=== PATIENT | female | born 1990 | race Caucasian/White ===

== ENCOUNTER 2020-10-21 19:20 | Emergency (ER) | payer OTHER, SELFPAY ==
[2020-10-21 19:28] VITALS: BP 109/61; PULSE 83; RESP 18; TEMP 37.3; O2SAT 100
--- NOTE | 2020-10-21 19:46 | ED.SKABFB ---
HPI - Skin/Abscess/Foreign Bdy General Chief complaint: Skin/Abscess/Foreign Body Stated complaint: swollen lt nipple Time Seen by Provider: 10/21/20 19:35 Source: patient, RN notes reviewed and old records reviewed Mode of arrival: ambulatory Limitations: no limitations History of Present Illness HPI narrative: 30 year old female who [facility] with 3 days of pain, swelling, and redness of left nipple. 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 Patient reports that she did have a piercing in her nipple but she removed it when she started getting the pain and swelling of her left nipple. Patient states that she has applied Epsom salt soaks to her left nipple but it has continued to be red and tender. Patient denies any known fevers,chills, or sweats or any other ill symptoms. MD complaint: other (swollen left nipple and tenderness) Onset (ago): day(s) (3) Severity: moderate Severity scale (1-10): 6 Quality: aching Pain Consistency: constant Exacerbating factors: palpation Associated symptoms: denies other symptoms Treatments prior to arrival: other (epsom salt soaks) Related Data Home Medications Medication Instructions Recorded Confirmed bupropion HCl 150 mg PO DAILY 10/21/20 10/21/20 norgestimate-ethinyl estradiol 1 tablet PO DAILY 10/21/20 10/21/20 [Estarylla] Allergies Allergy/AdvReac Type Severity Reaction Status Date / Time No Known Allergies Allergy Unverified 10/21/20 19:50 Review of Systems Review of Systems: Narrative: CONSTITUTIONAL: Denies fever, chills, or sweats. EYES: Denies visual changes, redness, or discharge. ENT: Denies rhinorrhea, congestion, sore throat, or otalgia. CARDIOVASCULAR: Denies chest pain, palpitations, or edema. RESPIRATORY: Denies cough or dyspnea. GASTROINTESTINAL: Denies abdominal pain, nausea, vomiting, or diarrhea. GENITOURINARY: Denies dysuria or hematuria. SKIN: Denies rash or itching.redness with swelling and tenderness to eft nipple MUSCULOSKELETAL: Denies back pain, joint pain, or myalgia. NEUROLOGIC: Denies headache, numbness, or weakness. PSYCHIATRIC: Denies anxiety or depression. All systems reviewed & are unremarkable except as noted in HPI and below PMFSH Past Medical History Medical History (Updated 10/22/20 @ 00:00 by Leesa Jesus) Anxiety Kidney infection pyelonephritis Surgical History Surgical History (Updated 10/21/20 @ 20:15 by Ruchi Suarez NP) No pertinent past surgical history Family History Family History (Updated 10/21/20 @ 20:07 by Ruchi Suarez NP) Father Diabetes mellitus Grandparent Cancer Social History Social History (Updated 10/21/20 @ 20:08 by Ruchi Suarez NP) Smoking status: Former smoker Additional smoking assessment comments: quit 2 months ago Alcohol intake: current Substance use: never Living arrangements: with family Gender identity (if verbalized by the patient): Female Comments At time of signature, agree with nursing past medical, surgical, social and family history. There is no relevant family history pertinent to the presenting complaint Exam Narrative: Exam Narrative: GENERAL: Well-appearing, well-nourished, and in no acute distress. HEAD: Normocephalic, atraumatic. EYES: PERRLA and EOMI. ENT: Nares clear, no rhinorrhea or epistaxis. Mucous membranes moist. NECK: Supple.no lymphadenopathy CHEST: Clear to auscultation. No respiratory distress HEART: Regular rate and rhythm. No murmur heard. Normal peripheral pulses. ABDOMEN: Soft, nontender, nondistended, normal active bowel sounds. EXTREMITIES: Normal range of motion. No edema. SKIN: Warm, dry, redness with pain and swelling of left nipple for the past 3 days, No drainage from nipple or any surrounding induration, reports constant achy
== END 2020-10-21 20:00 | disposition home or self-care (01) ==
PROVIDERS: Emergency Provider Registered Nurse
DX: N64.89 Other specified disorders of breast (principal); L30.9 Dermatitis, unspecified; Z87.891 Personal history of nicotine dependence
CPT/HCPCS: 99213; G0463

== ENCOUNTER 2020-12-01 13:48 | Emergency (ER) | payer OTHER, SELFPAY ==
[2020-12-01 13:55] VITALS: BP 116/92; PULSE 105; RESP 16; TEMP 37.2; O2SAT 100
--- NOTE | 2020-12-01 14:26 | ED.URI ---
HPI - URI/Sore Throat General Chief Complaint: Upper Respiratory Infection Stated Complaint: Coughing, Sore Throat, Ear pain, Fatigue Time Seen by Provider: 12/01/20 14:27 Source: patient Mode of arrival: ambulatory Limitations: no limitations History of Present Illness HPI Narrative: Alee Keyes is a 30 yo female with no PMH, P 1 G 0 A 0 , who comes to [facility] with complaints of congestion and cough. She states that she is 2 months . She states that the congestion and coughing is made her ribs sore and she is got pain along her esophagus. When asked if she is having morning sickness or any kind of gastric reflux she stated that she did not really know what that was. She has not been vomiting Related Data Allergies Allergy/AdvReac Type Severity Reaction Status Date / Time No Known Allergies Allergy Unverified 10/21/20 19:50 Review of Systems Review of Systems: Narrative: CONSTITUTIONAL: Denies fever, chills, sweats. EYES: Denies visual changes, redness, discharge. ENT: Has rhinorrhea, has congestion, mild sore throat, left otalgia. CARDIOVASCULAR: Denies chest pain, palpitations, edema. RESPIRATORY: Denies dyspnea, wheezing, has dry cough GASTROINTESTINAL: Denies abdominal pain, nausea, vomiting, diarrhea. GENITOURINARY: Denies dysuria, hematuria, abnormal discharge SKIN: Denies rash or itching. NEUROLOGIC: Denies numbness, or focal weakness. PSYCHIATRIC: Denies anxiety or depression. [facility] Past Medical History Medical History Anxiety Kidney infection pyelonephritis Surgical History Surgical History No pertinent past surgical history Family History Family History Father Diabetes mellitus Grandparent Cancer Social History Social History (Updated 12/01/20 @ 14:37 by Alexa Caro CNP) Smoking status: Former smoker Additional smoking assessment comments: quit 2 months ago Alcohol intake: current Alcohol use details: Stopped alcohol use with Substance use: never Gender identity (if verbalized by the patient): Female Comments At time of signature, I agree with nursing past medical, surgical, social and family history. There is no relevant family history pertinent to the presenting complaint. Blood pressure elevated today; follow-up with primary care physician this week Exam Narrative: Exam Narrative: GENERAL: This is a well-nourished, well-developed patient, in mild distress. HEAD: normocephalic, atraumatic. EYES: Sclera clear/white. Vision is grossly intact. EARS: External ears normal, auditory canals clear and without drainage, TMs -fluid behind left TM. Hearing grossly intact. NOSE: External nose normal without nasal discharge, nares with redness, has rhinorrhea. THROAT: Mucous membranes moist, posterior pharynx erythema NECK: Neck supple, non-tender CARDIOVASCULAR: Tachycardic rate and rhythm without murmurs, gallops, or rubs. RESPIRATORY: Clear to auscultation. Breath sounds equal bilaterally. No wheezes, rales, or rhonchi. GASTROINTESTINAL: Abdomen soft, non-tender, SKIN: warm, intact with no suspicious lesions or rash, good texture and turgor. NEURO: awake, alert, and oriented to person, place and time. There were no obvious focal neurologic abnormalities. Steady gait EXTREMITIES: Normal range of motion. BACK: Nontender without deformity Course Course Emergency Course: Patient comes with cold symptoms and dry cough that she said started on Thursday. States that she coughs more at night and that her ribs are hurting and that she has mid-chest pain from coughing Rapid Covid- negative Started on Benadryl, Delsym, Zyrtec, and Pepcid she is to follow-up with her OB and primary care physician Vital Signs Vital signs: Vital Signs Temperature 99 F 12/01/20 13:55 Pulse Rate 105 H 12/01/20 13
== END 2020-12-01 15:11 | disposition home or self-care (01) ==
PROVIDERS: Emergency Provider Nurse Practitioner
DX: J06.9 Acute upper respiratory infection, unspecified (principal); Z20.822 Contact with and (suspected) exposure to COVID-19
CPT/HCPCS: 87426; 99213; C9803; G0463

== ENCOUNTER 2021-03-12 15:42 | Emergency (ER) | payer OTHER, SELFPAY ==
[2021-03-12 15:56] VITALS: BP 123/57; PULSE 94; RESP 16; TEMP 37.2; O2SAT 100
--- NOTE | 2021-03-12 16:07 | ED.FEMALEGU ---
HPI - Female Genitourinary General Chief complaint: Urogenital-Female Stated complaint: Chills/ Body Ache/Urinary Problem Time Seen by Provider: 03/12/21 16:04 Source: patient and RN notes reviewed Mode of arrival: ambulatory Limitations: no limitations History of Present Illness HPI Narrative: 30-year-old female 22 weeks presents concern for pyelonephritis urinary tract infection. Reports bilateral low back discomfort, frequency, dysuria. She reports nausea, chills, body aches. Denies vomiting or abdominal pain. Reports she was treated for urinary tract infection successfully 1 month ago MD elicited complaint: UTI Related Data Allergies Allergy/AdvReac Type Severity Reaction Status Date / Time Sulfa (Sulfonamide Allergy Nausea and Verified 03/12/21 16:05 Antibiotics) Vomiting Review of Systems Review of Systems: CONSTITUTIONAL: Denies malaise, chills, sweats, or fever. CARDIOVASCULAR: Denies chest pain, palpitations, or edema. RESPIRATORY: Denies cough or dyspnea. GASTROINTESTINAL: Denies abdominal pain, vomiting, diarrhea. Reports nausea GENITOURINARY: Reports dysuria, frequency. Denies hematuria. SKIN: Denies rash or itching. MUSCULOSKELETAL: Reports low back pain and myalgia. All systems reviewed & are unremarkable except as noted in HPI and below PMFSH Comments At time of signature, agree with nursing past medical, surgical, social and family history. There is no relevant family history pertinent to the presenting complaint Exam Narrative: GENERAL: Well-appearing, well-nourished, and in no acute distress. HEAD: Normocephalic. EYES: PERRLA, conjunctivae clear. NECK: Supple. No lymphadenopathy CHEST: Clear to auscultation. No respiratory distress. HEART: Regular rate and rhythm. ABDOMEN: No CVA tenderness SKIN: Warm, dry, no rash. NEURO: Alert and oriented x3. PSYCH: Normal mood and affect Course Course Emergency Course: Patient is aware of diagnosis, understands and agrees to treatment plan. Anticipatory guidance given. Patient agrees to follow-up as directed and is aware of reasons to seek care at the emergency department. Portions of this record may have been created with voice recognition software Vital Signs Vital signs: Vital Signs Temperature 99.0 F 03/12/21 15:56 Pulse Rate 94 03/12/21 15:56 Respiratory Rate 16 03/12/21 15:56 Blood Pressure 123/57 L 03/12/21 15:56 Pulse Oximetry 100 03/12/21 15:56 Temperature 99.0 F 03/12/21 15:56 Pulse Rate 94 03/12/21 15:56 Respiratory Rate 16 03/12/21 15:56 Blood Pressure 123/57 L 03/12/21 15:56 Pulse Oximetry 100 03/12/21 15:56 Reviewed. MDM - Female Genitourinary MDM Narrative Medical decision making narrative: Exam findings and UA show no acute concerns or changes; patient is non-toxic appearing and is in no distress. Patient is appropriate for outpatient treatment and follow-up. Critical Care Time Critical Care Time Critical Care Time: No Discharge Plan Discharge Clinical Impression: Urinary tract infection Qualifiers: Urinary tract infection type: site unspecified Hematuria presence: without hematuria Qualified Code(s): N39.0 - Urinary tract infection, site not specified Patient Disposition: Home, Self-Care Condition: Stable Instructions: Antibiotic Form, Urinary Tract Infection in (ED) Additional Instructions: We will send a urine culture to the lab; if the culture identifies an organism that the prescribed antibiotic will not treat, you will receive a phone call from an urgent care staff member and an appropriate antibiotic will be prescribed. -Your symptoms should begin to improve within a day of starting antibiotics. But you should finish all the antibiotic pills you get. Otherwise your infection might come back. -Also recommend: increase water intake. Tylenol/ibuprofen as needed for pain or fever -Follow-up with your primary care provider for urine recheck or seek ER visit
== END 2021-03-12 16:18 | disposition home or self-care (01) ==
PROVIDERS: Emergency Provider Nurse Practitioner
DX: N39.0 Urinary tract infection, site not specified (principal); F32.9 Major depressive disorder, single episode, unspecified
CPT/HCPCS: 81003; 87077; 87086; 87088; 87186; 99213; G0463

== ENCOUNTER 2021-03-16 14:04 | Emergency (ER) | payer OTHER, SELFPAY ==
[2021-03-16 14:16] VITALS: BP 85/51; PULSE 75; RESP 16; TEMP 36.6; O2SAT 100
[2021-03-16] MEDS: cefTRIAXone 500 MG VIAL IM (14:54)
--- NOTE | 2021-03-16 15:02 | ED.RECABL ---
HPI - Recheck/Abnormal Lab/Rx General Chief Complaint: Recheck/Abnormal Lab/Rx Stated Complaint: Urinary Problem Time Seen by Provider: 03/16/21 15:10 Source: patient Mode of arrival: ambulatory Limitations: no limitations History of Present Illness HPI narrative: Alee is a 31-year-old female patient who is 20 weeks who ambulated into the [facility]. Patient was seen here on 1019 for urinary complaints; was put on Keflex during that visit. Patient Urine was sent for culture; culture he returned showing a resistance to Keflex. Patient is allergic to sulfa. Dr. Cruz was notified of result verified Rocephin 500 mg IM was the treatment of choice. Related Data Home Medications Medication Instructions Recorded Confirmed buspirone 5 mg PO BID 03/12/21 03/16/21 metoclopramide HCl 10 mg PO QID 03/12/21 03/16/21 Allergies Allergy/AdvReac Type Severity Reaction Status Date / Time Sulfa (Sulfonamide Allergy Nausea and Verified 03/16/21 14:40 Antibiotics) Vomiting Review of Systems Review of Systems: CONSTITUTIONAL: Denies body aches, fever, chills, or sweats. EYES: Denies visual changes, redness, or discharge. ENT: Denies rhinorrhea, congestion, sore throat, or otalgia. CARDIOVASCULAR: Denies chest pain, palpitations, or edema. RESPIRATORY: Denies cough or dyspnea. GASTROINTESTINAL: Denies abdominal pain, nausea, vomiting, or diarrhea. GENITOURINARY: + dysuria denies hematuria. SKIN: Denies rash, itching, or wounds. MUSCULOSKELETAL: Denies back pain, joint pain, or myalgia. NEUROLOGIC: Denies headache, numbness, tingling, or weakness. PSYCH: Denies depression or anxiety. All systems reviewed & are unremarkable except as noted in HPI and below PMFSH Comments At time of signature, I have reviewed and agree with nursing past medical, surgical, social and family history unless otherwise noted. Please see nursing chart for further information. There is no relevant family history pertinent to the presenting complaint Exam Narrative: GENERAL: Well-appearing, well-nourished, and in no acute distress. HEAD: Normocephalic, atraumatic. EYES: EOMI. No redness or drainage. Conjunctivae normal. ENT: Mucous membranes pink and moist. Nares clear. No rhinorrhea. TMs normal bilaterally. Throat normal. Uvula midline. NECK: Normal AROM. Supple. No lymphadenopathy. CHEST: No respiratory distress. Clear to auscultation. HEART: Regular rate and rhythm. No murmur appreciated. Normal peripheral pulses. ABDOMEN: Soft, nontender, nondistended, normal active bowel sounds. MUSCULOSKELETAL: No bony tenderness; negative CVA tenderness bilaterally EXTREMITIES: Normal range of motion. No edema. SKIN: Warm, dry, no rash. Capillary refill normal. Normal skin turgor. NEURO: No focal deficits. Alert and oriented x3. Gait steady. PSYCH: Normal affect. No signs of depression or anxiety. Course Vital Signs Vital signs: Vital Signs Temperature 36.6 C 03/16/21 14:16 Pulse Rate 75 03/16/21 14:16 Respiratory Rate 16 03/16/21 14:16 Blood Pressure 85/51 L 03/16/21 14:16 Pulse Oximetry 100 03/16/21 14:16 Temperature 36.6 C 03/16/21 14:16 Pulse Rate 75 03/16/21 14:16 Respiratory Rate 16 03/16/21 14:16 Blood Pressure 85/51 L 03/16/21 14:16 Pulse Oximetry 100 03/16/21 14:16 Reviewed MDM - Recheck/Abnormal Lab/Rx MDM Narrative Medical decision making narrative: Patient was sent here for evaluation of urinary tract infection her culture from 1018 showed resistance to Keflex. Spoke with Dr. Ibarra and she stated to order Rocephin [address] Cruz sent the patient back to [facility] with a Rocephin IM as Anthony's office is closed until Thursday. Patient requesting Diflucan 1 tablet. Differential Diagnosis Differential diagnosis: Likely other (medication for UTI) Medical Records Attestation: I reviewed the patient's medical records. Critical Care Time Critical Care Time Critical Care
== END 2021-03-16 15:22 | disposition home or self-care (01) ==
PROVIDERS: Emergency Provider Nurse Practitioner Family
DX: O23.42 Unspecified infection of urinary tract in pregnancy, second trimester (principal); N39.0 Urinary tract infection, site not specified; Z3A.20 20 weeks gestation of pregnancy; O99.342 Other mental disorders complicating pregnancy, second trimester; F32.A Depression, unspecified
CPT/HCPCS: 96372; 99213; G0463; J0696

== ENCOUNTER 2021-07-24 16:15 | Inpatient (IN) | payer OTHER, SELFPAY ==
[2021-07-24] VITALS (9 sets, daily range): BP systolic 105–117; BP diastolic 64–90; PULSE 79–96; RESP 16; TEMP 36.8–37.3; BMI 28.6
--- NOTE | 2021-07-24 16:46 | LDADM ---
This patient, Alee Choi, was admitted to Labor/Delivery/Recovery 108 on 07/24/21 at 16:15. Plans for labor, pain management and were discussed with patient. Patient/family oriented to hospital policies and general routines including ID bracelet, bed and alarms, visiting hours, pain management, procedures, bathroom and other care routines, personal items, smoking policy, room service/diet and guest tray routines, security routines, and visiting hours. Patient/Family are encouraged to report perceived risks to care and to ask questions if they do not understand what they are told or what they should do. See OBIX for further documentation.
[2021-07-24 17:06] LABS: Basophils Percent Auto 0.2 % (0.2-1.2); Eosinophils Percent Auto 0.2 % (0-4.4); Hematocrit 36.1 % (37.0-47.0); Hemoglobin 12.3 g/dL (12.0-15.0); Immature Granulocyte Absolute 0.06 K/mm3 (0.00-0.031); Immature Granulocyte Percent A 0.5 % (0-0.5); Lymphocytes Absolute Auto 1.74 K/mm3 (0.9-3.2); Lymphocytes Percent Auto 13.3 % (18.3-44.2); Mean Corpuscular HGB Conc 34.1 g/dl (32-36); Mean Corpuscular Hemoglobin 30.2 pg (26-34); Mean Corpuscular Volume 88.7 fl (80-100); Mean Platelet Volume 12.4 fl (7.4-10.4); Monocytes Absolute Auto 1.4 K/mm3 (0.1-0.6); Monocytes Percent Auto 10.7 % (2.6-8.5); Neutrophils Absolute Auto 9.8 K/mm3 (1.3-6.7); Neutrophils Percent Auto 75.1 % (45.5-73.1); Platelet Count Result 162 k/mm3 (150-375); Red Blood Count 4.07 M/mm3 (4.2-5.4); Red Cell Distribution Width 15.9 % (11.5-14.5); White Blood Count 13.1 K/mm3 (4.5-10.0)
--- NOTE | 2021-07-24 17:10 | P.PNAN_ITS ---
Anes - Eval Pre Procedure Procedure: labor epidural Date/Time: 07/24/21 17:10 Surgeon: paige Pre Op Diagnosis: IOL Patient Data Age: 31 Gender: F Height: 1.57 m Weight: 71 kg Last Vital Signs Pulse 96 07/24/21 17:01 BP 114/76 07/24/21 17:01 Allergies Allergy/AdvReac Type Severity Reaction Status Date / Time Sulfa (Sulfonamide AdvReac Nausea and Verified 07/02/21 12:46 Antibiotics) Vomiting Home Medications Medication Instructions Recorded Confirmed Type buspirone 5 mg PO BID 07/02/21 07/24/21 History cholecalciferol (vitamin D3) 25 mcg PO DAILY 07/02/21 07/24/21 History [Vitamin D3] prenat.vits,evelin,dqq-tole-xwojv 1 tablet PO DAILY 07/02/21 07/24/21 History [ #2] valacyclovir [Valtrex] 500 mg PO Q12H 07/02/21 07/24/21 History Patient hx anesthesia problems: none Family hx anesthesia problems: none Results Review: All pre-operative results and documents have been reviewed as part of the pre-operative evaluation. [facility] Family History Family History (Updated 07/02/21 @ 12:50 by Frank Moreland RN) Father Diabetes mellitus Chronic obstructive pulmonary disease Mother Chronic obstructive pulmonary disease Social History Social History Smoking status: Never smoker Substance use: never Spiritual care concerns: No Exam Day of Procedure 07/24/21 17:10
[2021-07-24] MEDS: DINOPROSTONE 10 MG VAG INSERT VAGINAL (17:16)
[2021-07-24] MEDS: valACYclovir HCL 500 MG TABLET PO (23:27)
[2021-07-24] MEDS: busPIRone HCL 5 MG TABLET PO (23:27)
[2021-07-25] VITALS (223 sets, daily range): BP systolic 34–123; BP diastolic 19–93; PULSE 67–165; RESP 16; TEMP 36.3–38.2; O2SAT 79–100
[2021-07-25] MEDS: OXYTOCIN 30 UNITS/NS 500 ML 30 UNITS/500 ML BAG 6 UNITS IV CONT (06:53)
[2021-07-25] MEDS: LACTATED RINGERS 1,000 ML 125 ML IV CONT ×3 (06:54→23:47)
--- NOTE | 2021-07-25 07:58 | WPDOBADMIT ---
Obstetrics - Admit Note Admission Note: record reviewed. No pertinent additions to the history and/or any subsequent changes in the physical findings that are not consistent with the expected course of the were found. Additions to the history and/or subsequent changes in the physical findings follow. None.Here for MIL at 39 wks. Cervadil last pm. Now 1-/-2 AROM with clear fluid. FHTs reactive
[2021-07-25] MEDS: valACYclovir HCL 500 MG TABLET PO (10:54)
[2021-07-25] MEDS: busPIRone HCL 5 MG TABLET PO (10:55)
[2021-07-25] MEDS: fentaNYL CITRATE INJ (*CRX) 100 MCG/2 ML VIAL 50 MCG IV PUSH (11:29)
[2021-07-25 11:39] LABS: Rapid Plasma Reagin Non-Reactive (NonReactive)
[2021-07-25] MEDS: ONDANSETRON INJ 4 MG/2 ML VIAL IV PUSH (23:24)
[2021-07-26] VITALS (144 sets, daily range): BP systolic 74–111; BP diastolic 39–73; PULSE 26–134; RESP 14–20; TEMP 35.9–38.2; O2SAT 67–100
[2021-07-26] MEDS: ACETAMINOPHEN 500 MG TABLET 1000 MG PO (00:23)
[2021-07-26] MEDS: AMPICILLIN 1 GM/NS 50 ML 1 GM/50 ML BAG IVPB ×2 (00:23→04:42)
[2021-07-26] MEDS: valACYclovir HCL 500 MG TABLET PO (00:24)
[2021-07-26] MEDS: busPIRone HCL 5 MG TABLET PO ×3 (00:24→20:06)
[2021-07-26] MEDS: LACTATED RINGERS 1,000 ML 125 ML IV CONT (01:40)
--- NOTE | 2021-07-26 05:26 | WPDANESEFPP ---
Anes - Eval Final PreProcedure Day of Procedure 07/26/21 05:26 Patient weight: overweight Heart: regular rate and rhythm Lungs: clear to auscultation Airway: Mallampati scale class II Neurological: alert and oriented Last oral intake: 2 hours (clears) ASA classification: II Emergent: no Anesthetic plan: proceed Anesthesia type and monitoring: regional (existing epidural for C/S) epidural and standard monitoring Results Review: All pre-operative results and documents have been reviewed as part of the pre-operative evaluation. Informed Consent: The patient's anesthetic plan of using existing labor epidural for C/S with Dr. Cruz for failure to progress and its attendant risks and benefits were discussed with the patient/family/POA. Questions were solicited and answers provided to the satisfaction of the patient/family/POA.
[2021-07-26] MEDS: ceFAZolin 2 GM/D5W 50 ML 2 GM/50 ML BAG IVPB (05:52)
--- NOTE | 2021-07-26 06:35 | P.OP_ITS ---
Procedure Note - Detailed Date of Procedure 07/26/21 Pre-op Diagnosis 39 weeks with failure to progress in labor and intolerance of labor Post-op Diagnosis Same Procedure Performed primary low transverse section Surgeon Mariaa Cruz MD Anesthesia Epidural Indications the patient had slow progress of labor to 5cm and has stalled. Changes position and variations in Pitocin have not resulted in further change. Patient has now developed random late decelerations with increasing Pitocin. Patient developed a fever and initially had tachycardia. tachycardia did resolve with Tylenol and antibiotics. It was recommended to proceed with primary due to intolerance of labor and failure to progress. Findings Male infant left occiput posterior position. Apgars of 8 [id number] weighing 7lb 2oz. Normal appearing tubes, ovaries, and uterus. Description of Procedure the patient is taken to the operating room and placed under anesthesia in the dorsal supine position with a leftward tilt. Once anesthesia was deemed adequate, a Pfannenstiel skin incision was made with a scalpel. The fascia is nicked in the midline with the scalpel. The fascial incision is extended laterally using Grande scissors. Ochsner was used to tent the fascia which was then dissected off using sharp and blunt dissection. The rectus muscles are in the midline and the peritoneum tented and entered with Metzenbaum. The bladder blade is placed in the vesicouterine peritoneum tented and entered with Metzenbaum scissors. A bladder flap was created digitally and the bladder blade replaced. The lower uterine segment was incised in a transverse fashion with the scalpel and extended laterally using blunt traction. The 's head was brought up into the incision and delivered while the certified physician's assistant applied fundal pressure. The remainder of the is delivered. The cord was clamped and cut and the handed to the waiting nursery nurse. The cord was noted to be short. Cord gases and cord blood were taken. The patient was uncomfortable with peritoneal manipulation to the uterus was left inside tube. The distal edge was grasped with ring forceps. The uterine incision was closed using 0 Monocryl in a running locked fashion with the same suture used to imbricate. One additional [id number] suture was required in the right ang le. Good hemostasis was then obtained. The gutters are irrigated. The incision is again inspected and noted to be hemostatic. The fascia was closed using 0 Vicryl in a running fashion. Subcutaneous tissues are irrigated and made hemostatic using Bovie cautery. Skin incision was closed using 4-0 Vicryl in a subcuticular fashion. Dermaflex was placed over the incision. Sponge, needle, and instrument counts are correct per the OR staff. Patient was given Ancef prior to skin incision and she had previously been given ampicillin and gentamicin. Patient was taken to the recovery in stable condition. Estimated Blood Loss 930 Urine Output 900 Drains Yes ( Nguyen catheter) Packing No Pathology Yes ( placenta) Complications No immediate complications Condition Stable Disposition Floor
--- NOTE | 2021-07-26 06:41 | PM.OBDSVD ---
DS: Admitting Diagnosis Discharge Date 07/28/21 Admitting Diagnosis intrauterine at 39 weeks for medical induction of labor DS: Discharge Diagnosis Discharge Diagnosis (1) delivery delivered: Code(s): O82 - Encounter for delivery without indication Status: Acute (2) Failure to progress in labor, delivered, current hospitalization: Code(s): O62.2 - Other uterine inertia Status: Acute (3) intolerance to labor, delivered, current hospitalization: Code(s): O77.9 - Labor and delivery complicated by stress, unspecified Status: Acute OB - DS: Summary OB Procedures : Ultrasound OB Procedures Intrapartum: low cervical, transverse and Other ( chorioamnionitis treated with ampicillin and gentamicin) OB Procedures: : None Peripartum Data Infant Delivery Method: Section complications: none Status at Discharge Functional status at discharge: independent ambulation Overall status at discharge: patient is progressing back to baseline Time Spent with Patient Time attestation: Total time spent providing and/or coordinating discharge services: DS: Data Data Completed and Pending Pending studies at discharge: Pending at discharge 07/26/21 06:10 Surgical [PTH] Routine Labs on day of discharge: Labs from last 24 hours 07/24/21 16:42 RPR Non-reactive Discharge Plan Discharge Attending physician on discharge: Mariaa Cruz Discharging Clinician: Marquez Orlando Anticipated Discharge Date/Time: 07/28/21 11:00 Patient Disposition: Home, Self-Care Activity: may shower, may drive after 2 weeks and pelvic rest Diet: regular Wound Care Instructions: incision open to air Discharge Instructions: Education: Mom and Baby Guide Given to: Mother Follow-Up: Call your delivering provider's office for an appointment to be seen in: 1 Week Mom and baby should come to the [facility] for the follow-up appointment. Appointment Date/Time: July 30, 2021 at 10:00 am What to expect at your follow-up visit: Physical Assessment Call [phone] if you are unable to keep your appointment time. BREAST CARE: * Wear a snug supportive bra. * For engorgement discomfort: Breast Feeding: * Apply warm moist washcloths * Express milk as needed to relieve engorgement * Wear loose clothing * For sore nipples: * Identify correct latch-on * Apply warm moist washcloths before and after nursing * Air dry nipples after nursing * May apply Lansinoh cream to nipples ABDOMINAL INCISION: (if applicable) * Allow incision to air dry * Do NOT use lotions for powders on your incision * When showering, allow soap and water to run over the incision, but do not wash incision EPISIOTOMY/PERINEAL CARE: * Until bleeding stops, use your brad bottle after urinating * Change your pad frequently throughout the day * No tub baths until seen by your physician - You may shower ACTIVITY: * Rest as much as possible. * Do not exercise or lift anything heavier than your baby (such as laundry or other children.) * Avoid stairs or driving as much as possible. * Do not put anything into the vagina. No douching, tampons, or sexual activity until seen by physician. NOTIFY PHYSICIAN IF YOU HAVE ANY QUESTIONS OR IF ANY OF THE FOLLOWING SYMPTOMS OCCUR: * If your incision becomes red, swollen, or more painful than what you have experienced in the hospital. * If your vaginal bleeding becomes foul smelling. * If your vaginal bleeding becomes more heavy than a period or if your bleeding changes from pink to bright red. However, you may pass an occasional walnut-sized clot once or twice for the first week . * If you experience a sharp, shooting pain in you calves. * If you discover a hard, reddened area on
[2021-07-26] MEDS: fentaNYL CITRATE INJ (*CRX) 100 MCG/2 ML VIAL 25 MCG IV PUSH ×9 (07:19→08:36)
[2021-07-26] MEDS: OXYTOCIN 30 UNITS/NS 500 ML 30 UNITS/500 ML BAG 125 UNITS IV CONT (07:49)
[2021-07-26] MEDS: KETOROLAC 30 MG/ML VIAL (*BKC) IV PUSH ×2 (09:00→15:52)
--- NOTE | 2021-07-26 09:15 | PC.NURSE ---
Patient transferred to post room #288 via stretcher. Support person present. Oriented to unit, room, information board, rooming in, admission packet and security measures. Patient verbalizes understanding.
[2021-07-26] MEDS: DEXTROSE 5%/0.45% SOD CHL 1,000 ML 125 ML IV CONT (11:45)
--- NOTE | 2021-07-26 13:16 | PC.NURSE ---
1100 - 1200 Introduction were made and patient consulted to assess needs related to . Mother led conversation with her experience with feeding baby so far and her new desire to breastfeed her . Mother works well with her infant. Reviewed good handwashing when working with , breast, nipples and how to protect the nipples with a deep latch. (Assisted with washing hands) Encouraged understanding the benefits of skin to skin, responding to feeding cues, frequencies of feeding 8-12 times in 24 hours (approximately 2-3 hours), duration of feedings, milk production, intake/output feeding sheet and signs of adequate intake. Discussed stimulating with skin to skin, hand expressing colostrum, touch and talking to to encourage eating at the breast. Reviewed positioning and alignment, supporting breast, off-centered (asymmetrical latch) and leading with the chin with big open wide gape. attempted to self attach to the breast but no sucking observed. Mother demonstrated education received on hand expression and finger feeds colostrum to infant. Baby show intermittent feeding cues and attempts to breastfeed but no latch. Nipple care importance to have clean hands when touching the nipple/breast. Resources used to facilitate learning were used from the visual handouts/ tool/mom and baby guide. 1202 - Blood sugar checked and results were 47.Parents voiced understanding responding to feeding cues, may need to stimulating infant approximately 2-3 hours from the start of the last feeding, calling for assistance if the infant does not latch or there discomfort . Reported to primary RN.
[2021-07-26] MEDS: SIMETHICONE 80 MG TAB.CHEW PO ×3 (13:17→23:55)
[2021-07-26] MEDS: HYDROcodone/acetaminophen (*CRX) 5-325 MG TABLET 1 TAB PO ×3 (13:18→21:15)
--- NOTE | 2021-07-26 15:15 | PC.NURSE ---
1400 - 1500 Consulted with patient to assess needs related to . Mother led conversation with her experience with feeding baby so far. Mother works well with her and father of the baby is a great support. Reviewed good handwashing when working with infant, breast, nipples and how to protect the nipples with a deep latch. Encouraged understanding the benefits of skin to skin, responding to feeding cues, frequencies of feeding 8-12 times in 24 hours (approximately 2-3 hours), duration of feedings, milk production, intake/output feeding sheet and signs of adequate intake. Discussed stimulating infant with skin to skin, hand expressing colostrum, touch and talking to to encourage eating at the breast. Reviewed positioning and alignment, supporting breast, off-centered (asymmetrical latch) and leading with the chin with big open wide gape. Many attempts were made to achieve an optimal latch to both breast in football and cross cradle. Nipple care reviewed. Resources used to facilitate learning were used from the visual handouts/ tool. rarely demonstrated a big open wide gape for latching. Infant is sleepy and reluctant. Mother hand expressed colostrum into a spoon and RN syringe fed infant 1.4 mls of colostrum. had a large void, was content so mother is going to rest for a while. Great efforts from the parents. Mother voiced understanding responding to feeding cues, may need to stimulating approximately 2-3 hours from the start of the last feeding, calling for assistance if the does not latch or there discomfort . Reported to primary RN.
--- NOTE | 2021-07-26 15:56 | PC.NURSE ---
1530 - Reviewed resources with mom and baby guide and answered questions. Primary RN is present.
[2021-07-26] MEDS: IBUPROFEN 600 MG TABLET PO (23:55)
[2021-07-26] MEDS: HYDROcodone/acetaminophen (*CRX) 10-325 MG TABLET 1 TAB PO (23:55)
[2021-07-27 04:25] VITALS: BP 105/65; PULSE 90; RESP 16; TEMP 36
[2021-07-27] MEDS: HYDROcodone/acetaminophen (*CRX) 10-325 MG TABLET 1 TAB PO ×4 (04:42→17:05)
[2021-07-27] MEDS: SIMETHICONE 80 MG TAB.CHEW PO ×4 (04:42→23:08)
[2021-07-27 05:29] LABS: Basophils Absolute Auto 0.1 K/mm3 (0.0-0.1); Basophils Percent Auto 0.3 % (0.2-1.2); Eosinophils Absolute Auto 0.1 K/mm3 (0-0.3); Eosinophils Percent Auto 0.4 % (0-4.4); Hematocrit 29.8 % (37.0-47.0); Hemoglobin 9.7 g/dL (12.0-15.0); Lymphocytes Absolute Auto 1.82 K/mm3 (0.9-3.2); Lymphocytes Percent Auto 8.8 % (18.3-44.2); Mean Corpuscular HGB Conc 32.6 g/dl (32-36); Mean Corpuscular Hemoglobin 30.9 pg (26-34); Mean Corpuscular Volume 94.9 fl (80-100); Mean Platelet Volume 12.2 fl (7.4-10.4); Monocytes Absolute Auto 2.1 K/mm3 (0.1-0.6); Neutrophils Absolute Auto 16.5 K/mm3 (1.3-6.7); Neutrophils Percent Auto 79.5 % (45.5-73.1); Platelet Count Result 138 k/mm3 (150-375); Red Blood Count 3.14 M/mm3 (4.2-5.4); White Blood Count 20.8 K/mm3 (4.5-10.0)
[2021-07-27 08:00] VITALS: BP 101/54; PULSE 68; RESP 16; TEMP 36; O2SAT 100
[2021-07-27] MEDS: POLYSACCHARIDE IRON COMPLEX 150 MG CAPSULE PO ×2 (08:06→17:05)
[2021-07-27] MEDS: DOCUSATE SODIUM 100 MG CAPSULE PO ×2 (08:06→17:04)
[2021-07-27] MEDS: MULTIVIT/MIN/PREN/FOL AC/IRON TABLET 1 TAB PO (08:06)
[2021-07-27] MEDS: IBUPROFEN 600 MG TABLET PO ×3 (08:07→23:08)
--- NOTE | 2021-07-27 08:20 | WPDANLDPN2 ---
Anes-Prog Note L&D Date/Time: 07/27/21 08:20 Comfortable throughout: section Neuraxial method: spinal Epidural/Spinal procedure site: clean & non-tender Neuro status: Neuro function grossly intact. Cardiovascular status: normal Respiratory status: normal Airway patency: baseline Mental status: baseline Post-Op hydration status: normal Vital Signs: Last Vital Signs Temp 96.8 F L 07/27/21 04:25 Pulse 90 07/27/21 04:25 Resp 16 07/27/21 04:25 BP 105/65 07/27/21 04:25 Pulse Ox 97 07/26/21 15:50 Pain score (VAS): 4 I/O: Intake & Output 07/26/21 07/27/21 07/27/21 23:59 07:59 15:59 Intake Total 800 Output Total 800 800 Balance 0 -800 Post-procedural complaints: none Patient feedback: Patient satisfied with anesthetic care.
--- NOTE | 2021-07-27 08:21 | WPDANLDNPN2 ---
Anes-Prog Note L&D-Neuraxial Date/Time: 07/27/21 08:21 Neuraxial medications: intrathecal PF morphine Opiod-related complaints: none Patient feedback: Patient satisfied with post-operative pain management.
--- NOTE | 2021-07-27 09:08 | PM.OBPNVD ---
OB - PN: Subj Subjective Date/time seen: 07/27/21 09:08 Narrative: POD#1 Alee reports doing well today. Her bleeding is light. Her pain is controlled when taking the medications. She is tolerating regular diet, voiding, and ambulating without issues. She has not passed gas yet; no BM in 5-6 days. She denies any issues with her incision. She is breast feeding + supplementing. She would like her son circumcised. OB - PN: Obj Data Labs CBC & Chem 7: 07/27/21 04:33 Labs: Laboratory Results - last 24 hr 07/27/21 04:33 WBC 20.8 H RBC 3.14 L Hgb 9.7 L Hct 29.8 L MCV 94.9 D MCH 30.9 MCHC 32.6 RDW 17.0 H Plt Count 138 L MPV 12.2 H Immature Gran % (Auto) 1.0 H Neut % (Auto) 79.5 H Lymph % (Auto) 8.8 L [place] % (Auto) 10.0 H Eos % (Auto) 0.4 Baso % (Auto) 0.3 Lymph # (Auto) 1.82 [place] # (Auto) 2.1 H Eos # (Auto) 0.1 Baso # (Auto) 0.1 Abs Immat Gran (auto) 0.20 H Absolute Neuts (auto) 16.5 H Absolute Nucleated RBC 0.0 Nucleated RBC % 0.0 OB - PN A/P Assessment and Plan (1) Failure to progress in labor, delivered, current hospitalization: Code(s): O62.2 - Other uterine inertia Status: Acute (2) delivery delivered: Code(s): O82 - Encounter for delivery without indication Status: Acute (3) intolerance to labor, delivered, current hospitalization: Code(s): O77.9 - Labor and delivery complicated by stress, unspecified Status: Acute Plan day: 1 Plan: routine care Comments: - encouraged to pump - will add miralax with the colace; can do suppository also as she has normal bowel sounds; ambulation encouraged - continue pain meds q3h - regular diet; water encouraged Time Spent With Patient Time: Total time spent is greater than 50% in coordination of care (as documented) at patient's floor/unit and/or counseling patient: Review of Systems Constitutional: Constitutional: Denies chills, Denies fever(s) and Denies headache(s) Eyes: Eyes: Denies change in vision ENT: Denies dizziness and Denies headache(s) Cardiovascular: Cardiovascular: Denies chest pain, Denies palpitations and Denies dyspnea Respiratory: Respiratory: Denies cough and Denies dyspnea Gastrointestinal: Gastrointestinal: Reports constipation, Denies nausea and Denies vomiting Genitourinary: Comments: normal bleeding Neurologic: Denies dizziness and Denies headache(s) Endocrine: Endocrine: Denies palpitations Exam Const: General: cooperative, comfortable and no acute distress Orientation/consciousness: patient oriented x3 Resp: Effort & Inspection: normal respiratory effort Auscultation: clear to auscultation bilaterally Cardio: Rate: regular rate GI: Inspection: distended and incision (c/d/i w/o signs of infection) GI Palp: Yes abdominal tenderness (appropriate) and Yes Soft to palpation Auscultation: normal bowel sounds : Other: fundus firm Skin: General skin exam: normal color Neuro: General: patient oriented x3 Extrem: General: normal to inspection Psych: Appearance: grossly normal Affect: normal affect Attitude: cooperative
[2021-07-27] MEDS: busPIRone HCL 5 MG TABLET PO ×2 (09:22→21:05)
[2021-07-27] MEDS: polyethylene glycoL 3350 17 GM POWD.PACK PO (11:58)
--- NOTE | 2021-07-27 16:37 | PC.NURSE ---
Patient viewed the discharge video Mother & Baby Care, The First Two Weeks . Patient was given the opportunity and encouraged to ask questions. Patient verbalized understanding of information shared and has been given the mother/baby guide for home reference.
[2021-07-27 19:30] VITALS: BP 107/66; PULSE 109; RESP 16; TEMP 37; O2SAT 100
[2021-07-27] MEDS: HYDROcodone/acetaminophen (*CRX) 5-325 MG TABLET 1 TAB PO (23:09)
[2021-07-28] MEDS: HYDROcodone/acetaminophen (*CRX) 5-325 MG TABLET 1 TAB PO (05:26)
[2021-07-28] MEDS: SIMETHICONE 80 MG TAB.CHEW PO ×2 (05:26→08:05)
[2021-07-28] MEDS: IBUPROFEN 600 MG TABLET PO (05:26)
[2021-07-28 08:00] VITALS: BP 104/63; PULSE 89; RESP 16; TEMP 37; O2SAT 100
[2021-07-28] MEDS: POLYSACCHARIDE IRON COMPLEX 150 MG CAPSULE PO (08:05)
[2021-07-28] MEDS: DOCUSATE SODIUM 100 MG CAPSULE PO (08:05)
[2021-07-28] MEDS: MULTIVIT/MIN/PREN/FOL AC/IRON TABLET 1 TAB PO (08:05)
[2021-07-28] MEDS: HYDROcodone/acetaminophen (*CRX) 10-325 MG TABLET 1 TAB PO (08:06)
[2021-07-28] MEDS: busPIRone HCL 5 MG TABLET PO (08:06)
[2021-07-28] MEDS: BISACODYL 10 MG SUPPOSITORY RECTAL (08:09)
[2021-07-28] MEDS: polyethylene glycoL 3350 17 GM POWD.PACK PO (11:00)
--- NOTE | 2021-07-28 11:10 | PM.OBDSVD ---
DS: Admitting Diagnosis Discharge Date 07/28/21 Admitting Diagnosis Induction of labor DS: Discharge Diagnosis Discharge Diagnosis (1) delivery delivered: Code(s): O82 - Encounter for delivery without indication Status: Acute (2) Failure to progress in labor, delivered, current hospitalization: Code(s): O62.2 - Other uterine inertia Status: Acute (3) intolerance to labor, delivered, current hospitalization: Code(s): O77.9 - Labor and delivery complicated by stress, unspecified Status: Acute OB - DS: Summary OB Procedures : Ultrasound OB Procedures Intrapartum: low cervical, transverse OB Procedures: : None Peripartum Data Delivery Method: Section Procedures: Procedures Operation Date: 07/26/21 06:00 Actual Procedure Side Surgeon p Section Mariaa Cruz MD complications: none 1: Gender: Male Disposition of : home Status at Discharge Functional status at discharge: independent ambulation Overall status at discharge: patient is back to baseline Time Spent with Patient Time attestation: Total time spent providing and/or coordinating discharge services: Time spent: Less than 30 minutes Exam Const: General: cooperative, healthy appearing, comfortable and no acute distress Orientation/consciousness: patient oriented x3 Resp: Effort & Inspection: normal respiratory effort Auscultation: clear to auscultation bilaterally Cardio: Rate: regular rate GI: Inspection: non-distended GI Palp: No abdominal tenderness and Yes Soft to palpation Auscultation: normal bowel sounds : Other: fundus firm Skin: General skin exam: normal color Neuro: General: patient oriented x3 Extrem: General: normal to inspection Psych: Appearance: grossly normal Affect: normal affect Attitude: cooperative DS: Data Data Completed and Pending Pending studies at discharge: Pending at discharge 07/26/21 06:10 Surgical [PTH] Routine Discharge Plan Discharge Attending physician on discharge: Mariaa Cruz Discharging Clinician: Marquez Orlando Anticipated Discharge Date/Time: 07/28/21 11:00 Patient Disposition: Home, Self-Care Activity: may shower, may drive after 2 weeks and pelvic rest Diet: regular Wound Care Instructions: incision open to air Discharge Instructions: Education: Mom and Baby Guide Given to: Mother Follow-Up: Call your delivering provider's office for an appointment to be seen in: 1 Week Mom and baby should come to the [facility] for the follow-up appointment. Appointment Date/Time: July 30, 2021 at 10:00 am What to expect at your follow-up visit: Physical Assessment Call [phone] if you are unable to keep your appointment time. BREAST CARE: * Wear a snug supportive bra. * For engorgement discomfort: Breast Feeding: * Apply warm moist washcloths * Express milk as needed to relieve engorgement * Wear loose clothing * For sore nipples: * Identify correct latch-on * Apply warm moist washcloths before and after nursing * Air dry nipples after nursing * May apply Lansinoh cream to nipples ABDOMINAL INCISION: (if applicable) * Allow incision to air dry * Do NOT use lotions for powders on your incision * When showering, allow soap and water to run over the incision, but do not wash incision EPISIOTOMY/PERINEAL CARE: * Until bleeding stops, use your brad bottle after urinating * Change your pad frequently throughout the day * No tub baths until seen by your physician - You may shower ACTIVITY: * Rest as much as possible. * Do not exercise or lift anything heavier than your baby (such as laundry or other children.) * Avoid stairs or driving as much as possible. * Do not put anything in
[2021-07-30 09:39] VITALS: BP 109/63; PULSE 80; RESP 16; TEMP 36.6; O2SAT 100
--- NOTE | 2021-08-05 10:40 | P.HP_ITS ---
H&P: HPI History of Present Illness Date/Time: 07/26/21 date of 08/05/21 the of history and physical dictated Chief Complaint: intolerance of labor Narrative: The patient is a A1 who was admitted for induction of labor. She had slow progress of labor to 5cm and has stalled. Changes position and variations in Pitocin have not resulted in further change. Patient has now developed random late decelerations with increasing Pitocin. Patient developed a fever and initially had tachycardia. tachycardia did resolve with Tylenol and antibiotics. It was recommended to proceed with primary due to intolerance of labor and failure to progress. Patient voiced understanding and agrees to proceed. Patient to this point has been uncomplicated [facility] Past Medical History Medical History (Updated 08/05/21 @ 10:44 by Mariaa Cruz MD) Anxiety Depression Surgical History Surgical History (Updated 08/05/21 @ 10:43 by Mariaa Cruz MD) History of elective Surgical 2018 Family History Family History (Updated 07/02/21 @ 12:50 by Frank Moerland RN) Father Diabetes mellitus Chronic obstructive pulmonary disease Mother Chronic obstructive pulmonary disease Social History Social History Smoking status: Never smoker Substance use: never Spiritual care concerns: No Meds Home Medications and Allergies Home Medications Medication Instructions Recorded Confirmed Type acetaminophen [Mapap 650 mg PO Q6H PRN 10 Days #60 07/28/21 Rx (acetaminophen)] tablet buspirone 5 mg PO BID 90 Days #180 tablet 07/28/21 07/24/21 Rx cholecalciferol (vitamin D3) 25 mcg PO DAILY 90 Days #90 cap 07/28/21 07/24/21 Rx [Vitamin D3] docusate sodium 100 mg PO BID 30 Days #60 cap 07/28/21 Rx hydrocodone-acetaminophen 1 tablet PO Q3H PRN 10 Days #24 07/28/21 Rx tablet ibuprofen 600 mg PO Q6H PRN 10 Days #40 07/28/21 Rx tablet prenat.vits,evelin,nqo-gnsd-dtinl 1 tablet PO DAILY 90 Days #90 07/28/21 07/24/21 Rx tablet Allergies Allergy/AdvReac Type Severity Reaction Status Date / Time Sulfa (Sulfonamide AdvReac Nausea and Verified 07/02/21 12:46 Antibiotics) Vomiting Exam Const: General: no acute distress GI: GI Palp: Yes Other GI palpation findings present (Fundal height 38 cm) : Manual OB Exam: dilated 5 cm Assessment and Plan Assessment and plan (1) 39 weeks gestation of : Code(s): Z3A.39 - 39 weeks gestation of Status: Acute (2) intolerance to labor, delivered, current hospitalization: Code(s): O77.9 - Labor and delivery complicated by stress, unspecified Status: Acute Assessment and Plan: Plan was to proceed with a primary (3) Failure to progress in labor, delivered, current hospitalization: Code(s): O62.2 - Other uterine inertia Status: Acute
== END 2021-07-28 11:55 | disposition home or self-care (01) | DRG 786 ==
LOC: ANHLDR 07-26 06:44 → ANHOB2 07-28 11:10 → ANHLDR 07-31 07:23 → ANHOB2 07-31 07:23
PROVIDERS: Admitting Provider Obstetrics & Gynecology Gynecology; Visit Provider Obstetrics & Gynecology
PROC: 10D00Z1 Extraction of Products of Conception, Low, Open Approach (ICD-10-PCS; CPT 59514; principal; 2021-07-26 06:00)
DX: O42.013 Preterm premature rupture of membranes, onset of labor within 24 hours of rupture, third trimester (principal); O41.1230 Chorioamnionitis, third trimester, not applicable or unspecified; Z37.0 Single live birth; Z3A.39 39 weeks gestation of pregnancy; O36.8330 Maternal care for abnormalities of the fetal heart rate or rhythm, third trimester, not applicable or unspecified; O62.2 Other uterine inertia; O77.9 Labor and delivery complicated by fetal stress, unspecified
CPT/HCPCS: 36415; 85025; 86592; 86850; 86900; 86901; 88307; A9270; J0131; J0290; J0690; J1580; J1885; J2274; J2370; J2405; J2590; J2704; J2795; J3010; J7120

== ENCOUNTER 2021-10-04 11:28 | Outpatient (CLI) | payer OTHER, SELFPAY ==
--- NOTE | ~2021-10-04 | US_ITS ---
US breast RT limited 10/04/2021 13:46 Indication: Palpable right breast lump per patient breast feeding. Procedure: High-resolution Limited ultrasound of the right breast Comparison: No prior studies for comparison. Findings: At 5:00, 6 cm from the nipple in the area of palpable concern there is an oval hypoechoic m ass with parallel orientation, no significant posterior features or internal vascularity. Margins are somewhat indistinct with the mass measuring 11 x 10 x 6 mm, likely benign. No other masses are seen. Impression: 1: Likely benign right breast mass at 5:00, 6 cm from the nipple. BI-RADS CATEGORY 3-PROBABLY BENIGN FINDING RECOMMENDATION: 6 month follow up recommended. Reviewed, dictated and finalized at location A. Impression: 1: Likely benign right breast mass at 5:00, 6 cm from the nipple. BI-RADS CATEGORY 3-PROBABLY BENIGN FINDING RECOMMENDATION: 6 month follow up recommended.
== END 2021-10-04 11:29 | disposition home or self-care (01) ==
PROVIDERS: Visit Provider Obstetrics & Gynecology Gynecology
DX: O92.79 Other disorders of lactation (principal)
CPT/HCPCS: 76642

== ENCOUNTER 2023-06-02 15:34 | Outpatient (CLI) | payer OTHER, SELFPAY ==
--- NOTE | ~2023-06-02 | US_ITS ---
Pelvic ultrasound. Clinical History: Pelvic pain Technique: Realtime transabdominal scanning of the pelvis was performed. Color flow Doppler and Doppl er spectral analysis were performed. Findings: The uterus is anteverted. The endometrial stripe has a thickness of 7 mm. No focal mass is identified. The right ovary measures 2.4 x 1.5 x 1.6 cm. No significant right ovarian or adnexal mass is seen. The left ovary measures 2.6 x 1.6 x 2.4 cm. No significant left ovarian or adnexal mass is seen. Facet flow present in both ovaries on Doppler spectral analysis. There is no evidence of free fluid in the cul de sac. Impression: Unremarkable pelvic ultrasound. Reviewed, dictated and finalized at location M. [employer] Impression: Unremarkable pelvic ultrasound.
== END 2023-06-02 15:35 ==
PROVIDERS: PCP Nurse Practitioner; Visit Provider Nurse Practitioner
DX: R10.2 Pelvic and perineal pain (principal)
CPT/HCPCS: 76856

== ENCOUNTER 2024-02-24 09:44 | Emergency (ER) | payer OTHER, SELFPAY ==
[2024-02-24 09:50] VITALS: BP 95/64; PULSE 88; RESP 16; TEMP 37.1; O2SAT 100
[2024-02-24 09:56] VITALS: BP 95/64; PULSE 88; RESP 16; TEMP 37.1; O2SAT 100
--- NOTE | 2024-02-24 10:32 | ED.URI ---
HPI - URI/Sore Throat General Chief Complaint: Upper Respiratory Infection Stated Complaint: headaches/achey/congestion Time Seen by Provider: 02/24/24 10:33 Source: patient Mode of arrival: ambulatory Limitations: no limitations History of Present Illness HPI Narrative: 33-year-old female presents with complaint of nasal congestion, cough, sore throat, fatigue, body aches, intermittent headaches for 1 week. Intermittent hot and cold chills. Has not checked for fever. Taking Tylenol to treat pain. Not taking any other rhwi-dht-tpnwzjt medications to treat symptoms due to and also 7 weeks . No chest pain or shortness breath. All systems reviewed and negative except as noted above. Related Data Allergies Allergy/AdvReac Type Severity Reaction Status Date / Time Sulfa (Sulfonamide AdvReac Nausea and Verified 02/24/24 09:55 Antibiotics) Vomiting Review of Systems Review of Systems: CONSTITUTIONAL: Reports fever, chills, or sweats. EYES: Denies visual changes, redness, or discharge. ENT: reports rhinorrhea, congestion, sore throat. Denies otalgia. CARDIOVASCULAR: Denies chest pain, palpitations, or edema. RESPIRATORY: reports cough. Denies dyspnea. GASTROINTESTINAL: Denies abdominal pain, nausea, vomiting, or diarrhea. GENITOURINARY: Denies dysuria or hematuria. SKIN: Denies rash or itching. MUSCULOSKELETAL: Denies back pain, joint pain, or myalgia. NEUROLOGIC: Denies headache, numbness, or weakness. PSYCHIATRIC: Denies anxiety or depression. All other systems reviewed are negative, except as documented in HPI. [facility] Past Medical History Medical History (Updated 02/24/24 @ 11:03 by Brenna Benitez NP) Anxiety Anxiety Depression Kidney infection pyelonephritis Surgical History Surgical History (Updated 03/10/22 @ 07:55 by Angel Mathews) History of elective Surgical 2018 No pertinent past surgical history Family History Family History (System 03/10/22 @ 07:55 by Angel Mathews) Father Diabetes mellitus Chronic obstructive pulmonary disease Mother Chronic obstructive pulmonary disease Father Diabetes mellitus Grandparent Cancer Social History Social History (System 03/10/22 @ 07:55 by Angel Mathews) Smoking status: Former smoker Additional smoking assessment comments: quit 2 months ago Alcohol intake: current Alcohol use details: Stopped alcohol use with Substance use: never Living arrangements: with family Gender identity (if verbalized by the patient): Female Spiritual care concerns: No Comments At time of signature, agree with nursing past medical, surgical, social and family history. There is no relevant family history pertinent to the presenting complaint. Exam Narrative: GENERAL: This is a well-nourished, well-developed patient, Ill-appearing but no acute distress. HEAD: normocephalic, atraumatic. EYES: PERRL. Sclera clear/white. Vision is grossly intact. EARS: External ears normal, auditory canals clear and without drainage, TMs normal without perforation. Hearing grossly intact. NOSE: External nose normal with congestion, purulent nasal drainage, erythema swelling to bilateral nares THROAT: Mucous membranes moist, erythema, postnasal drainage NECK: Neck supple, non-tender without lymphadenopathy, masses or thyromegaly. CARDIOVASCULAR: Regular rate and rhythm without murmurs, gallops, or rubs. RESPIRATORY: mildly decreased to lower lung jon otherwise clear. Breath sounds equal bilaterally. No wheezes, rales, or rhonchi. SKIN: warm, Dry, intact with no suspicious lesions or rash, good texture and turgor. NEURO: awake, alert, and oriented to person, place and time. There were no obvious focal neurologic abnormalities. EXTREMITIES: No joint tenderness, effusion, or edema noted. Course Course Level of Care: Express Care Visit Vital Signs Vital signs: Vital Signs Temperature 37.1 C 10/
[2024-02-24 10:55] LABS: EDINFLUASCREEN Negative (Negative); EDINFLUBSCREEN Negative (Negative)
== END 2024-02-24 11:04 | disposition home or self-care (01) ==
PROVIDERS: Emergency Provider Nurse Practitioner Family; PCP Family Medicine
DX: O99.511 Diseases of the respiratory system complicating pregnancy, first trimester (principal); Z3A.01 Less than 8 weeks gestation of pregnancy; J06.9 Acute upper respiratory infection, unspecified; O99.891 Other specified diseases and conditions complicating pregnancy; R05.9 Cough, unspecified; Z87.891 Personal history of nicotine dependence
CPT/HCPCS: 87804; 99213; G0463

== ENCOUNTER 2024-03-28 10:19 | Outpatient (CLI) | payer OTHER, SELFPAY ==
--- NOTE | ~2024-03-28 | US_ITS ---
Pelvic ultrasound. Clinical History: First trimester , establish dates and viability Technique: Realtime transabdominal and transvaginal scanning of the pelvis was performed. Color flow Doppler and Doppler spectral analysis were performed. Findings: The uterus is anteverted, and contains an intrauterine gestational sac. [place]-rump length o f 4.4 cm corresponds to an estimated gestational age of 11 weeks 1 day. heart rate is 167 bpm. The right ovary measures 1.7 x 1.6 x 2.6 cm. No significant right ovarian or adnexal mass is seen. The left ovary measures 2.4 x 2.5 x 1.4 cm. No significant left ovarian or adnexal mass is seen. There is no evidence of free fluid in the cul de sac. Impression: Live intrauterine gestation, with estimated gestational age of 11 weeks 1 day. heart rate is 16 7 bpm. Sonographic ELVA is 10/16/2024. Reviewed, dictated and finalized at [facility]. SETTER Impression: Live intrauterine gestation, with estimated gestational age of 11 weeks 1 day. heart rate is 167 bpm. Sonographic ELVA is 10/16/2024.
== END 2024-03-28 10:20 | disposition home or self-care (01) ==
LOC: MICIMG 10:21
PROVIDERS: PCP Nurse Practitioner; Visit Provider Nurse Practitioner
DX: Z36.87 Encounter for antenatal screening for uncertain dates (principal)
CPT/HCPCS: 76801

== ENCOUNTER 2024-05-09 09:17 | Emergency (ER) | payer OTHER, SELFPAY ==
[2024-05-09 09:30] VITALS: BP 92/53; PULSE 69; RESP 16; TEMP 36.6; O2SAT 100
--- NOTE | 2024-05-09 09:54 | ED.URI ---
HPI - URI/Sore Throat General Chief Complaint: Upper Respiratory Infection Stated Complaint: Chest Congestion/Sore Throat/Cough Time Seen by Provider: 05/09/24 09:55 Source: patient Mode of arrival: ambulatory Limitations: no limitations History of Present Illness HPI Narrative: 34 y/o female presented for c/o cough x2 weeks. Cough is worse at night and in the morning. Endorses sinus pressure behind eyebrows. Denies sob, wheezing, n/v/d/f/c. Taking Tylenol for symptoms. 17 weeks gestation Related Data Home Medications ?Medication ?Instructions ?Recorded ?Confirmed ?Last Taken ?Type PNV cmb#95-ferrous fumarate-FA PO 05/09/24 Unknown History Allergies Allergy/AdvReac Type Severity Reaction Status Date / Time Sulfa (Sulfonamide AdvReac Nausea and Verified 02/24/24 09:55 Antibiotics) Vomiting Review of Systems Review of Systems: CONSTITUTIONAL: Denies body aches, fever, chills, or sweats. EYES: Denies visual changes, redness, or discharge. ENT: Denies rhinorrhea, congestion, sore throat, or otalgia. CARDIOVASCULAR: Denies chest pain, palpitations, or edema. RESPIRATORY: Reports cough, denies sob, wheezing. GASTROINTESTINAL: Denies abdominal pain, nausea, vomiting, or diarrhea. SKIN: Denies rash MUSCULOSKELETAL: Denies back pain, joint pain, or myalgia. NEUROLOGIC: Denies headache, numbness, tingling, or weakness. All systems reviewed & are unremarkable except as noted in HPI and below PMFSH Past Medical History Medical History Kidney infection pyelonephritis Anxiety Depression Anxiety Surgical History Surgical History No pertinent past surgical history History of elective Surgical 2018 Family History Family History Father Diabetes mellitus Chronic obstructive pulmonary disease Mother Chronic obstructive pulmonary disease Father Diabetes mellitus Grandparent Cancer Social History Social History Smoking status: Former smoker Additional smoking assessment comments: quit 2 months ago Alcohol intake: current Alcohol use details: Stopped alcohol use with Substance use: never Living arrangements: with family Gender identity (if verbalized by the patient): Female Spiritual care concerns: No Comments At time of signature, I have reviewed and agree with nursing past medical, surgical, social and family history unless otherwise noted. Please see nursing chart for further information. There is no relevant family history pertinent to the presenting complaint Exam Narrative: GENERAL: Well-appearing, in no acute distress. EYES: EOMI. No redness or drainage. Conjunctivae normal. ENT: Mucous membranes pink and moist. Nasal congestion. TMs normal bilaterally. Throat normal. Uvula midline. NECK: Normal AROM. Supple. CHEST: No respiratory distress. Lungs clear to all jon. Frequent cough. HEART: Regular rate and rhythm. No murmur appreciated. ABDOMEN: Soft, nontender, nondistended, normal active bowel sounds. SKIN: Warm, dry, no rash. Capillary refill normal. Normal skin turgor. NEURO: Alert and oriented x3. Gait steady. PSYCH: Normal affect. Course Course Emergency Course: Patient is aware of diagnosis, understands and agrees to treatment plan. Anticipatory guidance given. Patient agrees to follow-up as directed and is aware of reasons to seek care at the emergency department. Portions of this record may have been created with voice recognition software Level of Care: Express Care Visit Vital Signs Vital signs: Vital Signs Temperature 97.9 F 05/09/24 09:30 Pulse Rate 69 05/09/24 09:30 Respiratory Rate 16 05/09/24 09:30 Blood Pressure 92/53 L 05/09/24 09:30 Pulse Oximetry 100 05/09/24 09:30 Oxygen Delivery Room Air 05/09/24 09:30 Temperature 97.9 F 05/09/24 09:30 Pulse Rate 69 05/09/24 09:30 Respiratory Rate 16 05/09/24 09:30 Blood Pressure 92/53 L 05/09/24 09:30 Pulse Oximetry 100 05/09/24 09:30 Oxygen Delivery Room Air 05/09/24 09:30 MDM - URI/Sore Throat MDM Narrative Medical decision making narrative: Discussed physical exam findings. Advised supportive measures and signs/symptoms to go to the ER. Pt is appropriate for outpt treatment and f/u. Differential Diagnosis Differential diagnosis: Likely upper respiratory infection, otitis media, sinusitis, viral infection, bronchitis and other Discharge Plan Discharge Clinical Impression: Upper respiratory infection Patient Disposition: Home, Self-Care Condition: Stable Instructions: Antibiotic Form, Sinusitis (ED) Additional Instructions: Recommendations: Zyrtec and Flonase for nasal congestion Tylenol 1000mg every 8 hours as needed for pain Symptomatic treatment includes: rest, fluids, and increase humidity of the air at home. Discuss any additional medications with your Obgyn prior to starting them Follow up with your primary care provider in 1 week. Go to the ER for worsening symptoms or concerns. Patient Language: Spanish Prescriptions: New amoxicillin-pot clavulanate 875-125 mg tablet 1 tablet PO Q12H 7 Days Qty: 14 0RF No Action PNV cmb#95-ferrous fumarate-FA [ Multivitamins] PO Follow-up/Referrals: Kyler,Shruthi Saucedo DO [Primary Care Provider] - Time of Disposition: 10:02
[2024-05-09 10:08] VITALS: BP 85/50
--- OUTSIDE RECORDS SUMMARY | 2024-05-16 03:44 | XMS_ITS | Referral Summary ---
Author Organization [email or web address] Address [address] [place] [address] Care Team Providers Care Senior Graduate Advisor Name Role Phone Unavailable Primary Care Provider Unavailabl e Source Comments [email or web address],non-owned Affiliates and Associated Physician Practices is amultiple site organization consisting of ambulatory clinics and hospital sitesin [place], [place], [place] and [place]. This disclosure is being madepursuant to the Care Everywhere program and may not contain all information available regarding this patient. Last updated 18.[email or web address] Allergies No known active allergies Medications * Be aware that medications may not be up to date on this document. Alwaysverify current medications with the patient. Medication Sig Dispensed Refills Start Date End Date Status Norethindrone-Eth Estradiol (NECON 0.5/35, 28, PO) Active Social History Tobacco Use Types Packs/Day Years Used Date Smoking Tobacco: Every Day Cigarettes Smokeless Tobacco: Never Tobacco Cessation:Ready to Q uit: No; Counseling Given: Yes Sex and Gender Information Value Date Recorded Sex Assigned at Not on file Gender Identity Not on file Sexual Orientation Not on file Last Filed Vital Signs Vital Sign Reading Time Taken Comments Blood Pressure 122/66 08/25/2018 12:17 PM CDT Pulse 83 08/25/2018 12:17 PM CDT Temperature 36.5 ??C (97.7 ??F) 08/25/2018 12:17 PM C DT Respiratory Rate 20 08/25/2018 12:17 PM CDT Oxygen Saturation 100% 08/25/2018 12:17 PM CDT Inhaled Oxygen Concentration - - Weight 52.2 kg (115 lb) 08/25/2018 12:17 PM CDT Height 160 cm (5' 3 ) 08/25/2018 12:17 PM CDT Body Mass Index 20.37 08/25/2018 12:17 PM CDT Plan of Treatment Not on file
--- OUTSIDE RECORDS SUMMARY | 2024-05-16 03:44 | XMS_ITS | Encounter Summary ---
Author Organization [facility] Address [address] [place] [address] Care Team Providers Care Water Team Leader Name Role Phone Unavailable Primary Care Provider Unavailabl e Encounter Details Date Type Department Care Team (Latest Contact Info) Description 08/02/2019 Travel Social History Tobacco Use Types Packs/Day Years Used Date Smoking Tobacco: Every Day Cigarettes Smokeless Tobacco: Never Sex and Gender Information Value Date Recorded Sex Assigned at Not on file Gender Identity Not on file Sexual Orientation Not on file documented as of this encounter Plan of Treatment Not on file documented as of this encounter Visit Diagnoses Not on filedocumented in this encounter
--- OUTSIDE RECORDS SUMMARY | 2024-05-16 03:44 | XMS_ITS | Encounter Summary ---
Author Organization [facility] Address [address] [place] [address] Care Team Providers Care Delivery Rn Name Role Phone Unavailable Primary Care Provider Unavailabl e Reason for Visit * Reason Comments Ear Pain 1 week Congestion Encounter Details Date Type Department Care Team (Late st Contact Info) Description 08/25/2018 12:20 PM CDT Office Visit [facility] AT [address] [id number] [facility]itis, recurrence not specified (Primary Dx) Social History Tobacco Use Types Packs/Day Years Used Date Smoking Tobacco: Every Day Cigarettes Smokeless Tobacco: Never Tobacco Cessation:Ready to Q uit: No; Counseling Given: Yes Sex and Gender Information Value Date Recorded Sex Assigned at Not on file Gender Identity Not on file Sexual Orientation Not on file documented as of this encounter Last Filed Vital Signs Vital Sign Reading [...] Mass Index 20.37 08/25/2018 12:17 PM CDT documented in this encounter Patient Instructions * Patient Instructions* Kateryna Tubbs, ALTHEA-YUE - 08/25/2018 12:33 PM CDT Images from the original note were not included. Drink plenty of fluids to help thin secretions. May take Tylenol for fever or pain as directed per package instructions May take OTC antihistamines such as Zyrtec, Wendy, or Claritin as directed per package instructions, for runny nose or allergy symptoms Follow up with Primary care provider, clinic, or Urgent care/ER if symptoms worsen or do not completely resolve. GO TO EMERGENCY ROOM OR CALL 911 WITH ANY OF THE FOLLOWING SYMPTOMS: HIGH, PERSISTENT FEVER >102; SWELLING OF THE FACE, SWELLING, INFLAMMATION, OR REDNESS AROUND EYES, ABNORMAL EYE MOVEMENTS, VISION CHANGES (DOUBLE VISION OR IMPAIRED VISION); SEVERE HEADACHE; ALTERED MENTAL STATUS. THESE ARE SIGNS OF A RARE, BUT SERIOUS COMPLICATION AND REQUIRES IMMEDIATE EMERGENCY ATTENTION. Sinusitis BLOCK TRIMMER: Sinusitis is inflammation or infection of your sinuses. It is most often caused by a virus. Acute sinusitis may last up to 12 weeks. Chronic sinusitis lasts longer than 12 weeks. Recurrent sinusitis means you have 4 or more times in 1 year. Common symptoms include the following: ?? Fever ?? Pain, pressure, redness, or swelling around the forehead, cheeks, or eyes ?? Thick yellow or green discharge from your nose ?? Tenderness when you touch your face over your sinuses ?? Dry cough that happens mostly at night or when you lie down ?? Headache and face pain that is worse when you lean forward ?? Tooth pain, or pain when you chew Seek care immediately if: ?? Your eye and eyelid are red, swollen, and painful. ?? You cannot open your eye. ?? You have vision changes, such as double vision. ?? Your eyeball bulges out or you cannot move your eye. ?? You are more sleepy than normal, or you notice changes in your ability to think, move, or talk. ?? You have a stiff neck, a fever, or a bad headache. ?? You have swelling of your forehead or scalp. Contact your healthcare provider if: ?? Your symptoms do not improve after 3 days. ?? Your symptoms do not go away after 10 days. ?? You have nausea and are vomiting. ?? Your nose is bleeding. ?? You have questions or concerns about your condition or care. Treatment for sinusitis: Your symptoms may go away on their own. Your healthcare provider may recommend watchful waiting for up to 10 days before starting antibiotics. You may need any of the following: ?? Acetaminophen decreases pain and fever. It is available without a doctor's order. Ask how much to take and how often to take it. Follow directions. Read the labels of all other medicines you are using to see if they also contain acetaminophen, or ask your doctor or pharmacist. Acetaminophen can cause liver damage if not taken correctly. Do not use more than 4 grams (4,000 milligrams) total of acetaminophen in one day. ?? NSAIDs , such as ibuprofen, help decrease swelling, pain, and fever. This medicine is available with or without a doctor's order. NSAIDs can cause stomach bleeding or kidney problems in certain people. If you take blood thinner medicine, always ask your healthcare provider if NSAIDs are safe foryou. Always read the medicine label and follow directions. ?? Nasal steroid sprays may help decrease inflammation in your nose and sinuses. ?? Decongestants help reduce swelling and drain mucus in the nose and sinuses. They may help you breathe easier. ?? Antihistamines help dry mucus in the nose and relieve sneezing. ?? Antibiotics help treat or prevent a bacterial infection. ?? Take your medicine as directed. Contact your healthcare provider if you think your medicine is not helping or if you have side effects. Tell him or her if you are allergic to any medicine. Keep a list of the medicines, vitamins, and herbs you take. Include the amounts, and when and why you take them. Bring the list or the pill bottles to follow-up visits. Carry your medicine list with you in case of an emergency. Self-care: ?? Rinse your sinuses. Use a sinus rinse device to rinse your nasal passages with a saline (salt water) solution or distilled water. Do not use tap water. This will help thin the mucus in your nose and rinse away pollen and dirt. It will also help reduce swelling so you can breathe normally. Ask your healthcare provider how often to do this. ?? Breathe in steam. Heat a bowl of water until you see steam. Lean over the bowl and make a tent over your head with a large towel. Breathe deeply for about 20 minutes. Be careful not to get too close to the steam or burn yourself. Do this 3 times a day. You can also breathe deeply when you take ahot shower. ?? Sleep with your head elevated. Place an extra pillow under your head before you go to sleep to help your sinuses drain. ?? Drink liquids as directed. Ask your healthcare provider how much liquid to drink each day and which liquids are best for you. Liquids will thin the mucus in your nose and help it drain. Avoid drinks that contain alcohol or caffeine. ?? Do not smoke, and avoid secondhand smoke. Nicotine and other chemicals in cigarettes and cigars can make your symptoms worse. Ask your healthcare provider for information if you currently smoke and need help to quit. E-cigarettes or smokeless tobacco still contain nicotine. Talk to your healthcare provider before you use these products. Prevent the spread of germs that cause sinusitis: Wash your hands often with soap and water. Wash your hands after you use the bathroom, change a child's diaper, or sneeze. Wash your hands before youprepare or eat food. Follow up with your healthcare provider as directed: You may be referred to an ear, nose, and throat specialist. Write down your questions so you remember to ask them during your visits. ?? Copyright [employer] 2019 Information is for End User's use only and may not be sold, redistributed or otherwise used for commercial purposes. All illustrations and images included in CareNotes?? are the copyrighted property of [employer], [employer] or [employer] The above information is an hospital aides and assistants teacher only. It is not intended as medical advice for individual conditions or treatments. Talk to your doctor, nurse or pharmacist before following any medical regimen to see if it is safe and effective for you. documented in this encounter Progress Notes * Kateryna Tubbs APRN-CNP - 08/25/2018 12:16 PM CDT History Alee Keyes is a 28 year old female who presents to the clinic with Chief Complaint Patient presents with ??? Ear Pain 1 week ??? Congestion She reports the following symptoms: sinus and nasal congestion and right ear pain, throat pain, sinus pain Onset was 1 week ago. The Clinical course has been unchanged. Patient is drinking moderate amounts of fluids. The throat pain is described as sharp, and is 8/10 in intensity. OTC- dayquil and ibuprofen. Sick Contacts: none known. Past Medical History: Diagnosis Date ??? Patient denies medical problems No family history on file. Current Outpatient Prescriptions Medication Sig Dispense Refill ??? amoxicillin-clavulanate (AUGMENTIN) 875-125 MG tablet Take 1 tablet by mouth 2 times daily withmorning and evening meal for 7 days 14 tablet 0 ??? Norethindrone-Eth Estradiol (NECON 0.5/35, 28, PO) No current facility-administered medications for this visit. No Known Allergies Social History Social History ??? Marital status: Single Spouse name: N/A ??? Number of children: N/A ??? Years of education: N/A Occupational History ??? Not on file. Social History Main Topics ??? Smoking status: Current Every Day Smoker Types: Cigarettes ??? Smokeless tobacco: Never Used ??? Alcohol use Not on file ??? Drug use: Not on file ??? Sexual activity: Not on file Other Topics Concern ??? Not on file Social History Narrative Review of Systems Pertinent items are noted in HPI Constitutional: Negative for fevers, chills. Eyes: Negative Ears, nose, mouth, and throat: Positive for sinus trouble, persistent sore throat, congestion, ear pain right. Respiratory: Negative Cardiovascular: Negative Gastrointestinal: Negative Hematologic/lymphatic: Negative Neurological: Positive for headaches Objective: BP 122/66 (BP SITE: LEFT ARM, BP POSITION: SITTING) Pulse 83 Temp 97.7 ??F (36.5 ??C) (Oral) Resp 20 Ht 1.6 m (5' 3 ) Wt 52.2 kg (115 lb) SpO2 100% BMI 20.37 kg/m2 General appearance: alert, cooperative, no distress, oriented to person, place, and time Head: normocephalic, without trauma Eyes: sclera and conjunctiva clear Ears: canals clear, tympanic membranes cloudy bilaterally, no bulging or erythema, hearing intact to voice Nose: mucosa erythematous and swollen, purulent rhinorrhea, maxillary tenderness bilaterally Throat: mild oropharyngeal erythema, tonsillar hypertrophy 1+, uvula midline, no exudates Neck: supple Nodes: cervical adenopathy bilaterally Lungs: breath sounds normal and symmetric; no rales or wheezes Heart: regular rhythm, normal S1 and S2, without murmurs, gallops or rubs Neurologic: mental status normal Assessment: Encounter Diagnosis Name Primary? Acute maxillary sinusitis, recurrence not specified Yes Plan: Drink plenty of fluids to help thin secretions. May take Tylenol for fever or pain as directed per package instructions May take OTC antihistamines such as Zyrtec, Wendy, or Claritin as directed per package instructions, for runny nose or allergy symptoms Follow up with Primary care provider, clinic, or Urgent care/ER if symptoms worsen or do not completely resolve. If on oral contraceptive ( control) pills- Use alternate method of control while on antibiotics and one week after finishing last dose GO TO EMERGENCY ROOM OR CALL 911 WITH ANY OF THE FOLLOWING SYMPTOMS: HIGH, PERSISTENT FEVER >102; SWELLING OF THE FACE, SWELLING, INFLAMMATION, OR REDNESS AROUND EYES, ABNORMAL EYE MOVEMENTS, VISION CHANGES (DOUBLE VISION OR IMPAIRED VISION); SEVERE HEADACHE; ALTERED MENTAL STATUS. THESE ARE SIGNS OF A RARE, BUT SERIOUS COMPLICATION AND REQUIRES IMMEDIATE EMERGENCY ATTENTION. Orders Placed This Encounter ??? STREP A SCREEN ??? amoxicillin-clavulanate (AUGMENTIN) 875-125 MG tablet Sig: Take 1 tablet by mouth 2 times daily with morning and evening meal for 7 days Dispense: 14 tablet Refill: 0 Recent Results (from the past 24 hour(s)) STREP A SCREEN Collection Time: 08/25/18 12:00 AM Result Value Ref Range Strep A Rapid POCT Negative Negative Strep A Internal Control Present Lot # [id number] Expiration Date 02/25/2020 LUZ MARIA Gamboa 08/25/2018 12:38 PM documented in this encounter Plan of Treatment Not on file documented as of this encounter Procedures Procedure Name Priority Date/Time Associated Diagnosis Comments STREP A SCREEN - POINT OF CARE (AMB) STL Routine 08/25/2018 Acute maxillary sinusitis, recurrence not specified documented in this encounter Results * STREP A SCREEN (08/25/2018) Strep A Rapid POCT Negative Negative Strep A Internal Control Present Lot # [id number] Expiration Date 02/25/2020 Throat ENTIRE THROAT (SURFACE REGION OF NECK) / Unknown 08/25/2018 Kateryna Tubbs APRN-DR[facility] - POINT OF CARE ORDERABLES documented in this encounter Visit Diagnoses Diagnosis Acute maxillary sinusitis, recurrence not specified- Primary documented in this encounter
--- OUTSIDE RECORDS SUMMARY | 2024-05-16 03:44 | XMS_ITS | Encounter Summary ---
Author Organization [facility] Healthcare Address [address] [place] [id number] Care Team Providers Care Administrative Professional Name Role Phone Shruthi Chávezsaul MCCORMICK Primary Care Provider [phone] Mariaa Cruz MD Unavailable [phone] Encounter Details Date Type Department Care Team (Late st Contact Info) Description 07/22/2022 11:10 AM OFFICE MACHINES SALES REPRESENTATIVE [address] [address] Annual physical exam; Encounter for screening examination for impaired glucose regulation and diabetes mellitus; Encounter for hepatitis C screening test for low risk patient; Encounter for lipid screening for cardiovascular disease; Screening for thyroid disorder; Screening for blood or protein in urine Social History Tobacco Use Types Packs/Day Years Used Date Smoking Tobacco: Former Cigarettes 0.5 10 0 05/26/2011 - 05/25/2019 Smokeless Tobacco: Never Comments:vape Alcohol Use Standard Drinks/Week Comments Not Currently 0 (1 standard drink = 0.6 oz pur e alcohol) AUDIT-C Answer Date Recorded Q1: How often do you have a drink containing alc ohol? Monthly or less 07/15/2022 Q2: How many drinks containi ng alcohol do you have on a typical day when you are drinking? 1 or 2 07/15/2022 Q3: How often do you have si x or more drinks on one occasion? Monthly 07/15/2022 PHQ-2 Answer Date Recorded PHQ-2 Total Score (If total score is 3 or more points, staff should administer the PHQ-9) 0 07/15/2022 Comments Unknown Sex and Gender Information Value Date Recorded Sex Assigned at Not on file Legal Sex Female 3:59 AM OFFICE MACHINES SALES REPRESENTATIVE Gender Identity Not on file Sexual Orientation Not on file documented as of this encounter Plan of Treatment Not on file documented as of this encounter Procedures Procedure Name Priority Date/Time Associated Diagnosis Comments THYROID FUNCTION CASCADE Routine 07/22/2022 11:15 AM OFFICE MACHINES SALES REPRESENTATIVE Annual physical exam Screening for thyroid disorder URINALYSIS AND REFLEX TO MICROSCOPIC AND CULTURE Routine 07/22/2022 11:15 AM OFFICE MACHINES SALES REPRESENTATIVE Annual physical exam Screening for blood or protein in urine HEPATITIS C ANTIBODY Routine 07/22/2022 11:15 AM OFFICE MACHINES SALES REPRESENTATIVE Annual physical exam Encounter for hepatitis C screening test for low risk patient HEMOGLOBIN A1C Routine 07/22/2022 11:15 AM OFFICE MACHINES SALES REPRESENTATIVE Annual physical exam Encounter for screening examination for impaired glucose regulation and diabetes mellitus LIPID PANEL Routine 07/22/2022 11:15 AM OFFICE MACHINES SALES REPRESENTATIVE Annual physical exam Encounter for lipid screening for cardiovascular disease documented in this encounter Results * Urinalysis reflex to microscopic and culture Urine, clean voided (07/22/2022 11:15 AM OFFICE MACHINES SALES REPRESENTATIVE) Color, ur Yellow Yellow [facility] ([place]) Clarity, ur Clear Clear [facility] ([place]) Specific gravity, ur 1.013 1.003 - 1.030 [facility] ([place]) pH, urine 6.5 [facility] ([place]) Protein, ur ql Negative Negative [facility] ([place]) Glucose, ur ql Negative Negative [facility] ([place]) Ketones, ur Negative Negative [facility] ([place]) Bilirubin, ur Negative Negative [facility] ([place]) Blood, ur Negative Negative [facility] ([place]) Urobilinogen, ur <2.0 <2.0 mg/dL [facility] ([place]) Nitrite, ur Negative Negative [facility] ([place]) Leukocyte esterase, ur Negative Negative [facility] ([place]) UA reflex comment Reflex conditions for microscopic UA and culture not met. [facility] ([place]) Urine, clean voided 07/22/2022 11:15 AM OFFICE MACHINES SALES REPRESENTATIVE 07/22/2022 12:03 PM OFFICE MACHINES SALES REPRESENTATIVE Narrative [facility] ([place]) - 07/22/2022 12:08 PM OFFICE MACHINES SALES REPRESENTATIVE ?? Urine pH is affected by diet, medications, systemic acid-base disturbances, and renal tubular function. ??pH may affect urinary stone formation. ??For example, urine pH below 6.0 may help reduce the tendency for calcium phosphate stones and pH greater than 6.0 may reduce the tendency for uric acid stone formation. Source: [facility] [employer]. Last revised 06-04-2017 us Shruthi Chávez DO LAB MICROBIOLOGY - GENERAL ORDERABLES Final Result Performing Organization Address [facility] Co de Phone Number TRACIE SANABRIA ([place]) 1 [facility] [place] [address] * TSH reflex to free T4 (07/22/2022 11:15 AM OFFICE MACHINES SALES REPRESENTATIVE) TSH 1.41 0.30 - 4.20 mcIUnit/mL ALFREDFABI SANA[facility]RIA ([place]) Blood 07/22/2022 11:1 5 AM OFFICE MACHINES SALES REPRESENTATIVE 07/22/2022 12:15 PM OFFICE MACHINES SALES REPRESENTATIVE us Shruthi Chávez DO LAB BLOOD ORDERABLES Final Result Performing Organization Address [facility] de Phone Number TRACIE SANABRIA ([place]) [address] [facility] [place] [address] * (ABNORMAL) Lipid panel (07/22/2022 11:15 AM OFFICE MACHINES SALES REPRESENTATIVE) Cholesterol 221(H) 30 - 199 mg/dL TRACIE SANABRIA ([place]) Comment: Interpretive Data Ages < or = 19 years ??Acceptable: ? <170 mg/dL ??Borderline high: ??170-199 mg/dL ??High: ? >or= 200 mg/dL Ages > or = 20 years ??Desirable: ?<200 mg/dL ??Borderline high: ??200-239 mg/dL ??High: ? >or= 240 mg/dL Literature References: 1. Expert Panel on Integrated Guidelines for Cardiovascular Health and Risk Reduction in Children and Adolescents. Pediatrics 2011;128:S213 2. NCEP Expert Panel. Circulation 2004;110:227 Current Interpretive Data was last revised on 2018. Triglycerides 41 <=149 mg/dL TRACIE SANABRIA ([place]) Comment: Interpretive Data Ages < or = 9 years ??Acceptable: ? <75 mg/dL ??Borderline high: ??75-99 mg/dL ??High: ? >or= 100 mg/dL Ages 10 to 20 years ??Acceptable: ? <90 mg/dL ??Borderline high: ??90-129 mg/dL ??High: ? >or= 130 mg/dL Ages > or = 20 years ??Desirable: ?<150 mg/dL ??Borderline high: ??150-199 mg/dL ??High: ? 200-499 mg/dL ?Very high: ?? >or= 499 mg/dL Literature References: 1. Expert Panel on Integrated Guidelines for Cardiovascular Health and Risk Reduction in Children and Adolescents. Pediatrics 2011;128:S213 2. NCEP Expert Panel. Circulation 2004;110:227 Current Interpretive Data was last revised on 2018. HDL 136 >=40 mg/dL TRACIE SANABRIA ([place]) Comment: Interpretive Data Ages < or = 19 years ??Acceptable: ? >45 mg/dL ??Borderline low: ?? 40-45 mg/dL ??Low: ? <40 mg/dL Ages > or = 20 years ??Desirable: ?>or= 60 mg/dL ??Low: ? <40 mg/dL Literature References: 1. Expert Panel on Integrated Guidelines for Cardiovascular Health and Risk Reduction in Children and Adolescents. Pediatrics 2011;128:S213 2. NCEP Expert Panel. Circulation 2004;110:227 Current Interpretive Data was last revised on 2018. LDL, calculated 77 <=129 mg/dL TRACIE SANABRIA ([place]) Comment: Interpretive Data Ages < or = 19 years ??Acceptable: ? <110 mg/dL ??Borderline high: ??110-129 mg/dL ??High: ?>or= 130 mg/dL Ages > or = 20 years ??Optimal: ? <100 mg/dL ??Near optimal: ?100-129 mg/dL ??Borderline high: ?? 130-159 mg/dL ??High: ?>160 mg/dL Literature References: 1. Expert Panel on Integrated Guidelines for Cardiovascular Health and Risk Reduction in Children and Adolescents. Pediatrics 2011;128:S213 2. NCEP Expert Panel. Circulation 2004;110:227 Current Interpretive Data was last revised on 2018. Non-HDL Cholesterol 85 mg/dL TRACIE SANABRIA ([place]) Comment: Interpretive Data Ages < or = 19 years ??Acceptable: ?<120 mg/dL ??Borderline high: ??120-144 mg/dL ??High: ?>145 mg/dL Ages > or = 20 years ??When triglycerides are >200 mg/dL, Non-HDL cholesterol is a secondary target of ? therapy with treatment goals that are 30 mg/dL greater than the LDL cholesterol target. ? Literature References: 1. Expert Panel on Integrated Guidelines for Cardiovascular Health and Risk Reduction in Children and Adolescents. Pediatrics 2011;128:S213 2. NCEP Expert Panel. Circulation 2004;110:227 Current Interpretive Data was last revised on 2018. Chol/HDL ratio 2 [facility] ([place]) Blood 07/22/2022 11:1 5 AM OFFICE MACHINES SALES REPRESENTATIVE 07/22/2022 12:15 PM OFFICE MACHINES SALES REPRESENTATIVE us Shruthi Chávez DO LAB BLOOD ORDERABLES Final Result TRACIE SANABRIA ([place]) 1 [facility] Department [place] [address] * Hepatitis C antibody (07/22/2022 11:15 AM OFFICE MACHINES SALES REPRESENTATIVE) Hep C Ab Nonreactive Nonreactive TRACIE SANABRIA ([place]) Comment: Interpretive Data Nonreactive: Antibodies to HCV not detected. Does NOT exclude the possibility of recent exposure to HCV. Equivocal: Equivocal for HCV antibodies. Supplemental molecular testing will be automatically performed to determine infection status in accordance with current CDC screening recommendations. ?? Reactive: Positive for HCV antibodies. ??This may represent current or past HCV infection. Supplemental molecular testing will be automatically performed to determine ??current infection status in accordance with current CDC screening recommendations. Interpretive data was last revised on 2019. Testing performed by: [facility], [address] [place] [address]., [id number] Blood 07/22/2022 11:1 5 AM OFFICE MACHINES SALES REPRESENTATIVE 07/22/2022 1:51 PM OFFICE MACHINES SALES REPRESENTATIVE Shruthi Chávez DO LAB MICROBIOLOGY - GENERAL ORDERABLES Edited Result - Final Performing Organization Address City/[facility]/ZIP Co de Phone Number ALFREDFABI SANABRIA ([place]) 1 [facility] [place] [address] * Hemoglobin A1c (07/22/2022 11:15 AM OFFICE MACHINES SALES REPRESENTATIVE) Pathologist [facility] Hgb A1C 5.3 4.0 - 5.6 % TRACIE SANABRIA ([place]) Estimated Average Glucose 105 mg/dL TRACIE SANABRIA ([place]) Comment: The ADA recommends reporting an estimated Average Glucose (eAG) with all Hemoglobin A1c results using the equation derived from a study of 507 normal and diabetic adults. ??Minority populations were underrepresented and children were not included. ?? (Diabetes Care 31:3396-3460, 2008). ??The eAG is not equivalent to a fasting glucose. Blood 07/22/2022 11:1 5 AM OFFICE MACHINES SALES REPRESENTATIVE 07/22/2022 12:14 PM OFFICE MACHINES SALES REPRESENTATIVE Shruthi Chávez DO LAB BLOOD ORDERABLES Final Result TRACIE SANABRIA ([place]) 1 [facility] [place] [address] documented in this encounter Visit Diagnoses Diagnosis Annual physical exam Routine general medical examination at a health care facility Encounter for screening examination for impaired glucose regulation and diabetes mellitus Encounter for hepatitis C screening test for low risk patient Encounter for lipid screening for cardiovascular disease Screening for thyroid disorder Screening for blood or protein in urine Screening for unspecified condition documented in this encounter Care Teams Administrative Professional Relationship Specialty Start Date End Date Shruthi Chávez DO [address] [place] [address] PCP - General Family Medicine 07/15/22 03/03/24 Mariaa Cruz MD [address] [place] [address] Referring Physician Gynecology 07/15/22 documented as of this encounter
--- OUTSIDE RECORDS SUMMARY | 2024-05-16 03:44 | XMS_ITS | Encounter Summary ---
Author Organization [facility] Healthcare Address [address] [place] [address] Care Team Providers Care Pacs Specialist Name Role Phone Shruthi Chávez Primary Care Provider [phone] Mariaa Cruz MD Unavailable [phone] Reason for Visit * Reason Comments Abdominal Pain Encounter Details Date Type Department Care Team (Late st Contact Info) Description 09/26/2023 4:52 PM CDT - 09/26/2023 10:27 PM CDT Emergency [facility] Emergency Department [address] [place] [address] Josefina Snider MD [address] [place] [address] Abdominal pain (Primary Dx); Early stage of ; Vomiting and diarrhea Discharge Disposition: Discharge to home or self care Social History Tobacco Use Types Packs/Day Years [...] points, staff should administer the PHQ-9) 0 07/20/2023 Personal Safety Answer Date Recorded Have you ever been in or are you currently in a harmful physical or emotional relationship or is someone making you feel afraid or unsafe? 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 Gender Identity Not on file Sexual Orientation Not on file documented as of this encounter Last Filed Vital Signs Vital Sign Reading Time Taken Comments Blood Pressure 98/71 09/26/2023 6:30 PM CDT Pulse 82 09/26/2023 6:30 PM CDT Temperature 37 ??C (98.6 ??F) 09/26/2023 4:03 PM CDT Respiratory Rate 15 09/26/2023 4:04 PM CDT Oxygen Saturation 100% 09/26/2023 6:30 PM CDT Inhaled Oxygen Concentration - - Weight 54 kg (119 lb) 09/26/2023 4:04 PM CDT Height 157.5 cm (5' 2 ) 09/26/2023 4:04 PM CDT Body Mass Index 21.77 09/26/2023 4:04 PM CDT documented in this encounter Discharge Instructions * Discharge Instructions* Josefina Snider MD - 09/26/2023 10:14 PM CDT Zofran as directed if needed for nausea. Drink plenty of clear liquids. Tylenol 650 mg every 4 hours as needed for pain. Return to the emergency department should severe pain, fever or vomiting that is persistent occur * Attachments The following attachments cannot be sent through Care Everywhere. * Vomiting or Diarrhea (Adult), Diet for (Brazilian) documented in this encounter Medications at Time of Discharge busPIRone (BUSPAR) 5 mg tablet Take 1 tablet (5 mg total) by mouth 2 (two) times a day 09/11/2023 ondansetron ODT (ZOFRAN-ODT) 4 mg disintegrating tablet Dissolve 1 tablet for mild to moderate nausea or vomiting or 2 tablets for severe nausea or vomiting oral twice a day as needed. 12 tablet 09/26/2023 valACYclovir (VALTREX) 500 mg tablet Take 1 tablet (500 mg total) by mouth daily 07/04/2022 documented as of this encounter Ordered Prescriptions Prescription Sig Dispense Quantity Refills Last Filled Start Date End Date ondansetron ODT (ZOFRAN-ODT) 4 mg disintegrating tablet Dissolve 1 tablet for mild to moderate nausea or vomiting or 2 tablets for severe nausea or vomiting oral twice a day as needed. 12 tablet 09/26/2023 documented in this encounter Discharge Disposition Disposition Code Departure Means Destination Comment s Discharge to home or self care documented in this encounter ED Notes * Josefina Snider MD - 09/26/2023 8:14 PM CDT Patient is female who presents with 2 day history of worsening lower abdominal pain. Patient was seen at an urgent care and was noted to have a negative test, however patient states that she has had 2 positive urine tests at home. Patient states that her lower abdomen feels distended and uncomfortable. There was more discomfort on the right. Patient has had nausea and fatigue. Surgical history includes a . Patient states that her last menstrual cycle was withinthe past 2 weeks and was normal. HPI Chief Complaint Patient presents with Abdominal Pain HPI Patient History: Patient Active Problem List Diagnosis Date Noted BMI 23.0-23.9, adult 07/20/2023 Influenza vaccine refused 07/20/2023 Recurrent genital herpes simplex type 1 infection 07/20/2023 Recurrent genital herpes simplex type 2 infection 07/20/2023 Constipation 11/07/2022 History of attempted suicide 07/15/2022 Vitamin D deficiency 07/15/2022 Hernia of anterior abdominal wall 07/15/2022 Bulimia nervosa 01/31/2010 Past Medical History: Diagnosis Date Anxiety Depression Past Surgical History: Procedure Laterality Date SECTION 07/26/2021 Family History Problem Relation Age of Onset Diabetes Father Social History Tobacco Use Smoking status: Former Current packs/day: 0.00 Average packs/day: 0.5 packs/day for 10.0 years (5.0 ttl pk-yrs) Types: Cigarettes Start date: 05/26/2011 Quit date: 05/25/2019 Years since quittin.3 Smokeless tobacco: Never Tobacco comments: vape Vaping Use Vaping status: Every Day Substances: Nicotine Devices: Disposable Substance and Sexual Activity Alcohol use: Not Currently Drug use: Yes Types: Alcohol Comment: social Sexual activity: Defer Partners: Male control/protection: OCP Social History Social History Narrative Not on file Review of Systems Review of Systems Constitutional: Positive for fatigue. Genitourinary: Positive for pelvic pain. Negative for difficulty urinating and vaginal bleeding. All other systems reviewed and are negative. Physical Exam ED Triage Vitals Temp Pulse Resp BP SpO2 09/26/23 1603 09/26/23 1604 09/26/23 1604 09/26/23 1604 09/26/23 1604 37 ??C (98.6 ??F) 89 15 104/73 100 % Temp src Heart Rate Source Patient Position BP Location FiO2 (%) 09/26/23 1603 -- -- -- -- Temporal Height Height Method Weight Weight Method 09/26/23 1604 -- 09/26/23 1604 -- 1.575 m (5' 2 ) 54 kg (119 lb) Physical Exam Vitals and nursing note reviewed. Constitutional: Appearance: She is well-developed. HENT: Head: Normocephalic. Nose: Nose normal. Eyes: Conjunctiva/sclera: Conjunctivae normal. Pupils: Pupils are equal, round, and reactive to light. Cardiovascular: Rate and Rhythm: Normal rate and regular rhythm. Heart sounds: Normal heart sounds. Pulmonary: Effort: Pulmonary effort is normal. Breath sounds: Normal breath sounds. Abdominal: General: Bowel sounds are normal. Palpations: Abdomen is soft. Tenderness: There is abdominal tenderness in the right lower quadrant, suprapubic area and left lower quadrant. There is no guarding or rebound. Musculoskeletal: General: Normal range of motion. Cervical back: Normal range of motion and neck supple. Skin: General: Skin is warm and dry. Neurological: Mental Status: She is alert and oriented to person, place, and time. Psychiatric: Mood and Affect: Mood normal. MDM Patient with lower abdominal pain and positive hCG. Although patient has no vaginal bleeding, because of worsening complaints of abdominal discomfort, I feel that evaluation for possible ectopic is indicated. Ultrasound has been ordered. Patient is serum hCG is positive, but level is verylow. Medical Decision Making Amount and/or Complexity of Data Reviewed Radiology: ordered. Risk Prescription drug management. Final diagnoses: Abdominal pain Early stage of Vomiting and diarrhea Josefina Snider MD 09/26/23 0905 * Brea Valle RN - 09/26/2023 4:03 PM CDT Pt has lower abdominal pain. Pt states it feels gassy. Pt states that she has pelvic pain. Pt had multiple positive and negative tests recently. documented in this encounter Miscellaneous Notes * ED Re-evaluation Note - Josefina Snider MD - 09/26/2023 10:02 PM CDT Patient currently with no pain; states that she had two diarrhea stools in ED. Patient states that her child currently has a viral illness with ear infection.Patient with no evidence of ectopic or adnexal mass. There is possible early gestational sac in uterus. I discussed lab values and US findings with patient. She is feeling better, and is agreeable to be discharged and follow up with primary physician. I informed patient that she could have a very early intrauterine , or could be having a miscarriage. At this point she will need to follow up with her academic interventionist patient was instructed to return to the emergency department if she develops worsening abdominal pain, fever, or uncontrolled vomiting. Patient was agreeable to be discharged and to follow up as an outpatient. Josefina Snider MD 09/26/23 9215 documented in this encounter Plan of Treatment Not on file documented as of this encounter Procedures Procedure Name Priority Date/Time Associated Diagnosis Comments US OB UNDER 14 WEEKS W ENDOVAGINAL ED 09/26/2023 9:00 PM CDT URINALYSIS AND REFLEX TO MICROSCOPIC AND CULTURE STAT 09/26/2023 5:07 PM CDT EGFR STAT 09/26/2023 4:11 PM CDT DIFFERENTIAL AUTO STAT 09/26/2023 4:1 1 PM CDT CBC WITH AUTO DIFFERENTIAL STAT 09/26/2023 4:11 PM CDT HCG, BLOOD, QUANTITATIVE STAT 09/26/2023 4:11 PM CDT COMPREHENSIVE METABOLIC PANEL STAT 09/26/2023 4:11 PM CDT documented in this encounter Results * US Ob Under 14 Weeks W Endovaginal (09/26/2023 9:00 PM CDT) Anatomical Region Laterality Modality Abdomen N/A Ultrasound 09/26/2023 9:03 PM CDT Narrative 09/26/2023 9:11 PM CDT EXAM DESCRIPTION: ?? US OB UNDER 14 WEEKS W ENDOVAGINAL REASON FOR STUDY: ?? positive test, abdominal pain and tenderness RLQ; concern for ectopic ?? Beta-hCG: ?6 TECHNIQUE: ?? Transabdominal and transvaginal ??images acquired of the pelvis. COMPARISON: ?? None FINDINGS: The uterus measures 8.3 cm craniocaudal by 3.7 cm AP by 4.7 cm transverse. ?? The endometrial stripe measures 1.2 cm. ??There is a small fluid collection along the posterior aspect of the endometrial canal within the uterine body measuring 5 mm x 5 mm x 6 mm. ??No pole or yolk sac is seen, and this could represent an early gestational sac versus pseudo gestational sac. ??No adnexal mass is seen. ??Ectopic is not excluded on the basis of this examination. ??Recommend correlation with serial beta HCG levels and or follow-up pelvic ultrasound. ??The right ovary measures 3 cm x 1.9 cm x 1.4 cm, while the left ovary measures 2.7 cm x 1.4 cm x 2.5 cm. ??Color flow Doppler images show normal blood flow to both ovaries. ??1.3 cm x 1.7 cm x 1.2 cm anechoic lesion on the left ovary may represent a corpus luteum. ??There is trace free fluid within the cul-de-sac. IMPRESSION: 6 mm fluid collection adjacent to the endometrial stripe which could represent an early gestational sac or pseudo gestational sac. ??No pole or yolk sac was seen and there is no ultrasound evidence of an adnexal mass. ??Ectopic is not excluded on the basis of this examination. ??Recommend correlation with serial beta HCG levels and or follow-up pelvic ultrasound. THIS IS AN ELECTRONICALLY VERIFIED FINAL REPORT 09/26/2023 9:11 PM - Electronically signed by ??Bill Lowe M.D. KT: BLAS D: ??09/26/2023 9:11 PM T: ??09/26/2023 9:11 PM Report ID: [id number] Reading Location: ??[id number] Procedure Note Bill Lowe MD - 09/26/2023 EXAM DESCRIPTION: US OB UNDER 14 WEEKS W ENDOVAGINAL REASON FOR STUDY: positive test, abdominal pain and tenderness RLQ; concern for ectopic Beta-hC TECHNIQUE: Transabdominal and transvaginal images acquired of thepelvis. COMPARISON: None FINDINGS: The uterus measures 8.3 cm craniocaudal by 3.7 cm AP by 4.7 cm transverse. The endometrial stripe measures 1.2 cm. There is a small fluid collection along the posterior aspect of the endometrial canal within the uterinebody measuring 5 mm x 5 mm x 6 mm. No pole or yolk sac is seen, and this could represent an early gestational sac versus pseudo gestational sac.No adnexal mass is seen. Ectopic is not excluded on the basis ofthis examination. Recommend correlation with serial beta HCG levels and or follow-up pelvic ultrasound. The right ovary measures 3 cm x 1.9 cm x 1.4cm, while the left ovary measures 2.7 cm x 1.4 cm x 2.5 cm. Color flowDoppler images show normal blood flow to both ovaries. 1.3 cm x 1.7 cm x 1.2 cm anechoic lesion on the left ovary may represent a corpus luteum. There is trace free fluid within the cul-de-sac. IMPRESSION: 6 mm fluid collection adjacent to the endometrial stripe which couldrepresent an early gestational sac or pseudo gestational sac. No pole or yolksac was seen and there is no ultrasound evidence of an adnexal mass. Ectopic is not excluded on the basis of this examination. Recommend correlation with serial beta HCG levels and or follow-up pelvicultrasound. THIS IS AN ELECTRONICALLY VERIFIED FINAL REPORT 09/26/2023 9:11 PM - Electronically signed by Bill Lowe M.D. KT: BLAS Report ID: [id number] Reading Location: [place] [address] [place] Josefina Snider MD IMG OB US PROCEDURES Final Result * Urinalysis reflex to microscopic and culture Urine, clean voided (09/26/2023 5:07 PM CDT) Color, ur Straw Yellow Clarity, ur Clear Clear [facility] ([place]) Specific gravity, ur 1.005 1.003 - 1.030 [facility] ([place]) pH, urine 5.5 [facility] ([place]) Comment: Interpretive Data ? Urine pH is affected by diet, medications, systemic acid-base disturbances, and renal tubular function. ??pH may affect urinary stone formation. ??For example, urine pH below 6.0 may help reduce the tendency for calcium phosphate stones and pH greater than 6.0 may reduce the tendency for uric acid stone formation. Source: [employer] Current Interpretive Data was last revised on 2017 Protein, ur ql Negative Negative [facility] ([place]) Glucose, ur ql Negative Negative [facility] ([place]) Ketones, ur Negative Negative [facility] [...] met. [facility] ([place]) Urine, clean voided 09/26/2023 5:07 PM CDT 09/26/2023 5:12 PM CDT Jonatan Santa MD LAB MICROBIOLOGY - GENERAL O RDERABLES Final Result [facility] ([place]) [address] [facility] Department [place] [address] * eGFR (09/26/2023 4:11 PM CDT) eGFR >90 >=60 mL/min/1. 73 m2 Comment: Interpretive Data Reference Interval Normal ?>/= 90 mL/min/1.73m2 Mildly decreased* ? 60 - 89 mL/min/1.73m2 Mildly to moderately decreased ?45 - 59 mL/min/1.73m2 Moderately to severely decreased ??30 - 44 mL/min/1.73m2 Severely decreased ?15 - 29 mL/min/1.73m2 Kidney Failure ?< 15 ??mL/min/1.73m2 *Relative to young adult level Estimated glomerular filtration rate is determined by the 2020 CKD-EPI equation recommended by the National Kidney Foundation (A Unifying Approach to GFR Estimation: Recommendations of the NKF-ASK Task Force on Reassessing the Inclusion of Race in Diagnosing Kidney Disease, JASN 2020). The CKD-EPI equation should not be used for patients with unstable renal function and has not been validated in children and those over 70. Current interpretive data was last reviewed 2021. Blood 09/26/2023 4:11 PM CDT 09/26/2023 4:14 PM CDT Jonatan Santa MD LAB BLOOD ORDERABLES Final R esult [facility] ([place]) [address] [facility] Department [place] [address] * Differential, auto (09/26/2023 4:11 PM CDT) Neutrophil abs 3.8 1.5 - 6.5 K/cumm Imm gran abs 0.0 0.0 - 0.1 K/cumm [facility] ([place]) Lymphocyte abs 0.9 0.8 - 3.3 K/cumm [facility] ([place]) Monocyte abs 0.8 0.2 - 0.8 K/cumm [facility] ([place]) Eosinophil abs 0.0 0.0 - 0.5 K/cumm [facility] ([place]) Basophil abs 0.0 0.0 - 0.1 K/cumm [facility] ([place]) Neutrophil pct 68.9 % [facility] ([place]) Comment: Interpretive Data Percent cell count reference ranges are not reported, since discordance with absolute values may lead to misinterpretation of CBC data. Current Interpretive Data was last revised on 2017. Imm gran pct 0.2 % [facility] ([place]) Comment: Interpretive Data Percent cell count reference ranges are not reported, since discordance with absolute values may lead to misinterpretation of CBC data. Current Interpretive Data was last revised on 2017. Lymphocyte pct 16.4 % [facility] ([place]) Comment: Interpretive Data Percent cell count reference ranges are not reported, since discordance with absolute values may lead to misinterpretation of CBC data. Current Interpretive Data was last revised on 2017. Monocyte pct 14.1 % [facility] ([place]) Comment: Interpretive Data Percent cell count reference ranges are not reported, since discordance with absolute values may lead to misinterpretation of CBC data. Current Interpretive Data was last revised on 2017. Eosinophil pct 0.2 % [facility] ([place]) Comment: Interpretive Data Percent cell count reference ranges are not reported, since discordance with absolute values may lead to misinterpretation of CBC data. Current Interpretive Data was last revised on 2017. Basophil pct 0.2 % [facility] ([place]) Comment: Interpretive Data Percent cell count reference ranges are not reported, since discordance with absolute values may lead to misinterpretation of CBC data. Current Interpretive Data was last revised on 2017. Blood 09/26/2023 4:11 PM CDT 09/26/2023 4:14 PM CDT Jonatan Santa MD LAB BLOOD ORDERABLES Final R esult Performing Organization Address [facility] de Phone Number [facility] ([place]) [address] [place] [address] * (ABNORMAL) hCG, blood, quantitative (09/26/2023 4:11 PM CDT) [facility] hCG, quant 6.0(H) 0.0 - 5.0 IUnits/L Comment: Interpretive Data Male: < 5 IU/L Non- premenopausal Female: <5 IU/L The [employer] hCG Beta Quant assay procedure was used. Results from different manufacturers or methods may not be comparable. ??Serial testing should be performed using the same method. Interpretive Data was last revised on 2023 Blood 09/26/2023 4:11 PM CDT 09/26/2023 4:14 PM CDT Jonatan Santa MD LAB BLOOD ORDERABLES Final R esult Performing Organization Address [facility] de Phone Number [facility] ([place]) [address] [place] [address] * (ABNORMAL) Comprehensive metabolic panel (09/26/2023 4:11 PM CDT) Pathologist [facility] [place] Sodium 137 135 - 145 mmol/L Potassium, pl 3.7 3.3 - 4.9 mmol/L [facility] ([place]) Chloride 102 97 - 110 mmol/L [facility] ([place]) CO2 24 22 - 32 mmol/L [facility] ([place]) Anion gap 12 2 - 15 mmol/L [facility] ([place]) BUN 17 6 - 25 mg/dL [facility] ([place]) Creatinine 0.77 0.60 - 1.10 mg/dL [facility] ([place]) Glucose 109 70 - 199 mg/dL [facility] ([place]) Comment: Interpretive Data Fasting glucose >/= 126 mg/dl is diagnostic for diabetes. ?? Fasting is defined as no caloric intake for at least 8 hours. Fasting glucose between 100 mg/dl to 125 mg/dl is diagnostic of prediabetes. In a patient with classic symptoms of hyperglycemia or hyperglycemic crisis, a random glucose >/= 200 mg/dl is diagnostic for diabetes. In the absence of unequivocal hyperglycemia, results should be confirmed by repeat testing. The classification and Diagnosis of Diabetes Diabetes Care 2021; 46: S19-S40. Current interpretive data was last revised 2022. Calcium 9.0 8.5 - 10.3 mg/dL [facility] ([place]) Bilirubin, total 0.4 0.1 - 1.2 mg/dL [facility] ([place]) Protein, pl 6.4(L) 6.5 - 8.5 g/dL [facility] ([place]) Albumin 4.1 3.5 - 5.0 g/dL [facility] ([place]) Alk phos 91 40 - 130 Units/L [facility] ([place]) ALT 18 7 - 45 Units/L [facility] ([place]) AST 20 10 - 45 Units/L [facility] ([place]) Blood 09/26/2023 4:11 PM CDT 09/26/2023 4:14 PM CDT Jonatan Santa MD LAB BLOOD ORDERABLES Final R esult [facility] ([place] [address] [facility] Department of Laboratories [place], [place] [id number] * (ABNORMAL) CBC with auto differential (09/26/2023 4:11 PM CDT) WBC 5.6 3.8 - 9.9 K/cumm Hgb 15.6(H) 11.9 - 15.5 g/dL [facility] ([place]) Hct 45.5 35.6 - 45.5 % [facility] ([place]) Plt 193 150 - 400 K/cumm [facility] ([place]) MPV 10.7 9.1 - 12.3 fL [facility] ([place]) RBC 5.05 3.90 - 5.20 M/cumm [facility] ([place]) MCV 90.1 81.3 - 96.4 fL [facility] ([place]) MCH 30.9 27.1 - 33.3 pg [facility] ([place]) MCHC 34.3 32.3 - 35.7 g/dL [facility] ([place]) RDW CV 11.5 11.1 - 14.9 % [facility] ([place]) RDW SD 37.7 35.7 - 48.1 fL [facility] ([place]) NRBC abs 0.00 0.00 - 0.01 K/cumm [facility] ([place]) Blood 09/26/2023 4:11 PM CDT 09/26/2023 4:14 PM CDT Jonatan Santa MD LAB BLOOD ORDERABLES Final R esult [facility] ([place]) [address] [facility] Department [place] [address] documented in this encounter Visit Diagnoses Diagnosis Abdominal pain- Primary Abdominal pain, unspecified site Early stage of state, incidental Vomiting and diarrhea documented in this encounter Administered Medications Inactive Administered Medications - up to 3 most recent administrations Medication Order MAR Action Action Date Dose Rate Site ondansetron (ZOFRAN) injection 4 mg 4 mg, intravenous, Administer over 2 Minutes, Once, On 09/26/23 at 1713, For 1 dose Given 09/26/2023 5:15 PM CDT 4 mg sodium chloride 0.9% bolus 1,000 mL 1,000 mL, intravenous, at 1,000 mL/hr, Administer over 1 Hours, Once, On 09/26/23 at 1714, For 1 dose New Bag 09/26/2023 5:15 PM CDT 1,000 mL 1000 mL/hr documented in this encounter Active and Recently Administered Medications Times are shown in CDT. Scheduled Medication Order 09/24/2023 09/25/202309/26/2023 ondansetron (ZOFRAN) injection 4 mg (COMPLETED) 4 mg, intravenous, Administer over 2 Minutes, Once, On 09/26/23 at 1713, For 1 dose 1715 (Given - Provid er: Nora Kolb, RN) sodium chloride 0.9% bolus 1,000 mL (COMPLETED) 1,000 mL, intravenous, at 1,000 mL/hr, Administer over 1 Hours, Once, On 09/26/23 at 1714, For 1 dose 1715 (New Bag - Prov ider: Nora Kolb, EDWIN)1950 (Stopped - Provider: Dev Jean-Baptiste RN) documented in this encounter Care Teams Pacs Specialist Relationship Specialty Start Date End Date Shruthi Chávez DO [address] [place] [address] PCP - General Family Medicine 07/15/22 03/03/24 Mariaa Cruz MD [address] [place] [address] Referring Physician Gynecology 07/15/22 documented as of this encounter
--- OUTSIDE RECORDS SUMMARY | 2024-05-16 03:44 | XMS_ITS | Encounter Summary ---
Author Organization [facility] Healthcare Address [address] [place] [address] Care Team Providers Care Wall Taper Name Role Phone Shruthi Chávez Primary Care Provider [phone] Mariaa Cruz MD Unavailable [phone] Reason for Visit * Reason Comments Abdominal Pain 2 weeks of abdominal pain. Inconclusive home test .Nausea cramps that are moving higher towards her rib cage. 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 Gender Identity Not on file Sexual Orientation Not on file documented as of this encounter Last Filed Vital Signs Vital Sign Reading Time Taken Comments Blood Pressure 98/58 09/26/2023 3:12 PM CDT Pulse 100 09/26/2023 3:12 PM CDT Temperature 37.1 ??C (98.7 ??F) 09/26/2023 3:12 PM CD T Respiratory Rate 18 09/26/2023 3:12 PM CDT Oxygen Saturation 99% 09/26/2023 3:12 PM CDT Inhaled Oxygen Concentration - - Weight 54 kg (119 lb) 09/26/2023 3:12 PM CDT Height 157.5 cm (5' 2 ) 09/26/2023 3:12 PM CDT Body Mass Index 21.77 09/26/2023 3:12 PM CDT documented in this encounter Patient Instructions * Patient Instructions* Celi Maradiaga NP - 09/26/2023 3:15 PM CDT HCG POC neg. UA +ketones, culture pending. COVID/FLU NEGATIVE. Discussed concerns for acute process and recommend evaluation at ER. Patient verbalized understanding and will report to [facility] ER now via private vehicle. Declined EMS services. documented in this encounter Progress Notes * Celi Maradiaga NP - 09/26/2023 3:15 PM CDT Images from the original note were not included. Subjective/Objective Patient ID: Alee WhittenKai is a 33 y.o. female. Chief Complaint Abdominal Pain (2 weeks of abdominal pain. Inconclusive home test ./Nausea cramps that are moving higher towards her rib cage.) Patient presents to clinic today for abdominal pain, nausea, abdominal cramping x2 weeks. Reports inconclusive home test. Reports still child. Reports normal urinary output.Reports intermittent constipation. Decreased appetite, drinking fluids well. Denies chest pain, shor tness of breath. Denies vomiting. Review of Systems Constitutional: Positive for fatigue. HENT: Negative. Eyes: Negative. Respiratory: Negative. Gastrointestinal: Positive for abdominal pain, constipation and nausea. Negative for vomiting. Genitourinary: Negative. Musculoskeletal: Negative. Skin: Negative. Physical Exam Vitals and nursing note reviewed. Constitutional: General: She is not in acute distress. Appearance: She is ill-appearing. She is not toxic-appearing or diaphoretic. HENT: Head: Normocephalic and atraumatic. Mouth/Throat: Mouth: Mucous membranes are moist. Pharynx: Oropharynx is clear. Eyes: Extraocular Movements: Extraocular movements intact. Pupils: Pupils are equal, round, and reactive to light. Cardiovascular: Rate and Rhythm: Normal rate and regular rhythm. Pulmonary: Effort: Pulmonary effort is normal. Breath sounds: Normal breath sounds. Abdominal: General: Abdomen is flat. Palpations: Abdomen is soft. Tenderness: There is abdominal tenderness in the right upper quadrant and epigastric area. There isguarding. There is no right CVA tenderness, left CVA tenderness or rebound. Skin: General: Skin is warm and dry. Capillary Refill: Capillary refill takes less than 2 seconds. Coloration: Skin is pale. Findings: No rash. Neurological: General: No focal deficit present. Mental Status: She is alert and oriented to person, place, and time. Psychiatric: Mood and Affect: Mood normal. Behavior: Behavior normal. Vitals: 09/26/23 1512 BP: 98/58 Pulse: 100 Resp: 18 Temp: 37.1 ??C (98.7 ??F) TempSrc: Temporal SpO2: 99% Weight: 54 kg (119 lb) Height: 157.5 cm (5' 2 ) Assessment/Plan Diagnoses and all orders for this visit: Abdominal pain (Primary) - POC Influenza A/B, COVID-19 antigen - POCT hCG, urine - POCT urinalysis dipstick - Urine culture Urine, clean voided; Future Recent Results (from the past 4 hour(s)) POC Influenza A/B, COVID-19 antigen Collection Time: 09/26/23 3:31 PM Result Value Ref Range Influenza A Ag, POC Negative Negative Influenza B Ag, POC Negative Negative COVID-19 Ag POC Presumptive Negative Presumptive Negative, Invalid POCT urinalysis dipstick Collection Time: 09/26/23 3:31 PM Result Value Ref Range Color, Urine, POC Yellow Clarity, ur, POC Clear Clear Glucose, ur, POC Negative Negative MG/DL Bilirubin, ur, POC Negative Negative, Small, Moderate, Large Ketones, ur, POC 15. (A) Negative Specific Sawyer, POC 1.030 1.003 - 1.030 Blood, ur, POC Negative Negative pH, ur, POC 5.5 5.0 - 8.0 Protein, ur, POC Negative Negative Urobilinogen, urine, POC 0.2 0.2 - 1.0 mg/dL Nitrite, ur, POC Negative Negative Leukocytes, ur, POC Negative Negative Lot Number [id number] POCT hCG, urine Collection Time: 09/26/23 3:32 PM Result Value Ref Range HCG, ur, POC Negative Negative Lot Number [id number] QC Backgroud Clear Acceptable QC Control Line Acceptable HCG POC neg. UA +ketones, culture pending. COVID/FLU NEGATIVE. Discussed concerns for acute process and recommend evaluation at ER. Patient verbalized understanding and will report to [facility] ER now via private vehicle. Declined EMS services. Disposition Treatment plan including expectations, follow up, and return precautions discussed with patient/parent, verbalizes understanding. Medication dosage, use, and potential adverse reactions discussed with patient/parent. Advised to follow up with PCP if symptoms do not resolve as expected or sooner if condition worsens. Signs/symptoms warranting ER evaluation reviewed. Patient and/or guardian was given an opportunity to ask questions, questions answered. Celi Maradiaga NP documented in this encounter Plan of Treatment Not on file documented as of this encounter Procedures Procedure Name Priority Date/Time Associated Diagnosis Comments POCT HCG, URINE Routine 09/26/2023 3:32 PM CDT Abdominal pain POC INFLUENZA A/B, COVID-19 ANTIGEN Routine 09/26/2023 3:31 PM CDT Abdominal pain POCT URINALYSIS DIPSTICK Routine 09/26/2023 3:31 PM CDT Abdominal pain documented in this encounter Results * Urine culture Urine, clean voided (09/26/2023 3:33 PM CDT) Report Final Report: Less than 100,000 colonies/mL (clinically insignificant growth based on current clinical standards) Comment:Testing performed by : [facility], [address] [place]., [address] Organism (CLINICALLY INSIGNIFICANT GROWTH [facility] Urine, clean voided 09/26/2023 3:33 PM CDT 09/27/2023 12:20 AM CDT Narrative TR[facility] - 09/28/2023 11:15 AM CDT Testing performed by [facility] Microbiology Laboratory ([phone]) Celi Maradiaga NP LAB MICROBIOLOGY - GENERA L ORDERABLES Final Result [facility] [address] Department [place] [address] * POCT hCG, urine (09/26/2023 3:32 PM CDT) Pathologist [facility] HCG, ur, POC Negative Negative Lot Number [id number] QC Backgroud Clear Acceptable QC Control Line Acceptable Urine 09/26/2023 3:32 PM CDT us Celi Maradiaga NP POINT OF CARE TEST ORDERA BLES Final Result * (ABNORMAL) POCT urinalysis dipstick (09/26/2023 3:31 PM CDT) Color, Urine, POC Yellow Clarity, ur, POC Clear Clear Glucose, ur, POC Negative Negative MG/DL Bilirubin, ur, POC Negative Negative, Small, Moderate, Large Ketones, ur, POC 15.(A) Negative Specific Sawyer, POC 1.030 1.003 - 1.030 Blood, ur, POC Negative Negative pH, ur, POC 5.5 5.0 - 8.0 Protein, ur, POC Negative Negative Urobilinogen, urine, POC 0.2 0.2 - 1.0 mg/dL Nitrite, ur, POC Negative Negative Leukocytes, ur, POC Negative Negative Lot Number [id number] Urine 09/26/2023 3:31 PM CDT Celi Maradiaga POINT OF CARE TEST ORDERA BLES Final Result * POC Influenza A/B, COVID-19 antigen (09/26/2023 3:31 PM CDT) Pathologist [facility] Influenza A Ag, POC Negative Negative [facility] Influenza B Ag, POC Negative Negative [facility] COVID-19 Ag POC Presumptive Negative Presumptive Negative, Invalid [facility] Nasal 09/26/2023 3:31 PM CDT Celi Maradiaga POINT OF CARE TEST ORDERA BLES Final Result [facility] [address] [place] [address], [facility] documented in this encounter Visit Diagnoses Diagnosis Abdominal pain- Primary Abdominal pain, unspecified site Abdominal pain Abdominal pain, unspecified site documented in this encounter Additional Health Concerns Infection Onset Date Last Indicated Resolved Time COVID: Suspected 09/26/2023 09/26/2023 09/26/2023 3:32 PM CDT documented as of this encounter Care Teams Wall Taper Relationship Specialty Start Date End Date Shruthi Chávez DO [address] [place] [address] PCP - General Family Medicine 07/15/22 03/03/24 Mariaa Cruz MD [address] [place] [address] Referring Physician Gynecology 07/15/22 documented as of this encounter
--- OUTSIDE RECORDS SUMMARY | 2024-05-16 03:44 | XMS_ITS | Encounter Summary ---
Author Organization [facility] Healthcare Address [address] [place] [address] Care Team Providers Care Mangle Press Catcher Name Role Phone Shruthi Chávez Primary Care Provider [phone] Mariaa Cruz MD Unavailable Reason for Visit * Reason Onset Date Comments Rectal Bleeding 10/05/2023 Encounter Details Date Type Department Care Team (Late st Contact Info) Description 10/05/2023 Nurse Triage [facility] Medical Group Primary Care at [address] [place] [address] Yolanda Mazariegos RN Social History Tobacco Use Types Packs/Day Years Used Date Smoking Tobacco: Former Cigarettes 0.5 10 0 05/26/2011 - 05/25/2019 Smokeless Tobacco: Never Comments:vape Alcohol Use Standard Drinks/Week Comments Not Currently 0 (1 standard drink = 0.6 oz pur e alcohol) AUDIT-C Answer Date Recorded Q1: How often do you have a drink containing alc ohol? Monthly or less 10/06/2023 Q2: How many drinks containi ng alcohol do you have on a typical day when you are drinking? 1 or 2 10/06/2023 Q3: How often do you have si x or more drinks on one occasion? Never 10/06/2023 PHQ-2 Answer Date Recorded PHQ-2 Total Score (If total score is 3 or more points, staff should administer the PHQ-9) 0 10/06/2023 Personal Safety Answer Date Recorded Have you ever been in or are you currently in a harmful physical or emotional relationship or is someone making you feel afraid or unsafe? 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 Onset 1 week. No fever. No weakness. No SOB or dizziness. No severe rectal pain. Former pt of -same day need. Appt scheduled Matthew REGULATOR MECHANIC 10/06/23 2:30 pm-location given. Epsom salt bath-2 cups per hot bath 20 minutes. Can use OTC Hemorrhoid cream, per box. Reason for Disposition ??? MILD rectal bleeding (more than just a few drops or streaks) Protocols used: Rectal Rhgylonf-[id number]-BP * Telephone Encounter - Latosha Cesar RN - 10/05/2023 10:42 AM CDT Regarding: blood in stool ----- Message from Grisel Hannon sent at 10/05/2023 10:35 AM CDT ----- Symptom Based Call Chief Complaint(s): blood in stool Duration: 1 week What type of symptom(s) is the patient experiencing? Red Flag. Is the patient concerned they are experiencing a medical emergency requiring an ambulance? No Additional Comments: Patient had a hemorrhoid and is not sure if it ruptured Does message need to be routed? Yes-Action Needed documented in this encounter Plan of Treatment Not on file documented as of this encounter Visit Diagnoses Not on filedocumented in this encounter Care Teams Mangle Press Catcher Relationship Specialty Start Date End Date Shruthi Chávez DO [address] [place] [address] PCP - General Family Medicine 07/15/22 03/03/24 Mariaa Cruz MD [address] [address] Referring Physician Gynecology 07/15/22 documented as of this encounter
--- OUTSIDE RECORDS SUMMARY | 2024-05-16 03:44 | XMS_ITS | Encounter Summary ---
Author Organization [facility] Health Address [address] [place] [address] Care Team Providers Care Oil Change Technician Name Role Phone Unavailable Primary Care Provider Unavailabl e Encounter Details Date Type Department Care Team (Late st Contact Info) Description 10/01/2023 Lab Requisition [facility] - DermPath Lab [address] [facility], [place] [id number] Ady Dickens MD [facility] DERMATOLOGY [address] [place] [phone] Neoplasm of uncertain behavior of skin; Other disturbances of skin sensation; Hemorrhage, not elsewhere classified Social History Tobacco Use Types Packs/Day Years [...] Procedure Name Priority Date/Time Associated Diagnosis Comments DERMATOPATHOLOGY Routine 10/01/2023 3:33 AM CDT Neoplasm of uncertain behavior of skin Other disturbances of skin sensation Hemorrhage, not elsewhere classified documented in this encounter Results * DERMATOPATHOLOGY (10/01/2023 3:33 AM CDT) Case Report Dermatopathology Report ? Case: [id number] ? Authorizing Provider: ??Ady Dickens MD ? Collected: ? 10/01/2023 03:33 AM ? Ordering Location: ? [facility] - ??Received: ?10/05/2023 07:18 AM ? DermPath Lab ? Pathologist: ? Terrance Velazco MD ? Specimen: ?Skin, left posterior neck ? 4 1:24 PM CDT DERMATOPATHOLOGY LABORATORY Final Diagnosis Specimen A. SKIN, left posterior neck: INTRADERMAL MELANOCYTIC NEVUS (D22.4) 4 1:24 PM CDT DERMATOPATHOLOGY LABORATORY Clinical History Irritated Nevus 4 1:24 PM CDT DERMATOPATHOLOGY LABORATORY Gross Description Specimen A: Received is one formalin filled container labeled with the patients name and designated left posterior neck. The specimen consists of a shave removal measuring 4x2x4 mm. Jar 0. 4 1:24 PM CDT DERMATOPATHOLOGY LABORATORY Microscopic Description Specimen A. SKIN, left posterior neck: There are nests of cytologically bland melanocytes within the dermis that mature with depth. 4 1:24 PM CDT DERMATOPATHOLOGY LABORATORY Disclaimer An external and internal positive and negative controls are appropriate for the histochemical, immunohistochemical and immunofluorescence stain(s) in this case (if any), except where stated explicitly. The performance characteristics of the stain(s) cited in this report were developed and its performance characteristic determined by the Dermatopathology Laboratory at [facility], directed by Dr. Lewis Velazco. These tests need not be, and therefore are not, approved by the [place] Food and Drug Administration. The tests are used for clinical purposes. Billing Codes Specimen Charges Stain Charges 37466 1 4 1:24 PM CDT DERMATOPATHOLOGY LABORATORY Embedded Images 4 1:24 PM CDT DERMATOPATHOLOGY LABORATORY Pathology/Cytolo gy TISSUE SPECIMEN FROM SKIN / Unknown 10/01/2023 3:33 AM CDT 10/05/2023 7:18 AM CDT Ady Dickens MD LAB - PATHOLOGY/CYTO LOGY ORDERABLES DERMATOPATHOLOGY LABORATORY [facility] - Department of Dermatology [address], [address] [phone] documented in this encounter Visit Diagnoses Diagnosis Neoplasm of uncertain behavior of skin Other disturbances of skin sensation Hemorrhage, not elsewhere classified documented in this encounter
--- OUTSIDE RECORDS SUMMARY | 2024-05-16 03:44 | XMS_ITS | Clinical Summary ---
Author Organization [email or web address] Address [address] [place] [address] Care Team Providers Care Simulation Technician Name Role Phone Unavailable Primary Care Provider Unavailabl e Source Comments [email or web address],non-owned Affiliates and Associated Physician Practices is amultiple site organization consisting of ambulatory clinics and hospital sitesin [place], [place], [place] and [place]. This disclosure is being madepursuant to the Care Everywhere program and may not contain all information available regarding this patient. Last updated 18.[email or web address] Allergies No known active allergies Medications * [...] 08/25/2018 12:17 PM CDT Plan of Treatment Health Maintenance Due Date Last Done Comments PAP SMEAR 1991 PNEUMOCOCCAL VACCINE (1 of 2 - PCV) 1997 HIV SCREENING 2006 HEPATITIS C SCREENING 03/10/2009 DTAP/TDAP/TD VACCINES (1 - Tdap) 2010 HEPATITIS B VACCINE (1 of 3 - 19+ 3-dose series) 2010 DEPRESSION SCREENING 05/25/2023 COVID-19 VACCINE (1 - 2023-2 5 season) 2024 INFLUENZA VACCINE (#1) 2024 ZOSTER VACCINE (1 of 2) 2041 HIB VACCINE Aged Out No longer eligi ble based on patient's age to complete this topic HPV VACCINE Aged Out No longer eligi ble based on patient's age to complete this topic MENINGOCOCCAL VACCINE Aged Out No pema mack eligible based on patient's age to complete this topic
--- OUTSIDE RECORDS SUMMARY | 2024-05-16 03:44 | XMS_ITS | Encounter Summary ---
Author Organization [facility] Healthcare Address [address] [place] [address] Care Team Providers Care Senior Quality Assurance Engineer Name Role Phone Shruthi Chávez DO Primary Care Provider [phone]- [phone] Mariaa Cruz MD Unavailable Reason for Visit * Reason Onset Date Comments Medical Question/Miscellaneous 08/26/2023 Encounter Details Date Type Department Care Team (Late st Contact Info) Description 08/26/2023 Telephone [facility] Primary Care at [address] [place] [address] Shruthi Chávez DO [address] [facility] [address] [address] Medical Question/Miscellaneous Social History Tobacco Use Types Packs/Day Years [...] 0 07/20/2023 Personal Safety Answer Date Recorded Getting School Help Needed Not on file 06/21 Comments No Sex and Gender Information Value Date Recorded Sex Assigned at Not on file 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 * Telephone Encounter - Vidhya Hsu - 08/26/2023 12:50 PM CDT Medical Question/Miscellaneous Caller???s Concern: patient would like her labs from 07.20.23 refaxed to [facility] at #[phone] as they are saying they dont have the order. Does message need to be routed? Yes-Action Needed documented in this encounter Plan of Treatment Not on file documented as of this encounter Visit Diagnoses Not on filedocumented in this encounter Care Teams Senior Quality Assurance Engineer Relationship Specialty Start Date End Date Shruthi Chávez DO [address] [place] [address] PCP - General Family Medicine 07/15/22 03/03/24 Mariaa Cruz MD [address] [place] [address] Referring Physician Gynecology 07/15/22 documented as of this encounter
--- OUTSIDE RECORDS SUMMARY | 2024-05-16 03:44 | XMS_ITS | Encounter Summary ---
Author Organization [facility] Healthcare Address [address] [place] [id number] Care Team Providers Care Cutting Machine Tender Decorative Name Role Phone Shruthi Chávez DO Primary Care Provider [phone] Mariaa Cruz MD Unavailable [phone] Reason for Visit * Reason Comments Annual Exam Encounter Details Date Type Department Care Team (Late st Contact Info) Description 07/20/2023 2:30 PM LANDSCAPE ENGINEER Office Visit [facility] Primary Care at [address] [place] [address] Shruthi Chávez DO [address] [facility] [address] [address] Annual physical exam (Primary Dx); Vitamin D deficiency; Screening for deficiency anemia; Encounter for screening for other digestive system disorders; Encounter for screening examination for impaired glucose regulation and diabetes mellitus; Encounter for lipid screening for cardiovascular disease; Screening for thyroid disorder; Screening for blood or protein in urine; Influenza vaccine refused Social History Tobacco Use Types Packs/Day Years Used Date Smoking Tobacco: Former Cigarettes 0.5 10 0 05/26/2011 - 05/25/2019 Smokeless Tobacco: Never Tobacco Cessation:Counseling Given: Not Answered Comments:vape Alcohol Use Standard Drinks/Week Comments Not [...] on file Legal Sex Female 3:59 AM LANDSCAPE ENGINEER Gender Identity Not on file Sexual Orientation Not on file documented as of this encounter Last Filed Vital Signs Vital Sign Reading Time Taken Comments Blood Pressure 100/60 07/20/2023 2:38 PM LANDSCAPE ENGINEER Pulse 56 07/20/2023 2:38 PM LANDSCAPE ENGINEER Temperature 36.7 ??C (98 ??F) 07/20/2023 2:38 PM LANDSCAPE ENGINEER Respiratory Rate 14 07/20/2023 2:38 PM LANDSCAPE ENGINEER Oxygen Saturation 100% 07/20/2023 2:38 PM LANDSCAPE ENGINEER Inhaled Oxygen Concentration - - Weight 57.9 kg (127 lb 11.2 oz) 07/20/2023 2:38 PM LANDSCAPE ENGINEER Height 157.5 cm (5' 2 ) 07/20/2023 2:38 PM LANDSCAPE ENGINEER Body Mass Index 23.36 07/20/2023 2:38 PM LANDSCAPE ENGINEER documented in this encounter Patient Instructions * Patient Instructions* Shruthi Chávez, DO - 07/20/2023 2:30 PM LANDSCAPE ENGINEER Images from the original note were not included. Patient Education Wellness Visit for Adults TERRITORY ACCOUNT REPRESENTATIVE: A wellness visit is when you see your healthcare provider to get screened for health problems. Yourhealthcare provider will also give you advice on how to stay healthy. Write down your questions so you remember to ask them. Ask your healthcare provider how often you should have a wellness visit. What happens at a wellness visit: Your healthcare provider will ask about your health, and your family history of health problems. This includes high blood pressure, heart disease, and cancer. He or she will ask if you have symptoms that concern you, if you smoke, and about your mood. You may also be asked about your intake of medicines, supplements, food, and alcohol. Any of the following may bedone: Your weight will be checked. Your height may also be checked so your body mass index (BMI) can be calculated. Your BMI shows if you are at a healthy weight. Your blood pressure and heart rate will be checked. Your temperature may also be checked. Blood and urine tests may be done. Blood tests may be done to check your cholesterol levels. Abnormal cholesterol levels increase your risk for heart disease and stroke. You may also need a blood or urine test to check for diabetes if you are at increased risk. Urine tests may be done to look for signs of an infection or kidney disease. A physical exam includes checking your heartbeat and lungs with a stethoscope. Your healthcare provider may also check your skin to look for sun damage. Screening tests may be recommended. A screening test is done to check for diseases that may not cause symptoms. The screening tests you may need depend on your age, gender, family history, and lifestyle habits. For example, colorectal screening may be recommended if you are 50 years old or older. Screening tests you need if you are a woman: A Pap smear is used to screen for cervical cancer. Pap smears are usually done every 3 to 5 years depending on your age. You may need them more often if you have had abnormal Pap smear test results in the past. Ask your healthcare provider how often you should have a Pap smear. A mammogram is an x-ray of your breasts to screen for breast cancer. Experts recommend mammograms every 2 years starting at age 50 years. You may need a mammogram at age 49 years or younger if you have an increased risk for breast cancer. Talk to your healthcare provider about when you should starthaving mammograms and how often you need them. Vaccines you may need: Get an influenza vaccine every year. The influenza vaccine protects you from the flu. Several typesof viruses cause the flu. The viruses address change clerk time, so new vaccines are made each year. Get a tetanus-diphtheria (Td) booster vaccine every 10 years. This vaccine protects you against tetanus and diphtheria. Tetanus is a severe infection that may cause painful muscle spasms and lockjaw.Diphtheria is a severe bacterial infection that causes a thick covering in the back of your mouth and throat. Get a human papillomavirus (HPV) vaccine if you are female and aged 19 to 26 or male 19 to 21 and never received it. This vaccine protects you from HPV infection. HPV is the most common infection spread by sexual contact. HPV may also cause vaginal, penile, and anal cancers. Get a pneumococcal vaccine if you are aged 65 years or older. The pneumococcal vaccine is an injection given to protect you from pneumococcal disease. Pneumococcal disease is an infection caused by pneumococcal bacteria. The infection may cause pneumonia, meningitis, or an ear infection. Get a shingles vaccine if you are 60 or older, even if you have had shingles before. The shingles vaccine is an injection to protect you from the varicella- zoster virus. This is the same virus that causes chickenpox. Shingles is a painful rash that develops in people who had chickenpox or have beenexposed to the virus. How to eat healthy: My Plate is a model for planning healthy meals. It shows the types and amounts of foods that should go on your plate. Fruits and vegetables make up about half of your plate, and grains and protein make up the other half. A serving of dairy is included on the side of your plate. The amount of calories and serving sizes you need depends on your age, gender, weight, and height. Ex amples of healthy foods are listed below: Eat a variety of vegetables such as dark green, red, and orange vegetables. You can also include canned vegetables low in sodium (salt) and frozen vegetables without added butter or sauces. Eat a variety of fresh fruits , canned fruit in 100% juice, frozen fruit, and dried fruit. Include whole grains. At least half of the grains you eat should be whole grains. Examples include whole-wheat bread, wheat pasta, brown rice, and whole- grain cereals such as oatmeal. Eat a variety of protein foods such as seafood (fish and shellfish), lean meat, and poultry withoutskin (turkey and chicken). Examples of lean meats include pork leg, shoulder, or tenderloin, and beef round, sirloin, tenderloin, and extra lean ground beef. Other protein foods include eggs and egg substitutes, beans, peas, soy products, nuts, and seeds. Choose low-fat dairy products such as skim or 1% milk or low-fat yogurt, cheese, and cottage cheese. Limit unhealthy fats such as butter, hard margarine, and shortening. Exercise: Exercise at least 30 minutes per day on most days of the week. Some examples of exercise include walking, biking, dancing, and swimming. You can also fit in more physical activity by takingthe stairs instead of the elevator or parking farther away from stores. Include muscle strengthening activities 2 days each week. Regular exercise provides many health benefits. It helps you manage your weight, and decreases your risk for type 2 diabetes, heart disease, stroke, and high blood pressure. Exercise can also help improve your mood. Ask your healthcare provider about the best exercise plan for you. General health and safety guidelines: Do not smoke. Nicotine and other chemicals in cigarettes and cigars can cause lung damage. Ask yourhealthcare provider for information if you currently smoke and need help to quit. E-cigarettes or smokeless tobacco still contain nicotine. Talk to your healthcare provider before you use these products. Limit alcohol. A drink of alcohol is 12 ounces of beer, 5 ounces of wine, or 1?? ounces of liquor. Lose weight, if needed. Being overweight increases your risk of certain health conditions. These include heart disease, high blood pressure, type 2 diabetes, and certain types of cancer. Protect your skin. Do not sunbathe or use tanning beds. Use sunscreen with a SPF 15 or higher. Apply sunscreen at least 15 minutes before you go outside. Reapply sunscreen every 2 hours. Wear protective clothing, hats, and sunglasses when you are outside. Drive safely. Always wear your seatbelt. Make sure everyone in your car wears a seatbelt. A seatbelt can save your life if you are in an accident. Do not use your cell phone when you are driving. This could distract you and cause an accident. planting material remover if you need to make a call or send a text message. Practice safe sex. Use latex condoms if are sexually active and have more than one partner. Your healthcare provider may recommend screening tests for sexually transmitted infections (STIs). Wear helmets, lifejackets, and protective gear. Always wear a helmet when you ride a bike or motorcycle, go skiing, or play sports that could cause a head injury. Wear protective equipment when you play sports. Wear a lifejacket when you are on a boat or doing water sports. ?? Copyright [employer] 2021 Information is for End User's use only and may not be sold, redistributed or otherwise used for commercial purposes. All illustrations and images included in CareNotes?? are the copyrighted property of [employer] or [employer] The above information is an dietary aid only. It is not intended as medical advice for individual conditions or treatments. Talk to your doctor, nurse or pharmacist before following any medical regimen to see if it is safe and effective for you. Patient Education Breast Self Exam for Women TERRITORY ACCOUNT REPRESENTATIVE: A breast self-exam (BSE) is a way to check your breasts for lumps and other changes. Regular BSEs can help you know how your breasts normally look and feel. Most breast lumps or changes are not cancer, but you should always have them checked by a healthcare provider. Why you should do a BSE: Breast cancer is the most common type of cancer in women. Even if you havemammograms, you may still want to do a BSE regularly. If you know how your breasts normally feel and look, it may help you know when to contact your healthcare provider. Mammograms can miss some cancers. You may find a lump during a BSE that did not show up on a mammogram. When you should do a BSE: If you have periods, you may want to do your BSE 1 week after your periodends. This is the time when your breasts may be the least swollen, lumpy, or tender. You can do regular BSEs even if you are or have breast implants. Call your doctor if: You find any lumps or changes in your breasts. You have breast pain or fluid coming from your nipples. You have questions or concerns about your condition or care. How to do a BSE: Look at your breasts in a mirror. Look at the size and shape of each breast and nipple. Check for swelling, lumps, dimpling, scaly skin, or other skin changes. Look for nipple changes, such as a nipple that is painful or beginning to pull inward. Gently squeeze both nipples and check to see if fluid (that is not breast milk) comes out of them. If you find any of these or other breast changes, contact your healthcare provider. Check your breasts while you sit or buildings and grounds director the following 3 positions: Hang your arms down at your sides. Raise your hands and join them behind your head. Put firm pressure with your hands on your hips. Bend slightly forward while you look at your breasts in the mirror. Lie down and feel your breasts. When you lie down, your breast tissue spreads out evenly over your chest. This makes it easier for you to feel for lumps and anything that may not be normal for your breasts. Do a BSE on one breast at a time. Place a small pillow or towel under your left shoulder. Put your left arm behind your head. Use the 3 middle fingers of your right hand. Use your fingertip pads, on the top of your fingers. Your fingertip pad is the most sensitive part of your finger. Use small circles to feel your breast tissue. Use your fingertip pads to make dime-sized, overlapping circles on your breast and armpits. Use light, medium, and firm pressure. First, press lightly. Second, press with medium pressure to feel a little deeper into the breast. Last, use firm pressure to feel deep within your breast. Examine your entire breast area. Examine the breast area from above the breast to below the breast where you feel only ribs. Make small circles with your fingertips, starting in the middle of your armpit. Make circles going up and down the breast area. Continue toward your breast and all the way across it. Examine the area from your armpit all the way over to the middle of your chest (breastbone). Stop at the middle of your chest. Move the pillow or towel to your right shoulder, and put your right arm behind your head. Use the 3fingertip pads of your left hand, and repeat the above steps to do a BSE on your right breast. What else you can do to check for breast problems or cancer: Talk to your healthcare provider aboutmammograms. A mammogram is an x-ray of your breasts to screen for breast cancer or other problems. Your provider can tell you the benefits and risks of mammograms. The first mammogram is usually at age 45 or 50. Your provider may recommend you start at 40 or younger if your risk for breast cancer is high. Mammograms usually continue every 1 to 2 years until age 74. Follow up with your doctor as directed: Write down your questions so you remember to ask them during your visits. ?? Copyright [employer] 2021 Information is for End User's use only and may not be sold, redistributed or otherwise used for commercial purposes. All illustrations and images included in CareNotes?? are the copyrighted property of [employer] or [employer] The above information is an dietary aid only. It is not intended as medical advice for individual conditions or treatments. Talk to your doctor, nurse or pharmacist before following any medical regimen to see if it is safe and effective for you. Health Maintenance Topics with due status: Overdue Topic Date Due Cervical Cancer Screening Never done DTaP/Tdap/Td Vaccine Never done Health Maintenance Topics with due status: Due On Topic Date Due Regular Well Visit/Exam 18-64 07/15/2023 Thanks for coming in today! My medical transcription and I are thankful you have trusted us with your care, and hope that you received EXCELLENT care today! Although some conditions may not allow immediate improvement, I aim to always make you feel a little better leaving, than when you came in. [place] not hesitate to call, if you have any questions or concerns, at [phone]. You may receive a phone call, text, MYCHART message, or e-mail asking you to take a survey about your care today. We would love to hear your feedback on how EXCELLENT your care was today! Wishing you better health, always! Dr. Shruthi Chávez SCAPE ENGINEER documented in this encounter Progress Notes * Shruthi Chávez DO - 07/20/2023 2:30 PM CST Images from the original note were not included. Subjective/Objective Patient ID: Alee Cano is a 33 y.o. female. Chief Complaint Chief Complaint Patient presents with Annual Exam HPI Patient RTC today for an annual physical. Review of Systems Constitutional: Negative for fever. HENT: Negative for congestion and sore throat. Eyes: Negative for visual disturbance. Respiratory: Negative for cough and shortness of breath. Cardiovascular: Negative for chest pain, palpitations and leg swelling. Gastrointestinal: Negative for abdominal pain. Genitourinary: Negative for hematuria. Musculoskeletal: Negative for arthralgias and myalgias. Skin: Negative for rash. Neurological: Negative for dizziness, numbness and headaches. Hematological: Negative for adenopathy. All other systems reviewed and are negative. Vitals: 07/20/23 1438 BP: 100/60 BP Location: Right arm Patient Position: Sitting Pulse: 56 Resp: 14 Temp: 36.7 ??C (98 ??F) SpO2: 100% Weight: 57.9 kg (127 lb 11.2 oz) Height: 157.5 cm (5' 2 ) Body mass index is 23.36 kg/m??. Physical Exam Vitals and nursing note reviewed. Constitutional: Appearance: Normal appearance. She is well-developed. HENT: Head: Normocephalic and atraumatic. Right Ear: Hearing, tympanic membrane, ear canal and external ear normal. There is no impacted cerumen. Left Ear: Hearing, tympanic membrane, ear canal and external ear normal. There is no impacted cerumen. Mouth/Throat: Mouth: Mucous membranes are moist. Pharynx: Oropharynx is clear. No posterior oropharyngeal erythema. Eyes: General: Lids are normal. No scleral icterus. Extraocular Movements: Extraocular movements intact. Conjunctiva/sclera: Conjunctivae normal. Neck: Thyroid: No thyromegaly. Cardiovascular: Rate and Rhythm: Normal rate and regular rhythm. Heart sounds: Normal heart sounds. No murmur heard. Pulmonary: Effort: Pulmonary effort is normal. Breath sounds: Normal breath sounds. No wheezing. Abdominal: General: Bowel sounds are normal. Palpations: Abdomen is soft. There is no mass. Tenderness: There is no abdominal tenderness. Musculoskeletal: General: Normal range of motion. Cervical back: Full passive range of motion without pain, normal range of motion and neck supple. Right lower leg: No edema. Left lower leg: No edema. Skin: General: Skin is warm and dry. Findings: No erythema or rash. Neurological: General: No focal deficit present. Mental Status: She is alert and oriented to person, place, and time. Psychiatric: Mood and Affect: Mood normal. Behavior: Behavior normal. Thought Content: Thought content normal. Lab Results Component Value Date CHOL 221 (H) 07/22/2022 Lab Results Component Value Date HDL 136 07/22/2022 Lab Results Component Value Date LDLCALC 77 07/22/2022 Lab Results Component Value Date TRIG 41 07/22/2022 Chemistry Lab Results Component Value Date SODIUM 141 06/13/2022 POTASSIUM 3.9 06/13/2022 CHLORIDE 103 06/13/2022 CO2 25 06/13/2022 ANIONGAP 12 06/13/2022 BUNSER 28 (H) 06/13/2022 CREATININE 0.80 06/13/2022 GLUCOSE 97 06/13/2022 CALCIUM 10.3 06/13/2022 BILITOT 0.2 06/13/2022 PROTEIN 6.0 07/04/2015 ALBUMIN 5.2 (H) 06/13/2022 GFRNAA 101 06/13/2022 ALKPHOS 98 06/13/2022 AST 19 06/13/2022 ALT 20 06/13/2022 MAGNESIUM 2.1 07/03/2015 Lab Results Component Value Date WBC 6.2 06/13/2022 HGB 14.8 06/13/2022 HCT 41.9 06/13/2022 MCV 93.3 06/13/2022 LABPLAT 250 06/13/2022 Lab Results Component Value Date TSH 1.41 07/22/2022 Lab Results Component Value Date HGBA1C 5.3 07/22/2022 Diagnoses and all orders for this visit: Annual physical exam (Primary) Comments: Well exam, health maintenance updated. Orders: - CBC with auto differential; Future - Comprehensive metabolic panel; Future - Hemoglobin A1c; Future - Lipid panel; Future - Thyroid Function [place]; Future - Urinalysis reflex to microscopic and culture Urine, clean voided; Future Vitamin D deficiency Assessment & Plan: Asymptomatic, labs ordered. Orders: - Vitamin D 25 hydroxy; Future Screening for deficiency anemia - CBC with auto differential; Future Encounter for screening for other digestive system disorders - Comprehensive metabolic panel; Future Encounter for screening examination for impaired glucose regulation and diabetes mellitus - Hemoglobin A1c; Future Encounter for lipid screening for cardiovascular disease - Lipid panel; Future Screening for thyroid disorder - Thyroid Function [place]; Future Screening for blood or protein in urine - Urinalysis reflex to microscopic and culture Urine, clean voided; Future Influenza vaccine refused Shruthi Chávez DO This note is dictated and transcribed by [employer]. Learning And Development Director variances may occur. Despite proofreading, typographical errors may occur. documented in this encounter Miscellaneous Notes * Assessment & Plan Note - Shruthi Chávez DO - 08/12/2023 9:11 AM CDT Associated Problem(s): Vitamin D deficiency Asymptomatic, labs ordered. documented in this encounter Plan of Treatment Not on file documented as of this encounter Procedures Procedure Name Priority Date/Time Associated Diagnosis Comments REFLEXIVE URINE CULTURE Routine 09/25/2023 1:37 PM CDT THYROID FUNCTION CASCADE Routine 09/25/2023 1:37 PM CDT Annual physical exam Screening for thyroid disorder URINALYSIS AND REFLEX TO MICROSCOPIC AND CULTURE Routine 09/25/2023 1:37 PM CDT Annual physical exam Screening for blood or protein in urine CBC WITH AUTO DIFFERENTIAL Routine 09/25/2023 1:37 PM CDT Annual physical exam Screening for deficiency anemia VITAMIN D 25 HYDROXY Routine 09/25/2023 1:37 PM CDT Vitamin D deficiency HEMOGLOBIN A1C Routine 09/25/2023 1:37 PM CDT Annual physical exam Encounter for screening examination for impaired glucose regulation and diabetes mellitus LIPID PANEL Routine 09/25/2023 1:37 PM CDT Annual physical exam Encounter for lipid screening for cardiovascular disease COMPREHENSIVE METABOLIC PANEL Routine 09/25/2023 1:37 PM CDT Annual physical exam Encounter for screening for other digestive system disorders documented in this encounter Results * REFLEXIVE URINE CULTURE (09/25/2023 1:37 PM CDT) [facility] Comment:NO CULTURE INDICATED 09/25/2023 1:37 PM CDT 09/25/2023 1:37 PM CDT us Shruthi Chávez DO LAB MICROBIOLOGY - GENERAL ORDERABLES Final Result [facility] [address] [place] [address] * Vitamin D 25 hydroxy (09/25/2023 1:37 PM CDT) Vitamin D 25-OH 40 30 - 100 ng/mL [employer] [facility] Comment: Vitamin D Status ? 25-OH Vitamin D: Deficiency: ?<20 ng/mL Insufficiency: ? 20 - 29 ng/mL Optimal: ? > or = 30 ng/mL For 25-OH Vitamin D testing on patients on D2-supplementation and patients for whom quantitation of D2 and D3 fractions is required, the [facility](TM) 25-OH VIT D, (D2,D3), LC/MS/MS is recommended: order code 98446 (patients >2yrs). See Note 1 Note 1 For additional information, please refer to http://education.ARtunes Radio/faq/BUK508 (This link is being provided for informational/ educational purposes only.) Blood 09/25/2023 1:37 PM CDT 09/25/2023 1:37 PM CDT us Shruthi Chávez DO LAB BLOOD ORDERABLES Final Result Performing Organization Address City/State/[facility] Co [facility] Phone Number [facility] [address] [place] [address] * Urinalysis reflex to microscopic and culture Urine, clean voided (09/25/2023 1:37 PM CDT) Color, ur YELLOW YELLOW [facility] Appearance, ur CLEAR CLEAR [facility] Specific gravity 1.009 1.001 - 1.035 [facility] pH, ur 6.5 5.0 - 8.0 [facility] Glucose, ur NEGATIVE NEGATIVE [facility] Bilirubin, ur NEGATIVE NEGATIVE [facility] Ketones, ur NEGATIVE NEGATIVE [facility] Blood, ur NEGATIVE NEGATIVE [facility] Protein, ur, quant NEGATIVE NEGATIVE [facility] Nitrites, ur NEGATIVE NEGATIVE [facility] Leukocyte esterase, ur NEGATIVE NEGATIVE [facility] WBC, ur NONE SEEN < OR = 5 /HPF [facility] RBC, ur NONE SEEN < OR = 2 /HPF Prasanth Britton Epithelial cells, squamous, ur NONE SEEN < OR = 5 /HPF [facility] Bacteria, ur, quant NONE SEEN NONE SEEN /HPF [facility] Hyaline cast NONE SEEN NONE SEEN /LPF [facility] Note [facility] Comment: This urine was analyzed for the presence of WBC, RBC, bacteria, casts, and other formed elements. Only those elements seen were reported. Urine, clean voided 09/25/2023 1:37 PM CDT 09/25/2023 1:37 PM CDT Shruthi Chávez DO LAB MICROBIOLOGY - GENERAL ORDERABLES Final Result Performing Organization Address [facility] de Phone Number PRASANTH WarrantlyTanishaMaddie [address] [place] [address] * Thyroid Function [place] (09/25/2023 1:37 PM CDT) TSH 0.75 mIU/L WarrantlyAmarui welch Garret Comment: ?Reference Range ?> or = 20 Years ??0.40-4.50 ? Ranges ?First trimester ?0.26-2.66 ?Second trimester ?? 0.55-2.73 ?Third trimester ?0.43-2.91 Blood 09/25/2023 1:37 PM CDT 09/25/2023 1:37 PM CDT Shruthi Chávez DO LAB BLOOD ORDERABLES Final Result [facility] [address] [place] [address] * Lipid panel (09/25/2023 1:37 PM CDT) Cholesterol 130 <200 mg/dL [facility] HDL 73 > OR = 50 mg/dL [facility] Triglycerides 60 <150 mg/dL [facility] LDL 43 mg/dL (calc) [facility] Comment: Reference range: <100 Desirable range <100 mg/dL for primary prevention; ?? <70 mg/dL for patients with CHD or diabetic patients with > or = 2 CHD risk factors. LDL-C is now calculated using the Ruma calculation, which is a validated novel method providing better accuracy than the Friedewald equation in the estimation of LDL-C. Sumanth ROSE et al. TIFFANY. 2013;310(19): 9688-0088 (http://education.ARtunes Radio/faq/CFD586) Chol/HDL ratio 1.8 <5.0 (calc) [facility] Non-HDL, (LDL+VLDL) 57 <130 mg/dL (calc) [facility] Comment: For patients with diabetes plus 1 major ASCVD risk factor, treating to a non-HDL-C goal of <100 mg/dL (LDL-C of <70 mg/dL) is considered a therapeutic option. Blood 09/25/2023 1:37 PM CDT 09/25/2023 1:37 PM CDT us Shruthi Chávez DO LAB BLOOD ORDERABLES Final Result [facility] [address] [facility] [place] [address] * (ABNORMAL) Hemoglobin A1c (09/25/2023 1:37 PM CDT) Hgb A1C 5.9(H) <5.7 % of total Hgb [facility] Comment: For someone without known diabetes, a hemoglobin A1c value between 5.7% and 6.4% is consistent with prediabetes and should be confirmed with a follow-up test. For someone with known diabetes, a value <7% indicates that their diabetes is well controlled. A1c targets should be individualized based on duration of diabetes, age, comorbid conditions, and other considerations. This assay result is consistent with an increased risk of diabetes. Currently, no consensus exists regarding use of hemoglobin A1c for diagnosis of diabetes for children. ? This test was performed on the Jeff bishnu c503 platform. Effective 08/10/23, a change in test platforms from the Liu Bellows Tester to the Jeff bishnu c503 may have shifted HbA1c results compared to historical results. Based on laboratory validation testing conducted at [employer] the Jeff platform relative to the Liu platform had an average increase in HbA1c value of < or = 0.3%. This difference is within accepted variability established by the National Glycohemoglobin Standardization Program. Note that not all individuals will have had a shift in their results and direct comparisons between historical and current results for testing conducted on different platforms is not recommended. Blood 09/25/2023 1:37 PM CDT 09/25/2023 1:37 PM CDT us Shruthi Chávez DO LAB BLOOD ORDERABLES Final Result [facility] [address] [place] [address] * (ABNORMAL) Comprehensive metabolic panel (09/25/2023 1:37 PM CDT) [facility] Glucose 102(H) 65 - 99 mg/dL [facility] Comment: ? Fasting reference interval For someone without known diabetes, a glucose value between 100 and 125 mg/dL is consistent with prediabetes and should be confirmed with a follow-up test. BUN 19 7 - 25 mg/dL [facility] Creatinine 1.01(H) 0.50 - 0.97 mg/dL [facility] eGFR 76 > OR = 60 mL/min/1.7 3m2 [facility] BUN/creat ratio 19 6 - 22 (calc) [facility] Sodium 136 135 - 146 mmol/L [facility] Potassium, pl 3.9 3.5 - 5.3 mmol/L [facility] Chloride 105 98 - 110 mmol/L [facility] CO2 21 20 - 32 mmol/L [facility] Calcium 9.1 8.6 - 10.2 mg/dL [facility] Protein, sr 6.0(L) 6.1 - 8.1 g/dL [facility] Albumin 4.3 3.6 - 5.1 g/dL [facility] GLOBULIN 1.7(L) 1.9 - 3.7 g/dL (calc) [facility] Alb/glob ratio 2.5 1.0 - 2.5 (calc) [facility] Bilirubin, total 0.4 0.2 - 1.2 mg/dL [facility] Alk phos 74 31 - 125 U/L [facility] AST 16 10 - 30 U/L [facility] ALT (SGPT) 14 6 - 29 U/L [facility] Blood 09/25/2023 1:37 PM CDT 09/25/2023 1:37 PM CDT us Shruthi Chávez DO LAB BLOOD ORDERABLES Final Result [facility] [address] [place] [address] * (ABNORMAL) CBC with auto differential (09/25/2023 1:37 PM CDT) WBC 5.9 3.8 - 10.8 Thousand/u L [facility] RBC, POC 4.76 3.80 - 5.10 Million/uL [facility] Hgb 14.6 11.7 - 15.5 g/dL [facility] Hct 44.0 35.0 - 45.0 % [facility] MCV 92.4 80.0 - 100.0 fL [facility] MCH 30.7 27.0 - 33.0 pg [facility] MCHC 33.2 32.0 - 36.0 g/dL [facility] Rdw 11.7 11.0 - 15.0 % [facility] Platelets 195 140 - 400 Thousand/u L [facility] MPV 11.7 7.5 - 12.5 fL [facility] Neutrophils, abs 4,455 1,500 - 7,800 cells/uL [facility] Lymphocytes, abs 785(L) 850 - 3,900 cells/uL [facility] Monocyte abs 637 200 - 950 cells/uL [facility] Eosinophils, abs 12(L) 15 - 500 cells/uL [facility] Basophils, abs 12 0 - 200 cells/uL [facility] Neutrophils 75.5 % [facility] Lymphocyte pct 13.3 % [facility] Monocytes 10.8 % [facility] Eosinophils 0.2 % [facility] Basophils 0.2 % [facility] Blood 09/25/2023 1:37 PM CDT 09/25/2023 1:37 PM CDT us Shruthi Chávez DO LAB BLOOD ORDERABLES Final Result [facility] [address] [place] [address] documented in this encounter Visit Diagnoses Diagnosis Annual physical exam- Primary Routine general medical examination at a health care facility Vitamin D deficiency Screening for deficiency anemia Screening for other and unspecified deficiency anemia Encounter for screening for other digestive system disorders Encounter for screening examination for impaired glucose regulation and diabetes mellitus Encounter for lipid screening for cardiovascular disease Screening for thyroid disorder Screening for blood or protein in urine Screening for unspecified condition Influenza vaccine refused documented in this encounter Discontinued Medications Medication Sig Discontinue Reason Start Date End Da te buPROPion XL (WELLBUTRIN XL) 150 mg 24 hr tablet Therapy completed 03/06/20202023 busPIRone (BUSPAR) 5 mg tablet Therapy completed 07/06/2022 08/12/2023 ergocalciferol (VITAMIN D) 50,000 unit capsule Take 1 capsule (50,000 Units total) by mouth once a week Therapy completed 08/12/2023 Incassia 0.35 mg tablet Take 1 tablet (0.35 mg total) by mouth daily Therapy completed 05/01/2022 08/12/2023 vit 99-qccx-ecscu-dha 27mg iron- 800 mcg-250 mg capsule Take by mouth Therapy completed 08/12/2023 documented as of this encounter Care Teams Cutting Machine Tender Decorative Relationship Specialty Start Date End Date Shruthi Chávez DO [address] [facility] [address] [place] [address] PCP - General Family Medicine 07/15/22 03/03/24 Mariaa Cruz MD [address] [place] [address] Referring Physician Gynecology 07/15/22 documented as of this encounter
--- OUTSIDE RECORDS SUMMARY | 2024-05-16 03:44 | XMS_ITS | Encounter Summary ---
Author Organization [facility] Address [address] [place] [address] Care Team Providers Care Hospital Cook Name Role Phone Unavailable Primary Care Provider Unavailabl e Reason for Visit * Reason Comments Vomiting N/V for 3 days, now loose stools. Fatigue Fever Chills Cough Ear Pain Encounter Details Date Type Department Care Team (Late st Contact Info) Description 08/18/2016 5:40 PM CDT Office Visit [facility] [address] [address] Provider, [facility] Gastroenteritis (Primary Dx) Social History Tobacco Use Types Packs/Day Years Used Date Smoking Tobacco: Every Day Sex and Gender Information Value Date Recorded Sex Assigned at Not on file Gender Identity Not on file Sexual Orientation Not on file documented as of this encounter Last Filed Vital Signs Vital Sign Reading Time Taken Comments Blood Pressure 104/60 08/18/2016 5:53 PM CDT Pulse 79 08/18/2016 5:53 PM CDT Temperature 37.7 ??C (99.8 ??F) 08/18/2016 5:53 PM CD T Respiratory Rate - - Oxygen Saturation - - Inhaled Oxygen Concentration - - Weight 54.4 kg (120 lb) 08/18/2016 5:53 PM CDT Height 160 cm (5' 3 ) 08/18/2016 5:53 PM CDT Body Mass Index 21.26 08/18/2016 5:53 PM CDT documented in this encounter Patient Instructions * Patient Instructions* Yulisa Mendez APRN-CNP - 08/18/2016 6:04 PM CDT Acute Nausea and Vomiting CERTIFIED COURT/MEDICAL INTERPRETER: Acute nausea and vomiting starts suddenly, gets worse quickly, and lasts a short time. Nausea and vomiting may be caused by , alcohol, infection, or medicines. Common related symptoms include the following: ?? Fever ?? Abdominal swelling ?? Pain, tenderness, or a lump in your abdomen ?? Splashing sounds heard in your stomach when you move Seek care immediately if: ?? You see blood in your vomit or your bowel movements. ?? You have sudden, severe pain in your chest and upper abdomen after hard vomiting or retching. ?? You have swelling in your neck and chest. ?? You are dizzy, cold, and thirsty and your eyes and mouth are dry. ?? You are urinating very little or not at all. ?? You have muscle weakness, leg cramps, and trouble breathing. ?? Your heart is beating much faster than normal. ?? You feel pain at the back of your neck, find it hard to think or speak clearly, or have facial twitching. ?? You continue to vomit for over 48 hours. Contact your healthcare provider if: ?? You have frequent dry heaves (vomiting but nothing comes out). ?? Your nausea and vomiting does not get better or go away after you use medicine. ?? You have questions or concerns about your condition or treatment. Treatment for acute nausea and vomiting may include medicines to calm your stomach and stop the vomiting. You may need IV fluids if you are dehydrated. Manage your nausea and vomiting: ?? Drink liquids as directed to prevent dehydration. Ask how much liquid to drink each day and which liquids are best for you. You may need to drink an oral rehydration solution (ORS). ORS contains water, salts, and sugar that are needed to replace the lost body fluids. Ask what kind of ORS to use,how much to drink, and where to get it. ?? Eat smaller meals, more often. Eat small amounts of food every 2 to 3 hours, even if you are nothungry. Food in your stomach may help decrease your nausea. ?? Manage stress. Find ways to relax and manage your stress. Headaches due to stress may cause nausea and vomiting. Get more rest and sleep. Follow up with your healthcare provider as directed: Write down your questions so you remember to ask them during your visits. ?? 2016 [employer]. Information is for End User's use only and may not be sold, redistributed or otherwise used for commercial purposes. All illustrations and images included in CareNotes?? are the copyrighted property of [employer]. or [employer]. The above information is an nurse aide only. It is not intended as medical advice for individual conditions or treatments. Talk to your doctor, nurse or pharmacist before following any medical regimen to see if it is safe and effective for you. documented in this encounter Progress Notes * Yulisa Mendez APRN-CNP - 08/18/2016 5:59 PM CDT [facility] Chief Complaint Patient presents with ??? Vomiting N/V for 3 days, now loose stools. ??? Fatigue ??? Fever ??? Chills ??? Cough ??? Ear Pain SUBJECTIVE: HPI No past medical history on file. No current outpatient prescriptions on file prior to visit. No current facility-administered medications on file prior to visit. Past Surgical History Procedure Laterality Date ??? Negative surgical history History Social History ??? Marital status: Single Spouse name: N/A ??? Number of children: N/A ??? Years of education: N/A Occupational History ??? Not on file. Social History Main Topics ??? Smoking status: Current Every Day Smoker ??? Smokeless tobacco: Not on file ??? Alcohol use: Not on file ??? Drug use: Not on file ??? Sexual activity: Not on file Comment: denies chance of Other Topics Concern ??? Not on file Social History Narrative ??? No narrative on file No family history on file. Current Outpatient Prescriptions Medication Sig Dispense Refill ??? Norethindrone-Eth Estradiol (NECON 0.5/35, 28, PO) No current facility-administered medications for this visit. No Known Allergies REVIEW OF SYSTEMS: Review of Systems Constitutional: Negative. HENT: Negative. Respiratory: Negative. Cardiovascular: Negative. Gastrointestinal: Positive for diarrhea, nausea and vomiting. OBJECTIVE: General appearance: alert, well appearing, and in no distress. BP 104/60 (BP SITE: LEFT ARM, BP POSITION: SITTING, BP CUFF SIZE: Adult) Pulse 79 Temp 99.8 ??F (Oral) Ht 1.6 m (5' 3 ) Wt 54.4 kg (120 lb) BMI 21.26 kg/m2 Physical Exam Constitutional: She is oriented to person, place, and time and well-developed, well-nourished, and in no distress. HENT: Right Ear: External ear normal. Nose: Nose normal. Mouth/Throat: Oropharynx is clear and moist. Neck: Normal range of motion. Neck supple. Abdominal: Soft. She exhibits no distension. There is no tenderness. There is no rebound. Hyper bowel sounds. Neurological: She is alert and oriented to person, place, and time. Skin: Skin is warm and dry. ASSESSMENT: No results found for this visit on 08/18/16. Encounter Diagnosis Name Primary? Gastroenteritis Yes PLAN: No orders of the defined types were placed in this encounter. Acute Nausea and Vomiting CERTIFIED COURT/MEDICAL INTERPRETER: Acute nausea and vomiting starts suddenly, gets worse quickly, and lasts a short time. Nausea and vomiting may be caused by , alcohol, infection, or medicines. Common related symptoms include the following: ?? Fever ?? Abdominal swelling ?? Pain, tenderness, or a lump in your abdomen ?? Splashing sounds heard in your stomach when you move Seek care immediately if: ?? You see blood in your vomit or your bowel movements. ?? You have sudden, severe pain in your chest and upper abdomen after hard vomiting or retching. ?? You have swelling in your neck and chest. ?? You are dizzy, cold, and thirsty and your eyes and mouth are dry. ?? You are urinating very little or not at all. ?? You have muscle weakness, leg cramps, and trouble breathing. ?? Your heart is beating much faster than normal. ?? You feel pain at the back of your neck, find it hard to think or speak clearly, or have facial twitching. ?? You continue to vomit for over 48 hours. Contact your healthcare provider if: ?? You have frequent dry heaves (vomiting but nothing comes out). ?? Your nausea and vomiting does not get better or go away after you use medicine. ?? You have questions or concerns about your condition or treatment. Treatment for acute nausea and vomiting may include medicines to calm your stomach and stop the vomiting. You may need IV fluids if you are dehydrated. Manage your nausea and vomiting: ?? Drink liquids as directed to prevent dehydration. Ask how much liquid to drink each day and which liquids are best for you. You may need to drink an oral rehydration solution (ORS). ORS contains water, salts, and sugar that are needed to replace the lost body fluids. Ask what kind of ORS to use,how much to drink, and where to get it. ?? Eat smaller meals, more often. Eat small amounts of food every 2 to 3 hours, even if you are nothungry. Food in your stomach may help decrease your nausea. ?? Manage stress. Find ways to relax and manage your stress. Headaches due to stress may cause nausea and vomiting. Get more rest and sleep. Follow up with your healthcare provider as directed: Write down your questions so you remember to ask them during your visits. ?? 2016 [employer]. Information is for End User's use only and may not be sold, redistributed or otherwise used for commercial purposes. All illustrations and images included in CareNotes?? are the copyrighted property of [employer]. or [employer]. The above information is an nurse aide only. It is not intended as medical advice for individual conditions or treatments. Talk to your doctor, nurse or pharmacist before following any medical regimen to see if it is safe and effective for you. documented in this encounter Plan of Treatment Not on file documented as of this encounter Visit Diagnoses Diagnosis Gastroenteritis- Primary Other and unspecified noninfectious gastroenteritis and colitis documented in this encounter
--- OUTSIDE RECORDS SUMMARY | 2024-05-16 03:44 | XMS_ITS | Encounter Summary ---
Author Organization [facility] Healthcare Address [address] [place] [address] Care Team Providers Care Director International Name Role Phone Shruthi Chávez Primary Care Provider [phone] Mariaa Cruz MD Unavailable [phone] Reason for Visit * Reason Comments Rectal Bleeding Hemorrhoids Onset 1 week. Pt sta emmanuelle it is painful to wipe. Pt states she has had bright red blood. There is some stringy tissue present at times Encounter Details Date Type Department Care Team (Late st Contact Info) Description 10/06/2023 3:00 PM CDT Office Visit [facility] Primary Care at [address] [place] [id number] Ne Castro, KRYSTAL 2 [facility] [address] [place] [address] Bleeding hemorrhoid (Primary Dx); Body mass index (BMI) of 21.0 to 21.9 in adult Social History Tobacco Use Types Packs/Day Years [...] feel afraid or unsafe? 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 Gender Identity Not on file Sexual Orientation Not on file documented as of this encounter Last Filed Vital Signs Vital Sign Reading Time Taken Comments Blood Pressure 102/60 10/06/2023 3:13 PM CDT Pulse 75 10/06/2023 3:13 PM CDT Temperature - - Respiratory Rate 16 10/06/2023 3:13 PM CDT Oxygen Saturation 99% 10/06/2023 3:13 PM CDT Inhaled Oxygen Concentration - - Weight 53.4 kg (117 lb 11.2 oz) 10/06/2023 3:13 PM CDT Height 157.5 cm (5' 2.01 ) 10/06/2023 3:13 PM CD T Body Mass Index 21.52 10/06/2023 3:13 PM CDT documented in this encounter Patient Instructions * Patient Instructions* Ne Castro NP - 10/06/2023 3:00 PM CDT Thank you for time and patience! We hope you have had an excellent care experience in our office today. If you have any questions or concerns, please do not hesitate to reach out through [facility] or call our office at [phone]. - LEA Portillo documented in this encounter Ordered Prescriptions Prescription Sig Dispense Quantity Refills Last Filled Start Date End Date NIFEdipine (PROCARDIA) ointment 0.2 %Indications:Anal Fissure Apply 1 application (deactivated) topically 4 (four) times a day as needed (anal fissure, rectal pain) for up to 7 days After cleansing, apply around fissure(s) 2 to 4 times daily 60 g 10/06/2023 4 documented in this encounter Progress Notes * Ne Castro NP - 10/06/2023 3:00 PM CDT Images from the original note were not included. Subjective/Objective Patient ID: Alee Cano is a 33 y.o. female. Chief Complaint Rectal Bleeding and Hemorrhoids (Onset 1 week. Pt states it is painful to wipe. Pt states she has had bright red blood. There is some stringy tissue present at times) Care Team Providers: Patient Care Team: Shruthi Chávez DO as PCP - General (Family Medicine) Mariaa Cruz MD as Referring Physician (Gynecology) HPI Patient presents today with acute complaints of rectal bleeding and worsening hemorrhoids. Patient reports prior history of hemorrhoids during . Patient reports she 1st noticed rectal bleeding and rectal pain 1 week ago. She states she is used Epsom salts bath which has helped. Patient reports she only notices the bleeding when she has a bowel movement. Review of Systems Constitutional: Negative for activity change, appetite change, fatigue and unexpected weight change. Respiratory: Negative for cough, chest tightness and shortness of breath. Cardiovascular: Negative for chest pain, palpitations and leg swelling. Gastrointestinal: Positive for anal bleeding and rectal pain. Negative for abdominal pain, constipation, diarrhea, nausea and vomiting. Genitourinary: Negative for difficulty urinating, dysuria and flank pain. Musculoskeletal: Negative for arthralgias and myalgias. Neurological: Negative for dizziness, light-headedness and headaches. Physical Exam Constitutional: Appearance: Normal appearance. HENT: Head: Normocephalic. Right Ear: External ear normal. Left Ear: External ear normal. Nose: Nose normal. Eyes: Extraocular Movements: Extraocular movements intact. Cardiovascular: Rate and Rhythm: Normal rate and regular rhythm. Pulmonary: Effort: Pulmonary effort is normal. Breath sounds: Normal breath sounds. Genitourinary: Comments: Patient declined examination Musculoskeletal: General: Normal range of motion. Cervical back: Normal range of motion. Skin: General: Skin is warm and dry. Neurological: General: No focal deficit present. Mental Status: She is alert and oriented to person, place, and time. Mental status is at baseline. Psychiatric: Mood and Affect: Mood normal. Behavior: Behavior normal. Vitals: 10/06/23 1513 BP: 102/60 BP Location: Right arm Patient Position: Sitting Pulse: 75 Resp: 16 SpO2: 99% Weight: 53.4 kg (117 lb 11.2 oz) Height: 157.5 cm (5' 2.01 ) Assessment/Plan Diagnoses and all orders for this visit: Bleeding hemorrhoid (Primary) Assessment & Plan: - Recurrent, acute complaint - patient reports onset of symptoms including rectal bleeding, rectal pain that started 1 week ago - patient reports a history of hemorrhoids previously with - patient denies using any pmeo-dck-wzcfyhi medication at this but has used epsom salts bath which has provided some relief - patient reports the bleeding only occurs when she has bowel movements - patient states she believes the hemorrhoid is inside her rectum - nifedipine ointment prescribed - encourage patient if symptoms do not improve follow up back in office Orders: - NIFEdipine (PROCARDIA) ointment 0.2 %; Apply 1 application (deactivated) topically 4 (four) timesa day as needed (anal fissure, rectal pain) for up to 7 days After cleansing, apply around fissure(s) 2 to 4 times daily Body mass index (BMI) of 21.0 to 21.9 in adult Assessment & Plan: Wt Readings from Last 3 Encounters: 10/06/23 53.4 kg (117 lb 11.2 oz) 09/26/23 54 kg (119 lb) 09/26/23 54 kg (119 lb) Body mass index is 21.52 kg/m??. -Stable, at goal of <30 bmi -Discussed recommendations for exercise at least 30 minutes moderate to vigorous exercise as tolerated most days of the week. (minimum 150 minutes weekly) -Discussed importance of well-balanced diet. Disposition- Discussed medications dosages, usage & potential side effects. Risks and interactions reviewed with patient. Indications for testing reviewed. Patient has been instructed to follow up w PCP or go to ER for any signs or symptoms that are of concern or worsening. Patient verbalizes understanding. The patient was given the opportunity to ask all questions and to have all questions answered. Patient is in agreement with the plan of care Follow up as needed or at next regularly scheduled visit with PCP Ne Castro NP There may be grammatical errors in this note due to use of voice recognition software. documented in this encounter Miscellaneous Notes * Assessment & Plan Note - Ne Castro NP - 10/07/2023 2:00 PM CDT Associated Problem(s): Bleeding hemorrhoid - Recurrent, acute complaint - patient reports onset of symptoms including rectal bleeding, rectal pain that started 1 week ago - patient reports a history of hemorrhoids previously with - patient denies using any qxbr-kbr-raluzqx medication at this but has used epsom salts bath which has provided some relief - patient reports the bleeding only occurs when she has bowel movements - patient states she believes the hemorrhoid is inside her rectum - nifedipine ointment prescribed - encourage patient if symptoms do not improve follow up back in office * Assessment & Plan Note - Ne Castro NP - 10/07/2023 1:33 PM CDT Associated Problem(s): Body mass index (BMI) of 21.0 to 21.9 in adult Wt Readings from Last 3 Encounters: 10/06/23 53.4 kg (117 lb 11.2 oz) 09/26/23 54 kg (119 lb) 09/26/23 54 kg (119 lb) Body mass index is 21.52 kg/m??. -Stable, at goal of <30 bmi -Discussed recommendations for exercise at least 30 minutes moderate to vigorous exercise as tolerated most days of the week. (minimum 150 minutes weekly) -Discussed importance of well-balanced diet. documented in this encounter Plan of Treatment Not on file documented as of this encounter Visit Diagnoses Diagnosis Bleeding hemorrhoid- Primary Unspecified hemorrhoids with other complication Body mass index (BMI) of 21.0 to 21.9 in adult documented in this encounter Historical Medications * This list may reflect changes made after this encounter. busPIRone (BUSPAR) 5 mg tablet Take 1 tablet (5 mg total) by mouth 2 (two) times a day 09/11/2023 added in this encounter Care Teams Director International Relationship Specialty Start Date End Date Shruthi Chávez DO [address] [facility] [address] [place] [address] PCP - General Family Medicine 07/15/22 03/03/24 Mariaa Cruz MD [address] [place] [address] Referring Physician Gynecology 07/15/22 documented as of this encounter
--- OUTSIDE RECORDS SUMMARY | 2024-05-16 03:44 | XMS_ITS | Encounter Summary ---
Author Organization [facility] Healthcare Address [address] [place] [address] Care Team Providers Care Administrative Project Coordinator Name Role Phone Shruthi Chávez Primary Care Provider [phone] Mariaa Cruz MD Unavailable [phone] Encounter Details Date Type Department Care Team (Late st Contact Info) Description 10/08/2023 Orders Only [facility] Primary Care at [address] [place] [address] Ne Castro, BLUE LINE OPERATOR 2 [facility] [address] [place] [address] Bleeding hemorrhoid (Primary Dx) Social History Tobacco Use Types [...] on file 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 Gender Identity Not on file Sexual Orientation Not on file documented as of this encounter Ordered Prescriptions Prescription Sig Dispense Quantity Refills Last Filled Start Date End Date hydrocortisone (ANUSOL-HC) 2.5 % rectal creamIndications:Bl eeding hemorrhoid Insert into the rectum 2 (two) times a day 30 g 1 10/08/2023 documented in this encounter Plan of Treatment Not on file documented as of this encounter Visit Diagnoses Diagnosis Bleeding hemorrhoid- Primary Unspecified hemorrhoids with other complication documented in this encounter Discontinued Medications Medication Sig Discontinue Reason Start Date End Da te NIFEdipine (PROCARDIA) ointment 0.2 %Indications:Anal Fissure Apply 1 application (deactivated) topically 4 (four) times a day as needed (anal fissure, rectal pain) for up to 7 days After cleansing, apply around fissure(s) 2 to 4 times daily 10/06/2023 10/08/2023 documented as of this encounter Care Teams Administrative Project Coordinator Relationship Specialty Start Date End Date Shruthi Chávez DO [address] [facility] [address] [place] [address] PCP - General Family Medicine 07/15/22 03/03/24 Mariaa Cruz MD [address] [place] [address] Referring Physician Gynecology 07/15/22 documented as of this encounter
--- OUTSIDE RECORDS SUMMARY | 2024-05-16 03:44 | XMS_ITS | Encounter Summary ---
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 Gender Identity Not on file Sexual Orientation Not on file documented as of this encounter Medications at Time of Discharge [...] daily 07/04/2022 documented as of this encounter Discharge Disposition Disposition Code Departure Means Destination Discharge to home or self care documented in this encounter Plan of Treatment Not on file documented as of this encounter Procedures Procedure Name Priority Date/Time Associated Diagnosis Comments URINE CULTURE Routine 09/26/2023 3:33 PM CDT Abdominal pain documented in this encounter Results * Urine culture Urine, clean voided (09/26/2023 3:33 PM CDT) Report Final Report: Less than 100,000 colonies/mL (clinically insignificant growth based on current clinical standards) Comment:Testing performed by : [facility], [address] [place]., [address] Organism (CLINICALLY INSIGNIFICANT GROWTH TRACIE CANNON Urine, clean voided 09/26/2023 3:33 PM CDT 09/27/2023 12:20 AM CDT Narrative TRACIE CANNON - 09/28/2023 11:15 AM CDT Testing performed by [facility] Microbiology Laboratory ([phone]) us Celi Maradiaga NP LAB MICROBIOLOGY - GENERA L ORDERABLES Final Result TRACIE CANNON [id number] [place] [address] documented in this encounter Visit Diagnoses Diagnosis Abdominal pain Abdominal pain, unspecified site documented in this encounter Care Teams Visual Designer Relationship Specialty Start Date End Date Shruthi Chávez DO [address] [facility] [address] [place] [address] PCP - General Family Medicine 07/15/22 03/03/24 Mariaa Cruz MD [address] [place] [address] Referring Physician Gynecology 07/15/22 documented as of this encounter
--- OUTSIDE RECORDS SUMMARY | 2024-05-16 03:44 | XMS_ITS | Encounter Summary ---
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 Gender Identity Not on file Sexual Orientation Not on file documented as of this encounter Miscellaneous Notes * Telephone Encounter - Keena Chiu MA - 10/05/2023 10:18 AM CDT Error documented in this encounter Plan of Treatment Not on file documented as of this encounter Visit Diagnoses Not on filedocumented in this encounter Care Teams Medication Reconciliation Technician Relationship Specialty Start Date End Date Shruthi Chávez DO [address] [facility] [address] [place] [address] PCP - General Family Medicine 07/15/22 03/03/24 Mariaa Cruz MD [address] [place] [address] Referring Physician Gynecology 07/15/22 documented as of this encounter
--- OUTSIDE RECORDS SUMMARY | 2024-05-16 03:44 | XMS_ITS | Encounter Summary ---
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 Pt aware ----- Message from Ne Castro NP sent at 10/12/2023 9:59 AM CDT ----- Please call the patient regarding her recent lab work; blood counts, electrolytes, liver, cholesterol, thyroid, urinalysis, vitamin-D were all within normal limits. Patient's kidney values was just atiny bit elevated, I would recommend patient increase water intake. Patient's hemoglobin A1c was also elevated at 5.9, I would recommend improving diet and increasing exercise to improve this value before starting medication documented in this encounter Plan of Treatment Not on file documented as of this encounter Visit Diagnoses Not on filedocumented in this encounter Care Teams Drawing Instructor Relationship Specialty Start Date End Date Shruthi Chávez DO [address] [facility] [address] [place] [address] PCP - General Family Medicine 07/15/22 03/03/24 Mariaa Cruz MD [address] [place] [address] Referring Physician Gynecology 07/15/22 documented as of this encounter
--- OUTSIDE RECORDS SUMMARY | 2024-05-16 03:44 | XMS_ITS | Encounter Summary ---
Author Organization [facility] Healthcare Address [address] [place] [address] Care Team Providers Care Radiation Therapy Technician Name Role Phone Shruthi Chávez Primary Care Provider [phone] Mariaa Cruz MD Unavailable [phone] Encounter Details Date Type Department Care Team (Latest Contact Info) Description 11/07/2022 2:56 PM CDT - 11/07/2022 11:59 PM CDT Hospital Encounter [facility] [address] [place] [address] Bilateral lower abdominal pain Discharge Disposition: Discharge to home or [...] points, staff should administer the PHQ-9) 0 11/07/2022 Comments Unknown Sex and Gender Information Value Date Recorded Sex Assigned at Not on file 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 Gender Identity Not on file Sexual Orientation Not on file documented as of this encounter Medications at Time of Discharge valACYclovir (VALTREX) 500 mg tablet Take 1 tablet (500 mg total) by mouth daily 07/04/2022 buPROPion XL (WELLBUTRIN XL) 150 mg 24 hr tablet 03/06/2020 08/12/2023 busPIRone (BUSPAR) 5 mg tablet 07/06/2022 08/12/2023 ergocalciferol (VITAMIN D) 50,000 unit capsule Take 1 capsule (50,000 Units total) by mouth once a week 08/12/2023 Incassia 0.35 mg tablet Take 1 tablet (0.35 mg total) by mouth daily 05/01/2022 08/12/2023 vit 20-ilpp-sxecx-dha 27mg iron- 800 mcg-250 mg capsule Take by mouth 08/12/2023 documented as of this encounter Discharge Disposition Disposition Code Departure Means Destination Discharge to home or self care documented in this encounter Plan of Treatment Not on file documented as of this encounter Procedures Procedure Name Priority Date/Time Associated Diagnosis Comments N. GONORRHOEAE/C. TRACHOMATIS AMPLIFICATION Routine 11/07/2022 2:56 PM CDT Bilateral lower abdominal pain documented in this encounter Results * N. gonorrhoeae/C. trachomatis Amplification Urine (11/07/2022 2:56 PM CDT) C. trachomatis Not detected Not detected TRACIE CANNON N. gonorrhoeae Not detected Not detected TRACIE CANNON Comment: Testing performed by the [facility]. This assay detects Chlamydia trachomatis and Neisseria gonorrhoeae by nucleic acid amplification testing (NAAT). This test is approved by the [place] Food and Drug Administration and the performance characteristics have been verified by the laboratory. The performance characteristics of this test have not been evaluated in women or individuals less than 16 years of age. Urine (None) 11/07/2022 2:56 PM CDT 11/07/2022 7:32 PM CDT Chen Morris NP LAB MICROBIOLOGY - GENERAL O RDERABLES Final Result TRACIE CANNON [address] Department [place] [address] documented in this encounter Visit Diagnoses Diagnosis Bilateral lower abdominal pain documented in this encounter Care Teams Radiation Therapy Technician Relationship Specialty Start Date End Date Shruthi Chávez DO [address] [facility] [address] [place] [address] PCP - General Family Medicine 07/15/22 03/03/24 Mariaa Cruz MD [address] [place] [address] Referring Physician Gynecology 07/15/22 documented as of this encounter
--- OUTSIDE RECORDS SUMMARY | 2024-05-16 03:44 | XMS_ITS | Encounter Summary ---
Author Organization [facility] Address [address] [place] [address] Care Team Providers Care Automatic Door Mechanic Name Role Phone Unavailable Primary Care Provider Unavailabl e Reason for Visit * Reason Onset Date Comments Follow-up 08/20/2016 Encounter Details Date Type Department Care Team (Late st Contact Info) Description 08/20/2016 Telephone [facility] [employer] [facility] AT [address] [address] Yulisa Mendez APRN-[facility] [address] [place] [address] Follow-up Social History Tobacco Use Types Packs/Day Years [...]
--- OUTSIDE RECORDS SUMMARY | 2024-05-16 03:44 | XMS_ITS | Patient Health Summary ---
Author Organization [facility] Address [address] [place] [address] Care Team Providers Care Safekeeping Clerk Name Role Phone Unavailable Primary Care Provider Unavailabl e Note from [facility],non-owned Affiliates and Associated Physician Practices is amultiple site organization consisting of ambulatory clinics and hospital sitesin [place], [place], [place] and [place]. This disclosure is being madepursuant to the Care Everywhere program and may not contain all information available regarding this patient. Last updated 18.[facility] Allergies No known active allergies Medications * Be aware that medications may not be up to date on this document. Alwaysverify current medications with the patient. * Norethindrone-Eth Estradiol (NECON 0.5/35, 28, PO) Social History Tobacco Use Types Packs/Day Years [...] Mass Index 20.37 08/25/2018 12:17 PM CDT Procedures * DERMATOPATHOLOGY(Performed 10/01/2023) Performed for Neoplasm of uncertain behavior of skin, Other disturbances of skin sensation, Hemorrhage, not elsewhere classified * STREP A SCREEN - POINT OF CARE (AMB) STL(Performed 08/25/2018) Performed for Acute maxillary sinusitis, recurrence not specified Results * DERMATOPATHOLOGY (10/01/2023 3:33 AM CDT) Case Report Dermatopathology Report ? Case: [id number] ? Authorizing Provider: ??Ady Dickens MD ? [...] within the dermis that mature with depth. 1:24 PM CDT DERMATOPATHOLOGY LABORATORY Disclaimer An external and internal positive and negative controls are appropriate for the histochemical, immunohistochemical and immunofluorescence stain(s) in this case (if any), except where stated explicitly. The performance characteristics of the stain(s) cited in this report were developed and its performance characteristic determined by the Dermatopathology Laboratory at [facility], directed by Dr. Lewis Velazco. These tests need not be, and therefore are not, approved by the [place] Food and Drug Administration. The tests are used for clinical purposes. Billing Codes Specimen Charges Stain Charges 96337 1 4 1:24 PM CDT DERMATOPATHOLOGY LABORATORY Embedded Images 1:24 PM CDT DERMATOPATHOLOGY LABORATORY Pathology/Cytolo gy TISSUE SPECIMEN FROM SKIN / Unknown 10/01/2023 3:33 AM CDT 10/05/2023 7:18 AM CDT Ady Dickens MD LAB - PATHOLOGY/CYTO LOGY ORDERABLES DERMATOPATHOLOGY LABORATORY [facility] - Department of Dermatology [address], [address] [phone] * STREP A SCREEN (08/25/2018) Strep A Rapid POCT Negative Negative Strep A Internal Control Present Lot # [id number] Expiration Date 02/25/2020 Throat ENTIRE THROAT (SURFACE REGION OF NECK) / Unknown 08/25/2018 Kateryna Tubbs SUPERINTENDENT POLICE-WEIGHER OPERATOR LAB - POINT OF CARE ORDERABLES
--- OUTSIDE RECORDS SUMMARY | 2024-05-16 03:44 | XMS_ITS | Referral Summary ---
Author Organization [address] Address [address] [place] [id number] Care Team Providers Care Front End Software Developer Name Role Phone Mariaa Cruz MD Unavailable [phone] Allergies Active Allergy Reactions Criticality Noted Date Comments Sulfa (Sulfonamide Antibiotics) Nausea only Low Medications valACYclovir (VALTREX) 500 mg tablet Take 1 tablet (500 mg total) by mouth daily 07/04/19 23 Active ondansetron ODT (ZOFRAN-ODT) 4 mg disintegrating tablet Dissolve 1 tablet for mild to moderate nausea or vomiting or 2 tablets for severe nausea or vomiting oral twice a day as needed. 12 tablet 09/26/19 24 Active Additional Information Patient not taking.Reported on 10/06/2023 busPIRone (BUSPAR) 5 mg tablet Take 1 tablet (5 mg total) by mouth 2 (two) times a day 09/11/19 24 Active hydrocortisone (ANUSOL-HC) 2.5 % rectal creamIndications:B leeding hemorrhoid Insert into the rectum 2 (two) times a day 30 g 1 10/08/19 24 Active Active Problems Problem Noted Date Diagnosed Date Bleeding hemorrhoid 10/07/2023 Assessment & Plan (10/07/2023 2:00 PM CDT): - Recurrent, acute complaint - patient reports onset of symptoms including rectal bleeding, rectal pain that started 1 week ago - patient reports a history of hemorrhoids previously with - patient denies using any peoy-sxq-ilffsaf medication at this but has used epsom salts bath which has provided some relief - patient reports the bleeding only occurs when she has bowel movements - patient states she believes the hemorrhoid is inside her rectum - nifedipine ointment prescribed - encourage patient if symptoms do not improve follow up back in office Body mass index (BMI) of 21.0 to 21.9 in adult 0 07/20/2023 Assessment & Plan (10/07/2023 1:33 PM CDT): Wt Readings from Last 3 Encounters: 10/06/23 53.4 kg (117 lb 11.2 oz) 09/26/23 54 kg (119 lb) 09/26/23 54 kg (119 lb) Body mass index is 21.52 kg/m??. -Stable, at goal of <30 bmi -Discussed recommendations for exercise at least 30 minutes moderate to vigorous exercise as tolerated most days of the week. (minimum 150 minutes weekly) -Discussed importance of well-balanced diet. 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 Hernia of anterior abdominal wall 07/15/2022 Assessment & Plan (07/22/2022 11:12 AM TRADE MARK ATTORNEY): I favor that this was more a musculoskeletal strain given the resolution of her symptoms and no further swelling. She is going to slowly start resuming her normal workout routine. If symptoms would return I have discussed ordering an MRI to fully evaluate the muscles to ensure there is no strain or tear. She will call us back if anything changes. She is in understanding of the plan. Bulimia nervosa 01/31/2010 Resolved Problems Problem Noted Date Diagnosed Date Resolved Date Bilateral lower abdominal pain 11/07/2022 07/20/2023 Assessment & Plan (11/07/2022 3:04 PM CDT): -UA in office normal and test negative. -urine sent to test for chlamydia and gonorrhea -patient declines testing for HIV, syphilis, and Trichomonas. Patient declines pelvic exam in today. -pain possibly due to constipation. -advised patient if this pain does not improve, we can order an abdominal/pelvic ultrasound. -advised patient to go to ED if pain becomes severe Immunizations Name Administration Dates Next Due Hep A, Adult 06/20/2016,08/06/2012 Influenza, Unspecified 03/13/2023(Deferr ed: Patient Refused),07/15/2022(Deferred: Patient Refused) Social History Tobacco Use Types Packs/Day Years [...] on file Legal Sex Female 3:59 AM TRADE MARK ATTORNEY Gender Identity Not on file Sexual Orientation Not on file Last Filed Vital Signs Vital Sign Reading Time Taken Comments Blood Pressure 102/60 10/06/2023 3:13 PM CDT Pulse 75 10/06/2023 3:13 PM CDT Temperature 37 ??C (98.6 ??F) 09/26/2023 4:03 PM CDT Respiratory Rate 16 10/06/2023 3:13 PM CDT Oxygen Saturation 99% 10/06/2023 3:13 PM CDT Inhaled Oxygen Concentration - - Weight 53.4 kg (117 lb 11.2 oz) 10/06/2023 3:13 PM CDT Height 157.5 cm (5' 2.01 ) 10/06/2023 3:13 PM CD T Body Mass Index 21.52 10/06/2023 3:13 PM CDT Plan of Treatment Not on file Procedures Procedure Name Priority Date/Time Associated Diagnosis Comments HEPATITIS C ANTIBODY Routine 07/22/2022 11:15 AM TRADE MARK ATTORNEY Annual physical exam Encounter for hepatitis C screening test for low risk patient from Last 3 Months or Most Recently Relevant to Health Maintenance Results * Hepatitis C antibody (07/22/2022 11:15 AM TRADE MARK ATTORNEY) Hep C Ab Nonreactive Nonreactive TRACIE SANABRIA ([place]) Comment: Interpretive Data Nonreactive: Antibodies to HCV [...] last revised on 2019. Testing performed by: [facility], [address] [place] [address], [place]., [address] Blood 07/22/2022 11:1 5 AM TRADE MARK ATTORNEY 07/22/2022 1:51 PM TRADE MARK ATTORNEY us Shruthi Chávez DO LAB MICROBIOLOGY - GENERAL ORDERABLES Edited Result - Final TRACIE SANABRIA ([place]) [address] [facility] Department [place] [address] from Last 3 Months or Most Recently Relevant to Health Maintenance Insurance [facility] AETNA SIG [id number] [facility] AETNA SIG [id number] Care Teams Front End Software Developer Relationship Specialty Start Date End Date Mariaa Cruz MD [address] [address] Referring Physician Gynecology 07/15/22
--- OUTSIDE RECORDS SUMMARY | 2024-05-16 03:44 | XMS_ITS | Encounter Summary ---
Author Organization [facility] Healthcare Address [address] [place] [address] Care Team Providers Care Refrigeration Engineering Teacher Name Role Phone Shruthi Chávez Primary Care Provider [phone] Mariaa Cruz MD Unavailable [phone] Encounter Details Date Type Department Care Team (Late st Contact Info) Description 09/15/[address] [facility] Medical Group Primary Care at [address] [place] [id number] Esperanza Whiteside MD [address] [place] [address] [address] [place] [address] Social History Tobacco Use Types Packs/Day Years [...] on file Legal Sex Female 3:59 AM CONFIGURATION MANAGEMENT MANAGER Gender Identity Not on file Sexual Orientation Not on file documented as of this encounter Miscellaneous Notes * Telephone Encounter - Ariana Arevalo - 09/15/2023 12:17 PM CDT 09/15/23 PSR LVM for pt that her upcoming appt with Dr Murillo will need to r/s. Pt was given the sched phone number to r/s. PSR will f/u with pt to r/s. It needs to be a NEW PATIENT VISIT. CY documented in this encounter Plan of Treatment Not on file documented as of this encounter Visit Diagnoses Not on filedocumented in this encounter Care Teams Refrigeration Engineering Teacher Relationship Specialty Start Date End Date Shruthi Chávez DO [address] [place] [address] PCP - General Family Medicine 07/15/22 03/03/24 Mariaa Cruz MD [address] [place] [address] Referring Physician Gynecology 07/15/22 documented as of this encounter
--- OUTSIDE RECORDS SUMMARY | 2024-05-16 03:44 | XMS_ITS | Encounter Summary ---
Author Organization [facility] Medical Group Address [address] [place] [address] Care Team Providers Care Negative Turner Apprentice Name Role Phone Shruthi Chávez Primary Care Provider [phone] Ihsan Cruz MD Unavailable [phone] Reason for Visit * Reason Comments Abdominal Pain Pt states she has be en having stomach pains as well as pelvic pain. 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 Gender Identity Not on file Sexual Orientation Not on file documented as of this encounter Last Filed Vital Signs Vital Sign Reading Time Taken Comments Blood Pressure 99/66 11/07/2022 2:32 PM CDT Pulse 69 11/07/2022 2:32 PM CDT Temperature 36.6 ??C (97.8 ??F) 11/07/2022 2:32 PM CD T Respiratory Rate 16 11/07/2022 2:32 PM CDT Oxygen Saturation 100% 11/07/2022 2:32 PM CDT Inhaled Oxygen Concentration - - Weight 54.9 kg (121 lb) 11/07/2022 2:32 PM CDT Height 157.5 cm (5' 2 ) 11/07/2022 2:32 PM CDT Body Mass Index 22.13 11/07/2022 2:32 PM CDT documented in this encounter Patient Instructions * Patient Instructions* Chen Morris NP - 11/07/2022 2:30 PM CDT Please start taking probiotic 20-50 billion CFU daily jail. This will help maintain the good bacteria that is in your gut. May try benefiber over the counter. documented in this encounter Progress Notes * Chen Morris NP - 11/07/2022 2:30 PM CDT Images from the original note were not included. Assessment/Plan Diagnoses and all orders for this visit: Bilateral lower abdominal pain (Primary) Assessment & Plan: -UA in office normal and test negative. -urine sent to test for chlamydia and gonorrhea -patient declines testing for HIV, syphilis, and Trichomonas. Patient declines pelvic exam in today. -pain possibly due to constipation. -advised patient if this pain does not improve, we can order an abdominal/pelvic ultrasound. -advised patient to go to ED if pain becomes severe Orders: - N. gonorrhoeae/C. trachomatis Amplification Urine; Future - POCT urinalysis dipstick - POCT hCG, urine Constipation, unspecified constipation type Assessment & Plan: -recommend OTC Colace daily as needed, OTC Benefiber 1-3 times daily, and daily probiotic -advised patient to drink at least 64 oz of water daily and increase fiber intake -follow up if not improving Return if symptoms worsen or fail to improve. Subjective/Objective Chief Complaint Patient presents with Abdominal Pain Pt states she has been having stomach pains as well as pelvic pain. Onset Thursday HPI Alee Cano is a 32 y.o. female who is here for abdomnial pain for 5 days. Reports the pain is in her bilateral lower abdomen. States 5 days ago, she ate a lot of food including a shrimp sandwich and then the pain began that night. States she had chills with no fever and didn't want to move due to the pain. Reports some nausea and decreased appetite, which have both improved. Reports the pain is much improved since then. States she had some slight pain in her bilateral lower backas well. Patient reports concern for possible STD exposure. Denies vaginal discharge or dysuria. Patient also reports she feels very bloated. States her last bowel movement was today but it was very small and dry. States she occasionally has difficulty with constipation. States she took a dose of Colace today. Please see the assessment and plan section for relevant conditions discussed, status of conditions,current and future management recommendations. Patient Care Team: Shruthi Chávez DO as PCP - General (Family Medicine) Ihsan Cruz MD as Referring Physician (Gynecology) Labs: Lab Results Component Value Date CHOL 221 (H) 07/22/2022 TRIG 41 07/22/2022 HDL 136 07/22/2022 Lab Results Component Value Date LDLCALC 77 07/22/2022 Lab Results Component Value Date TSH 1.41 07/22/2022 Lab Results Component Value Date HGBA1C 5.3 07/22/2022 Review of Systems Constitutional: Negative for fatigue and fever. Respiratory: Negative for cough, shortness of breath and wheezing. Cardiovascular: Negative for chest pain and leg swelling. Gastrointestinal: Positive for abdominal pain and constipation. Negative for blood in stool, diarrhea, nausea and vomiting. Genitourinary: Negative for difficulty urinating, dysuria, frequency, hematuria and urgency. Neurological: Positive for light-headedness. Negative for dizziness. Psychiatric/Behavioral: Negative for suicidal ideas. Vitals: 11/07/22 1432 BP: 99/66 BP Location: Left arm Patient Position: Sitting Pulse: 69 Resp: 16 Temp: 36.6 ??C (97.8 ??F) SpO2: 100% Weight: 54.9 kg (121 lb) Height: 157.5 cm (5' 2 ) Wt Readings from Last 3 Encounters: 11/07/22 54.9 kg (121 lb) 07/22/22 54.6 kg (120 lb 4.8 oz) 07/15/22 56.1 kg (123 lb 11.2 oz) Body mass index is 22.13 kg/m??. Physical Exam Constitutional: Appearance: Normal appearance. HENT: Head: Normocephalic. Cardiovascular: Rate and Rhythm: Normal rate and regular rhythm. Pulses: Normal pulses. Heart sounds: Normal heart sounds. No murmur heard. Pulmonary: Effort: Pulmonary effort is normal. Breath sounds: Normal breath sounds. Abdominal: General: Bowel sounds are normal. Palpations: Abdomen is soft. Tenderness: There is no abdominal tenderness. There is no right CVA tenderness, left CVA tenderness, guarding or rebound. Negative signs include Goddard's sign, Rovsing's sign and McBurney's sign. Musculoskeletal: General: Normal range of motion. Skin: General: Skin is warm and dry. Neurological: General: No focal deficit present. Mental Status: She is alert and oriented to person, place, and time. Chen Morris NP November 07, 2022 3:06 PM Please note: Voice recognition software [place] Direct was used dictate and transcribe this document. Radiology Tech variances may occur. Despite proofreading, typographical errors may occur. j documented in this encounter Miscellaneous Notes * Assessment & Plan Note - Chen Morris NP - 11/07/2022 3:04 PM CDT Associated Problem(s): Constipation -recommend OTC Colace daily as needed, OTC Benefiber 1-3 times daily, and daily probiotic -advised patient to drink at least 64 oz of water daily and increase fiber intake -follow up if not improving * Assessment & Plan Note - Chen Morris NP - 11/07/2022 3:03 PM CDT Associated Problem(s): Bilateral lower abdominal pain (Resolved 07/20/2023) -UA in office normal and test negative. -urine sent to test for chlamydia and gonorrhea -patient declines testing for HIV, syphilis, and Trichomonas. Patient declines pelvic exam in today. -pain possibly due to constipation. -advised patient if this pain does not improve, we can order an abdominal/pelvic ultrasound. -advised patient to go to ED if pain becomes severe * Addendum Note - Ihsan Perez - 11/07/2022 2:30 PM CDTAddended by: IHSAN BRADLEY on: 11/07/2022 06:18 PM Modules accepted: Orders documented in this encounter Plan of Treatment Not on file documented as of this encounter Procedures Procedure Name Priority Date/Time Associated Diagnosis Comments POCT URINALYSIS DIPSTICK Routine 11/07/2022 2:49 PM CDT Bilateral lower abdominal pain POCT HCG, URINE Routine 11/07/2022 2:48 PM CDT Bilateral lower abdominal pain documented in this encounter Results * N. gonorrhoeae/C. trachomatis Amplification Urine (11/07/2022 2:56 PM CDT) C. trachomatis Not detected Not detected TRACIE CANNON N. gonorrhoeae Not detected Not detected TRACIE CANNON Comment: Testing performed by the [facility]. This assay detects Chlamydia trachomatis and [...] GENERAL O RDERABLES Final Result TRACIE CANNON [address] Department [place] [address] * POCT urinalysis dipstick (11/07/2022 2:49 PM CDT) Color, Urine, POC Light Yellow Clarity, ur, POC Clear Clear Glucose, ur, POC Negative Negative MG/DL Bilirubin, ur, POC Negative Negative, Small, Moderate, Large Ketones, ur, POC Negative Negative Specific [place], POC 1.015 1.003 - 1.030 Blood, ur, POC Negative Negative pH, ur, POC 6.0 5.0 - 8.0 Protein, ur, POC Negative Negative Urobilinogen, urine, POC 0.2 0.2 - 1.0 mg/dL Nitrite, ur, POC Negative Negative Leukocytes, ur, POC Negative Negative Lot Number [id number] Urine 11/07/2022 2:49 PM CDT Chen Morris NP POINT OF CARE TEST ORDERABLE S Final Result * POCT hCG, urine (11/07/2022 2:48 PM CDT) HCG, ur, POC Negative Lot Number [id number] QC Backgroud Clear Acceptable QC Control Line Acceptable Urine 11/07/2022 2:48 PM CDT Chen Morris NP POINT OF CARE TEST ORDERABLE S Final Result documented in this encounter Visit Diagnoses Diagnosis Bilateral lower abdominal pain- Primary Constipation, unspecified constipation type documented in this encounter Care Teams Negative Turner Apprentice Relationship Specialty Start Date End Date Shruthi Chávez DO [address] [place] [address] PCP - General Family Medicine 07/15/22 03/03/24 Ihsan Cruz MD [address] [place] [address] Referring Physician Gynecology 07/15/22 documented as of this encounter
--- OUTSIDE RECORDS SUMMARY | 2024-05-16 03:44 | XMS_ITS | Clinical Summary ---
Author Organization [address] Address [address] [place] [address] Care Team Providers Care Fuller Brush Man Name Role Phone Mariaa Cruz MD Unavailable [phone] Allergies Active Allergy Reactions Criticality Noted Date [...] previously with - patient denies using any ytmt-yqv-gpexwls medication at this but has used epsom [...] 07/15/2022 Assessment & Plan (07/22/2022 11:12 AM CURRENCY EXAMINER): I favor that this was more a [...] Unspecified 03/13/2023(Deferr ed: Patient Refused),07/15/2022(Deferred: Patient Refused) Surgical History Surgery Date Site/Laterality Comments SECTION 07/26/2021 Medical History Medical History Date Comments Depression Anxiety Family History Medical History Relation Name Comments Diabetes Father Relation Name Status Comments Father Alive Mother Alive Social History Tobacco Use Types Packs/Day Years [...] on file Legal Sex Female 3:59 AM CURRENCY EXAMINER Gender Identity Not on file Sexual Orientation Not on file Obstetrics History Para Term AB IAB SAB Ectopic Multiple Livin g Live Births 1 Date Outcome GA Total Labor Labor/2nd/3rd Weight Sex Type Anes PTL Dalia A1 A5 Name Clin Last Filed Vital Signs Vital Sign Reading [...] 10/06/2023 3:13 PM CDT Plan of Treatment Health Maintenance Due Date Last Done Comments Cervical Cancer Screening 1991 DTaP/Tdap/Td Vaccine (1 - Tdap) 2002 Hepatitis B Screening 2009 Influenza Vaccine (#1) 2024 Regular Well Visit/Exam 18-64 07/20/2024 07/20/2023, 07/15/2022 Depression Screening 10/05/2024 10/06/2023, 07/20/2023, 11/07/2022, Additional history exists Hepatitis C Screening Completed 07/22/2022 HPV Vaccines Aged Out No longer eligi ble based on patient's age to complete this topic Pneumococcal vaccine <65 Aged Out No longer eligible based on patient's age to complete this topic Varicella Vaccines Discontinued Procedures Procedure Name Priority Date/Time Associated Diagnosis Comments HEPATITIS C ANTIBODY Routine 07/22/2022 11:15 AM CURRENCY EXAMINER Annual physical exam Encounter for hepatitis C screening test for low risk patient from Last 3 Months or Most Recently Relevant to Health Maintenance Results * Hepatitis C antibody (07/22/2022 11:15 AM CURRENCY EXAMINER) Hep C Ab Nonreactive Nonreactive TRACIE SANABRIA ([employer]) Comment: Interpretive Data Nonreactive: Antibodies to HCV [...] last revised on 2019. Testing performed by: [facility], [address] [place] [address]., [id number] Blood 07/22/2022 11:1 5 AM CURRENCY EXAMINER 07/22/2022 1:51 PM CURRENCY EXAMINER us Shruthi Chávez DO LAB MICROBIOLOGY - GENERAL ORDERABLES Edited Result - Final TRACIE SANABRIA ([employer]) [address] [facility] Department [place] [address] from Last 3 Months or Most Recently Relevant to Health Maintenance Insurance [facility] AETNA SIG [id number] [facility] T SIG [id number] Care Teams Fuller Brush Man Relationship Specialty Start Date End Date Mariaa Cruz MD [address] [address] Referring Physician Gynecology 07/15/22
--- OUTSIDE RECORDS SUMMARY | 2024-05-16 03:44 | XMS_ITS | Encounter Summary ---
Author Organization [facility] Healthcare Address [address] [place] [address] Care Team Providers Care Poultice Machine Operator Name Role Phone Shruthi Chávez DO Primary Care Provider [phone] Mariaa Cruz MD Unavailable [phone] Reason for Visit * Reason Onset Date Comments Back Pain 03/17/2023 Encounter Details Date Type Department Care Team (Late st Contact Info) Description 03/17/2023 Nurse Triage [facility] Medical Group Primary Care at [address] [place] [address] Shruthi Chávez DO [address] [address] Social History Tobacco Use Types [...] on file Legal Sex Female 3:59 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 She went to chiropractor yesterday andwas told her rib was out of place. They adjusted her and now she has increased pain when taking a deep breath in or moves around. The pain is in her back under left shoulder blade in her ribs. She isnursing so she has only taken ibuprofen a few times. She denies chest pain, dyspnea, numbness, weakness, radiation of pain. Disposition per guideline: Home care/education/call back instruction given: No appts available in office today. Pt will do a walk in at [facility]. * Telephone Encounter - Tara Martinez RN - 03/17/2023 9:20 AM CDT Regarding: severe pain in back under left shoulder blade, hurts to breathe ----- Message from Pollo Mead sent at 03/17/2023 9:14 AM CDT ----- Symptom Based Call Caller's Callback #: [phone] Chief Complaint(s): severe pain in back under left shoulder blade, hurts to breathe Duration: couple days What type of symptom(s) is the patient experiencing? Red Flag. Is the patient concerned they are experiencing a medical emergency requiring an ambulance? No Additional Comments: patient went to chiropractor yesterday to get adjusted, they told her she had a popped out rib, they adjusted her and told her it moved well and that she should feel better but this morning it hurts her to breathe and takes her breath away when she moves (had mild pain couple weeks ago) Does message need to be routed? Yes-Action Needed documented in this encounter Plan of Treatment Not on file documented as of this encounter Visit Diagnoses Not on filedocumented in this encounter Care Teams Poultice Machine Operator Relationship Specialty Start Date End Date Shruthi Chávez DO [address] [place] [address] PCP - General Family Medicine 07/15/22 03/03/24 Mariaa Cruz MD [address] [place] [address] Referring Physician Gynecology 07/15/22 documented as of this encounter
--- OUTSIDE RECORDS SUMMARY | 2024-05-16 03:44 | XMS_ITS | Encounter Summary ---
Author Organization [facility] Address [address] [place] [address] Care Team Providers Care Pattern Wheel Maker Name Role Phone Unavailable Primary Care Provider Unavailabl e Reason for Visit * Reason Onset Date Comments Follow-up 08/27/2018 Encounter Details Date Type Department Care Team (Late st Contact Info) Description 08/27/2018 Telephone [facility] [address] [id number] Leatha Bowser APRN-CNP Injury Specialist [id number] [place] [address]., [address] [place] [address] Follow-up Social History Tobacco Use Types Packs/Day Years Used Date Smoking Tobacco: Every Day Cigarettes Smokeless Tobacco: Never Sex and Gender Information Value Date Recorded Sex Assigned at Not on file Gender Identity Not on file Sexual Orientation Not on file documented as of this encounter Miscellaneous Notes * Telephone Encounter - Leatha Bowser APRN-CNP - 08/27/2018 11:33 AM CDT Left message on patient's voicemail stating this is a follow-up call from the [facility] and to call the clinic back at if she has any questions or concerns regarding her recent appointment. documented in this encounter Plan of Treatment Not on file documented as of this encounter Visit Diagnoses Not on filedocumented in this encounter
--- OUTSIDE RECORDS SUMMARY | 2024-05-16 03:45 | XMS_ITS | Encounter Summary ---
Author Organization [facility] Address [address] [place] [id number] Care Team Providers Care Chemistry Faculty Member Name Role Phone Bettie Pires NP Primary Care Provider [phone] Reason for Visit * Reason Comments COVID-19 EVALUATION Pt c/o sinus sx, POLANCO, ear pain, sore throat, dry cough, diarrhea, vomiting, BA, and fatigue,. x3days Encounter Details Date Type Department Care Team (Late st Contact Info) Description 04/16/2020 10:00 AM ENTERPRISE RESOURCE ANALYST Office Visit [facility] [address] [place] [address] [place] [address] Sparkle Gutierrez, KRYSTAL [address] [place] [address] Cough (Primary Dx); Sore throat Social History Tobacco Use Types Packs/Day Years Used Date Smoking Tobacco: Never Assessed Comments Unknown Sex and Gender Information Value Date Recorded Sex Assigned at Not on file Legal Sex Female 3:59 AM ENTERPRISE RESOURCE ANALYST Gender Identity Not on file Sexual Orientation Not on file documented as of this encounter Last Filed Vital Signs Vital Sign Reading Time Taken Comments Blood Pressure 110/64 04/16/2020 9:45 AM ENTERPRISE RESOURCE ANALYST Pulse 82 04/16/2020 9:46 AM ENTERPRISE RESOURCE ANALYST L zurita d Temperature 36.9 ??C (98.4 ??F) 04/16/2020 9:45 AM CS T Respiratory Rate 14 04/16/2020 9:45 AM ENTERPRISE RESOURCE ANALYST Oxygen Saturation 93% 04/16/2020 9:46 AM ENTERPRISE RESOURCE ANALYST L hand Inhaled Oxygen Concentration - - Weight 54.4 kg (120 lb) 04/16/2020 9:45 AM ENTERPRISE RESOURCE ANALYST Height 157.5 cm (5' 2 ) 04/16/2020 9:45 AM ENTERPRISE RESOURCE ANALYST Body Mass Index 21.95 04/16/2020 9:45 AM ENTERPRISE RESOURCE ANALYST documented in this encounter Patient Instructions * Patient Instructions* Sparkle Gutierrez [employer] - 04/16/2020 10:00 AM ENTERPRISE RESOURCE ANALYST Swabbed for COVID-19 today in clinic. Patient aware they will be called with the results in 1-3 days. Patient instructed to self isolate until called with results and they will be notified at that timeif they need to continue self isolation and for how long. Discussed home self care, follow up needs and signs and symptoms that warrant immediate medical attention. You may gargle with warm salt water, suck on throat lozenges, or throat sprays Use a decongestant for your congestion. You can dry up your runny nose with an antihistamine Elevate your pillow at night when you are sleeping to reduce the drainage down your throat. Please follow up with your PCP if you are not getting any better Increase fluids and use OTC anti-diarrheal if necessary. BRAT diet explained. Although you have not been diagnosed with COVID-19, your presenting symptoms could be indicative ofCOVID infection and it is recommended that you stay home for recovery at this time. When will my results be available? - There is not a rapid test available at this time. It typically takes 1-3 days to get the results of this test. If you have MyChart, the results will be available to you at the same time as we receive them. Regardless, we will call every patient with positive or negative results. The [facility] will be reaching out to all patients who have a positive test for further discussion and monitoring. If your test results are negative continue to self isolate until at least 10 days have passed since symptom onset, your symptoms have improved, and you have been fever free without the useof fever reducing medications for at least 24 hours. You may use acetaminophen and/or ibuprofen to control pain and fever. If you have chronic liver disease, have ever had a stomach ulcer or gastrointestinal bleeding talk with your healthcare provider before using these medicines. Aspirin should never be given to anyone under 18 years of age who is ill with a viral infection or fever. It may cause severe liver or brain damage. Your appetite may be poor, so a light diet is ok. Stay well hydrated by drinking 6 to 8 glasses of fluids per day (water, soft drinks, juices, tea, or soup). Extra fluids will help loosen secretions in the nose and lungs. Wtxy-tko-mwneudi cold medicines will not shorten the length of time you???re sick, but they may be helpful for relieving the following symptoms: headache, cough, sore throat, and nasal and sinus congestion. If you take prescription medicines, ask your healthcare provider or pharmacist which wggu-jjy-qmllwov medicines are safe to use. (Note: DO NOT use decongestants if you have high blood pressure.) Steps to help prevent the spread of COVID-19 if you are sick If you are sick with COVID-19 or think you might have COVID-19, follow the steps below to care for yourself and to help protect other people in your home and community. Stay home except to get medical care ??? Most people with COVID-19 have mild illness and are able to recover at home without medical care. Do not leave your home, except to get medical care. Do not visit public areas. ??? Take care of yourself. Get rest and stay hydrated. Take dylr-dng-vwdoill medicines to help you feel better. ??? Stay in touch with your doctor. Call before you get medical care. Be sure to get care if you have trouble breathing, or have any other emergency warning signs, or if you think it is an emergency. ??? Avoid using public transportation, ride-sharing, or taxis. Monitor your symptoms ??? Symptoms of COVID-19 include fever, cough, shortness of breath or difficulty breathing, fatigue, muscle or body aches, headache, new loss of taste or smell, sore throat, congestion, runny nose, nausea, vomiting, or diarrhea. When to Seek Medical Attention If you develop emergency warning signs for COVID-19 get medical attention immediately. Emergency warning signs include*: ??? Trouble breathing ??? Persistent pain or pressure in the chest ??? New confusion or inability to arouse ??? Bluish lips or face *This list is not all inclusive. Please consult your medical provider for any other symptoms that are severe or concerning. Call 911 if you have a medical emergency: If you have a medical emergency and need to call 911, notify the acetaldehyde converter operator that you have or think you might have, COVID-19. If possible, put on a facemask before medical help arrives. Separate yourself from other people in your home, this is known as home isolation ??? As much as possible, you should stay away from other people and pets in your home. You should stay in a specific ???sick room?? if possible. Use a separate bathroom, if available. If you need edenilson around other people or animals in or outside of the home, wear a mask For more information on sharing close living quarters with someone who is sick visit https://www.cdc .gov/coronavirus/2019-ncov/ovhdb-zppg-eomufx/jupdvh-qu-jkgjj-quarters.html For more information on COVID-19 and pets visit https://www.cdc.gov/coronavirus/2019-ncov/faq.html Call ahead before visiting your doctor ??? Many medical visits for routine care are being postponed or done by phone or telemedicine. ??? If you have a medical appointment that cannot be postponed, call your doctor???s office, and tell them you have or may have COVID-19. This will help the office protect themselves and other patients. If you are sick wear a face mask over your nose and mouth in the following situations ??? You should wear a face mask over your nose and mouth if you must be around other people or animals, including pets (even at home). ??? You don't need to wear the face mask if you are alone. If you can't put on a face mask (becauseof trouble breathing, for example), cover your coughs and sneezes in some other way (tissue or inner elbow). Try to stay at least 6 feet away from other people. This will help protect the people around you. ??? Face masks should not be placed on children under 2 years old, anyone who has trouble breathing, or anyone who is not able to remove the covering without help. Note: During the COVID-19 pandemic, medical grade facemasks are reserved for healthcare workers andsome first responders. You may need to use a cloth face covering. Cover your coughs and sneezes ??? Cover your mouth and nose with a tissue or the inside of your elbow when you cough or sneeze. ??? Throw used tissues in a lined trash can. ??? Immediately wash your hands with soap and water for at least 20 seconds. If soap and water are not available, clean your hands with an alcohol-based hand change attendant that contains at least 60% alcohol. Clean your hands often ??? Wash your hands often with soap and water for at least 20 seconds. This is especially importantafter blowing your nose, coughing, or sneezing; going to the bathroom; and before eating or preparing food. ??? Use hand change attendant if soap and water are not available. Use an alcohol-based hand change attendant with at least 60% alcohol, covering all surfaces of your hands and rubbing them together until they feel dry. ??? Soap and water are the best option, especially if hands are visibly dirty. ??? Avoid touching your eyes, nose, and mouth especially with unwashed hands. Avoid sharing personal household items ??? Do not share dishes, drinking glasses, cups, eating utensils, towels, or bedding with other people in your home. ??? After using these items, wash them thoroughly with soap and water or put them in the slice plug cutter operator. Clean all ???high-touch?? surfaces everyday. High-touch surfaces include phones, remote controls, counters, tabletops, doorknobs, bathroom fixtures, toilets, keyboards, tablets, and bedside tables. ??? Clean and disinfect high-touch surfaces in your ???sick room?? and bathroom everyday while wearing disposable gloves. Let someone else clean and disinfect surfaces in common areas, but not your bedroom and bathroom. ??? If a caregiver or other person needs to clean and disinfect a sick person???s bedroom or bathroom, they should do so on an as-needed basis. The caregiver/other person should wear a mask and disposable gloves prior to cleaning.They should wait as long as possible after the sick person has used the bathroom before coming in to clean and use the bathroom. ??? Clean and disinfect areas that may have blood, stool, or body fluids on them. ??? Clean the area or item with soap and water or another detergent if it is dirty. Then, use a household disinfectant. o Be sure to follow the instructions on the label to ensure safe and effective use of the product. Many products recommend keeping the surface wet for several minutes to ensure germs are killed. Manyalso recommend precautions such as wearing gloves and making sure you have good ventilation during use of the product. o Most EPA-registered household disinfectants should be effective. When you can be around others (end home isolation) depends on different factors for different situations. If you think or know you have COVID-19, and you had symptoms you can be with others after ??? 24 hours with no fever (without the use of fever reducing medications) AND ??? Respiratory symptoms have improved (cough, shortness of breath) AND ??? 10 days since symptoms first appeared. ??? Loss of taste and smell may persist for weeks or months after recovery and need not delay the end of isolation If you tested positive for COVID-19 but had no symptoms you can be with others after ??? 10 days have passed since the test. ??? If you develop symptoms after testing positive, follow the guidance above for I think or I know I had COVID, and I had symptoms . If you have a weakened immune system due to a health condition or medication you can be around others ??? People with conditions that weaken their immune system might need to stay home longer than 10 days. Talk to your healthcare provider for more information. If you have been around a person with COVID-19 ??? You should stay home for 14 days after exposure based on the time it takes to develop illness/symptoms. ??? If you live with someone positive for COVID-19, and you are unable to avoid close contact, you should quarantine for 14 days AFTER the person who has COVID- 19 meets the criteria to end home isolation. However, anyone who has had close contact with someone with COVID-19 and who: ??? developed COVID-19 illness within the previous 3 months AND ??? has recovered AND ??? remains without COVID-19 symptoms (for example, cough, shortness of breath) does not need to stay home. In all cases, follow the guidance of your healthcare provider and local health department regardingquarantine guidelines. The decision to stop home isolation should be made in consultation with yourhealthcare provider and state and local health departments. Local decisions depend on local circumstances. The above information is from the CDC website on January 30, 2020. Page last reviewed: January 08, 2020. Additional information and resources about COVID-19 symptoms, testing, self- isolation, how to prevent spread, and more are available at: https://www.cdc.gov/coronavirus RPRISE RESOURCE ANALYST RPRISE RESOURCE ANALYST documented in this encounter Progress Notes * Sparkle Gutierrez NP - 04/16/2020 10:00 AM CST Images from the original note were not included. Patient ID: Alee Keyes is a 30 y.o. female followed by Bettie Pires NP Patient was wearing the following PPE: mask. MA was wearing the following PPE: mask, gown, gloves, and face shield. Provider was wearing the following PPE: mask, gown, gloves, and face shield. Chief Complaint Patient presents with ??? COVID-19 EVALUATION Pt c/o sinus sx, POLANCO, ear pain, sore throat, dry cough, diarrhea, vomiting, BA, and fatigue,. x3days Alee c/o 3 days of multiple symptoms. Sore throat and headaches are the worst. Sore Throat This is a new problem. The current episode started in the past 7 days. The problem has been unchanged. There has been no fever. The patient is experiencing no pain. Associated symptoms include congestion, coughing, diarrhea, ear pain, headaches and vomiting. Pertinent negatives include no abdominalpain, ear discharge, shortness of breath, swollen glands or trouble swallowing. She has tried NSAIDs for the symptoms. The treatment provided mild relief. Patient presents to clinic for assessment of Chief Complaint Patient presents with ??? COVID-19 EVALUATION Pt c/o sinus sx, POLANCO, ear pain, sore throat, dry cough, diarrhea, vomiting, BA, and fatigue,. x3days . Patient reports DRY COUGH, SORE THROAT, NASAL DRAINAGE, SINUS PRESSURE, VOMITING, DIARRHEA, HEADACHE, BODY ACHES and FATIGUE Patient reports this has been going on for 3 days. 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 Patient has following risks for COVID-19: none Review of Systems Constitutional: Negative for fatigue and fever. HENT: Positive for congestion, ear pain and sore throat. Negative for ear discharge and trouble swallowing. Respiratory: Positive for cough. Negative for chest tightness and shortness of breath. Cardiovascular: Negative for chest pain. Gastrointestinal: Positive for diarrhea and vomiting. Negative for abdominal pain and nausea. Skin: Negative for color change. Neurological: Positive for headaches. Negative for dizziness. Hematological: Negative for adenopathy. Psychiatric/Behavioral: Negative for confusion. Current Outpatient Medications Medication Sig Dispense Refill ??? buPROPion XL (WELLBUTRIN XL) 150 mg 24 hr tablet ??? Estarylla 0.25-35 mg-mcg per tablet TK 1 T PO AT THE SAME TIME QD ??? norethindrone-ethin estradioL (NECON) 0.5-35 mg-mcg per tablet Take by mouth No current facility-administered medications for this visit. No past medical history on file. There is no immunization history on file for this patient. Social History Tobacco Use Smoking Status Not on file Vitals: 04/16/20 0945 04/16/20 0946 BP: 110/64 BP Location: Left arm Patient Position: Sitting Pulse: 84 82 Resp: 14 Temp: 36.9 ??C (98.4 ??F) TempSrc: Oral SpO2: 95% 93% Weight: 54.4 kg (120 lb) Height: 157.5 cm (5' 2 ) Physical Exam Vitals signs reviewed. Constitutional: Appearance: Normal appearance. She is well-developed. She is not ill-appearing or diaphoretic. HENT: Head: Normocephalic. Right Ear: Tympanic membrane, ear canal and external ear normal. No decreased hearing noted. There is no impacted cerumen. No mastoid tenderness. Tympanic membrane is not perforated, erythematous or bulging. Left Ear: Hearing, tympanic membrane, ear canal and external ear normal. No decreased hearing noted. There is no impacted cerumen. No mastoid tenderness. Tympanic membrane is not perforated, erythematous or bulging. Nose: Nose normal. No congestion or rhinorrhea. Right Sinus: No maxillary sinus tenderness or frontal sinus tenderness. Left Sinus: No maxillary sinus tenderness or frontal sinus tenderness. Mouth/Throat: Lips: Dolores. Mouth: Mucous membranes are moist. No oral lesions. Dentition: Normal dentition. Palate: No lesions. Pharynx: Oropharynx is clear. Posterior oropharyngeal erythema present. Tonsils: No tonsillar exudate or tonsillar abscesses. Eyes: General: Lids are normal. Extraocular Movements: Extraocular movements intact. Conjunctiva/sclera: Conjunctivae normal. Neck: Musculoskeletal: Normal range of motion. Thyroid: No thyroid mass or thyromegaly. Trachea: Trachea and phonation normal. Cardiovascular: Rate and Rhythm: Normal rate and regular rhythm. Pulses: Normal pulses. Heart sounds: Normal heart sounds. Pulmonary: Effort: Pulmonary effort is normal. Breath sounds: Normal breath sounds. Lymphadenopathy: Cervical: No cervical adenopathy. Skin: General: Skin is warm and dry. Neurological: Mental Status: She is alert. Psychiatric: Attention and Perception: Attention normal. Behavior: Behavior is cooperative. Assessment/Plan Swabbed for COVID-19 today in clinic. Patient aware they will be called with the results in 1-3 days. Patient instructed to self isolate until called with results and they will be notified at that timeif they need to continue self isolation and for how long. Discussed home self care, follow up needs and signs and symptoms that warrant immediate medical attention. You may gargle with warm salt water, suck on throat lozenges, or throat sprays Use a decongestant for your congestion. You can dry up your runny nose with an antihistamine Elevate your pillow at night when you are sleeping to reduce the drainage down your throat. Please follow up with your PCP if you are not getting any better Increase fluids and use OTC anti-diarrheal if necessary. BRAT diet explained. Diagnoses and all orders for this visit: Cough (Primary) - COVID-19 Coronavirus RNA Nasopharyngeal; Future Sore throat - POCT rapid strep A Discussed COVID testing reasoning Reviewed isolation/quarantine protocols Discussed symptomatic relief of symptoms Discussed need to return to ER for further evaluation including worsening fevers, shortness of breath, of other concerning symptoms Advised to rest and stay adequately hydrated Advised to stay out of work and excuse given explaining when patient can return to work Orders Placed This Encounter Procedures ??? COVID-19 Coronavirus RNA Nasopharyngeal Standing Status: Future Standing Expiration Date: 04/16/2021 Order Specific Question: Is the patient experiencing any symptoms consistent with COVID (eg. Fever,cough, shortness of breath)? Answer: Yes Order Specific Question: What is the reason for testing? Answer: Symptoms of COVID-19 in high-risk group (defined above in process inst.) Order Specific Question: Date of symptom onset Answer: 04/13/2020 Order Specific Question: Is the patient hospitalized? Answer: No Order Specific Question: Is the patient admitted to an ICU? Answer: No Order Specific Question: Is this the first COVID-19 test for this patient? Answer: Unknown Order Specific Question: Does the patient currently work in a healthcare facility with direct patient contact? Answer: No Order Specific Question: Is the patient a resident of a congregate care or living setting? Answer: No Order Specific Question: Is the patient ? Answer: No ??? POCT rapid strep A RPRISE RESOURCE ANALYST documented in this encounter Plan of Treatment Not on file documented as of this encounter Procedures Procedure Name Priority Date/Time Associated Diagnosis Comments POCT RAPID STREP Routine 04/16/2020 9:56 AM ENTERPRISE RESOURCE ANALYST Sore throat documented in this encounter Results * COVID-19 Coronavirus RNA Nasopharyngeal (04/16/2020 10:01 AM ENTERPRISE RESOURCE ANALYST) COVID-19 RNA Not Detected TRACIE CANNON Comment: Interpretive Data Testing performed at [facility]. The Novel Coronavirus Assay (COVID-19) Real Time RT-PCR assay is for in vitro diagnostic use under FDA emergency use authorization only. A negative RT-PCR result does not preclude infection with COVID-19 and should not be used as the sole basis for treatment or other patient management decisions. Additional sample types have been validated according to CLIA regulations. ?? Current Interpretive Data was last revised on 2019. Testing performed by: [facility], [address] [place] [address], [place]., [address] First COVID-19 test? Unknown TRACIE CANNON Comment:Testing performed by : [facility], [address] [facility], [address] Employeed in healthcare? No ALFREDNER Comment:Testing performed by : [facility], [address] [facility], [id number] status? No CERNER Comment:Testing performed by : [facility], [address] [facility], [address] Group care resident? No TRACIE Comment:Testing performed by : [facility], [address] [facility], [address] Hospitalized? No CERNER Comment:Testing performed by : [facility], [address] [facility], [address] Is patient in ICU? No TRACIE Comment:Testing performed by : [facility], [address] [facility], [address] Symptomatic as defined by CDC? Yes TRACIE Comment:Testing performed by : [facility], [address] [facility], [address] Nasopharyngeal 04/16/2020 10 :01 AM ENTERPRISE RESOURCE ANALYST 04/16/2020 8:56 PM ENTERPRISE RESOURCE ANALYST Narrative TRACIE - 04/17/2020 5:19 AM ENTERPRISE RESOURCE ANALYST What is the reason for testing?->Symptoms of COVID-19 in high-risk group (defined above in process inst.) Date of symptom onset->04/13/20 Sparkle Gutierrez [employer] LAB MICROBIOLOGY - GENERAL ORD ERABLES Final Result TRACIE [address] [address] [place] [address] * POCT rapid strep A (04/16/2020 9:56 AM ENTERPRISE RESOURCE ANALYST) Rapid Strep A, POC Negative Swab 04/16/2020 9:56 AM ENTERPRISE RESOURCE ANALYST Sparkle Gutierrez [employer] SALESPERSON POINT OF CARE TEST ORDERABLES Final Result documented in this encounter Visit Diagnoses Diagnosis Cough- Primary Sore throat Acute pharyngitis Cough documented in this encounter Historical Medications * This list may reflect changes made after this encounter. Estarylla 0.25-35 mg-mcg per tablet TK 1 T PO AT THE SAME TIME QD 04/09/2020 07/15/2022 buPROPion XL (WELLBUTRIN XL) 150 mg 24 hr tablet 03/06/2020 08/12/2023 norethindrone-eth in estradioL (NECON) 0.5-35 mg-mcg per tablet Take by mouth 07/15/2022 added in this encounter Additional Health Concerns Infection Onset Date Last Indicated Resolved Time COVID: Suspected 04/16/2020 04/16/2020 04/17/2020 5:20 AM ENTERPRISE RESOURCE ANALYST documented as of this encounter Care Teams Chemistry Faculty Member Relationship Specialty Start Date End Date Bettie Pires NP PCP - General Internal Medicine 04/15/20 06/12/22 documented as of this encounter
--- OUTSIDE RECORDS SUMMARY | 2024-05-16 03:45 | XMS_ITS | Encounter Summary ---
Author Organization [facility] Facility Care Team Providers Care Drop Clipper Name Role Phone Unavailable Primary Care Provider Unavailabl e Encounter Details Date Type Department Care Team (Late st Contact Info) Description 11/26/2006 12:00 PM CDT - 11/26/2006 11:59 PM CDT Hospital Encounter [facility]INCONV Social History Tobacco Use Types Packs/Day Years Used Date Smoking Tobacco: Never Assessed Comments Unknown Sex and Gender Information Value Date Recorded Sex Assigned at Not on file Legal Sex Female 3:59 AM ENVIRONMENTAL COMPLIANCE OFFICER Gender Identity Not on file Sexual Orientation Not on file documented as of this encounter Plan of Treatment Not on file documented as of this encounter Visit Diagnoses Not on filedocumented in this encounter
--- OUTSIDE RECORDS SUMMARY | 2024-05-16 03:45 | XMS_ITS | Encounter Summary ---
Author Organization [facility] Facility Care Team Providers Care Distribution Engineer Name Role Phone Unavailable Primary Care Provider Unavailabl e Encounter Details Date Type Department Care Team (Late st Contact Info) Description 05/26/2006 6:55 PM SERVICENOW ADMINISTRATOR - 05/27/2006 12:01 AM SERVICENOW ADMINISTRATOR Hospital Encounter [facility] CL[facility]CON[facility] Social History Tobacco Use Types Packs/Day Years Used Date Smoking Tobacco: Never Assessed Comments Unknown Sex and Gender Information Value Date Recorded Sex Assigned at Not on file Legal Sex Female 3:59 AM SERVICENOW ADMINISTRATOR Gender Identity Not on file Sexual Orientation Not on file documented as of this encounter Plan of Treatment Not on file documented as of this encounter Visit Diagnoses Not on filedocumented in this encounter
--- OUTSIDE RECORDS SUMMARY | 2024-05-16 03:45 | XMS_ITS | Encounter Summary ---
Author Organization [facility] Facility Care Team Providers Care Feller Buncher Operator Name Role Phone Unavailable Primary Care Provider Unavailabl e Encounter Details Date Type Department Care Team (Late st Contact Info) Description 06/20/2009 11:38 AM URGENT CARE - 06/20/2009 11:59 PM URGENT CARE Hospital Encounter [facility] CLINCONV Mis Carter Bulimia nervosa Social History Tobacco Use Types Packs/Day Years Used Date Smoking Tobacco: Never Assessed Comments Unknown Sex and Gender Information Value Date Recorded Sex Assigned at Not on file Legal Sex Female 3:59 AM URGENT CARE Gender Identity Not on file Sexual Orientation Not on file documented as of this encounter Plan of Treatment Not on file documented as of this encounter Visit Diagnoses Diagnosis Bulimia nervosa documented in this encounter
--- OUTSIDE RECORDS SUMMARY | 2024-05-16 03:45 | XMS_ITS | Encounter Summary ---
Author Organization [facility] Healthcare Address [address] [place] [address] Care Team Providers Care Carpet Cleaner Name Role Phone Shruthi Chávez DO Primary Care Provider [phone]- [phone] Reason for Visit * Reason Comments Abdominal Pain Encounter Details Date Type Department Care Team (Late st Contact Info) Description 06/13/2022 3:47 PM WAREHOUSE ADMINISTRATIVE ASSISTANT - 06/13/2022 7:13 PM WAREHOUSE ADMINISTRATIVE ASSISTANT Emergency [facility] Emergency Department [address] [place] [address] Mynor Queen MD [address] [place] [address] Ventral hernia without obstruction or gangrene (Primary Dx) Discharge Disposition: Discharge to home or self care Social History Tobacco Use Types Packs/Day Years Used Date Smoking Tobacco: Every Day Smokeless Tobacco: Never Comments:vape Alcohol Use Standard Drinks/Week Comments Not Currently 0 (1 standard drink = 0.6 oz pur e alcohol) Comments Unknown Sex and Gender Information Value Date Recorded Sex Assigned at Not on file Legal Sex Female 3:59 AM WAREHOUSE ADMINISTRATIVE ASSISTANT Gender Identity Not on file Sexual Orientation Not on file documented as of this encounter Last Filed Vital Signs Vital Sign Reading Time Taken Comments Blood Pressure 106/71 06/13/2022 5:40 PM WAREHOUSE ADMINISTRATIVE ASSISTANT Pulse 76 06/13/2022 5:40 PM WAREHOUSE ADMINISTRATIVE ASSISTANT Temperature 37.1 ??C (98.7 ??F) 06/13/2022 3:45 PM CS T Respiratory Rate 18 06/13/2022 3:45 PM WAREHOUSE ADMINISTRATIVE ASSISTANT Oxygen Saturation 97% 06/13/2022 5:40 PM WAREHOUSE ADMINISTRATIVE ASSISTANT Inhaled Oxygen Concentration - - Weight 54.4 kg (120 lb) 06/13/2022 3:45 PM WAREHOUSE ADMINISTRATIVE ASSISTANT Height - - Body Mass Index 21.95 10/23/2020 2:27 PM CDT documented in this encounter Discharge Instructions * Discharge Instructions* Mynor Queen MD - 06/13/2022 6:42 PM WAREHOUSE ADMINISTRATIVE ASSISTANT Continue using pelvic binder. Take Tylenol for pain. Follow-up with your primary care doctor. HOUSE ADMINISTRATIVE ASSISTANT * Attachments The following attachments cannot be sent through Care Everywhere. * Ventral Hernia (AfterCare(R) Instructions(ER/ED)) ([place]) documented in this encounter Medications at Time of Discharge buPROPion XL (WELLBUTRIN XL) 150 mg 24 hr tablet 03/06/2020 08/12/2023 Estarylla 0.25-35 mg-mcg per tablet TK 1 T PO AT THE SAME TIME QD 04/09/2020 07/15/2022 Incassia 0.35 mg tablet Take 1 tablet (0.35 mg total) by mouth daily 05/01/2022 08/12/2023 norethindrone-eth in estradioL (NECON) 0.5-35 mg-mcg per tablet Take by mouth 06/26 documented as of this encounter Discharge Disposition Disposition Code Departure Means Destination Discharge to home or self care documented in this encounter ED Notes * Mynor Queen MD - 06/13/2022 4:14 PM CST HPI Chief Complaint Patient presents with Abdominal Pain Patient had a 10 months ago. She was bending over 3 days ago and felt a pop in her abdomen. She felt like there was something sticking out, just to the right of the umbilicus. She pushed it back in. Now she is using a pelvic binder. Pain is a 0 but gets to a for if she exerts herself. Pain is sharp and feels like a pressure as well. No nausea or vomiting. Patient History: Patient Active Problem List Diagnosis Date Noted Bulimia nervosa 01/31/2010 No past medical history on file. No past surgical history on file. No family history on file. Social History Tobacco Use Smoking status: Every Day Smokeless tobacco: Never Tobacco comments: vape Substance and Sexual Activity Alcohol use: Not Currently Drug use: Never Sexual activity: Defer Social History Social History Narrative Not on file Review of Systems Review of Systems Constitutional: Negative for chills and fever. HENT: Negative for congestion, rhinorrhea and sore throat. Eyes: Negative for pain. Respiratory: Negative for cough and shortness of breath. Cardiovascular: Negative for chest pain and leg swelling. Gastrointestinal: Positive for abdominal pain. Negative for diarrhea, nausea and vomiting. Genitourinary: Negative for difficulty urinating. Musculoskeletal: Negative for myalgias. Skin: Negative for rash. Neurological: Negative for dizziness and headaches. Psychiatric/Behavioral: Negative for behavioral problems. Physical Exam ED Triage Vitals [06/13/22 1545] Temp Pulse Resp BP SpO2 37.1 ??C (98.7 ??F) 87 18 115/74 99 % Temp src Heart Rate Source Patient Position BP Location FiO2 (%) -- -- -- -- -- Height Height Method Weight Weight Method -- -- 54.4 kg (120 lb) -- Physical Exam Vitals and nursing note reviewed. Constitutional: General: She is not in acute distress. Appearance: She is well-developed. HENT: Head: Normocephalic and atraumatic. Eyes: Conjunctiva/sclera: Conjunctivae normal. Cardiovascular: Rate and Rhythm: Normal rate and regular rhythm. Heart sounds: No murmur heard. Pulmonary: Effort: Pulmonary effort is normal. No respiratory distress. Breath sounds: Normal breath sounds. Abdominal: Palpations: Abdomen is soft. Tenderness: There is abdominal tenderness in the right lower quadrant. Comments: Perhaps a small ventral hernia right of the umbilicus Musculoskeletal: General: No swelling. Cervical back: Neck supple. Skin: General: Skin is warm and dry. Capillary Refill: Capillary refill takes less than 2 seconds. Neurological: Mental Status: She is alert. Psychiatric: Mood and Affect: Mood normal. Labs Reviewed CBC WITH AUTO DIFFERENTIAL - Abnormal Result Value WBC 6.2 Hgb 14.8 Hct 41.9 Plt 250 MPV 10.8 RBC 4.49 MCV 93.3 MCH 33.0 MCHC 35.3 RDW CV 11.3 RDW SD 38.7 NRBC abs 0.02 (*) COMPREHENSIVE METABOLIC PANEL - Abnormal Sodium 141 Potassium, pl 3.9 Chloride 103 CO2 25 Anion gap 12 BUN 28 (*) Creatinine 0.80 Glucose 97 Calcium 10.3 Bilirubin, total 0.2 Protein, pl 7.6 Albumin 5.2 (*) Alk phos 98 ALT 20 AST 19 HCG, BLOOD, QUANTITATIVE hCG, quant <5.0 DIFFERENTIAL AUTO Neutrophil abs 4.0 Imm gran abs 0.0 Lymphocyte abs 1.6 Monocyte abs 0.6 Eosinophil abs 0.1 Basophil abs 0.0 Neutrophil pct 63.7 Imm gran pct 0.2 Lymphocyte pct 25.5 Monocyte pct 9.0 Eosinophil pct 1.3 Basophil pct 0.[address] Abdomen Pelvis W Contrast Final Result MDM Medical Decision Making Patient presents with abdominal pain. History of . Clinically has perhaps a small ventral hernia. Amount and/or Complexity of Data Reviewed Labs: ordered. Details: Labs unremarkable Radiology: ordered. Details: CT: Unremarkable Discussion of management or test interpretation with external provider(s): Differential diagnosis: Hernia, obstruction, appendicitis. CT negative. Recommend pelvic binder for small ventral hernia. Tylenol. Follow-up with primary care doctor. Patient is agreeable to discharge. Risk Prescription drug management. Final diagnoses: Ventral hernia without obstruction or gangrene Mynor Queen MD 06/13/221843 HOUSE ADMINISTRATIVE ASSISTANT * Sylvia Vázquez RN - 06/13/2022 3:42 PM CST Patient arrives for evaluation of right sided abdominal pain/ pressure x2 days. Patient states thatshe bent over to pick something up and felt a pop on the right side. Patient states that she had to push something back into her abdomen. HOUSE ADMINISTRATIVE ASSISTANT documented in this encounter Plan of Treatment Not on file documented as of this encounter Procedures Procedure Name Priority Date/Time Associated Diagnosis Comments CT ABDOMEN PELVIS W CONTRAST ED 06/13/2022 5:59 PM WAREHOUSE ADMINISTRATIVE ASSISTANT EGFR STAT 06/13/2022 4:23 PM WAREHOUSE ADMINISTRATIVE ASSISTANT DIFFERENTIAL AUTO STAT 06/13/2022 4:2 3 PM WAREHOUSE ADMINISTRATIVE ASSISTANT CBC WITH AUTO DIFFERENTIAL STAT 06/13/2022 4:23 PM WAREHOUSE ADMINISTRATIVE ASSISTANT HCG, BLOOD, QUANTITATIVE STAT 06/13/2022 4:23 PM WAREHOUSE ADMINISTRATIVE ASSISTANT COMPREHENSIVE METABOLIC PANEL STAT 06/13/2022 4:23 PM WAREHOUSE ADMINISTRATIVE ASSISTANT documented in this encounter Results * CT Abdomen Pelvis W Contrast (06/13/2022 5:59 PM WAREHOUSE ADMINISTRATIVE ASSISTANT) Anatomical Region Laterality Modality Body N/A Computed Tomogra phy 06/13/2022 6:20 PM WAREHOUSE ADMINISTRATIVE ASSISTANT Narrative 06/13/2022 6:22 PM WAREHOUSE ADMINISTRATIVE ASSISTANT EXAM DESCRIPTION: ?? CT ABDOMEN PELVIS W CONTRAST REASON FOR STUDY: ?? Right lower abdominal pain and pressure. ??Patient states she bent over and felt a pop and pushed something back into her abdomen. ?? Patient had 10 months ago ? TECHNIQUE: CT scan of the abdomen and pelvis performed with intravenous and ?? without ??oral contrast using helical scanning technique with dynamic intravenous contrast injection. Reconstructed coronal and sagittal MPR images reviewed. All images stored on PACS. Automated exposure control was used as a dose optimization technique for this examination. CONTRAST TYPE/DOSE: ?? 75 mL Optiray 350 ?? COMPARISON: ?? Available. FINDINGS: LOWER CHEST: ?? No significant pulmonary abnormalities. No effusion. LIVER: ?? Normal size. ??No identified cystic or solid masses. GALLBLADDER: ?? No stones identified. No wall thickening or inflammatory changes. BILE DUCTS: ?? No intrahepatic or extrahepatic ductal dilatation. SPLEEN: ?? Normal size. ??No focal lesions. PANCREAS: ?? No identified cystic or solid masses. No significant calcifications. No adjacent inflammation or peripancreatic fluid collections. Pancreatic duct is not dilated. ?? ADRENALS: ?? Normal. KIDNEYS/URINARY TRACT: ?? 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 ??No identified significant cystic or solid masses. No visualized stones. No hydronephrosis or hydroureter. Symmetric enhancement. ?Urinary bladder is unremarkable. GI: ?? No dilated bowel loops. No obvious wall thickening. ??Normal appendix. ?? No significant diverticular disease. PERITONEUM: ?? No ascites or free air. RETROPERITONEUM: ?? No mass or adenopathy. REPRODUCTIVE: ?? No significant abnormality. VASCULATURE: ?? No abdominal aortic aneurysm. MUSCULOSKELETAL: ?? No significant abnormality. OTHER: ?? No defects seen in the ventral abdominal wall. IMPRESSION: ??No abnormalities identified, including ventral abdominal wall defect. THIS IS AN ELECTRONICALLY VERIFIED FINAL REPORT 06/13/2022 6:22 PM - Electronically signed by ??Cristo Brandon M.D. ML: ML D: ??06/13/2022 6:22 PM T: ??06/13/2022 6:22 PM Report ID: [id number] Reading Location: ??[id number] Procedure Note Cristo Brandon MD - 06/13/2022 EXAM DESCRIPTION: CT ABDOMEN PELVIS W CONTRAST REASON FOR STUDY: Right lower abdominal pain and pressure. Patientstates she bent over and felt a pop and pushed something back into her abdomen. Patient had 10 months ago TECHNIQUE: CT scan of the abdomen and pelvis performed with intravenousand without oral contrast using helical scanning technique with dynamic intravenous contrast injection. Reconstructed coronal and sagittal MPRimages reviewed. All images stored on PACS. Automated exposure control was used as a dose optimization technique forthis examination. CONTRAST TYPE/DOSE: 75 mL Optiray 350 COMPARISON: Available. FINDINGS: LOWER CHEST: No significant pulmonary abnormalities. No effusion. LIVER: Normal size. No identified cystic or solid masses. GALLBLADDER: No stones identified. No wall thickening or inflammatory changes. BILE DUCTS: No intrahepatic or extrahepatic ductal dilatation. SPLEEN: Normal size. No focal lesions. PANCREAS: No identified cystic or solid masses. No significant calcifications. No adjacent inflammation or peripancreatic fluidcollections. Pancreatic duct is not dilated. ADRENALS: Normal. 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 No identified significant cystic or solid masses. No visualized stones. No hydronephrosis or hydroureter. Symmetric enhancement.Urinary bladder is unremarkable. GI: No dilated bowel loops. No obvious wall thickening. Normalappendix. No significant diverticular disease. PERITONEUM: No ascites or free air. RETROPERITONEUM: No mass or adenopathy. REPRODUCTIVE: No significant abnormality. VASCULATURE: No abdominal aortic aneurysm. MUSCULOSKELETAL: No significant abnormality. OTHER: No defects seen in the ventral abdominal wall. IMPRESSION: No abnormalities identified, including ventral abdominal wall defect. THIS IS AN ELECTRONICALLY VERIFIED FINAL REPORT 06/13/2022 6:22 PM - Electronically signed by Cristo Brandon M.D. ML: ML Report ID: [id number] Reading Location: [id number] [place] Mynor Queen MD IMG CT PROCEDURES Final Resu lt * eGFR (06/13/2022 4:23 PM WAREHOUSE ADMINISTRATIVE ASSISTANT) eGFR 101 mL/min/1. 73 m2 [facility] ([place]) Comment: Interpretive Data Reference Interval Normal ?>/= [...] of Race in Diagnosing Kidney Disease, JASN 202). The CKD-EPI equation should not be used for patients with unstable renal function and has not been validated in children and those over 70. Current interpretive data was last reviewed 2021. Blood 06/13/2022 4:23 PM WAREHOUSE ADMINISTRATIVE ASSISTANT 06/13/2022 4:31 PM WAREHOUSE ADMINISTRATIVE ASSISTANT us Mynor Queen MD LAB BLOOD ORDERABLES Final R esult [facility] ([place]) [facility] Department [place] [address] * Differential, auto (06/13/2022 4:23 PM WAREHOUSE ADMINISTRATIVE ASSISTANT) Neutrophil abs 4.0 1.7 - 6.5 K/cumm [facility] ([place]) Imm gran abs 0.0 0.0 - 0.1 K/cumm [facility] ([place]) Lymphocyte abs 1.6 0.8 - 3.3 K/cumm [facility] ([place]) Monocyte abs 0.6 0.2 - 0.8 K/cumm [facility] ([place]) Eosinophil abs 0.1 0.0 - 0.5 K/cumm [facility] ([place]) Basophil abs 0.0 0.0 - 0.1 K/cumm [facility] ([place]) Neutrophil pct 63.7 % [facility] ([place]) Comment: Interpretive Data Percent cell count reference [...] was last revised on 2017. Lymphocyte pct 25.5 % [facility] ([place]) Comment: Interpretive Data Percent cell count reference ranges are not reported, since discordance with absolute values may lead to misinterpretation of CBC data. Current Interpretive Data was last revised on 2017. Monocyte pct 9.0 % [facility] ([place]) Comment: Interpretive Data Percent cell count reference ranges are not reported, since discordance with absolute values may lead to misinterpretation of CBC data. Current Interpretive Data was last revised on 2017. Eosinophil pct 1.3 % [facility] ([place]) Comment: Interpretive Data Percent cell count reference ranges are not reported, since discordance with absolute values may lead to misinterpretation of CBC data. Current Interpretive Data was last revised on 2017. Basophil pct 0.3 % [facility] ([place]) Comment: Interpretive Data Percent cell count reference ranges are not reported, since discordance with absolute values may lead to misinterpretation of CBC data. Current Interpretive Data was last revised on 2017. Blood 06/13/2022 4:23 PM WAREHOUSE ADMINISTRATIVE ASSISTANT 06/13/2022 4:31 PM WAREHOUSE ADMINISTRATIVE ASSISTANT Mynor Queen MD LAB BLOOD ORDERABLES Final R esult [facility] ([place]) [facility] Department [place] [address] * hCG, blood, quantitative (06/13/2022 4:23 PM WAREHOUSE ADMINISTRATIVE ASSISTANT) hCG, quant <5.0 0.0 - 5.0 IUnits/L [facility] ([place]) Comment: Interpretive Data Non- Female premenopausal: < or = 5.0 IUnits/L Men: < 5.0 IUnits/L Weeks of Gestation ? Reference Interval ?? 3 to 6 ? 5.8-31,795 IUnits/L ?? 7 to 10 ? 3,697-186,977 IUnits/L ??12 to 15 ?27,832- 70,791 IUnits/L ??16 to 18 ? 9,040- 58,179 IUnits/L The Jeff hCG Beta Quant assay procedure was used. Results from different manufacturers or methods may not be comparable. Serial testing should be performed using the same method. Current Interpretive Data was last revised on 2021. Blood 06/13/2022 4:23 PM WAREHOUSE ADMINISTRATIVE ASSISTANT 06/13/2022 4:31 PM WAREHOUSE ADMINISTRATIVE ASSISTANT Mynor Queen MD LAB BLOOD ORDERABLES Final R esult [facility] ([place]) [facility] Department [place] [address] * (ABNORMAL) Comprehensive metabolic panel (06/13/2022 4:23 PM WAREHOUSE ADMINISTRATIVE ASSISTANT) Sodium 141 135 - 145 mmol/L [facility] ([place]) Potassium, pl 3.9 3.3 - 4.9 mmol/L [facility] ([place]) Chloride 103 97 - 110 mmol/L [facility] ([place]) CO2 25 22 - 32 mmol/L [facility] ([place]) Anion gap 12 2 - 15 mmol/L [facility] ([place]) BUN 28(H) 8 - 25 mg/dL [facility] ([place]) Creatinine 0.80 0.60 - 1.10 mg/dL [facility] ([place]) Glucose 97 70 - 199 mg/dL [facility] ([place]) [...] classification and Diagnosis of Diabetes Diabetes Care 202; 46: S19-S40. Current interpretive data was last revised 2022. Calcium 10.3 8.5 - 10.3 mg/dL [facility] ([place]) Bilirubin, total 0.2 0.1 - 1.2 mg/dL [facility] ([place]) Protein, pl 7.6 6.5 - 8.5 g/dL [facility] ([place]) Albumin 5.2(H) 3.5 - 5.0 g/dL [facility] ([place]) Alk phos 98 40 - 130 Units/L [facility] ([place]) ALT 20 7 - 45 Units/L [facility] ([place]) AST 19 10 - 45 Units/L [facility] ([place]) Comment:Slightly Hemolyzed S pecimen Blood 06/13/2022 4:23 PM WAREHOUSE ADMINISTRATIVE ASSISTANT 06/13/2022 4:31 PM WAREHOUSE ADMINISTRATIVE ASSISTANT Mynor Queen MD LAB BLOOD ORDERABLES Final R esult [facility] ([place]) [facility] Department [place] [address] * (ABNORMAL) CBC with auto differential (06/13/2022 4:23 PM WAREHOUSE ADMINISTRATIVE ASSISTANT) WBC 6.2 3.8 - 9.9 K/cumm [facility] ([place]) Hgb 14.8 11.9 - 15.5 g/dL [facility] ([place]) Hct 41.9 35.6 - 45.5 % [facility] ([place]) Plt 250 150 - 400 K/cumm [facility] ([place]) MPV 10.8 9.1 - 12.3 fL [facility] ([place]) RBC 4.49 3.90 - 5.20 M/cumm [facility] ([place]) MCV 93.3 81.3 - 96.4 fL [facility] ([place]) MCH 33.0 27.1 - 33.3 pg [facility] ([place]) MCHC 35.3 32.3 - 35.7 g/dL [facility] ([place]) RDW CV 11.3 11.1 - 14.9 % [facility] ([place]) RDW SD 38.7 35.7 - 48.1 fL [facility] ([place]) NRBC abs 0.02(H) 0.00 - 0.01 K/cumm [facility] ([place]) Blood 06/13/2022 4:23 PM WAREHOUSE ADMINISTRATIVE ASSISTANT 06/13/2022 4:31 PM WAREHOUSE ADMINISTRATIVE ASSISTANT Mynor Queen MD LAB BLOOD ORDERABLES Final R esult [facility] ([place]) [facility] Department [place] [address] documented in this encounter Visit Diagnoses Diagnosis Ventral hernia without obstruction or gangrene- Primary Unspecified ventral hernia without mention of obstruction or gangrene documented in this encounter Administered Medications Inactive Administered Medications - up to 3 most recent administrations Medication Order MAR Action Action Date Dose Rate Site ioversoL (OPTIRAY 350) syringe 75 mL 75 mL, intravenous, Once in imaging, contrast, Starting on Thu06/13/22 at 1748, For 1 dose Contrast Given 06/13/2022 5:51 PM WAREHOUSE ADMINISTRATIVE ASSISTANT 75 mL documented in this encounter Active and Recently Administered Medications Times are shown in WAREHOUSE ADMINISTRATIVE ASSISTANT. PRN Medication Order 06/11/2022 06/12/2022 06/13/2022 ioversoL (OPTIRAY 350) syringe 75 mL (COMPLETED) 75 mL, intravenous, Once in imaging, contrast, Starting on Thu06/13/22 at 1748, For 1 dose 1751 (Contrast Given - Provider: Vanessa Willoughby RT) documented in this encounter Orders Medications Ordered That Danial ht Not Have Been Administered Count Last Ordered Date First Ordered Date ioversoL (OPTIRAY 350) syringe 75 mL 1 05/26 documented in this encounter Care Teams Carpet Cleaner Relationship Specialty Start Date End Date Shruthi Chávez DO [address] [place] [address] [place] [id number] PCP - General Family Medicine 06/13/22 06/16/22 documented as of this encounter
--- OUTSIDE RECORDS SUMMARY | 2024-05-16 03:45 | XMS_ITS | Encounter Summary ---
Author Organization [facility] Healthcare Address [address] [place] [id number] Care Team Providers Care Time Study Observer Name Role Phone Bettie Pires NP Primary Care Provider [phone] Encounter Details Date Type Department Care Team (Late st Contact Info) Description 04/16/2020 12:30 PM PIPE FITTER [facility] [address] [address] Cough Social History Tobacco Use Types Packs/Day Years Used Date Smoking Tobacco: Never Assessed Comments Unknown Sex and Gender Information Value Date Recorded Sex Assigned at Not on file Legal Sex Female 3:59 AM PIPE FITTER Gender Identity Not on file Sexual Orientation Not on file documented as of this encounter Miscellaneous Notes * Result Encounter Note - Amie Singleton MA - 04/17/2020 8:43 AM CST Pt aware FITTER * Result Encounter Note - Amie Prince MA - 04/17/2020 8:42 AM PIPE FITTER Left message to call back. FITTER * Result Encounter Note - Gertrudis Shields NP - 04/17/2020 8:39 AM PIPE FITTER Please notify patient of negative covid-19 test. Patient should continue to self isolate until at least 10 days have passed since symptom onset and they have been fever free without the use of fever reducing medications for at least 24 hours. FITTER documented in this encounter Plan of Treatment Not on file documented as of this encounter Procedures Procedure Name Priority Date/Time Associated Diagnosis Comments COVID-19 CORONAVIRUS RNA Routine 04/16/2020 10:01 AM PIPE FITTER Cough documented in this encounter Results * COVID-19 Coronavirus RNA Nasopharyngeal (04/16/2020 10:01 AM PIPE FITTER) COVID-19 RNA Not Detected TRACIE CH Comment: Interpretive Data Testing performed at [facility]. The 2018-Novel Coronavirus Assay (COVID-19) Real Time RT-PCR assay [...] performed by: [facility], [address] [place] [address]., [id number] First COVID-19 test? Unknown CERNER CH Comment:Testing performed by : [facility], [address] [place] [address], [id number] Employeed in healthcare? No CERNER CH Comment:Testing performed by : [address] [address] status? No CERNER CH Comment:Testing performed by : [facility], [address] [place] [address]., [id number] Group care resident? No CERNER CH Comment:Testing performed by : [address] [address] Hospitalized? No CERNER CH Comment:Testing performed by : [facility], [address] [place] [address], [id number] Is patient in ICU? No CERNER CH Comment:Testing performed by : [facility], [address] [place]., [address] Symptomatic as defined by CDC? Yes TRACIE CANNON Comment:Testing performed by : [facility], [address] [place]., [address] Nasopharyngeal 04/16/2020 10 :01 AM PIPE FITTER 04/16/2020 8:56 PM PIPE FITTER Narrative TRACIE - 04/17/2020 5:19 AM PIPE FITTER What is the reason for testing?->Symptoms of COVID-19 in high-risk group (defined above in process inst.) Date of symptom onset->04/13/20 us Sparkle Gutierrez NP LAB MICROBIOLOGY - GENERAL ORD ERABLES Final Result TRACIE [id number] [address] [place] [address] documented in this encounter Visit Diagnoses Diagnosis Cough documented in this encounter Additional Health Concerns Infection Onset Date Last Indicated Resolved Time COVID: Suspected 04/16/2020 04/16/2020 04/17/2020 5:20 AM PIPE FITTER documented as of this encounter Care Teams Time Study Observer Relationship Specialty Start Date End Date Bettie Pires NP PCP - General Internal Medicine 04/15/20 06/12/22 documented as of this encounter
--- OUTSIDE RECORDS SUMMARY | 2024-05-16 03:45 | XMS_ITS | Encounter Summary ---
Author Organization [facility] Medical Group Address [address] [place] [address] [place] [id number] Care Team Providers Care Infantry Officer Name Role Phone Bettei Pires NP Primary Care Provider [phone] Reason for Visit * Reason Onset Date Comments Covid-19 Home Monitoring 05/04/2020 Encounter Details Date Type Department Care Team (Late st Contact Info) Description 05/04/2020 Telephone [facility] Accountable Care Organization [address] [place] [id number] Nicky Pfeiffer MA [address] [place] [address] [address] [place] [address] Covid-19 Home Monitoring Social History Tobacco Use Types Packs/Day Years Used Date Smoking Tobacco: Never Comments Unknown Sex and Gender Information Value Date Recorded Sex Assigned at Not on file Legal Sex Female 3:59 AM IMAGERY ANALYST Gender Identity Not on file Sexual Orientation Not on file documented as of this encounter Miscellaneous Notes * Telephone Encounter - Nicky Mazariegos MA - 05/04/2020 2:15 PM CST This patient was identified as a candidate for the [facility]/ COVID home monitoring program. The patient was contacted via phone for enrollment in the program. The patient has declined to participate in the automated MyChart Edge Stainer Program, but has verbally agreed to the Phone Only Home Monitoring Program, which includes being contacted for a daily phone assessment by a [facility]/ staff member. The patient was informed that members of the healthcare team will contact them depending on the symptoms that they report. This call could come from a variety of phone numbers depending on which member of the healthcare team is contacting the patient, and the patient should be prepared to answer calls from a variety of phone numbers. If the patient is unable to be reached for 3 days, they will be disenrolled from the program. Patient is aware that we will try and reach them at every available phone number, including HIPAA contacts. After review, the patient declined to participate. The ???COVID19 Home Monitoring?? order was not placed to enroll the patient in the phone only version of the program. ERY ANALYST documented in this encounter Plan of Treatment Not on file documented as of this encounter Visit Diagnoses Not on filedocumented in this encounter Additional Health Concerns Infection Onset Date Last Indicated Resolved Time COVID19 04/29/2020 04/29/2020 05/13/2020 3:07 AM IMAGERY ANALYST documented as of this encounter Care Teams Infantry Officer Relationship Specialty Start Date End Date Bettie Pires NP PCP - General Internal Medicine 04/15/20 06/12/22 documented as of this encounter
--- OUTSIDE RECORDS SUMMARY | 2024-05-16 03:45 | XMS_ITS | Encounter Summary ---
Author Organization [facility] Address [address] [facility] [address] [place] [id number] Care Team Providers Care Recruit Instructor Name Role Phone Bettie Pires NP Primary Care Provider [phone] Encounter Details Date Type Department Care Team (Late st Contact Info) Description 04/30/2020 Telephone [facility] [address] [place] [id number] Rody Macedo MA Social History Tobacco Use Types Packs/Day Years Used Date Smoking Tobacco: Never Comments Unknown Sex and Gender Information Value Date Recorded Sex Assigned at Not on file Legal Sex Female 3:59 AM CHEMISTRY MANAGER Gender Identity Not on file Sexual Orientation Not on file documented as of this encounter Miscellaneous Notes * Telephone Encounter - Rody Macedo MA - 04/30/2020 7:27 PM CST Fax confirmation of labs to Health dept ISTRY MANAGER documented in this encounter Plan of Treatment Not on file documented as of this encounter Visit Diagnoses Not on filedocumented in this encounter Additional Health Concerns Infection Onset Date Last Indicated Resolved Time Respiratory Infection (TAWNYA), contact + droplet Comment:Automatically added due to negative COVID-19 result. 04/17/2020 04/17/2020 05/01/2020 3:0 6 AM CHEMISTRY MANAGER COVID: Suspected 04/29/2020 04/29/2020 04/30/2020 6:55 PM CHEMISTRY MANAGER COVID19 04/29/2020 04/29/2020 05/13/2020 3:07 AM CHEMISTRY MANAGER documented as of this encounter Care Teams Recruit Instructor Relationship Specialty Start Date End Date Bettie Pires NP PCP - General Internal Medicine 04/15/20 06/12/22 documented as of this encounter
--- OUTSIDE RECORDS SUMMARY | 2024-05-16 03:45 | XMS_ITS | Encounter Summary ---
Author Organization [facility] Healthcare Address [address] [place] [id number] Care Team Providers Care [employer] Name Role Phone Unavailable Primary Care Provider Unavailabl e Encounter Details Date Type Department Care Team (Latest Contact Info) Description 07/03/2015 11:56 AM DEHYDROGENATION CONVERTER HELPER - 07/04/2015 7:59 PM DEHYDROGENATION CONVERTER HELPER Hospital Encounter [facility] Alan Roque, [id number] [facility] [address] [place], [place] [id number] Cande Lemus Poisoning by antiallergic and antiemetic drugs, intentional self-harm, initial encounter ([facility]); Suicidal ideations; Unspecified place or not applicable; Major depressive disorder, single episode (CMS/HCC) Social History Tobacco Use Types Packs/Day Years Used Date Smoking Tobacco: Never Assessed Comments Unknown Sex and Gender Information Value Date Recorded Sex Assigned at Not on file Legal Sex Female 3:59 AM DEHYDROGENATION CONVERTER HELPER Gender Identity Not on file Sexual Orientation Not on file documented as of this encounter Last Filed Vital Signs Vital Sign Reading Time Taken Comments Blood Pressure 113/67 07/04/2015 7:55 PM DEHYDROGENATION CONVERTER HELPER Pulse 79 07/04/2015 7:55 PM DEHYDROGENATION CONVERTER HELPER Temperature - - Respiratory Rate - - Oxygen Saturation - - Inhaled Oxygen Concentration - - Weight 46.7 kg (102 lb 15.3 oz) 016 11:57 AM DEHYDROGENATION CONVERTER HELPER Height 160 cm (5' 2.99 ) 07/04/2015 11: 57 AM DEHYDROGENATION CONVERTER HELPER Body Mass Index 18.24 07/04/2015 11:57 AM DEHYDROGENATION CONVERTER HELPER documented in this encounter Discharge Summaries * ProviderJaison MD - 07/04/2015 12:00 AM CST DISCHARGE SUMMARY - [facility] Patient: JANETTE FREIRE Account: [id number] Room No: 259-03 : 1990 Patient Type: IP Attend.: Nahum Lucero M.D. Admit Date: 07/03/2015 Dict.: Alan Coats D.O. Disch. Date: 07/04/2015 PRIMARY CARE PHYSICIAN: Unknown. DISCHARGE DIAGNOSES: 1. Drug overdose. 2. Suicidal ideation. HISTORY OF PRESENT ILLNESS/REASON FOR ADMISSION: Ms. Freire is a 25-year-old female who attempted suicide via taking multiple Benadryl pills. Apparently, she took about 20 pills of 25 mg tabs of Benadryl. Patient had no history of previous depression or suicidal attempts. She states that she was very depressed initially related to her boyfriend. HOSPITAL COURSE: Patient was monitored acutely in our Intensive Care Unit. Did not show any acute medical side effects. Initial laboratory workup was unremarkable. Vital signs remained stable throughout the hospital stay. She was seen by her psychiatrist who recommended inpatient psych placement as patient did admit to being suicidal. Is aware that she needs additional help. PROCEDURES/IMAGING: Chest x-ray showed no active disease. CONSULTS: Dr. Lo. DISCHARGE PLAN: DISCHARGE CONDITION: Stable. DISCHARGE DESTINATION: OK to discharge to inpatient psych. DISCHARGE MEDICATIONS: Please see medication reconciliation list. DISCHARGE FOLLOWUP: To be determined after a visit to the inpatient psych. FOLLOWUP LABS/PROCEDURES: None. Greater than 1/2 hour spent preparing this discharge summary. Electronically Authenticated by: Alan Coats MD On 07/05/2015 07:13 PM DEHYDROGENATION CONVERTER HELPER Alan Coats D.O. EG/kb TD: 07/05/2015 11:22 documented in this encounter H&P Notes * Provider, MD Jaison - 07/03/2015 12:00 AM CST HISTORY AND PHYSICAL Patient: JANETTE FREIRE Account: [id number] Room No: 259-03 : 1990 Patient Type: IP Attend.: Nahum Lucero M.D. Admit Date: 07/03/2015 Dict.: Cande Lemus M.D. Disch. Date: 07/04/2015 CHIEF COMPLAINT: Drug overdose, suicide attempt. PRESENT ILLNESS: This is a 25-year-old female with no history of depression, who attempted to commit suicide today. The patient was upset with her boyfriend yesterday and she took roughly 10-20 pills of 25 mg of Benadryl. Patient had no loss of consciousness and no dizziness. The patient had no seizure activity. Patient was brought to the emergency room for further workup. The patient denied any previous history of suicide attempt. She denies any history of any chronic medical problem. PAST MEDICAL HISTORY: History of depression. SURGICAL HISTORY: None. MEDICATIONS AT HOME: None. ALLERGIES: No known drug allergies. REVIEW OF SYSTEMS: Patient denies any weight loss or weight gain. No fever. No chills. She denies any chest pain. No palpitations. No shortness of breath. No paroxysmal nocturnal dyspnea. No orthopnea. No leg swelling. She denies any abdominal pain. No burning on urination. No frequency. No urgency. Patient denies any tingling, numbness or weakness in the extremities. FAMILY HISTORY: Noncontributory. PHYSICAL EXAM: Alert, oriented, in no acute distress. Blood pressure 111/65, pulse 100, afebrile, O2 sat 98% on room air. HEENT: Atraumatic, normocephalic. Extraocular muscles intact. Mucosa is wet. No pallor. No cyanosis. Neck is supple. No elevated JVP. No carotid bruit. CV: Normal S1, S2. No extra sound. No gallop. No murmurs. Lungs: Clear to auscultation bilaterally. No rales. No wheezes. Abdomen: Soft, nontender. No hepatosplenomegaly. No masses. Legs: No edema. No cyanosis. LABORATORY FINDINGS: BUN 7.9. Creatinine 0.82. Calcium 9.1. AST 16. ALT 12. Bilirubin 0.2. Anion gap 19. White blood count 7.35. Hemoglobin 15.2. Hematocrit 43.4. Platelet count 236. Ethanol level 174 mg per dL. Acetaminophen level less than 15. TSH 2.02. Sodium 144. Potassium 4. Chloride 103. CO2 26. Glucose 101. Magnesium 2.1. Total CK 109. Salicylate level less than 0.5. Chest x-ray: No active disease. Urine drug screen: Amphetamine was positive, opiate negative, benzodiazepine negative, cannabinoids negative. ASSESSMENT AND PLAN: 25-year-old lady with a suicide attempt. The patient is admitted to the Intensive Care Unit. Continue cardiac monitoring. Supportive measures. Suicide precautions. Monitor oxygenation as well as blood pressure. Once the patient is stable medically, need to be evaluated for her suicide attempt by psychiatrist. Electronically Authenticated by: Cande Lemus MD On 07/10/2015 05:29 AM DEHYDROGENATION CONVERTER HELPER Cande Lemus M.D. EN/me TD: 07/03/2015 20:26 documented in this encounter Plan of Treatment Not on file documented as of this encounter Procedures Procedure Name Priority Date/Time Associated Diagnosis Comments SERUM ESTIMATED GLOMERULAR FILTRATION RATE Routine 07/04/2015 6:13 AM DEHYDROGENATION CONVERTER HELPER PLASMA COMPREHENSIVE METABOLIC PANEL Routine 07/04/2015 6:13 AM DEHYDROGENATION CONVERTER HELPER BLOOD ETHANOL Routine 07/04/2015 6:13 AM DEHYDROGENATION CONVERTER HELPER BLOOD CELL COUNT (CBC), MORPHOLOGIC EXAM Routine 07/04/2015 6:13 AM DEHYDROGENATION CONVERTER HELPER BLOOD CELL MORPHOLOGIC EXAM Routine 07/04/2015 6:13 AM DEHYDROGENATION CONVERTER HELPER STAPH AUREUS (MRSA/MSSA) CULTURE, CDR Routine 07/04/2015 5:06 AM DEHYDROGENATION CONVERTER HELPER DISCHARGE LABORATORY CUMULATIVE REPORT 07/04/2015 XR CHEST 1 VIEW Routine 07/03/2015 10:02 AM DEHYDROGENATION CONVERTER HELPER URINE DRUG SCREEN Routine 07/03/2015 9:1 3 AM DEHYDROGENATION CONVERTER HELPER URINE CHORIONIC GONADOTROPIN (HCG) Routine 07/03/2015 9:13 AM DEHYDROGENATION CONVERTER HELPER URINALYSIS Routine 07/03/2015 9:13 AM DEHYDROGENATION CONVERTER HELPER SERUM THYROID-STIMULATING HORMONE (TSH) Routine 07/03/2015 8:50 AM DEHYDROGENATION CONVERTER HELPER SERUM SALICYLATE DRUG LEVEL Routine 07/03/2015 8:50 AM DEHYDROGENATION CONVERTER HELPER SERUM MAGNESIUM Routine 07/03/2015 8:50 AM DEHYDROGENATION CONVERTER HELPER SERUM ESTIMATED GLOMERULAR FILTRATION RATE Routine 07/03/2015 8:50 AM DEHYDROGENATION CONVERTER HELPER SERUM CREATINE KINASE (CK) Routine 07/03 8:50 AM DEHYDROGENATION CONVERTER HELPER SERUM ACETAMINOPHEN DRUG LEVEL Routine 07/03/2015 8:50 AM DEHYDROGENATION CONVERTER HELPER PLASMA COMPREHENSIVE METABOLIC PANEL Routine 07/03/2015 8:50 AM DEHYDROGENATION CONVERTER HELPER BLOOD ETHANOL Routine 07/03/2015 8:50 AM DEHYDROGENATION CONVERTER HELPER BLOOD CELL COUNT (CBC), MORPHOLOGIC EXAM Routine 07/03/2015 8:50 AM DEHYDROGENATION CONVERTER HELPER BLOOD CELL MORPHOLOGIC EXAM Routine 07/03/2015 8:50 AM DEHYDROGENATION CONVERTER HELPER ELECTROCARDIOGRAPHY (ECG) 07/03/2015 documented in this encounter Results * Plasma comprehensive metabolic panel (07/04/2015 6:13 AM DEHYDROGENATION CONVERTER HELPER) Sodium 143 135 - 145 mmol/L HISTORICAL RESULTS K, pl 3.9 3.5 - 5.1 mmol/L HISTORICAL RESULTS Chloride 107 97 - 110 mmol/L HISTORICAL RESULTS CO2 25 22 - 32 mmol/L HISTORICAL RESULTS A. gap 15 8 - 16 mmol/L HISTORICAL RESULTS Glucose 119 70 - 199 mg/dl HISTORICAL RESULTS Comment: Interpretive Data Note:The glucose is assumed non fasting Fastin-99 mg/dL Random: ??70-199 mg/dL Either a fasting glucose > 126 mg/dL or a random glucose > 200 mg/dL plus symptoms is diagnostic of diabetes when confirmed on another day. Fasting values > 100 mg/dL but < 125 mg/dL are diagnostic of impaired fasting glucose. Current interpretive data was last revised on 2014. BUN 9.7 8.0 - 25.0 mg/dl HISTORICAL RESULTS Creatinine 0.89 0.60 - 1.10 mg/dl HISTORICAL RESULTS BUN/creat ratio 11 10 - 20 HIST ORICAL RESULTS Calcium 8.9 8.6 - 10.2 mg/dl HISTORICAL RESULTS Protein, sr 6.0 6.0 - 8.4 g/dl HISTORICAL RESULTS Alb 3.8 3.6 - 5.0 g/dl HISTORICAL RESULTS Alb/glob ratio 1.7 1.1 - 1.8 ratio HISTORICAL RESULTS Alk phos 64 40 - 130 Units/L HISTORICAL RESULTS ALT 9 5 - 45 Units/L HISTORICAL RESULTS AST 13 10 - 40 Units/L HISTORICAL RESULTS Bilirubin 0.9 <=1.2 mg/dl HISTORICAL RESULTS Plasma 07/04/2015 6:13 AM DEHYDROGENATION CONVERTER HELPER [employer] [facility] LAB BLOOD ORDERABLES Final Resul t HISTORICAL RESULTS * Blood cell morphologic exam (07/04/2015 6:13 AM DEHYDROGENATION CONVERTER HELPER) Neutrophils 62.5 44.0 - 80.0 % HISTORICAL RESULTS Immature granulocytes 0.1 0.0 - 1.0 % HISTORICAL RESULTS Lymphocytes 25.7 13.0 - 44.0 % HISTORICAL RESULTS Monos 10.7 2.0 - 11.0 % HISTORICAL RESULTS Eosinophils 0.6 0.0 - 6.0 % HISTORICAL RESULTS Basophils 0.4 0.0 - 3.0 % HISTORICAL RESULTS Neutrophils, abs 5.3 1.6 - 7.0 K/cumm HISTORICAL RESULTS Immature granulocyte, abs 0.01 0.00 - 0.20 K/cumm HISTORICAL RESULTS Lymphocytes, abs 2.2 0.5 - 4.3 K/cumm HISTORICAL RESULTS Monocytes, absolute 0.9 0.1 - 1.0 K/cumm HISTORICAL RESULTS Eosinophils, abs 0.0 0.0 - 0.6 K/cumm HISTORICAL RESULTS Basophils, abs 0.0 0.0 - 0.3 K/cumm HISTORICAL RESULTS Blood specimen (specimen) 07/04/2015 6:13 AM DEHYDROGENATION CONVERTER HELPER [employer] LAB BLOOD ORDERABLES Final Resul t Performing Organization Address City/[facility] de Phone Number HISTORICAL RESULTS * Blood ethanol (07/04/2015 6:13 AM DEHYDROGENATION CONVERTER HELPER) Ethanol, sr <10 <=10 mg/dl HISTORI CLIVE RESULTS Comment: Interpretive Data Normal: ??Less than 10 mg/dL = No Ethanol detected For medical purposes Current interpretive data was last revised on 2014. Blood specimen (specimen) 07/04/2015 6:13 AM DEHYDROGENATION CONVERTER HELPER [facility] [employer] LAB BLOOD ORDERABLES Final Resul t Performing Organization Address City/[facility] de Phone Number HISTORICAL RESULTS * Blood cell count (CBC), morphologic exam (07/04/2015 6:13 AM DEHYDROGENATION CONVERTER HELPER) WBC 8.5 3.8 - 9.8 K/cumm HISTORICAL RESULTS RBC 4.43 3.90 - 5.00 M/cumm HISTORICAL RESULTS Hgb 14.1 12.1 - 15.1 g/dl HISTORICAL RESULTS Hct 41.9 36.1 - 44.3 % HISTORICAL RESULTS MCV 94.6 80.0 - 100.0 fl HISTORICAL RESULTS MCH 31.8 26.7 - 33.7 pg HISTORICAL RESULTS MCHC 33.7 32.7 - 36.0 g/dl HISTORICAL RESULTS Rdw 12.0 11.5 - 14.6 % HISTORICAL RESULTS Platelets 220 140 - 440 K/cumm HISTORICAL RESULTS MPV 10.5 8.0 - 12.0 fl HISTORICAL RESULTS NRBC 0.0 0.0 - 0.0 % HISTORIC AL RESULTS NRBC, abs 0.00 0.00 - 0.00 K/cumm HISTORICAL RESULTS Blood specimen (specimen) 07/04/2015 6:13 AM DEHYDROGENATION CONVERTER HELPER [facility] LAB BLOOD ORDERABLES Final Resul t Performing Organization Address [facility] de Phone Number HISTORICAL RESULTS * Serum estimated glomerular filtration rate (07/04/2015 6:13 AM DEHYDROGENATION CONVERTER HELPER) eGFR >60 ml/min/1.7 3 m2 HISTORICAL RESULTS Comment: Interpretation of Estimated GFR (eGFR): Normal ?>/= 60 mL/min/1.73m2 Possible Chronic Kidney Disease ??15 - 59 mL/min/1.73m2 Possible Kidney Failure ?< 15 ??mL/min/1.73m2 If -Faroese multiply value by 1.16. ??Estimated glomerular filtration rate is determined by the CKD-EPI equation recommended by the National Kidney Foundation (KDIGO 2012 Clinical Practice Guideline for the Evaluation and Management of Chronic Kidney Disease. ??Kidney Intnl Suppl May 2012;3:1). ??The CKD-EPI equation should not be used in acute renal failure or acute kidney injury and is not valid in children. Serum 07/04/2015 6:13 AM DEHYDROGENATION CONVERTER HELPER [facility] LAB BLOOD ORDERABLES Final Resul t Performing Organization Address [facility] de Phone Number HISTORICAL RESULTS * Staph aureus (MRSA/MSSA) Culture (07/04/2015 5:06 AM DEHYDROGENATION CONVERTER HELPER) Nasal (Unknown) 07/04/2015 5 :06 AM DEHYDROGENATION CONVERTER HELPER Impressions HISTORICAL RESULTS - 07/05/2015 7:03 AM DEHYDROGENATION CONVERTER HELPER Patient's Nasal specimens are processed for Methicillin-resistant Staphylococcus aureus (MRSA) only. Current interpretive data was last revised on 2014. Narrative HISTORICAL RESULTS - 07/05/2015 7:03 AM DEHYDROGENATION CONVERTER HELPER No Methicillin Resistant Staph aureus cultured Historical Provider LAB MICROBIOLOGY - GENERA L ORDERABLES Final Result HISTORICAL RESULTS * DISCHARGE LABORATORY CUMULATIVE REPORT (07/04/2015) Narrative 07/04/2015 Ordered by an unspecified provider. us Historical Provider LAB BLOOD ORDERABLES Flor l Result * XR Chest 1 View (07/03/2015 10:02 AM DEHYDROGENATION CONVERTER HELPER) Anatomical Region Laterality Modality Body, Chest N/A Radiographic Melissa ging 07/03/2015 10:0 2 AM DEHYDROGENATION CONVERTER HELPER Narrative 07/03/2015 3:03 PM DEHYDROGENATION CONVERTER HELPER XR Chest 1 View ? [id number] ??Acc#: ??[id number] DATE OF EXAM: ??b ??2015 CLINICAL HISTORY: Confusion, overdose. RESULT: PORTABLE CHEST, 0951 HOURS One view of the chest demonstrate clear lungs bilaterally with no focal infiltrates. ??The heart size and pulmonary vascularity are normal. IMPRESSION: 1. NO ACTIVE DISEASE. Interpreting Physician: ??DR KONG CHANDRA M.D. ??Read on: ??Jun ??2015 10:33A Transcribed by: ??varosalinda ??On: Jun ??2015 ??1:38P Approved Electronically by: ??PRATEEK Canales, DR TRIANA ??on: ??Jun ??2015 3:03P Attending: ??NAHUM LUCERO Requesting: ??SUKHDEV DURHAM Requesting Fax: ??-- Attending Fax: ??-- Attending ID: ??[id number] Requesting ID: ??[id number] Report To 1 ID: ??[id number] Report To 1 Name: ??NAHUM LUCERO Report To 1 FAX: ??-- NextGen Order #: Procedure Note Provider, Jaison, - 09/23/2016 XR Chest 1 View [id number] Acc#: [id number] DATE OF EXAM: Jul 03 2015 CLINICAL HISTORY: Confusion, overdose. RESULT: PORTABLE CHEST, 0951 HOURS One view of the chest demonstrate clear lungsbilaterally with no focal infiltrates. The heart size and pulmonaryvascularity are normal. IMPRESSION: 1. NO ACTIVE DISEASE. Interpreting Physician: DR KONG CHANDRA M.D. Read on: Jul 03 201510:33A Transcribed by: janet On: Jul 03 2015 1:38P Approved Electronically by: PRATEEK Canales, DR TRIANA on: Jul 03 20153:03P Attending: NAHUM LUCERO Requesting: SUKHDEV DURHAM Requesting Fax: -- Attending Fax: -- Attending ID: [id number] Requesting ID: [id number] Report To 1 ID: [id number] Report To 1 Name: NAHUM LUCERO Report To 1 FAX: -- NextGen Order #: Historical Provider IMParker XR PROCEDURES Final R esult * Urine chorionic gonadotropin (HCG) (07/03/2015 9:13 AM DEHYDROGENATION CONVERTER HELPER) HCG, ur Negative Negative HISTORICAL RESULTS Urine 07/03/2015 9:13 AM DEHYDROGENATION CONVERTER HELPER Historical Provider LAB BLOOD ORDERABLES Flor l Result Performing Organization Address [facility] de Phone Number HISTORICAL RESULTS * Urinalysis (07/03/2015 9:13 AM DEHYDROGENATION CONVERTER HELPER) Color, ur Yellow Yellow HISTORICAL RESULTS Clarity, ur Clear Clear HISTORIC AL RESULTS Specific gravity, ur 1.007 1.003 - 1.030 HISTORICAL RESULTS Comment:Normal Ranges: 1.003 -1.030 pH, ur 6.5 4.5 - 8.0 HISTORICAL RESULTS Comment:Normal ranges: 4.5-8 .0 Protein, ur, quant Negative Negative mg/dl HISTORICAL RESULTS Glucose, ur, quant Negative Negative mg/dl HISTORICAL RESULTS Ketones, ur Negative Negative HISTORIC AL RESULTS Bilirubin, ur Negative Negative HISTOR ICAL RESULTS U Blood Negative Negative HISTORICAL RESULTS Urobilinogen, quant, ur 0.2 0.2 - 1.0 Corin Units/dl HISTORICAL RESULTS Comment:Normal Ranges: 0.2-1 .0 EU/dL Nitrites, ur Negative Negative HISTORI CLIVE RESULTS Leukocyte esterase, ur Negative Negative HISTORICAL RESULTS Urine 07/03/2015 9:13 AM DEHYDROGENATION CONVERTER HELPER Historical Provider LAB BLOOD ORDERABLES Flor l Result Performing Organization Address [facility]/State/ZIP Co de Phone Number HISTORICAL RESULTS * (ABNORMAL) Urine drug screen (07/03/2015 9:13 AM DEHYDROGENATION CONVERTER HELPER) Amphetamine, ur Positive Screen(A) Negative Screen HISTORICAL RESULTS Comment: Interpretive Data Amphetamines cut off value 1000 ng/mL Current interpretive data was last revised on 2014. Barbiturates, ur Negative Screen Negative Screen HISTORICAL RESULTS Comment: Interpretive Data Barbiturates cut off value 200 ng/mL Current interpretive data was last revised on 2014. Benzodiazepines, ur Negative Screen Negative Screen HISTORICAL RESULTS Comment: Interpretive Data Benzodiazepines cut off value 200 ng/mL Current interpretive data was last revised on 2014. Cannabinoids, ur Negative Screen Negative Screen HISTORICAL RESULTS Comment: Interpretive Data THC/Marijuana cut off value 50 ng/mL Current interpretive data was last revised on 2014. Cocaine metabolites, ur Positive Screen(A) Negative Screen HISTORICAL RESULTS Comment: Interpretive Data Cocaine cut off value 300 ng/mL Current interpretive data was last revised on 2014. Opiates, qual, ur Negative Screen Negative Screen HISTORICAL RESULTS Comment: Interpretive Data Opiates cut off value 2000 ng/mL Current interpretive data was last revised on 2014. Phencyclidine, qual, ur Negative Screen Negative Screen HISTORICAL RESULTS Comment: Interpretive Data PCP cut off value 25 ng/mL All drugs included in this panel are screening testing only. All positive urines will be confirmed upon Doctor request only. Unconfirmed screening results must not be used for non-medical purposes. Current interpretive data was last revised on 2014. Urine 07/03/2015 9:13 AM DEHYDROGENATION CONVERTER HELPER us Historical Provider LAB BLOOD ORDERABLES Flor l Result HISTORICAL RESULTS * Serum creatine kinase (CK) (07/03/2015 8:50 AM DEHYDROGENATION CONVERTER HELPER) CK 109 20 - 170 Units/L HISTORICAL RESULTS Serum 07/03/2015 8:50 AM DEHYDROGENATION CONVERTER HELPER Historical Provider LAB BLOOD ORDERABLES Flor l Result Performing Organization Address City/[facility] Co de Phone Number HISTORICAL RESULTS * Serum magnesium (07/03/2015 8:50 AM DEHYDROGENATION CONVERTER HELPER) Magnesium 2.1 1.6 - 2.4 mg/dl HISTORICAL RESULTS Serum 07/03/2015 8:50 AM DEHYDROGENATION CONVERTER HELPER Historical Provider MD LAB BLOOD ORDERABLES Flor l Result Performing Organization Address [facility] de Phone Number HISTORICAL RESULTS * Serum thyroid-stimulating hormone (TSH) (07/03/2015 8:50 AM DEHYDROGENATION CONVERTER HELPER) TSH 2.02 0.30 - 5.00 mcIUnits/ml HISTORICAL RESULTS Serum 07/03/2015 8:50 AM DEHYDROGENATION CONVERTER HELPER Historical Provider LAB BLOOD ORDERABLES Flor l Result Performing Organization Address [facility] de Phone Number HISTORICAL RESULTS * (ABNORMAL) Plasma comprehensive metabolic panel (07/03/2015 8:50 AM DEHYDROGENATION CONVERTER HELPER) Glucose 101 70 - 199 mg/dl HISTORICAL RESULTS Comment: Interpretive Data Note:The glucose is assumed non fasting Fastin-99 mg/dL Random: ??70-199 mg/dL Either a fasting glucose > 126 mg/dL or a random glucose > 200 mg/dL plus symptoms is diagnostic of diabetes when confirmed on another day. Fasting values > 100 mg/dL but < 125 mg/dL are diagnostic of impaired fasting glucose. Current interpretive data was last revised on 2014. Sodium 144 135 - 145 mmol/L HISTORICAL RESULTS BUN 7.9(L) 8.0 - 25.0 mg/dl HISTORICAL RESULTS K, pl 4.0 3.5 - 5.1 mmol/L HISTORICAL RESULTS Creatinine 0.82 0.60 - 1.10 mg/dl HISTORICAL RESULTS Chloride 103 97 - 110 mmol/L HISTORICAL RESULTS BUN/creat ratio 10 10 - 20 HIST ORICAL RESULTS CO2 26 22 - 32 mmol/L HISTORICAL RESULTS Calcium 9.1 8.6 - 10.2 mg/dl HISTORICAL RESULTS A. gap 19(H) 8 - 16 mmol/L HISTORICAL RESULTS Protein, sr 6.9 6.0 - 8.4 g/dl HISTORICAL RESULTS Alb 4.5 3.6 - 5.0 g/dl HISTORICAL RESULTS Alb/glob ratio 1.9(H) 1.1 - 1.8 ratio HISTORICAL RESULTS Alk phos 70 40 - 130 Units/L HISTORICAL RESULTS ALT 12 5 - 45 Units/L HISTORICAL RESULTS AST 16 10 - 40 Units/L HISTORICAL RESULTS Bilirubin 0.2 <=1.2 mg/dl HISTORICAL RESULTS Plasma 07/03/2015 8:50 AM DEHYDROGENATION CONVERTER HELPER Result [facility] Provider MD LAB BLOOD ORDERABLES Flor l Result Performing Organization Address [facility] de Phone Number HISTORICAL RESULTS * Serum acetaminophen drug level (07/03/2015 8:50 AM DEHYDROGENATION CONVERTER HELPER) Acetaminophen <15.0 10.0 - 30.0 mg/L HISTORICAL RESULTS Comment: Markedly elevated levels of Acetaminophen and it's metabolites may lead to false low test results for cholesterol, HDL, triglycerides and uric acid with the manufacturers test methods used by our lab. Interpretive Data Toxic if greater than 150 mcg/ml at 4 hrs after ingestion Toxic if greater than 50 mcg/ml at 12 hrs after ingestion Current interpretive data was last revised on 2014 Serum 07/03/2015 8:50 AM DEHYDROGENATION CONVERTER HELPER Result [facility] Provider LAB BLOOD ORDERABLES Flor l Result Performing Organization Address [facility] Co de Phone Number HISTORICAL RESULTS * Serum salicylate drug level (07/03/2015 8:50 AM DEHYDROGENATION CONVERTER HELPER) Salicylate <5.0 4.0 - 29.0 mg/dl HISTORICAL RESULTS Comment: Interpretive Data Therapeutic range: ??4-29 mg/dl ?? Toxic: ?30-70 mg/dl ? Lethal: ? Greater than 70 mg/dl Current interpretive data was last revised on 2014. Serum 07/03/2015 8:50 AM DEHYDROGENATION CONVERTER HELPER us Historical Provider LAB BLOOD ORDERABLES Flor l Result Performing Organization Address City/[facility] Co de Phone Number HISTORICAL RESULTS * Blood cell morphologic exam (07/03/2015 8:50 AM DEHYDROGENATION CONVERTER HELPER) Neutrophils 79.1 44.0 - 80.0 % HISTORICAL RESULTS Immature granulocytes 0.3 0.0 - 1.0 % HISTORICAL RESULTS Lymphocytes 13.2 13.0 - 44.0 % HISTORICAL RESULTS Monos 7.1 2.0 - 11.0 % HISTORICAL RESULTS Basophils 0.3 0.0 - 3.0 % HISTORICAL RESULTS Neutrophils, abs 5.8 1.6 - 7.0 K/cumm HISTORICAL RESULTS Immature granulocyte, abs 0.02 0.00 - 0.20 K/cumm HISTORICAL RESULTS Lymphocytes, abs 1.0 0.5 - 4.3 K/cumm HISTORICAL RESULTS Monocytes, absolute 0.5 0.1 - 1.0 K/cumm HISTORICAL RESULTS Basophils, abs 0.0 0.0 - 0.3 K/cumm HISTORICAL RESULTS Blood specimen (specimen) 07/03/2015 8:50 AM DEHYDROGENATION CONVERTER HELPER Result [facility] Historical Provider LAB BLOOD ORDERABLES Flor l Result Performing Organization Address [facility] de Phone Number HISTORICAL RESULTS * (ABNORMAL) Blood ethanol (07/03/2015 8:50 AM DEHYDROGENATION CONVERTER HELPER) Pathologist [facility] Ethanol, sr 174(H) <=10 mg/dl HISTORI CLIVE RESULTS Comment: Interpretive Data Normal: ??Less than 10 mg/dL = No Ethanol detected For medical purposes Current interpretive data was last revised on 2014. Blood specimen (specimen) 07/03/2015 8:50 AM DEHYDROGENATION CONVERTER HELPER Result [facility] Historical Provider MD LAB BLOOD ORDERABLES Flor l Result Performing Organization Address City/[facility] Co de Phone Number HISTORICAL RESULTS * (ABNORMAL) Blood cell count (CBC), morphologic exam (07/03/2015 8:50 AM DEHYDROGENATION CONVERTER HELPER) WBC 7.4 3.8 - 9.8 K/cumm HISTORICAL RESULTS RBC 4.75 3.90 - 5.00 M/cumm HISTORICAL RESULTS Hgb 15.2(H) 12.1 - 15.1 g/dl HISTORICAL RESULTS Hct 43.4 36.1 - 44.3 % HISTORICAL RESULTS MCV 91.4 80.0 - 100.0 fl HISTORICAL RESULTS MCH 32.0 26.7 - 33.7 pg HISTORICAL RESULTS MCHC 35.0 32.7 - 36.0 g/dl HISTORICAL RESULTS Rdw 12.0 11.5 - 14.6 % HISTORICAL RESULTS Platelets 236 140 - 440 K/cumm HISTORICAL RESULTS MPV 10.6 8.0 - 12.0 fl HISTORICAL RESULTS NRBC 0.0 0.0 - 0.0 % HISTORIC AL RESULTS NRBC, abs 0.00 0.00 - 0.00 K/cumm HISTORICAL RESULTS Blood specimen (specimen) 07/03/2015 8:50 AM DEHYDROGENATION CONVERTER HELPER Historical Provider LAB BLOOD ORDERABLES Flor l Result HISTORICAL RESULTS * Serum estimated glomerular filtration rate (07/03/2015 8:50 AM DEHYDROGENATION CONVERTER HELPER) eGFR >60 ml/min/1.7 3 m2 HISTORICAL RESULTS Comment: Interpretation of Estimated GFR (eGFR): Normal ?>/= 60 mL/min/1.73m2 Possible Chronic Kidney Disease ??15 - 59 mL/min/1.73m2 Possible Kidney Failure ?< 15 ??mL/min/1.73m2 If -Faroese multiply value by 1.16. ??Estimated glomerular filtration rate is determined by the CKD-EPI equation recommended by the National Kidney Foundation (KDIGO 2012 Clinical Practice Guideline for the Evaluation and Management of Chronic Kidney Disease. ??Kidney Intnl Suppl May 2012;3:1). ??The CKD-EPI equation should not be used in acute renal failure or acute kidney injury and is not valid in children. Serum 07/03/2015 8:50 AM DEHYDROGENATION CONVERTER HELPER Historical Provider LAB BLOOD ORDERABLES Flor l Result HISTORICAL RESULTS * ELECTROCARDIOGRAPHY (ECG) (07/03/2015) Narrative 07/03/2015 Ordered by an unspecified provider. us Historical Provider ECG ORDERABLES Final Res ult documented in this encounter Visit Diagnoses Diagnosis Poisoning by antiallergic and antiemetic drugs, intentional self-harm, initial encounter ([facility]) Suicidal ideations Unspecified place or not applicable Major depressive disorder, single episode Major depressive disorder, single episode, unspecified documented in this encounter
--- OUTSIDE RECORDS SUMMARY | 2024-05-16 03:45 | XMS_ITS | Encounter Summary ---
Author Organization [facility] Medical [facility] Address [address] [place] [address] Care Team Providers Care Ripening Room Hand Name Role Phone Shruthi Chávez DO Primary Care Provider [phone] Mariaa Cruz MD Unavailable [phone] Reason for Referral * Consultation (Routine) - Closed Specialty Diagnoses / Procedures Referred By Deb correa Referred To Contact General Surgery Diagnoses Hernia of anterior abdominal wall Shruthi Chávez DO Phone: tel: fax: Teto Roberto MD [address] [place] [address] Phone: tel: fax: Referral ID Status Reason Start Date Expiration Date V isits Requested Visits Authorized [id number] Closed Specialty Services Required 07/15/2022 08/14/2023 4 4 Question Answer Please select the performing region: [facility] [[id number]] Please select the performing department: [facility] [[id number]] To provider: TETO ROBERTO [[id number]] # of visits: 4 EL MAKER Reason for Visit * Reason Comments Annual Exam Pt. Presents in offi ce to establish care; possible hernia Encounter Details Date Type Department Care Team (Late st Contact Info) Description 07/15/2022 2:30 PM BARREL MAKER Office Visit [facility] Primary Care at [address] [place] [address] Shruthi Chávez, [address] [address] Annual physical exam (Primary Dx); Hernia of anterior abdominal wall; Encounter for screening examination for impaired glucose [...] 05/25/2019 Smokeless Tobacco: Never Tobacco Cessation:Counseling Given: No Comments:vape Alcohol Use Standard Drinks/Week Comments Not [...] on file Legal Sex Female 3:59 AM BARREL MAKER Gender Identity Not on file Sexual Orientation Not on file documented as of this encounter Last Filed Vital Signs Vital Sign Reading Time Taken Comments Blood Pressure 86/58 07/15/2022 2:35 PM BARREL MAKER Pulse 67 07/15/2022 2:35 PM BARREL MAKER Temperature 36.6 ??C (97.8 ??F) 07/15/2022 2:35 PM CS T Respiratory Rate 18 07/15/2022 2:35 PM BARREL MAKER Oxygen Saturation 99% 07/15/2022 2:35 PM BARREL MAKER Inhaled Oxygen Concentration - - Weight 56.1 kg (123 lb 11.2 oz) 07/15/2022 2:35 PM BARREL MAKER Height 157.5 cm (5' 2.01 ) 07/15/2022 2:35 PM CS T Body Mass Index 22.62 07/15/2022 2:35 PM BARREL MAKER documented in this encounter Patient Instructions * Patient Instructions* Shruthi Chávez, DO - 07/15/2022 2:30 PM BARREL MAKER Images from the original note were not included. Patient Education Wellness Visit for Adults QUILLER MACHINE FIXER: A wellness visit is when you see [...] typesof viruses cause the flu. The viruses exchange specialist time, so new vaccines are made each [...] Get a shingles vaccine if you are aged 60 or older, even if you have had shingles before. The shingles vaccine is an injection to protect you from the varicella-zoster virus. This is the same virus that causes chickenpox. Shingles is a painful rash that develops in people who had chickenpox or havebeen exposed to the virus. How to eat healthy: [...] on your age, gender, weight, and height. Examples of healthy foods are listed below: Eat [...] could distract you and cause an accident. cover maker if you need to make a call [...] a boat or doing water sports. ?? 2017 [employer] Information is for End User's use only and may not be sold, redistributed or otherwise used for commercial purposes. All illustrations and images included in CareNotes?? are the copyrighted property of [employer]. or [employer]. The above information is an tray delivery aide only. It is not intended as medical advice for individual conditions or treatments. Talk to your doctor, nurse or pharmacist before following any medical regimen to see if it is safe and effective for you. Patient Education Breast Self Exam for Women QUILLER MACHINE FIXER: A breast self-exam (BSE) is a way [...] BSE that did not show up on your mammogram. When you should do a BSE: Mykel your calendar to help you remember to do BSE on a regular schedule. One easy way to remember to do a BSE is to do the exam on the same day of each month. If you have periods, you may want to do your BSE 1 week after your period ends. This is the time when your breastsmay be the least swollen, lumpy, or tender. You can do regular BSEs even if you are or have breast implants. Contact your healthcare provider if: You find any lumps or changes [...] Check your breasts while you sit or senior firewall engineer the following 3 positions: Hang your arms [...] to check for breast problems or cancer: Some experts suggest that women 40 years of age or older should have a mammogram every year. Other experts suggest that women between the ages of 50 and 74 years old should have a mammogram every 2 years. Talk to your healthcare provider about when you should have a mammogram. Follow up with your healthcare provider as directed: Your healthcare provider can watch you and tell you if you are doing your BSE correctly. Write down your questions so you remember to ask them during your visits. ?? 2017 [employer] Information is for End User's use only and may not be sold, redistributed or otherwise used for commercial purposes. All illustrations and images included in CareNotes?? are the copyrighted property of [employer]. or [employer]. The above information is an tray delivery aide only. It is not intended as medical advice for individual conditions or treatments. Talk to your doctor, nurse or pharmacist before following any medical regimen to see if it is safe and effective for you. Health Maintenance Topics with due status: Overdue Topic Date Due Varicella Vaccines Never done Pneumococcal vaccine <65 Never done DTaP/Tdap/Td Vaccine Never done Regular Well Visit/Exam 18-64 Never done Thanks for coming in today! My neuropsychology medical consultant and I are thankful you have trusted us with your care, and hope that you received EXCELLENT care today! Although some conditions may not allow immediate improvement, I aim to always make you feel a little better leaving, than when you came in. [place] not hesitate to call, if you have any questions or concerns, at [phone]. You may receive a phone call, text, MYCHART message, or e-mail asking you to take a survey about your care today. We would love to hear your feedback on how EXCELLENT your care was today! Wishing you better health, always! Dr. Shruthi Chávez EL MAKER documented in this encounter Progress Notes * Shruthi Chávez DO - 07/15/2022 2:30 PM CST Images from the original note were not included. Subjective/Objective Patient ID: Alee Cano is a 32 y.o. female. Chief Complaint Chief Complaint Patient presents with Annual Exam Pt. Presents in office to establish care; possible hernia HPI New patient in office today. Here for annual physical and to establish care. She complains of a small bulge in her RLQ of her abdomen. She states that she was told it may be a hernia. She has been wearing a binder. She recently went to the ER about it, she had a Ct scan of abd, however, it did not show a hernia. Review of Systems Constitutional: Negative for fever. HENT: Negative for congestion and sore throat. Eyes: Negative for visual disturbance. Respiratory: Negative for cough and shortness of breath. Cardiovascular: Negative for chest pain, palpitations and leg swelling. Gastrointestinal: Positive for abdominal pain (mild RLQ). Genitourinary: Negative for hematuria. Musculoskeletal: Negative for arthralgias and myalgias. Skin: Negative for rash. Neurological: Negative for dizziness, numbness and headaches. Hematological: Negative for adenopathy. All other systems reviewed and are negative. Vitals: 07/15/22 1435 BP: (!) 86/58 BP Location: Left arm Patient Position: Sitting Pulse: 67 Resp: 18 Temp: 36.6 ??C (97.8 ??F) TempSrc: Oral SpO2: 99% Weight: 56.1 kg (123 lb 11.2 oz) Height: 157.5 cm (5' 2.01 ) Body mass index is 22.62 kg/m??. Physical Exam Vitals and nursing note reviewed. Constitutional: Appearance: Normal appearance. She is well-developed. Interventions: Face mask in place. HENT: Head: Normocephalic and atraumatic. Right Ear: [...] content normal. Lab Results Component Value Date WBC 6.2 06/13/2022 HGB 14.8 06/13/2022 HCT 41.9 06/13/2022 MCV 93.3 06/13/2022 LABPLAT 250 06/13/2022 Chemistry Lab Results Component Value Date SODIUM 141 06/13/2022 POTASSIUM 3.9 06/13/2022 CHLORIDE 103 06/13/2022 CO2 25 06/13/2022 ANIONGAP 12 06/13/2022 BUNSER 28 (H) 06/13/2022 CREATININE 0.80 06/13/2022 GLUCOSE 97 06/13/2022 CALCIUM 10.3 06/13/2022 BILITOT 0.2 06/13/2022 PROTEIN 6.0 07/04/2015 ALBUMIN 5.2 (H) 06/13/2022 GFRNAA 101 06/13/2022 ALKPHOS 98 06/13/2022 AST 19 06/13/2022 ALT 20 06/13/2022 MAGNESIUM 2.1 07/03/2015 Diagnoses and all orders for this visit: Annual physical exam (Primary) Comments: Health maintenance updated. Orders: - Hemoglobin A1c; Future - Hepatitis C antibody; Future - Lipid panel; Future - TSH reflex to free T4; Future - Urinalysis reflex to microscopic and culture Urine, clean voided; Future Hernia of anterior abdominal wall - Ambulatory referral to General Surgery; Future Encounter for screening examination for impaired glucose regulation and diabetes mellitus - Hemoglobin A1c; Future Encounter for hepatitis C screening test for low risk patient - Hepatitis C antibody; Future Encounter for lipid screening for cardiovascular disease - Lipid panel; Future Screening for thyroid disorder - TSH reflex to free T4; Future Screening for blood or protein in urine - Urinalysis reflex to microscopic and culture Urine, clean voided; Future Shruthi Chávez DO This note is dictated and transcribed by [employer]. Resource Forester variances may occur. Despite proofreading, typographical errors may occur. EL MAKER documented in this encounter Plan of Treatment Scheduled Referrals Name Type Priority Associated Diagnoses Order Schedule Ambulatory referral to General Surgery Outpatient Referral Routine Hernia of anterior abdominal wall Expected: 07/16/2022 (Approximate), Expires: 07/15/2023 documented as of this encounter Results * Urinalysis reflex to microscopic and culture Urine, clean voided (07/22/2022 11:15 AM BARREL MAKER) Color, ur Yellow Yellow [facility] ([place]) [...] (MAR[place]) Urine, clean voided 07/22/2022 11:15 AM BARREL MAKER 07/22/2022 12:03 PM BARREL MAKER Narrative TRACIE SANABRIA ([place]) - 07/22/2022 12:08 PM BARREL MAKER ?? Urine pH is affected by diet, medications, systemic acid-base disturbances, and renal tubular function. ??pH may affect urinary stone formation. ??For example, urine pH below 6.0 may help reduce the tendency for calcium phosphate stones and pH greater than 6.0 may reduce the tendency for uric acid stone formation. Source: [facility] WordWatch. Last revised 06-04-2017 Shruthi Chávez DO LAB MICROBIOLOGY - GENERAL ORDERABLES Final Result Performing Organization Address City/[facility]/ZIP Co de Phone Number TRACIE SANABRIA ([place]) [address] [facility] [place] [address] * TSH reflex to free T4 (07/22/2022 11:15 AM BARREL MAKER) TSH 1.41 0.30 - 4.20 mcIUnit/mL TRACIE SANABRIA ([place]) Blood 07/22/2022 11:1 5 AM BARREL MAKER 07/22/2022 12:15 PM BARREL MAKER Shruthi Chávez DO LAB BLOOD ORDERABLES Final Result Performing Organization Address [facility] Co de Phone Number TRACIE SANABRIA ([place]) [address] [facility] [place] [address] * (ABNORMAL) Lipid panel (07/22/2022 11:15 AM BARREL MAKER) Cholesterol 221(H) 30 - 199 mg/dL TRACIE [...] 2018. LDL, calculated 77 <=129 mg/dL TRACIE SANBARIA ([place]) Comment: Interpretive Data Ages < or [...] 2018. Non-HDL Cholesterol 85 mg/dL TRACIE SANABRIA ([place]) Comment: Interpretive Data [...] on 2018. Chol/HDL ratio 2 [facility]RIA ([place]) Blood 07/22/2022 11:1 5 AM BARREL MAKER 07/22/2022 12:15 PM BARREL MAKER us Shruthi Chávez DO LAB BLOOD ORDERABLES Final Result TRACIE SANABRIA ([place]) 1 [facility] Department [place] [address] * Hepatitis C antibody (07/22/2022 11:15 AM BARREL MAKER) Pathologist [facility] Hep C Ab Nonreactive Nonreactive [facility] ([place]) Comment: Interpretive Data Nonreactive: Antibodies to HCV [...] last revised on 2019. Testing performed by: [facility], [address] [place] [address], [place]., [address] Blood 07/22/2022 11:1 5 AM BARREL MAKER 07/22/2022 1:51 PM BARREL MAKER us Shruthi Chávez DO LAB MICROBIOLOGY - GENERAL ORDERABLES Edited Result - Final Performing Organization Address City/[facility]/ZIP Co de Phone Number [facility] ([place]) 1 [facility] [place] [address] * Hemoglobin A1c (07/22/2022 11:15 AM BARREL MAKER) [facility] Hgb A1C 5.3 4.0 - 5.6 % TRACIE [facility] ([place]) Estimated Average Glucose 105 mg/dL TRACIE [facility] ([place]) Comment: The ADA recommends reporting an estimated Average Glucose (eAG) with all Hemoglobin A1c results using the equation derived from a study of 507 normal and diabetic adults. ??Minority populations were underrepresented and children were not included. ?? (Diabetes Care 31:8121-2302, 2008). ??The eAG is not equivalent to a fasting glucose. Blood 07/22/2022 11:1 5 AM BARREL MAKER 07/22/2022 12:14 PM BARREL MAKER us Shruthi Chávez DO LAB BLOOD ORDERABLES Final Result [facility] ([place]) [address] [facility] [place] [address] documented in this encounter Visit Diagnoses Diagnosis Annual physical exam- Primary Routine general medical examination at a health care facility Hernia of anterior abdominal wall Encounter for screening examination for impaired glucose regulation and diabetes mellitus Encounter for hepatitis C screening test for low risk patient Encounter for lipid screening for cardiovascular disease Screening for thyroid disorder Screening for blood or protein in urine Screening for unspecified condition Annual physical exam Routine general medical examination at a health care facility Encounter for screening examination for impaired glucose regulation and diabetes mellitus Encounter for hepatitis C screening test for low risk patient Encounter for lipid screening for cardiovascular disease Screening for thyroid disorder Screening for blood or protein in urine Screening for unspecified condition documented in this encounter Discontinued Medications Medication Sig Discontinue Reason Start Date End Da te Estarylla 0.25-35 mg-mcg per tablet TK 1 T PO AT THE SAME TIME QD Error 04/09/2020 07/15/2022 norethindrone-ethin estradioL (NECON) 0.5-35 mg-mcg per tablet Take by mouth Error 07/15/2022 documented as of this encounter Historical Medications * This list may reflect changes made after this encounter. valACYclovir (VALTREX) 500 mg tablet Take 1 tablet (500 mg total) by mouth daily 07/04/2022 ergocalciferol (VITAMIN D) 50,000 unit capsule Take 1 capsule (50,000 Units total) by mouth once a week 08/12/2023 vit 53-plge-iikez-dha 27mg iron- 800 mcg-250 mg capsule Take by mouth 08/12/2023 busPIRone (BUSPAR) 5 mg tablet 07/06/2022 08/12/2023 Incassia 0.35 mg tablet Take 1 tablet (0.35 mg total) by mouth daily 05/01/2022 08/12/2023 added in this encounter Care Teams Ripening Room Hand Relationship Specialty Start Date End Date Shruthi Chávez DO [address] [place] [address] PCP - General Family Medicine 07/15/22 03/03/24 Mariaa Cruz MD [address] [address] Referring Physician Gynecology 07/15/22 documented as of this encounter
--- OUTSIDE RECORDS SUMMARY | 2024-05-16 03:45 | XMS_ITS | Encounter Summary ---
Author Organization [facility] Facility Care Team Providers Care Fiberglass Dowel Drawing Operator Name Role Phone Unavailable Primary Care Provider Unavailabl e Encounter Details Date Type Department Care Team (Late st Contact Info) Description 10/05/2008 - 10/05/2008 11:59 PM CDT [facility] [address] [place] [address] Screening for malignant neoplasm of cervix Social History Tobacco Use Types Packs/Day Years Used Date Smoking Tobacco: Never Assessed Comments Unknown Sex and Gender Information Value Date Recorded Sex Assigned at Not on file Legal Sex Female 3:59 AM PROJECT OFFICER Gender Identity Not on file Sexual Orientation Not on file documented as of this encounter Plan of Treatment Not on file documented as of this encounter Visit Diagnoses Diagnosis Screening for malignant neoplasm of cervix Screening for malignant neoplasm of the cervix documented in this encounter
--- OUTSIDE RECORDS SUMMARY | 2024-05-16 03:45 | XMS_ITS | Encounter Summary ---
Author Organization [facility] Healthcare Address [address] [place] [address] Care Team Providers Care Spar Finisher Name Role Phone Unavailable Primary Care Provider Unavailabl e Encounter Details Date Type Department Care Team (Late st Contact Info) Description 09/04/2010 3:06 PM CDT - 09/04/2010 6:10 PM CDT Hospital Encounter [facility]lvaro Roman MD [address] [facility] [address] [place] [id number] Abdominal pain, right upper quadrant; Abdominal pain, right lower quadrant; Other depressive disorder Social History Tobacco Use Types Packs/Day Years Used Date Smoking Tobacco: Never Assessed Comments Unknown Sex and Gender Information Value Date Recorded Sex Assigned at Not on file Legal Sex Female 3:59 AM BONE TENDER Gender Identity Not on file Sexual Orientation Not on file documented as of this encounter Plan of Treatment Not on file documented as of this encounter Visit Diagnoses Diagnosis Abdominal pain, right upper quadrant Abdominal pain, right lower quadrant Other depressive disorder documented in this encounter
--- OUTSIDE RECORDS SUMMARY | 2024-05-16 03:45 | XMS_ITS | Encounter Summary ---
Author Organization [facility] Healthcare Address [address] [place] [address] Care Team Providers Care Power System Operator Name Role Phone Unavailable Primary Care Provider Unavailabl e Encounter Details Date Type Department Care Team (Latest Contact Info) Description 11/26/2010 4:52 PM CDT - 11/26/2010 7:00 PM CDT Hospital Encounter [facility] Álvaro Roman MD 1 [facility] [address] [place] [address] Other and unspecified noninfectious gastroenteritis and colitis; Abdominal pain Social History Tobacco Use Types Packs/Day Years Used Date Smoking Tobacco: Never Assessed Comments Unknown Sex and Gender Information Value Date Recorded Sex Assigned at Not on file Legal Sex Female 3:59 AM PACKAGING SALES REPRESENTATIVE Gender Identity Not on file Sexual Orientation Not on file documented as of this encounter Plan of Treatment Not on file documented as of this encounter Visit Diagnoses Diagnosis Other and unspecified noninfectious gastroenteritis and colitis Abdominal pain Abdominal pain, unspecified site documented in this encounter
--- OUTSIDE RECORDS SUMMARY | 2024-05-16 03:45 | XMS_ITS | Encounter Summary ---
Author Organization [facility] Healthcare Address [address] [place] [address] Care Team Providers Care Director Of Collections Name Role Phone Bettie Pires NP Primary Care Provider [phone] Encounter Details Date Type Department Care Team (Late st Contact Info) Description 04/30/2020 12:50 AM HOSTESS PARTY SALES REPRESENTATIVE Lab [address] [address] Flu-like symptoms; Sore throat; Close exposure to COVID-19 virus Social History Tobacco Use Types Packs/Day Years Used Date Smoking Tobacco: Never Comments Unknown Sex and Gender Information Value Date Recorded Sex Assigned at Not on file Legal Sex Female 3:59 AM HOSTESS PARTY SALES REPRESENTATIVE Gender Identity Not on file Sexual Orientation Not on file documented as of this encounter Miscellaneous Notes * Result Encounter Note - Deana Gregorio NP - 04/30/2020 7:05 PM HOSTESS PARTY SALES REPRESENTATIVE Patient notified of positive covid-19 test. Reviewed ER precautions and isolation guidelines, isolate for 10 days from symptom onset and fever free for at least 24 hours. Instructed patient to notifyindividuals they may have had contact while ill and 2 days prior to symptom onset. Health department notified of positive result via fax. ESS PARTY SALES REPRESENTATIVE documented in this encounter Plan of Treatment Not on file documented as of this encounter Procedures Procedure Name Priority Date/Time Associated Diagnosis Comments COVID-19 CORONAVIRUS RNA Routine 04/29/2020 2:21 PM HOSTESS PARTY SALES REPRESENTATIVE Flu-like symptoms Sore throat Close exposure to COVID-19 virus documented in this encounter Results * (ABNORMAL) COVID-19 Coronavirus RNA Nasopharyngeal (04/29/2020 2:21 PM HOSTESS PARTY SALES REPRESENTATIVE) COVID-19 RNA Detected( A) TRACIE Comment: Interpretive Data Testing performed by the [facility] Molecular Infectious Disease Laboratory. The 2018-Novel Coronavirus [...] last revised on 2019. Testing performed by: [facility], [address] [place] [address], [id number] Employeed in healthcare? No [facility] Comment:Testing performed by : [facility], [address] [place] [address], [id number] status? No [facility] Comment:Testing performed by : [facility], [address] [place] [address], [id number] Group care resident? No [facility] Comment:Testing performed by : [facility], [address] [place] [address], [id number] Hospitalized? No [facility] Comment:Testing performed by : [facility], [address] [place] [address], [id number] Is patient in ICU? No [facility] Comment:Testing performed by : [facility], [address] [place] [address], [id number] Symptomatic as defined by CDC? Yes [facility] Comment:Testing performed by : [address], [address] Nasopharyngeal 04/29/2020 2: 21 PM HOSTESS PARTY SALES REPRESENTATIVE 04/30/2020 8:58 AM HOSTESS PARTY SALES REPRESENTATIVE Narrative CERNER - 04/30/2020 6:55 PM HOSTESS PARTY SALES REPRESENTATIVE What is the reason for testing?->Symptoms of COVID-19 in high-risk group (defined above in process inst.) Date of symptom onset->04/25/20 Rubia Silverman NP LAB MICROBIOLOGY - GENERAL VETO HAGER Final Result [facility] [address] [facility] [place] [address] documented in this encounter Visit Diagnoses Diagnosis Flu-like symptoms Sore throat Acute pharyngitis Close exposure to COVID-19 virus documented in this encounter Additional Health Concerns Infection Onset Date Last Indicated Resolved Time Respiratory Infection (TAWNYA), contact + droplet Comment:Automatically added due to negative COVID-19 result. 04/17/2020 04/17/2020 05/01/2020 3:0 6 AM HOSTESS PARTY SALES REPRESENTATIVE COVID: Suspected 04/29/2020 04/29/2020 04/30/2020 6:55 PM HOSTESS PARTY SALES REPRESENTATIVE documented as of this encounter Care Teams Director Of Collections Relationship Specialty Start Date End Date Bettie Pires NP PCP - General Internal Medicine 04/15/20 06/12/22 documented as of this encounter
--- OUTSIDE RECORDS SUMMARY | 2024-05-16 03:45 | XMS_ITS | Encounter Summary ---
Author Organization [facility] Address [address] [place] [address] Care Team Providers Care Sales Marketing Coordinator Name Role Phone Bettie Pires NP Primary Care Provider [phone] Reason for Visit * Reason Onset Date Comments Pre Cert 01/07/2021 Encounter Details Date Type Department Care Team (Late st Contact Info) Description 01/07/2021 Telephone [facility] [address] [place] [address] [address] [address] Hattie Rinaldi RN Pre Cert Social History Tobacco Use Types Packs/Day Years Used Date Smoking Tobacco: Every Day Smokeless Tobacco: Never Comments:vape Alcohol Use Standard Drinks/Week Comments Not Currently 0 (1 standard drink = 0.6 oz pur e alcohol) Comments No Sex and Gender Information Value Date Recorded Sex Assigned at Not on file Legal Sex Female 3:59 AM TENANT SELECTOR Gender Identity Not on file Sexual Orientation Not on file documented as of this encounter Miscellaneous Notes * Telephone Encounter - Hattie Rinaldi RN - 01/07/2021 8:41 AM CDT 01/07/21 No PA needed for OB ultrasound per faxed authorization. pkk documented in this encounter Plan of Treatment Not on file documented as of this encounter Visit Diagnoses Not on filedocumented in this encounter Care Teams Sales Marketing Coordinator Relationship Specialty Start Date End Date Bettie Pires NP PCP - General Internal Medicine 04/15/20 06/12/22 documented as of this encounter
--- OUTSIDE RECORDS SUMMARY | 2024-05-16 03:45 | XMS_ITS | Encounter Summary ---
Author Organization [facility] Healthcare Address [address] [place] [address] Care Team Providers Care Wool Cleaner Name Role Phone Unavailable Primary Care Provider Unavailabl e Encounter Details Date Type Department Care Team (Late st Contact Info) Description 07/04/2015 7:45 PM CENTRAL STORES ATTENDANT - 07/04/2015 11:59 PM CENTRAL STORES ATTENDANT Hospital Encounter [facility] [place], [address] [facility] [address] [place] [address] Encounter for other general examination; History of self-harm Social History Tobacco Use Types Packs/Day Years Used Date Smoking Tobacco: Never Assessed Comments Unknown Sex and Gender Information Value Date Recorded Sex Assigned at Not on file Legal Sex Female 3:59 AM CENTRAL STORES ATTENDANT Gender Identity Not on file Sexual Orientation Not on file documented as of this encounter Plan of Treatment Not on file documented as of this encounter Visit Diagnoses Diagnosis Encounter for other general examination History of self-harm documented in this encounter
--- OUTSIDE RECORDS SUMMARY | 2024-05-16 03:45 | XMS_ITS | Encounter Summary ---
Author Organization [facility] Facility Care Team Providers Care Behavioral Assistant Name Role Phone Unavailable Primary Care Provider Unavailabl e Encounter Details Date Type Department Care Team (Latest Contact Info) Description 07/27/2008 9:00 AM ENGINEERING SPECIALIST TECHNICIAN - 07/27/2008 11:59 PM ENGINEERING SPECIALIST TECHNICIAN Hospital Encounter [facility] Abdominal or pelvic swelling or mass or lump Social History Tobacco Use Types Packs/Day Years Used Date Smoking Tobacco: Never Assessed Comments Unknown Sex and Gender Information Value Date Recorded Sex Assigned at Not on file Legal Sex Female 3:59 AM ENGINEERING SPECIALIST TECHNICIAN Gender Identity Not on file Sexual Orientation Not on file documented as of this encounter Plan of Treatment Not on file documented as of this encounter Visit Diagnoses Diagnosis Abdominal or pelvic swelling or mass or lump documented in this encounter
--- OUTSIDE RECORDS SUMMARY | 2024-05-16 03:45 | XMS_ITS | Encounter Summary ---
Author Organization [facility] Facility Care Team Providers Care Transfer And Line Up Worker Name Role Phone Unavailable Primary Care Provider Unavailabl e Encounter Details Date Type Department Care Team (Latest Contact Info) Description 10/04/2008 1:54 PM CDT - 10/04/2008 11:59 PM CDT Hospital Encounter [facility] Encounter for routine gynecological examination; Counseling on other sexually transmitted diseases Social History Tobacco Use Types Packs/Day Years Used Date Smoking Tobacco: Never Assessed Comments Unknown Sex and Gender Information Value Date Recorded Sex Assigned at Not on file Legal Sex Female 3:59 AM CELL ATTENDANT HELPER Gender Identity Not on file Sexual Orientation Not on file documented as of this encounter Plan of Treatment Not on file documented as of this encounter Visit Diagnoses Diagnosis Counseling on other sexually transmitted diseases documented in this encounter
--- OUTSIDE RECORDS SUMMARY | 2024-05-16 03:45 | XMS_ITS | Encounter Summary ---
Author Organization [facility] Healthcare Address [address] [place] [address] Care Team Providers Care Estate Planner Name Role Phone Bettie Pires NP Primary Care Provider [phone] Reason for Visit * Reason Comments Pain With Breathing Encounter Details Date Type Department Care Team (Late st Contact Info) Description 06/07/2020 4:32 PM MOLD OPERATOR - 06/07/2020 5:59 PM MOLD OPERATOR Emergency [facility] Emergency Department [address] [place] [id number] Dyspnea, unspecified type (Primary Dx); Acute chest wall pain Discharge Disposition: Discharge to home or self care Social History Tobacco Use Types Packs/Day Years Used Date Smoking Tobacco: Every Day Comments No Sex and Gender Information Value Date Recorded Sex Assigned at Not on file Legal Sex Female 3:59 AM MOLD OPERATOR Gender Identity Not on file Sexual Orientation Not on file documented as of this encounter Last Filed Vital Signs Vital Sign Reading Time Taken Comments Blood Pressure 132/80 06/07/2020 4:29 PM MOLD OPERATOR Pulse 80 06/07/2020 4:29 PM MOLD OPERATOR Temperature 36.2 ??C (97.2 ??F) 06/07/2020 4:29 PM CS T Respiratory Rate 20 06/07/2020 4:29 PM MOLD OPERATOR Oxygen Saturation 100% 06/07/2020 4:29 PM MOLD OPERATOR Inhaled Oxygen Concentration - - Weight 54.4 kg (120 lb) 06/07/2020 4:29 PM MOLD OPERATOR Height 157.5 cm (5' 2 ) 06/07/2020 4:29 PM MOLD OPERATOR Body Mass Index 21.95 06/07/2020 4:29 PM MOLD OPERATOR documented in this encounter Discharge Diagnoses Diagnosis Dyspnea, unspecified - DYSPNEA, UNSPECIFIED Other chest pain - OTHER CHEST PAIN documented in this encounter Discharge Instructions * Discharge Instructions* Madelaine Sánchez NP - 06/07/2020 5:51 PM MOLD OPERATOR Use over the counter Tylenol and Motrin per manufacturers guidelines for relief of pain and fever. Follow up with without fail. OPERATOR * Attachments The following attachments cannot be sent through Care Everywhere. * Chest Pain, Noncardiac (Bahamian) * Dyspnea (AfterCare(R) Instructions(ER/ED)) (Bahamian) documented in this encounter Medications at Time of Discharge buPROPion XL (WELLBUTRIN XL) 150 mg 24 hr tablet 03/06/2020 08/12/2023 Estarylla 0.25-35 mg-mcg per tablet TK 1 T PO AT THE SAME TIME QD 04/09/2020 07/15/2022 norethindrone-eth in estradioL (NECON) 0.5-35 mg-mcg per tablet Take by mouth 07/15/2022 documented as of this encounter Discharge Disposition Disposition Code Departure Means Destination Discharge to home or self care documented in this encounter ED Notes * Madelaine Sánchez NP - 06/07/2020 4:31 PM CST HPI Chief Complaint Patient presents with ??? Pain With Breathing 30 y.o. year old female with PMHX . No pertinent past medical history.; accompanied by self presents to ED with c/o Pain With Breathing Denies fever, chills, nausea, vomiting, diarrhea, SOB, CP, numbness, tingling. Pt states pain in chest when taking a deep breath. Denies radiation of pain. Pain started a few days ago. No SOB with exertion. Patient has not had close contact with a laboratory confirmed COVID-19 case, has not traveled or been in close contact with someone who has traveled from infected geographic area in the past 14 days, is not an individual (staff and/or patient/resident) from a congregate living or healthcare facility with suspected COVID-19 cases, at higher risk for complications due tochronic medical conditions or immunocompromised, and not part of a situation of concern as determined by Public Health. Pt does take control and smoke. Denies other complaint at this time. Patient History: Patient Active Problem List Diagnosis Date Noted ??? Bulimia nervosa 01/31/2010 Class: Chronic History reviewed. No pertinent past medical history. History reviewed. No pertinent surgical history. History reviewed. No pertinent family history. Social History Tobacco Use ??? Smoking status: Current Every Day Smoker Substance Use Topics ??? Alcohol use: Not on file ??? Drug use: Not on file Social History Social History Narrative ??? Not on file Review of Systems Review of Systems Constitutional: Negative. Negative for chills and fever. HENT: Negative. Negative for ear pain and sore throat. Eyes: Negative. Negative for pain and visual disturbance. Respiratory: Positive for chest tightness and shortness of breath. Negative for cough. Cardiovascular: Negative for chest pain and palpitations. Gastrointestinal: Negative for abdominal pain and vomiting. Genitourinary: Negative. Negative for dysuria and hematuria. Musculoskeletal: Negative. Negative for arthralgias and back pain. Skin: Negative. Negative for color change and rash. Neurological: Negative. Negative for seizures and syncope. Psychiatric/Behavioral: Negative. All other systems reviewed and are negative. Physical Exam ED Triage Vitals [06/07/20 1629] Temp Pulse Resp BP SpO2 36.2 ??C (97.2 ??F) 80 20 132/80 100 % Temp src Heart Rate Source Patient Position BP Location FiO2 (%) Temporal -- -- -- -- Physical Exam Vitals signs and nursing note reviewed. Constitutional: General: She is awake. She is not in acute distress. Appearance: Normal appearance. She is well-developed. She is not ill-appearing, toxic-appearing or diaphoretic. HENT: Head: Normocephalic and atraumatic. Right Ear: Hearing and external ear normal. Left Ear: Hearing and external ear normal. Nose: Nose normal. Mouth/Throat: Lips: [place]. Mouth: Mucous membranes are moist. Eyes: General: Lids are normal. Conjunctiva/sclera: Conjunctivae normal. Neck: Musculoskeletal: Full passive range of motion without pain, normal range of motion and neck supple. Trachea: Trachea and phonation normal. Cardiovascular: Rate and Rhythm: Normal rate and regular rhythm. Heart sounds: Normal heart sounds. No murmur. Pulmonary: Effort: Pulmonary effort is normal. No respiratory distress. Breath sounds: Normal breath sounds and air entry. No stridor, decreased air movement or transmitted upper airway sounds. No decreased breath sounds, wheezing, rhonchi or rales. Abdominal: General: Bowel sounds are normal. There is no distension. Palpations: Abdomen is soft. Tenderness: There is no abdominal tenderness. There is no guarding. Skin: General: Skin is warm and dry. Capillary Refill: Capillary refill takes less than 2 seconds. Neurological: General: No focal deficit present. Mental Status: She is alert, oriented to person, place, and time and easily aroused. Psychiatric: Attention and Perception: Attention normal. Mood and Affect: Mood normal. Speech: Speech normal. Behavior: Behavior normal. Behavior is cooperative. Thought Content: Thought content normal. Cognition and Memory: Cognition normal. Judgment: Judgment normal. [facility] ED Course as of Jun 07 1751 Time: 06/07 1748 Comment: Discussed lab work and x-ray results with patient. Advised to use Tylenol and Motrin for relief of fever and pain, to follow up with PMD for further evaluation and treatment. Pt verbalized understanding. All questions answered at this time. By: Madelaine Sánchez NP Final diagnoses: Dyspnea, unspecified type Acute chest wall pain Madelaine Sánchez NP 06/07/201751 Cosigned by Edgar Greene MD at 06/07/2020 6:55 PM MOLD OPERATOR OPERATOR OPERATOR * Carmel Hearn RN - 06/07/2020 4:31 PM CST Pt presents to ER with c/o chest pain upon inspiration. OPERATOR documented in this encounter Plan of Treatment Not on file documented as of this encounter Procedures Procedure Name Priority Date/Time Associated Diagnosis Comments EGFR STAT 06/07/2020 5:02 PM MOLD OPERATOR DIFFERENTIAL AUTO STAT 06/07/2020 5:0 2 PM MOLD OPERATOR CBC WITH AUTO DIFFERENTIAL STAT 06/07/2020 5:02 PM MOLD OPERATOR D-DIMER, QUANTITATIVE STAT 06/07/2020 5:02 PM MOLD OPERATOR COMPREHENSIVE METABOLIC PANEL STAT 06/07/2020 5:02 PM MOLD OPERATOR XR CHEST PA LATERAL 2 VIEWS ED 06/07/2020 4:50 PM MOLD OPERATOR ECG 12-LEAD STAT 06/07/2020 4:07 PM MOLD OPERATOR documented in this encounter Results * eGFR (06/07/2020 5:02 PM MOLD OPERATOR) eGFR 106 mL/min/1.7 3 m2 [facility] ([place]) Comment: Interpretive Data [...] Evaluation and Management of Chronic Kidney Disease. Kidney Intnl Suppl May 2012;3:1). The CKD-EPI equation should not be used for patients with unstable renal function and has not been validated in children and those over 70. Current interpretive data was last reviewed 2020 Blood specimen (specimen) 06/07/2020 5:02 PM MOLD OPERATOR 06/07/2020 5:18 PM MOLD OPERATOR Madelaine Sánchez NP LAB BLOOD ORDERABLES Final Result [facility] ([place]) [facility] Department [place] [address] * Differential, auto (06/07/2020 5:02 PM MOLD OPERATOR) Neutrophil abs 5.3 1.7 - 6.5 K/cumm [facility] ([place]) Imm gran abs 0.0 0.0 - 0.1 K/cumm [facility] ([place]) Lymphocyte abs 2.5 0.8 - 3.3 K/cumm [facility] ([place]) Monocyte abs 0.7 0.2 - 0.8 K/cumm [facility] ([place]) Eosinophil abs 0.1 0.0 - 0.5 K/cumm [facility] ([place]) Basophil abs 0.0 0.0 - 0.1 K/cumm [facility] ([place]) Neutrophil pct 61.0 % [facility] ([place]) Comment: Interpretive [...] was last revised on 2017. Lymphocyte pct 29.4 % [facility] ([place]) Comment: Interpretive Data Percent cell count reference ranges are not reported, since discordance with absolute values may lead to misinterpretation of CBC data. Current Interpretive Data was last revised on 2017. Monocyte pct 8.1 % [facility] ([place]) Comment: Interpretive Data Percent cell count reference ranges are not reported, since discordance with absolute values may lead to misinterpretation of CBC data. Current Interpretive Data was last revised on 2017. Eosinophil pct 1.0 % [facility] ([place]) Comment: Interpretive Data Percent cell count reference ranges are not reported, since discordance with absolute values may lead to misinterpretation of CBC data. Current Interpretive Data was last revised on 2017. Basophil pct 0.3 % [facility] ([place]) Comment: Interpretive Data Percent cell count reference ranges are not reported, since discordance with absolute values may lead to misinterpretation of CBC data. Current Interpretive Data was last revised on 2017. Blood specimen (specimen) 06/07/2020 5:02 PM MOLD OPERATOR 06/07/2020 5:18 PM MOLD OPERATOR Madelaine Sánchez NP LAB BLOOD ORDERABLES Final Result [facility] ([place]) [facility] Department [place] [address] * D-dimer, quantitative (06/07/2020 5:02 PM MOLD OPERATOR) D-Dimer 219 <=499 ng/mL FEU [facility] ([place]) Comment: Interpretive data FDA approved the D-dimer, in conjunction with a low or moderate pretest probability score, to exclude venous thromboembolic events (VTE) (PE and DVT) in outpatients when the D-dimer result is < 500 ng/ml FEU. ?? Evidence supports using an age-adjusted D-dimer cut-off for outpatients older than 50 (age x 10) to improve specificity without sacrificing sensitivity. Example: age 68, VTE cut-off 680 ng/ml FEU. References; Schoutjose HT et al. Brit Med J. 2013;346:f2492. Toby GONZALEZ et al. Annals Int Med. 2015;163:701-11. Current interpretive data was last revised on 2019. Blood specimen (specimen) 06/07/2020 5:02 PM MOLD OPERATOR 06/07/2020 5:18 PM MOLD OPERATOR us Madelaine Sánchez NP LAB BLOOD ORDERABLES Final Result [facility] ([place]) [facility] Department [place] [address] * (ABNORMAL) Comprehensive metabolic panel (06/07/2020 5:02 PM MOLD OPERATOR) Sodium 138 135 - 145 mmol/L [facility] ([place]) Potassium, pl 4.3 3.3 - 4.9 mmol/L [facility] ([place]) Chloride 104 97 - 110 mmol/L [facility] ([place]) CO2 27 22 - 32 mmol/L [facility] ([place]) Anion gap 7 2 - 15 mmol/L [facility] ([place]) BUN 16 8 - 25 mg/dL [facility] ([place]) Creatinine 0.76 0.60 - 1.10 mg/dL [facility] ([place]) Glucose 84 70 - 199 mg/dL [facility] ([place]) [...] classification and Diagnosis of Diabetes Diabetes Care 2017;40 (Suppl. 1):S11. Current interpretive data was last revised 2017. Calcium 9.6 8.5 - 10.3 mg/dL [facility] ([place]) Bilirubin, total 0.3 0.1 - 1.2 mg/dL [facility] ([place]) Protein, pl 6.4(L) 6.5 - 8.5 g/dL [facility] ([place]) Albumin 4.3 3.5 - 5.0 g/dL [facility] ([place]) Alk phos 57 40 - 130 Units/L [facility] ([place]) ALT 13 7 - 45 Units/L [facility] ([place]) AST 16 10 - 45 Units/L [facility] ([place]) Blood specimen (specimen) 06/07/2020 5:02 PM MOLD OPERATOR 06/07/2020 5:18 PM MOLD OPERATOR us Madelaine Sánchez SERICULTURE TEACHER LAB BLOOD ORDERABLES Final Result [facility] ([place]) [facility] [place] [address] * CBC with auto differential (06/07/2020 5:02 PM MOLD OPERATOR) WBC 8.6 3.8 - 9.9 K/cumm [facility] ([place]) Hgb 12.6 11.9 - 15.5 g/dL [facility] ([place]) Hct 37.2 35.6 - 45.5 % [facility] ([place]) Plt 246 150 - 400 K/cumm [facility] ([place]) MPV 10.8 9.1 - 12.3 fL [facility] ([place]) RBC 3.97 3.90 - 5.20 M/cumm [facility] ([place]) MCV 93.7 81.3 - 96.4 fL [facility] ([place]) MCH 31.7 27.1 - 33.3 pg [facility] ([place]) MCHC 33.9 32.3 - 35.7 g/dL [facility] ([place]) RDW CV 11.7 11.1 - 14.9 % [facility] ([place]) RDW SD 40.4 35.7 - 48.1 fL [facility] ([place]) NRBC abs 0.00 0.00 - 0.01 K/cumm [facility] ([place]) Blood specimen (specimen) 06/07/2020 5:02 PM MOLD OPERATOR 06/07/2020 5:18 PM MOLD OPERATOR us Madelaine Sánchez SERICULTURE TEACHER LAB BLOOD ORDERABLES Final Result [facility] ([place]) 1 [facility] [place] [address] * XR Chest Pa Lateral 2 Vw (06/07/2020 4:50 PM MOLD OPERATOR) Anatomical Region Laterality Modality Body, Chest N/A Computed Radiogr aphy 06/07/2020 4:52 PM MOLD OPERATOR Impressions 06/07/2020 4:54 PM MOLD OPERATOR No radiographic evidence of acute cardiopulmonary abnormality. Electronically signed by: Cristo Brandon M.D. Narrative 06/07/2020 4:54 PM MOLD OPERATOR EXAMINATION: XR CHEST PA LATERAL 2 VIEWS ORDERING HEALTHCARE PROVIDER: MADELAINE SÁNCHEZ HISTORY: Pain while breathing TECHNIQUE: Frontal and lateral radiographs of the chest. COMPARISON: 07/03/2015 FINDINGS: HEART/MEDIASTINUM: The cardiomediastinal silhouette and pulmonary vasculature are normal. LUNGS/PLEURA: There is no airspace consolidation or pleural effusion. HARDWARE/LINES/TUBES: None. BONES: No acute findings. OTHER: No other acute findings. Procedure Note Cristo Brandon MD - 06/07/2020 EXAMINATION: XR CHEST PA LATERAL 2 VIEWS ORDERING HEALTHCARE PROVIDER: MADELAINE SÁNCHEZ HISTORY: Pain while breathing TECHNIQUE: Frontal and lateral radiographs of the chest. COMPARISON: 07/03/2015 FINDINGS: HEART/MEDIASTINUM: The cardiomediastinal silhouette and pulmonary vasculature are normal. LUNGS/PLEURA: There is no airspace consolidation or pleural effusion. HARDWARE/LINES/TUBES: None. BONES: No acute findings. OTHER: No other acute findings. IMPRESSION: No radiographic evidence of acute cardiopulmonary abnormality. Electronically signed by: Cristo Brandon M.D. us Madelaine Sánchez SERICULTURE TEACHER IMG XR PROCEDURES Final Res ult * ECG 12 lead (06/07/2020 4:07 PM MOLD OPERATOR) 06/07/2020 4:07 PM MOLD OPERATOR Narrative [facility] - 06/08/2020 8:31 AM MOLD OPERATOR Vent Rate: 89 bpm RR Interval: 670 msec NV Interval: 117 msec QRS Duration: 86 msec QT Interval: 348 msec QTC Interval: 395 msec P-R-T [place]: 62 - 71 - 56 degrees SINUS RHYTHM WITH SHORT NV INTERVAL POSSIBLE RIGHT VENTRICULAR CONDUCTION DELAY [RSR (QR) IN V1/V2] MINIMAL ST DEPRESSION [0.025+ mV ST DEPRESSION] Possible left atrial enlargement Compared to prior EKG, no significant change Electronically Signed By: Dr Van Mir us Madelaine Sánchez NP ECG ORDERABLES Final Resul t [facility] documented in this encounter Visit Diagnoses Diagnosis Dyspnea, unspecified type- Primary Acute chest wall pain documented in this encounter Additional Health Concerns Infection Onset Date Last Indicated Resolved Time COVID: Recovered Comment:Added based on recent COVID infection. 05/13/2020 06/07/2020 09/10/2020 3:06 AM C DT documented as of this encounter Care Teams Estate Planner Relationship Specialty Start Date End Date Bettie Pires NP PCP - General Internal Medicine 04/15/20 06/12/22 documented as of this encounter
--- OUTSIDE RECORDS SUMMARY | 2024-05-16 03:45 | XMS_ITS | Encounter Summary ---
Author Organization [facility] Healthcare Address [address] [place] [address] Care Team Providers Care Cargo Checker Name Role Phone Bettie Pires NP Primary Care Provider [phone] Encounter Details Date Type Department Care Team (Latest Contact Info) Description 06/07/2020 4:30 PM TITLE INSURANCE SALES REPRESENTATIVE - 06/07/2020 4:31 PM TITLE INSURANCE SALES REPRESENTATIVE Hospital Encounter [facility] [address] [place] [id number] Discharge Disposition: Discharge to home or self care Social History Tobacco Use Types Packs/Day Years Used Date Smoking Tobacco: Every Day Comments No Sex and Gender Information Value Date Recorded Sex Assigned at Not on file Legal Sex Female 3:59 AM TITLE INSURANCE SALES REPRESENTATIVE Gender Identity Not on file [...] Procedure Name Priority Date/Time Associated Diagnosis Comments XR CHEST PA LATERAL 2 VIEWS ED 06/07/2020 4:50 PM TITLE INSURANCE SALES REPRESENTATIVE documented in this encounter Results * XR Chest Pa Lateral 2 Vw (06/07/2020 4:50 PM TITLE INSURANCE SALES REPRESENTATIVE) Anatomical Region Laterality Modality Body, Chest N/A Computed Radiogr aphy 06/07/2020 4:52 PM TITLE INSURANCE SALES REPRESENTATIVE Impressions 06/07/2020 4:54 PM TITLE INSURANCE SALES REPRESENTATIVE No radiographic evidence of acute cardiopulmonary abnormality. Electronically signed by: Cristo Brandon M.D. Narrative 06/07/2020 4:54 PM TITLE INSURANCE SALES REPRESENTATIVE EXAMINATION: XR CHEST PA LATERAL 2 VIEWS [...] abnormality. Electronically signed by: Cristo Brandon M.D. Madelaine Sánchez CONSUMER SCIENCE TEACHER IMG XR PROCEDURES Final Res ult documented in this encounter Visit Diagnoses Not on filedocumented in this encounter Additional Health Concerns Infection Onset Date Last Indicated Resolved Time COVID: Recovered Comment:Added based on recent COVID infection. 05/13/2020 06/07/2020 09/10/2020 3:06 AM C DT documented as of this encounter Care Teams Cargo Checker Relationship Specialty Start Date End Date Bettie Pires NP PCP - General Internal Medicine 04/15/20 06/12/22 documented as of this encounter
--- OUTSIDE RECORDS SUMMARY | 2024-05-16 03:45 | XMS_ITS | Encounter Summary ---
Author Organization [facility] Address [address] [facility] [address] [place] [address] Care Team Providers Care Liquid Sugar Melter Name Role Phone Bettie Pires NP Primary Care Provider [phone] Reason for Referral * Diagnostic Imaging (Routine) - Closed Specialty Diagnoses / Procedures Referred By Contac t Referred To Contact Diagnoses Encounter to establish gestational age using ultrasound Procedures US Ob Under 14 Weeks Christian Martinez MD [address] [place] [address] [address] [place] [address] Phone: tel: fax: [facility] [address] [place] [phone] Phone: tel: fax: Referral ID Status Reason Start Date Expiration Date Visits Re quested Visits Authorized [id number] Closed 01/22/2021 02/21/2022 1 1 Reason for Visit * Reason Comments Ultrasound dates * Diagnostic Imaging (Routine) - Closed Specialty Diagnoses / Procedures Referred By Contac t Referred To Contact Diagnoses Encounter to establish gestational age using ultrasound Procedures US Ob Under 14 Weeks Christian Martinez MD [address] [place] [address] [address] [place] [address] Phone: tel: fax: [facility] [address] [place] [phone] Phone: tel: fax: Referral ID Status Reason Start Date Expiration Date Visits Re quested Visits Authorized [id number] Closed 01/22/2021 02/21/2022 1 1 Encounter Details Date Type Department Care Team (Isaac st Contact Info) Description 01/22/2021 10:00 AM CDT Office Visit [facility] [address] [place] [address] [address], [place] [address] Encounter to establish gestational age using ultrasound (Primary Dx) Social History Tobacco Use Types Packs/Day Years Used Date Smoking Tobacco: Every Day Smokeless Tobacco: Never Comments:vape Alcohol Use Standard Drinks/Week Comments Not Currently 0 (1 standard drink = 0.6 oz pur e alcohol) Comments Yes Sex and Gender Information Value Date Recorded Sex Assigned at Not on file Legal Sex Female 3:59 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 documented in this encounter Plan of Treatment Not on file documented as of this encounter Procedures Procedure Name Priority Date/Time Associated Diagnosis Comments US OB UNDER 14 WEEKS Schedule Routine, Read Routine (OP Routine) 02/03/2021 6:40 PM CDT Encounter to establish gestational age using ultrasound documented in this encounter Results * US Ob Under 14 Weeks (02/03/2021 6:40 PM CDT) Anatomical Region Laterality Modality Abdomen N/A Ultrasound Narrative 02/03/2021 6:40 PM CDT [facility] Obstetric Ultrasound Date of exam: 01/22/2021 Diagnoses and all orders for this visit: Encounter to establish gestational age using ultrasound (Primary) - ? US Ob Under 14 Weeks Clinical history: ??Patient presents for early OB sono to establish gestational age and viability. ??Patient's last menstrual period was 11/20/2020 (approximate). ?? 9 weeks 0 days clinically. Findings: ??An early TA OB ultrasound is performed. ??The uterus is anteverted and enlarged and measures 10.5 x 8.6 x 8.8 cm and contains an intrauterine with gestational sac, pole and CRL measuring 63.1 mm or 12 weeks 5 days giving an ELVA of 08/01/21. ?? FHR is 165 bpm. The right ovary is not seen. ??The left ovary measures 3.0 x 1.2 x ??2.7 cm and appears normal. Impression: 1. ??12 week 5 day AGA by this ultrasound. ??2. Normal appearing left ovary. ??Right ovary is not seen on this TA ultrasound. Interpreting physician: Christian Martinez MD Obstetrics and Gynecology us Christian Martinez MD IMG OB US PROCEDURES Final Result documented in this encounter Visit Diagnoses Diagnosis Encounter to establish gestational age using ultrasound- Primary Encounter for routine screening for malformation using ultrasonics documented in this encounter Care Teams Liquid Sugar Melter Relationship Specialty Start Date End Date Bettie Pires NP PCP - General Internal Medicine 04/15/20 06/12/22 documented as of this encounter
--- OUTSIDE RECORDS SUMMARY | 2024-05-16 03:45 | XMS_ITS | Encounter Summary ---
Author Organization [facility] Address [address] [place] [address] Care Team Providers Care Senior Software Qa Analyst Name Role Phone Shruthi Chávez DO Primary Care Provider [phone] Mariaa Cruz MD Unavailable [phone] Reason for Visit * Reason Comments Incisional hernia * Consultation (Routine) - Closed Specialty Diagnoses / Procedures Referred By Deb correa Referred To Contact General Surgery Diagnoses Hernia of anterior abdominal wall Shruthi Chávez DO Phone: tel: fax: Keagan Roberto MD [address] [place] [address] [address] [place] [address] Phone: tel: fax: Referral ID Status Reason Start Date Expiration Date V isits Requested Visits Authorized [id number] Closed Specialty Services Required 07/15/2022 08/14/2023 4 4 Encounter Details Date Type Department Care Team (Late st Contact Info) Description 07/22/2022 10:30 AM COMMUNITY ENGAGEMENT COORDINATOR Office Visit [facility] [address] [place] [address] Keagan Roberto MD [address] [place] [address] [address] [place] [id number] Hernia of anterior abdominal wall Social History Tobacco Use Types Packs/Day Years [...] on file Legal Sex Female 3:59 AM COMMUNITY ENGAGEMENT COORDINATOR Gender Identity Not on file Sexual Orientation Not on file documented as of this encounter Last Filed Vital Signs Vital Sign Reading Time Taken Comments Blood Pressure 105/67 07/22/2022 10:40 AM COMMUNITY ENGAGEMENT COORDINATOR Pulse 92 07/22/2022 10:40 AM COMMUNITY ENGAGEMENT COORDINATOR Temperature 36.2 ??C (97.1 ??F) 07/22/2022 10:[address] Respiratory Rate - - Oxygen Saturation 96% 07/22/2022 10:40 AM COMMUNITY ENGAGEMENT COORDINATOR Inhaled Oxygen Concentration - - Weight 54.6 kg (120 lb 4.8 oz) 07/22/2022 10:40 AM COMMUNITY ENGAGEMENT COORDINATOR Height 157.5 cm (5' 2.01 ) 07/22/2022 10:[address] Body Mass Index 22 07/22/2022 10:40 AM COMMUNITY ENGAGEMENT COORDINATOR documented in this encounter Progress Notes * Keagan Roberto MD - 07/22/2022 10:30 AM CST Images from the original note were not included. Surgery Consult Subjective: Patient Name: Alee Cano Date of Visit: 07/22/22 HPI: Alee Cano is a 32 y.o. female presenting for surgical evaluation of an incisional hernia. In May she bent over while picking up a toy. She felt a pop and then noticed some swelling along the abdominal wall. She works out fairly regularly and so since she noticed that swelling she then stopped and then went to the ER where they did imaging but did not find anything to suggest a hernia. Since that time she has had no further swelling and the discomfort that she noticed at that time has basically resolved. Chief Complaint: Incisional hernia Referred by: Shruthi Chávez DO Allergies as of 07/22/2022 - Reviewed 07/22/2022 Allergen Reaction Noted Sulfa (sulfonamide antibiotics) Nausea only 07/15/2022 Current Outpatient Medications: buPROPion XL (WELLBUTRIN XL) 150 mg 24 hr tablet busPIRone (BUSPAR) 5 mg tablet ergocalciferol (VITAMIN D) 50,000 unit capsule Incassia 0.35 mg tablet vit [id number] 27mg iron- 800 mcg-250 mg capsule valACYclovir (VALTREX) 500 mg tablet Past Medical History: Diagnosis Date Anxiety Depression Past Surgical History: Procedure Laterality Date SECTION 07/26/2021 Family History Problem Relation Age of Onset Diabetes Father Social History Tobacco Use Smoking status: Former Packs/day: 0.50 Years: 10.00 Pack years: 5.00 Types: Cigarettes Start date: 05/26/2011 Quit date: 05/25/2019 Years since quittin.1 Smokeless tobacco: Never Tobacco comments: vape Substance and Sexual Activity Drug use: Yes Types: Alcohol Comment: social Sexual activity: Defer Partners: Male control/protection: OCP Alcohol Use: Heavy Drinker Frequency of Alcohol Consumption: Monthly or less Average Number of Drinks: 1 or 2 Frequency of Binge Drinking: Monthly Review of Systems Constitutional: Negative for activity change. HENT: Negative for hearing loss and sore throat. Eyes: Negative for visual disturbance. Respiratory: Negative for cough and shortness of breath. Cardiovascular: Negative for chest pain. Gastrointestinal: Positive for abdominal pain Genitourinary: Negative for dysuria. Musculoskeletal: Negative for back pain. Neurological: Negative for dizziness and syncope. Psychiatric/Behavioral: Negative for agitation and confusion. Imaging: CT scan of the abdomen pelvis was reviewed. There is no sign of hernia on the right lower abdominalwall where the discomfort was noted Objective: Vitals BP 105/67 (BP Location: Right arm, Patient Position: Sitting) Pulse 92 Temp 36.2 ??C (97.1 ??F) Ht 157.5 cm (5' 2.01 ) Wt 54.6 kg (120 lb 4.8 oz) SpO2 96% BMI 22.00 kg/m?? Physical Exam Constitutional: The patient is oriented to person, place, and time. They appear well-nourished. No distress. HENT: Head: Normocephalic and atraumatic. Eyes: Pupils are equal, round, and reactive to light. Neck: No thyromegaly present. Cardiovascular: Normal rate and regular rhythm. Pulmonary/Chest: Effort normal and breath sounds normal. Abdominal: Soft. non distended. There is no tenderness. No hernia. Genitourinary: Rectum normal. Musculoskeletal: Normal range of motion. Neurological: alert and oriented to person, place, and time. Skin: Skin is warm and dry. Psychiatric: normal mood and affect. Assessment/Plan Diagnoses and all orders for this visit: Hernia of anterior abdominal wall Assessment & Plan: I favor that this was more a musculoskeletal strain given the resolution of her symptoms and no further swelling. She is going to slowly start resuming her normal workout routine. If symptoms would return I have discussed ordering an MRI to fully evaluate the muscles to ensure there is no strain ortear. She will call us back if anything changes. She is in understanding of the plan. Orders: - Ambulatory referral to General Surgery Keagan Roebrto MD 11:12 AM 07/22/2022 UNITY ENGAGEMENT COORDINATOR documented in this encounter Miscellaneous Notes * Assessment & Plan Note - Keagan Roberto MD - 07/22/2022 11:11 AM CSTAssociated Problem(s): Hernia of anterior abdominal wall I favor that this was more a musculoskeletal strain given the resolution of her symptoms and no further swelling. She is going to slowly start resuming her normal workout routine. If symptoms would return I have discussed ordering an MRI to fully evaluate the muscles to ensure there is no strain ortear. She will call us back if anything changes. She is in understanding of the plan. UNITY ENGAGEMENT COORDINATOR documented in this encounter Plan of Treatment Not on file documented as of this encounter Visit Diagnoses Diagnosis Hernia of anterior abdominal wall documented in this encounter Orders Outpatient Referral Count Last Ordered Date Fir st Ordered Date AMB REFERRAL TO GENERAL SURGERY 1 3 documented in this encounter Care Teams Senior Software Qa Analyst Relationship Specialty Start Date End Date Shruthi Chávez DO [address] [place] [address] PCP - General Family Medicine 07/15/22 03/03/24 Mariaa Cruz MD [address] [place] [address] Referring Physician Gynecology 07/15/22 documented as of this encounter
--- OUTSIDE RECORDS SUMMARY | 2024-05-16 03:45 | XMS_ITS | Encounter Summary ---
Author Organization [facility] Care Team Providers Care Pile Driver Operator Name Role Phone Unavailable Primary Care Provider Unavailabl e Encounter Details Date Type Department Care Team (Latest Contact Info) Description 01/31/2010 10:31 AM CDT - 01/31/2010 11:59 PM CDT Hospital Encounter [facility] Counseling on other sexually transmitted diseases; Irregular menstrual cycle; Bulimia nervosa Social History Tobacco Use Types Packs/Day Years Used Date Smoking Tobacco: Never Assessed Comments Unknown Sex and Gender Information Value Date Recorded Sex Assigned at Not on file Legal Sex Female 3:59 AM NEURO UROLOGIST Gender Identity Not on file Sexual Orientation Not on file documented as of this encounter Plan of Treatment Not on file documented as of this encounter Visit Diagnoses Diagnosis Counseling on other sexually transmitted diseases Irregular menstrual cycle Bulimia nervosa documented in this encounter
--- OUTSIDE RECORDS SUMMARY | 2024-05-16 03:45 | XMS_ITS | Encounter Summary ---
Author Organization [facility] Address [address] [place] [address] Care Team Providers Care Citizenship Instructor Name Role Phone Bettie Pires NP Primary Care Provider [phone] Reason for Visit * Reason Comments Syncope Encounter Details Date Type Department Care Team (Late st Contact Info) Description 10/23/2020 3:21 PM CDT - 10/23/2020 4:12 PM CDT Emergency [facility] Emergency Department [address] [place] [id number] Syncope, unspecified syncope type (Primary Dx); Vaso vagal episode Discharge Disposition: Discharge to home or self care Social History Tobacco Use Types Packs/Day Years Used Date Smoking Tobacco: Every Day Smokeless Tobacco: Never Comments:vape Alcohol Use Standard Drinks/Week Comments Not Currently 0 (1 standard drink = 0.6 oz pur e alcohol) Comments No Sex and Gender Information Value Date Recorded Sex Assigned at Not on file Legal Sex Female 3:59 AM BREAD PACKER Gender Identity Not on file Sexual Orientation Not on file documented as of this encounter Last Filed Vital Signs Vital Sign Reading Time Taken Comments Blood Pressure 95/73 10/23/2020 2:27 PM CDT Pulse 92 10/23/2020 2:27 PM CDT Temperature 37.7 ??C (99.8 ??F) 10/23/2020 2:27 PM CD T Respiratory Rate 17 10/23/2020 2:27 PM CDT Oxygen Saturation 98% 10/23/2020 2:27 PM CDT Inhaled Oxygen Concentration - - Weight 52.2 kg (115 lb) 10/23/2020 2:27 PM CDT Height 157.5 cm (5' 2 ) 10/23/2020 2:27 PM CDT Body Mass Index 21.03 10/23/2020 2:27 PM CDT documented in this encounter Discharge Diagnoses Diagnosis Syncope and collapse - SYNCOPE AND COLLAPSE Nicotine dependence, other tobacco product, uncomplicated - NICOTINE DEPENDENCE, OTHER TOBACCO PRODUCT, UNCOMPLICATED documented in this encounter Discharge Instructions * Discharge Instructions* Keren Sánchez NP - 10/23/2020 3:46 PM CDT Use over the counter Tylenol and Motrin per manufacturers guidelines for relief of pain and fever. Follow up with DR. Pires without fail. * Attachments The following attachments cannot be sent through Care Everywhere. * Dizziness or Syncope (Fainting) During ([place]) * Fainting, Vagal Reaction ([place]) documented in this encounter Medications at Time [...] documented in this encounter ED Notes * Keren Sánchez NP - 10/23/2020 3:44 PM CDT HPI Chief Complaint Patient presents with ??? Syncope 30 y.o. year old female with PMHX No pertinent past medical history.; accompanied by self via EMS presents to ED with c/o Syncope Denies fever, chills, nausea, vomiting, diarrhea, SOB, CP, numbness, tingling. syncopal episode following a covid shot. Patient states that she got her covid shot and then she felt dizzy immediately after. Patient states then she woke up on the floor. Patient was [facility]. Patient is alert and oriented upon arrival to ed. Denies other complaint at this time. Patient History: Patient Active Problem List Diagnosis Date Noted ??? Bulimia nervosa 01/31/2010 History reviewed. No pertinent past medical history. History reviewed. No pertinent surgical history. History reviewed. No pertinent family history. Social History Tobacco Use ??? Smoking status: Current Every Day Smoker ??? Smokeless tobacco: Never Used ??? Tobacco comment: vape Substance Use Topics ??? Alcohol use: Not Currently ??? Drug use: Never Social History Social History Narrative ??? Not on file Review of Systems Review of Systems Constitutional: Negative for chills and fever. HENT: Negative for ear pain and sore throat. Eyes: Negative for pain and visual disturbance. Respiratory: Negative for cough and shortness of breath. Cardiovascular: Negative for chest pain and palpitations. Gastrointestinal: Negative for abdominal pain and vomiting. Genitourinary: Negative for dysuria and hematuria. Musculoskeletal: Negative for arthralgias and back pain. Skin: Negative for color change and rash. Neurological: Positive for syncope. Negative for seizures. All other systems reviewed and are negative. Physical Exam ED Triage Vitals [10/23/20 1427] Temp Pulse Resp BP SpO2 37.7 ??C (99.8 ??F) 92 17 95/73 98 % Temp src Heart Rate Source Patient Position BP Location FiO2 (%) Temporal -- -- -- -- Physical Exam Vitals and nursing note reviewed. Constitutional: General: She is awake. She is not in acute distress. Appearance: Normal appearance. She is well-developed. She is not ill-appearing, toxic-appearing or diaphoretic. HENT: Head: Normocephalic and atraumatic. Right Ear: Hearing and external ear normal. Left Ear: Hearing and external ear normal. Nose: Nose normal. Mouth/Throat: Lips: [place]. Mouth: Mucous membranes are moist. Eyes: Conjunctiva/sclera: Conjunctivae normal. Cardiovascular: Rate and Rhythm: Normal rate and regular rhythm. Heart sounds: Normal heart sounds. No murmur heard. Pulmonary: Effort: Pulmonary effort is normal. No respiratory distress. Breath sounds: Normal breath sounds. Abdominal: General: Bowel sounds are normal. There is no distension. Palpations: Abdomen is soft. Tenderness: There is no abdominal tenderness. There is no guarding. Musculoskeletal: Cervical back: Neck supple. Skin: General: Skin is warm and dry. Neurological: General: No focal deficit present. Mental Status: She is alert, oriented to person, place, and time and easily aroused. Psychiatric: Behavior: Behavior is cooperative. MDM MDM Final diagnoses: Syncope, unspecified syncope type Vaso vagal episode Keren Sánchez NP 10/23/20 1547 Cosigned by Edgar Greene MD at 10/23/2020 8:21 PM CDT * Brea Verdugo RN - 10/23/2020 2:25 PM CDT Patient presents to the ed with c.o. syncopal episode following a covid shot. Patient states that she got her covid shot and then she felt dizzy immediately after. Patient states then she woke up on the floor. Patient was brought to the ed [facility]. Patient is alert and oriented upon arrival to ed. documented in this encounter Plan of Treatment Not on file documented as of this encounter Procedures Procedure Name Priority Date/Time Associated Diagnosis Comments ECG 12-LEAD STAT 10/23/2020 2:33 PM CDT documented in this encounter Results * ECG 12 lead (10/23/2020 2:33 PM CDT) 10/23/2020 2:33 PM CDT Narrative [facility] - 10/24/2020 8:17 AM CDT Vent Rate: 86 bpm RR Interval: 695 msec OK Interval: 106 msec QRS Duration: 78 msec QT Interval: 357 msec QTC Interval: 400 msec P-R-T [place]: 48 - 66 - 46 degrees SINUS RHYTHM WITH SHORT OK INTERVAL NONSPECIFIC T-WAVE ABNORMALITY BORDERLINE ECG Compared to 06/07/2020 no change Electronically Signed By: Dr Alexis Croft us Keren Sánchez NP ECG ORDERABLES Final Resul t [facility] documented in this encounter Visit Diagnoses Diagnosis Syncope, unspecified syncope type- Primary Vaso vagal episode Syncope and collapse documented in this encounter Orders Nursing Count Last Ordered Date First Orde red Date ORTHOSTATIC BLOOD PRESSURE 1 10/23/2020 documented in this encounter Care Teams Citizenship Instructor Relationship Specialty Start Date End Date Bettie Pires NP PCP - General Internal Medicine 04/15/20 06/12/22 documented as of this encounter
--- OUTSIDE RECORDS SUMMARY | 2024-05-16 03:45 | XMS_ITS | Encounter Summary ---
Author Organization [facility] Medical Group Address [address] [facility] [address] [place] [address] Care Team Providers Care Clay Mine Cutting Machine Operator Name Role Phone Bettie Pires NP Primary Care Provider [phone] Reason for Visit * Reason Comments COVID-19 EVALUATION Cough, body aches, S OB, loss of taste and smell, diarrhea and vomiting, sore throat, headache and fatigue. + covid exposure Encounter Details Date Type Department Care Team (Late st Contact Info) Description 04/29/2020 2:30 PM NONPROFIT FINANCIAL CONTROLLER Office Visit [facility] [address] [place] [address] Rubia Silverman NP [address] [facility] [address] [place] [id number] Flu-like symptoms (Primary Dx); Sore throat; Close exposure to COVID-19 virus Social History Tobacco Use Types Packs/Day Years Used Date Smoking Tobacco: Never Comments Unknown Sex and Gender Information Value Date Recorded Sex Assigned at Not on file Legal Sex Female 3:59 AM NONPROFIT FINANCIAL CONTROLLER Gender Identity Not on file Sexual Orientation Not on file documented as of this encounter Last Filed Vital Signs Vital Sign Reading Time Taken Comments Blood Pressure 100/58 04/29/2020 2:28 PM NONPROFIT FINANCIAL CONTROLLER Pulse 88 04/29/2020 2:28 PM NONPROFIT FINANCIAL CONTROLLER Temperature 36.8 ??C (98.3 ??F) 04/29/2020 2:28 PM CS T Respiratory Rate 16 04/29/2020 2:28 PM NONPROFIT FINANCIAL CONTROLLER Oxygen Saturation 97% 04/29/2020 2:28 PM NONPROFIT FINANCIAL CONTROLLER Inhaled Oxygen Concentration - - Weight 54.4 kg (120 lb) 04/29/2020 2:28 PM NONPROFIT FINANCIAL CONTROLLER Height 157.5 cm (5' 2 ) 04/29/2020 2:28 PM NONPROFIT FINANCIAL CONTROLLER Body Mass Index 21.95 04/29/2020 2:28 PM NONPROFIT FINANCIAL CONTROLLER documented in this encounter Patient Instructions * Patient Instructions* Herrera Rubia Disha, PHARMACY SERVICES REPRESENTATIVE - 04/29/2020 2:30 PM NONPROFIT FINANCIAL CONTROLLER The CDC and local health departments recommend that you isolate yourself to prevent any potential spread of the virus until you have the results of your test. If you develop worsening symptoms of respiratory distress, call 911 or go to the nearest emergency room. What does self-isolation mean? - Remain at home or in a comparable setting - No public activities - You should not perform any public travel Do MY close contacts need to be isolated? - YES they should self-isolate until you have the results of your test. When will my results be available? - There is not a rapid test available at this time. It may take several days to get the results of this test. If you have MyChart, the results will be available to you at the same time as we receive them. Regardless, we will call every patient with positive or negative results. [facility] Department will be reaching out to all patients who have a positive test for further discussion and monitoring. The CDC and [facility] have much more information available online. The websites are: - cdc.gov - bjc.org Additional resources around self-isolation and how to prevent spread are at: cdc.gov/coronavirus/2019-ncov/about/index.html If symptoms are severe, rest at home for the first 2 to 3 days. When you resume activity, don't letyourself get too tired. Don't smoke. If you need help stopping, talk with your healthcare provider. Avoid being exposed to cigarette smoke (yours or others???). You may use acetaminophen to control pain and fever, unless another medicine was prescribed. If youhave chronic liver disease, have ever had a stomach ulcer or gastrointestinal bleeding talk with your healthcare provider before using these medicines. Aspirin should never be given to anyone under 18 years of age who is ill with a viral infection or fever. It may cause severe liver or brain damage. Your appetite may be poor, so a light diet is fine. Stay well hydrated by drinking 6 to 8 glasses of fluids per day (water, soft drinks, juices, tea, or soup). Extra fluids will help loosen secretions in the nose and lungs. Tmcg-ann-jhfhwnl cold medicines will not shorten the length of time you???re sick, but they may be helpful for the following symptoms: cough, sore throat, and nasal and sinus congestion. If you take prescription medicines, ask your healthcare provider or pharmacist which jtyg-aad-dfjfvoq medicines are safe to use. (Note: Don't use decongestants if you have high blood pressure.) If you develop worsening of shortness of breath, high fevers or other concerning symptoms, go to the ER. ROFIT FINANCIAL CONTROLLER documented in this encounter Progress Notes * Rubia Silverman NP - 04/29/2020 2:30 PM CST Images from the original note were not included. Patient ID: Alee Keyes is a 30 y.o. female followed by Bettie Pires NP Patient was wearing the following PPE: mask. MA was wearing the following PPE: mask, gown, gloves and face shield. Provider was wearing the following PPE: mask, gown, gloves and face shield. Chief Complaint Patient presents with ??? COVID-19 EVALUATION Cough, body aches, SOB, loss of taste and smell, diarrhea and vomiting, sore throat, headache and fatigue. + covid exposure Pt presents to clinic c/o dry cough, SOB with exertion, fever up to 101, loss of smell, loss of taste, diarrhea, headache, body aches, sore throat, and fatigue x 3 days. Exposed to COVID. Denies chest pain and difficulty breathing. Patient presents to clinic for assessment of Chief Complaint Patient presents with ??? COVID-19 EVALUATION Cough, body aches, SOB, loss of taste and smell, diarrhea and vomiting, sore throat, headache and fatigue. + covid exposure . Patient reports DRY COUGH, SHORTNESS OF BREATH, FEVER UP TO 101, SORE THROAT, LOSS OF SMELL and LOSS OF TASTE Patient reports this has been going on for 4 days. Patient with sick or suspected COVID-19 contacts: Yes Patient has following risks for COVID-19: None Review of Systems Constitutional: Positive for chills, fatigue and fever. HENT: Positive for congestion, rhinorrhea and sore throat. Negative for ear pain, sinus pressure, sinus pain and trouble swallowing. Respiratory: Positive for cough and shortness of breath. Negative for chest tightness and wheezing. Cardiovascular: Negative for chest pain and palpitations. Gastrointestinal: Positive for diarrhea and vomiting. Negative for abdominal pain and nausea. Musculoskeletal: Positive for myalgias. Skin: Negative for rash. Neurological: Positive for headaches. Negative for dizziness, weakness and light-headedness. Current Outpatient Medications Medication Sig Dispense Refill ??? buPROPion XL (WELLBUTRIN XL) 150 mg 24 hr tablet ??? Estarylla 0.25-35 mg-mcg per tablet TK 1 T PO AT THE SAME TIME QD ??? norethindrone-ethin estradioL (NECON) 0.5-35 mg-mcg per tablet Take by mouth No current facility-administered medications for this visit. History reviewed. No pertinent past medical history. There is no immunization history on file for this patient. Social History Tobacco Use Smoking Status Never Smoker There were no vitals filed for this visit. Physical Exam Vitals signs reviewed. Constitutional: General: She is not in acute distress. Appearance: Normal appearance. HENT: Head: Normocephalic. Right Ear: Hearing, tympanic membrane, ear canal and external ear normal. Left Ear: Hearing, tympanic membrane, ear canal and external ear normal. Nose: Nose normal. Mouth/Throat: Lips: [place]. Mouth: Mucous membranes are moist. Pharynx: Oropharynx is clear. Cardiovascular: Rate and Rhythm: Normal rate and regular rhythm. Pulses: Normal pulses. Heart sounds: Normal heart sounds. Pulmonary: Effort: Pulmonary effort is normal. No respiratory distress. Breath sounds: Normal breath sounds. No stridor. No wheezing, rhonchi or rales. Musculoskeletal: Normal range of motion. Skin: General: Skin is warm and dry. Neurological: Mental Status: She is alert and oriented to person, place, and time. Psychiatric: Mood and Affect: Mood normal. Results for orders placed or performed in visit on 04/29/20 POCT influenza A/B Result Value Ref Range Rapid Influenza A Ag Negative Negative, Invalid Rapid Influenza B Ag Negative Negative, Invalid POCT rapid strep A Result Value Ref Range Rapid Strep A, POC Negative Assessment/Plan Diagnoses and all orders for this visit: Flu-like symptoms (Primary) - COVID-19 Coronavirus RNA Nasopharyngeal; Future - POCT influenza A/B - POCT rapid strep A Sore throat - COVID-19 Coronavirus RNA Nasopharyngeal; Future - POCT influenza A/B - POCT rapid strep A Close exposure to COVID-19 virus - COVID-19 Coronavirus RNA Nasopharyngeal; Future - POCT influenza A/B - POCT rapid strep A RST and flu negative. Will send COVID swab. Reviewed OTC sx relief, ER precautions, and self isolation. Discussed COVID testing reasoning Reviewed isolation/quarantine protocols [...] Nasopharyngeal Standing Status: Future Standing Expiration Date: 04/29/2021 Order Specific Question: Is the patient experiencing any symptoms consistent with COVID (eg. Fever,cough, shortness of breath)? Answer: Yes Order Specific Question: What is the reason for testing? Answer: Symptoms of COVID-19 in high-risk group (defined above in process inst.) Order Specific Question: Date of symptom onset Answer: 04/25/2020 Order Specific Question: Is the patient hospitalized? Answer: No Order Specific Question: Is the patient admitted to an ICU? Answer: No Order Specific Question: Does the patient currently work in a healthcare facility with direct patient contact? Answer: No Order Specific Question: Is the patient a resident of a congregate care or living setting? Answer: No Order Specific Question: Is the patient ? Answer: No ??? POCT influenza A/B ??? POCT rapid strep A ROFIT FINANCIAL CONTROLLER documented in this encounter Plan of Treatment Not on file documented as of this encounter Procedures Procedure Name Priority Date/Time Associated Diagnosis Comments POCT INFLUENZA A/B Routine 04/29/2020 2: 45 PM NONPROFIT FINANCIAL CONTROLLER Flu-like symptoms Sore throat Close exposure to COVID-19 virus POCT RAPID STREP Routine 04/29/2020 2:41 PM NONPROFIT FINANCIAL CONTROLLER Flu-like symptoms Sore throat Close exposure to COVID-19 virus documented in this encounter Results * POCT influenza A/B (04/29/2020 2:45 PM NONPROFIT FINANCIAL CONTROLLER) Rapid Influenza A Ag Negative Negative, Invalid Rapid Influenza B Ag Negative Negative, Invalid Nasopharyngeal 04/29/2020 2: 45 PM NONPROFIT FINANCIAL CONTROLLER Rubia Silverman PHARMACY SERVICES REPRESENTATIVE POINT OF CARE TEST ORDERABLES F inal Result * POCT rapid strep A (04/29/2020 2:41 PM NONPROFIT FINANCIAL CONTROLLER) Pathologist [facility] Rapid Strep A, POC Negative Swab 04/29/2020 2:41 PM NONPROFIT FINANCIAL CONTROLLER Rubia Silverman PHARMACY SERVICES REPRESENTATIVE POINT OF CARE TEST ORDERABLES F inal Result * (ABNORMAL) COVID-19 Coronavirus RNA Nasopharyngeal (04/29/2020 2:21 PM NONPROFIT FINANCIAL CONTROLLER) Pathologist [facility] COVID-19 RNA Detected( A) TRACIE Comment: Interpretive Data Testing performed by the [facility] Infectious Disease [facility]. The 2019-Novel Coronavirus Assay (COVID-19) Real Time RT-PCR assay [...] last revised on 2019. Testing performed by: [facility], [address] [place] [address], [place]., [address] Employeed in healthcare? No CERFABI Comment:Testing performed by : [facility], [address] [place] [address] status? No CERNER Comment:Testing performed by : [facility], [address] [place]., [address] Group care resident? No [facility] Comment:Testing performed by : [facility], [address] [place]., [address] Hospitalized? No [facility] Comment:Testing performed by : [facility], [address] [place]., [address] Is patient in ICU? No [facility] Comment:Testing performed by : [facility], [address] [facility], [address] Symptomatic as defined by CDC? Yes [facility] Comment:Testing performed by : [facility], [address] [facility], [address] Nasopharyngeal 04/29/2020 2: 21 PM NONPROFIT FINANCIAL CONTROLLER 04/30/2020 8:58 AM NONPROFIT FINANCIAL CONTROLLER Narrative TRACIE - 04/30/2020 6:55 PM NONPROFIT FINANCIAL CONTROLLER What is the reason for testing?->Symptoms of COVID-19 in high-risk group (defined above in process inst.) Date of symptom onset->04/25/20 Rubia Silverman NP LAB MICROBIOLOGY - GENERAL VETO HAGER Final Result TRACIE [address] Department [place] [address] documented in this encounter Visit Diagnoses Diagnosis Flu-like symptoms- Primary Sore throat Acute pharyngitis Close exposure to COVID-19 virus Flu-like symptoms Sore throat Acute pharyngitis Close exposure to COVID-19 virus documented in this encounter Additional Health Concerns Infection Onset Date Last Indicated Resolved Time Respiratory Infection (TAWNYA), contact + droplet Comment:Automatically added due to negative COVID-19 result. 04/17/2020 04/17/2020 05/01/2020 3:0 6 AM NONPROFIT FINANCIAL CONTROLLER COVID: Suspected 04/29/2020 04/29/2020 04/30/2020 6:55 PM NONPROFIT FINANCIAL CONTROLLER documented as of this encounter Care Teams Clay Mine Cutting Machine Operator Relationship Specialty Start Date End Date Bettie Pires NP PCP - General Internal Medicine 04/15/20 06/12/22 documented as of this encounter
--- OUTSIDE RECORDS SUMMARY | 2024-05-16 03:48 | XMS_ITS | Continuity of Care Document ---
Author Organization [facility] Address [address] [place] [address] Phone Care Team Providers Care Beta Tester Name Role Phone Irma Jaramillo Unavailable Unavailable Allergies, Adverse Reactions, Alerts Substance Reaction Status Criticality No Known Allergies Active No Inform ation Medications Medication Instructions Dosage Effective Dates (start - stop) Status Comments Necon (28) 1 mg-35 mcg tablet take 1 tablet by oral route every day - Active Procedures Procedure Date OFFICE/OUTPATIENT VISIT, EST Advance Directives Directive Yes / No Effective Date File Name No Information Encounters Encounter Description Practice Location Reason(s) For Visit Diagnoses Date Provider Providers Copied on Encounter [facility], [address] [place] [address], tel:[phone] [place] No Information 4 Lisbet Irma. [address] [place] [address]. tel:[phone] OFFICE/OUTPAT IENT VISIT, [facility], [address] [place] [address], tel:[phone] [place] Flu like symptoms (chief complaint) Upper Respiratory Infection, Acute 4 No Information Family History Family Member Type Diagnosis Age At Onset Father Problem (finding) diabetes melli tus in first degree relative Payers Payer name Insurance type Covered libertarian ID Authoriza tion(s) No Information Social History Type Description Quantity Date Captured Comments Alcohol Use Details Unknown Caffeine Use Details Unknown Tobacco Use Status Smoking Status No Information Sex Female Chief Complaint And Reason For Visit No Information Reason For Referral Reason For Referral No Information History Of Present Illness Encounter Date Complaint History Of Prese nt Illness Flu like symptoms The symptoms b isidro 1 week ago and generally lasts 1 Week. The symptoms are reported as being moderate. The symptoms occur constantly. Janneth is here complaining of flu like symptoms and no fever. Patients ears have been bothering her also. Functional Status Date Functional Assessmen t No Information Instructions Date Instruction Additional Infor vincent Educated that antibi otics are not prescribed for viral infections. Related to Upper Respiratory Infection, Acute Assessments Type Assessment Date No Information Patient Care Teams Name Effective Dates (start - stop) Status Members No Information
--- OUTSIDE RECORDS SUMMARY | 2024-05-16 04:06 | XMS_ITS | Continuity of Care Document ---
Author Organization [facility] Address [address] [place] [address] Phone Care Team Providers Care Rv Mechanic Name Role Phone Irma Jaramillo Unavailable Unavailable [...] Diagnoses Date Provider Providers Copied on Encounter [facility], [address] [place] [address], tel:[phone] [place] No Information 4 Lisbet Irma. [address] [place] [address]. tel:[phone] OFFICE/OUTPAT IENT VISIT, [facility], [address] [place] [address], tel:[phone] [place] Flu like symptoms (chief complaint) Upper Respiratory Infection, Acute 4 No Information Family History Family Member Type Diagnosis Age At Onset Father Problem (finding) diabetes melli tus in first degree relative Payers Payer name Insurance type Covered republican ID Authoriza tion(s) No Information Social History [...]
--- OUTSIDE RECORDS SUMMARY | 2024-05-16 04:06 | XMS_ITS | Encounter Summary ---
Author Organization [facility] Healthcare Address [address] [place] [address] Care Team Providers Care Carbonizer Name Role Phone Shruthi Chávez Primary Care Provider [phone] Mariaa Cruz MD Unavailable [phone] Reason for Visit * Reason Onset Date Comments Rectal Bleeding 10/05/2023 Encounter Details Date Type Department Care Team (Late st Contact Info) Description 10/05/2023 Nurse Triage [facility] Primary Care at [address] [place] [phone] Yolanda Mazariegos RN Social History Tobacco [...] on file Legal Sex Female 3:59 AM PHOTOGRAPH DEVELOPER Gender Identity Not on file Sexual [...] of -same day need. Appt scheduled Matthew HYDROPRESS OPERATOR 10/06/23 2:30 pm-location given. Epsom salt bath-2 cups per hot bath 20 minutes. Can use OTC Hemorrhoid cream, per box. Reason for Disposition ??? MILD rectal bleeding (more than just a few drops or streaks) Protocols used: Rectal [id number] * Telephone Encounter - Latosha Cesar RN [...] on filedocumented in this encounter Care Teams Carbonizer Relationship Specialty Start Date End Date Shruthi Chávez DO [address] [facility] [place] [address] PCP - General Family Medicine 07/15/22 03/03/24 Mariaa Cruz MD [address] [address] Referring Physician Gynecology 07/15/22 documented as of this encounter
--- OUTSIDE RECORDS SUMMARY | 2024-05-16 04:06 | XMS_ITS | Encounter Summary ---
Author Organization [facility] Healthcare Address [address] [place] [address] Care Team Providers Care Slat Grader Name Role Phone Shruthi Chávez DO Primary Care Provider [phone] Mariaa Cruz MD Unavailable [phone] Encounter Details Date Type Department Care Team (Late st Contact Info) Description 10/12/2023 Telephone [facility] Primary Care at [address] [place] [address] Shruthi Chávez DO [address] [address] Social History Tobacco Use Types [...] on file Legal Sex Female 3:59 AM BOX ANNEALER Gender Identity Not on file Sexual Orientation [...] on filedocumented in this encounter Care Teams Slat Grader Relationship Specialty Start Date End Date Shruthi Chávez DO [address] [facility] [address] [place] [address] PCP - General Family Medicine 07/15/22 03/03/24 Mariaa Cruz MD [address] [place] [address] Referring Physician Gynecology 07/15/22 documented as of this encounter
--- OUTSIDE RECORDS SUMMARY | 2024-05-16 04:06 | XMS_ITS | Encounter Summary ---
Author Organization [facility] Address [address] [place] [address] Care Team Providers Care Field Research Assistant Name Role Phone Unavailable Primary Care Provider Unavailabl e Reason for Visit * Reason Comments Ear Pain 1 week Congestion Encounter Details Date Type Department Care Team (Late st Contact Info) Description 08/25/2018 12:20 PM CDT Office Visit [facility] AT [address] [address] [facility] Acute maxillary sinusitis, recurrence not specified [...] COMPLICATION AND REQUIRES IMMEDIATE EMERGENCY ATTENTION. Sinusitis COP WINDER: Sinusitis is inflammation or infection of your [...] ask them during your visits. ?? Copyright [employer] 2019 Information is for End User's use only and may not be sold, redistributed or otherwise used for commercial purposes. All illustrations and images included in CareNotes?? are the copyrighted property of [employer], [employer] or [employer] The above information is an unit aid only. It is not intended as [...] Strep A Internal Control Present Lot # [id number] Expiration Date 02/25/2020 LUZ MARIA Gamboa 08/25/2018 [...] Strep A Internal Control Present Lot # [id number] Expiration Date 02/25/2020 Throat ENTIRE THROAT (SURFACE REGION OF NECK) / Unknown 08/25/2018 Kateryna Tubbs APRN-GASOLINE ENGINE ASSEMBLER LAB - POINT OF CARE ORDERABLES documented in this encounter Visit Diagnoses Diagnosis Acute maxillary sinusitis, recurrence not specified- Primary documented in this encounter
--- OUTSIDE RECORDS SUMMARY | 2024-05-16 04:06 | XMS_ITS | Encounter Summary ---
Author Organization [facility] Healthcare Address [address] [place] [address] Care Team Providers Care Marionette Performer Name Role Phone Shruthi Chávez Primary Care Provider [phone] Mariaa Cruz MD Unavailable [phone] Reason for Visit * Reason Comments Rectal Bleeding Hemorrhoids Onset 1 week. Pt sta emmanuelle it is painful to wipe. Pt states she has had bright red blood. There is some stringy tissue present at times Encounter Details Date Type Department Care Team (Late st Contact Info) Description 10/06/2023 3:00 PM CDT Office Visit [facility] Medical Group Primary Care at [address] [place] [phone] Ne Castro, [address] [facility] [address] [place] [address] Bleeding hemorrhoid (Primary Dx); Body mass index [...] on file Legal Sex Female 3:59 AM GIFTS OFFICER Gender Identity Not on file Sexual [...] do not hesitate to reach out through [employer] or call our office at [phone]. - LEA Portillo documented in this encounter [...] previously with - patient denies using any nxdq-tzy-lxfpjwo medication at this but has used epsom [...] previously with - patient denies using any qptf-nwz-[id number] medication at this but has used epsom [...] 09/11/2023 added in this encounter Care Teams Marionette Performer Relationship Specialty Start Date End Date Shruthi Chávez DO [address] [facility] [address] [place] [address] PCP - General Family Medicine 07/15/22 03/03/24 Mariaa Cruz MD [address] [place] [address] Referring Physician Gynecology 07/15/22 documented as of this encounter
--- OUTSIDE RECORDS SUMMARY | 2024-05-16 04:06 | XMS_ITS | Encounter Summary ---
Author Organization [facility] Healthcare Address [address] [place] [address] Care Team Providers Care Oracle Scm Consultant Name Role Phone Shruthi Chávez DO Primary Care Provider [phone] Mariaa Cruz MD Unavailable [phone] Encounter Details Date Type Department Care Team (Late st Contact Info) Description 10/05/2023 Telephone [facility] Medical Group Primary Care at [address] [place] [address] Shruthi Chávez DO [address] [address] Social History Tobacco Use Types [...] on file Legal Sex Female 3:59 AM ACID SPLICER Gender Identity Not on file Sexual Orientation Not on file documented as of this encounter Miscellaneous Notes * Telephone Encounter - Keena Chiu MA - 10/05/2023 10:18 AM CDT Error documented in this encounter Plan of Treatment Not on file documented as of this encounter Visit Diagnoses Not on filedocumented in this encounter Care Teams Oracle Scm Consultant Relationship Specialty Start Date End Date Shruthi Chávez DO [address] [place] [address] PCP - General Family Medicine 07/15/22 03/03/24 Mariaa Cruz MD [address] [place] [address] Referring Physician Gynecology 07/15/22 documented as of this encounter
--- OUTSIDE RECORDS SUMMARY | 2024-05-16 04:06 | XMS_ITS | Referral Summary ---
Author Organization [facility] Address [address] [place] [address] Care Team Providers Care Silk Brusher Name Role Phone Unavailable Primary Care Provider Unavailabl e Source Comments [facility],non-owned Affiliates and Associated Physician Practices is amultiple site organization consisting of ambulatory clinics and hospital sitesin [place], [place], [place] and [place]. This disclosure is being madepursuant to the Care Everywhere program and may not contain all information available regarding this patient. Last updated 18.[facility] Allergies No known active allergies Medications * [...]
--- OUTSIDE RECORDS SUMMARY | 2024-05-16 04:06 | XMS_ITS | Clinical Summary ---
Author Organization [address] Address [address] [place] [id number] Care Team Providers Care Manager Telemetry Name Role Phone Mariaa Cruz MD Unavailable [phone] Allergies Active Allergy Reactions Criticality Noted Date [...] previously with - patient denies using any cocz-zxt-mowepgk medication at this but has used epsom [...] 07/15/2022 Assessment & Plan (07/22/2022 11:12 AM PROGRAM MANAGER TRANSPORTATION): I favor that this was more a [...] on file Legal Sex Female 3:59 AM PROGRAM MANAGER TRANSPORTATION Gender Identity Not on file Sexual Orientation [...] HEPATITIS C ANTIBODY Routine 07/22/2022 11:15 AM PROGRAM MANAGER TRANSPORTATION Annual physical exam Encounter for hepatitis C screening test for low risk patient from Last 3 Months or Most Recently Relevant to Health Maintenance Results * Hepatitis C antibody (07/22/2022 11:15 AM PROGRAM MANAGER TRANSPORTATION) Hep C Ab Nonreactive Nonreactive TRACIE SANABRIA ([place]) Comment: Interpretive Data Nonreactive: Antibodies to HCV [...] last revised on 2019. Testing performed by: [facility], [address] [place] [address]., [address] Blood 07/22/2022 11:1 5 AM PROGRAM MANAGER TRANSPORTATION 07/22/2022 1:51 PM PROGRAM MANAGER TRANSPORTATION us Shruthi Chávez DO LAB MICROBIOLOGY - GENERAL ORDERABLES Edited Result - Final TRACIE SANABRIA ([place]) 1 [facility] Department [place] [address] from Last 3 Months or Most Recently Relevant to Health Maintenance Insurance [facility] AETNA SIG [id number] [facility] T SIG [id number] Care Teams Manager Telemetry Relationship Specialty Start Date End Date Mariaa Cruz MD [address] [address] Referring Physician Gynecology 07/15/22
--- OUTSIDE RECORDS SUMMARY | 2024-05-16 04:06 | XMS_ITS | Patient Health Summary ---
Author Organization [facility] Address [address] [place] [place] [address] Care Team Providers Care Station Worker Name Role Phone Unavailable Primary Care Provider Unavailabl e Note from [facility],non-owned Affiliates and Associated Physician Practices is amultiple site organization consisting of ambulatory clinics and hospital sitesin [place], [place], [place] and [place]. This disclosure is being madepursuant to the Care Everywhere program and may not contain all information available regarding this patient. Last updated 18.[facility] Allergies No known active allergies Medications * [...] CDT) Case Report Dermatopathology Report ? Case: [id number] ? Authorizing Provider: ??Ady Dickens MD ? [...] characteristic determined by the Dermatopathology Laboratory at [facility], directed by Dr. Lewis Velazco. These tests need not be, and therefore are not, approved by the [place] Food and Drug Administration. The tests are used for clinical purposes. Billing Codes Specimen Charges Stain Charges 63332 1 4 1:24 PM CDT DERMATOPATHOLOGY LABORATORY Embedded Images 1:24 PM CDT DERMATOPATHOLOGY LABORATORY Pathology/Cytolo gy TISSUE SPECIMEN FROM SKIN / Unknown 10/01/2023 3:33 AM CDT 10/05/2023 7:18 AM CDT Ady Dickens MD LAB - PATHOLOGY/CYTO LOGY ORDERABLES DERMATOPATHOLOGY LABORATORY [facility] - Department of Dermatology [address], [address] [phone] * STREP A SCREEN (08/25/2018) Strep A Rapid POCT Negative Negative Strep A Internal Control Present Lot # [id number] Expiration Date 02/25/2020 Throat ENTIRE THROAT (SURFACE REGION OF NECK) / Unknown 08/25/2018 Kateryna Tubbs DECORATOR [facility] LAB - POINT OF CARE ORDERABLES
--- OUTSIDE RECORDS SUMMARY | 2024-05-16 04:06 | XMS_ITS | Clinical Summary ---
Author Organization [facility] [employer] Address [address] [place] [address] Care Team Providers Care Technology Internship Name Role Phone Unavailable Primary Care Provider Unavailabl e Source Comments [facility],non-owned Affiliates and Associated Physician Practices is amultiple site organization consisting of ambulatory clinics and hospital sitesin [place], [place], [place] and [place]. This disclosure is being madepursuant to the Care Everywhere program and may not contain all information available regarding this patient. Last updated 18.[facility] Allergies No known active allergies Medications * [...]
--- OUTSIDE RECORDS SUMMARY | 2024-05-16 04:06 | XMS_ITS | Referral Summary ---
Author Organization [address] Address [address] [place] [id number] Care Team Providers Care Piping Design Specialist Name Role Phone Mariaa Cruz MD Unavailable [phone] Allergies Active Allergy Reactions Criticality Noted Date [...] previously with - patient denies using any bbuh-xev-rwzsffq medication at this but has used epsom [...] 07/15/2022 Assessment & Plan (07/22/2022 11:12 AM SCARFER): I favor that this was more a [...] on file Legal Sex Female 3:59 AM SCARFER Gender Identity Not on file Sexual Orientation [...] HEPATITIS C ANTIBODY Routine 07/22/2022 11:15 AM SCARFER Annual physical exam Encounter for hepatitis C screening test for low risk patient from Last 3 Months or Most Recently Relevant to Health Maintenance Results * Hepatitis C antibody (07/22/2022 11:15 AM SCARFER) Hep C Ab Nonreactive Nonreactive TRACIE SANABRIA ([place]) Comment: Interpretive Data Nonreactive: Antibodies to HCV [...] last revised on 2019. Testing performed by: [facility], [address] [place] [address], [place]., [address] Blood 07/22/2022 11:1 5 AM SCARFER 07/22/2022 1:51 PM SCARFER us Shruthi Chávez DO LAB MICROBIOLOGY - GENERAL ORDERABLES Edited Result - Final TRACIE SANABRIA ([place]) 1 [facility] Department [place] [address] from Last 3 Months or Most Recently Relevant to Health Maintenance Insurance [facility] AETNA SIG [id number] [facility] AETNA SIG [id number] Care Teams Piping Design Specialist Relationship Specialty Start Date End Date Mariaa Cruz MD [address] [address] Referring Physician Gynecology 07/15/22
--- OUTSIDE RECORDS SUMMARY | 2024-05-16 04:06 | XMS_ITS | Encounter Summary ---
Author Organization [facility] Healthcare Address [address] [place] [address] Care Team Providers Care Phlebotomy Support Tech Name Role Phone Shruthi Chávez Primary Care Provider [phone] Mariaa Cruz MD Unavailable [phone] Encounter Details Date Type Department Care Team (Late st Contact Info) Description 10/08/2023 Orders Only [facility] Medical Group Primary Care at [address] [place] [address] Ne Castro, SUPERVISOR ELEMENTARY EDUCATION 2 [facility] [address] [place] [address] Bleeding hemorrhoid (Primary Dx) [...] on file 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
--- OUTSIDE RECORDS SUMMARY | 2024-05-16 04:06 | XMS_ITS | Encounter Summary ---
Author Organization 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, [address] [place]., [address] Organism (CLINICALLY INSIGNIFICANT GROWTH TRACIE CANNON Urine, clean voided 09/26/2023 3:33 PM CDT 09/27/2023 12:20 AM CDT Narrative TRACIE CANNON - 09/28/2023 11:15 AM CDT Testing performed by [facility] Microbiology Laboratory ([phone]) us Celi Maradiaga NP LAB MICROBIOLOGY - GENERA L ORDERABLES Final Result TRACIE CANNON [address] Department [place] [address] documented in this encounter Visit Diagnoses Diagnosis Abdominal pain Abdominal pain, unspecified site documented in this encounter Care Teams Shredding Machine Operator Relationship Specialty Start Date End Date Shruthi Chávez DO [address] [address] [address] [place] [address] PCP - General Family Medicine 07/15/22 03/03/24 Mariaa Cruz MD [address] [place] [address] Referring Physician Gynecology 07/15/22 documented as of this encounter
--- OUTSIDE RECORDS SUMMARY | 2024-05-16 04:07 | XMS_ITS | Encounter Summary ---
Author Organization [facility] Healthcare Address [address] [place] [address] Care Team Providers Care Medical Lab Tech Instructor Name Role Phone Shruthi Chávezsaul MCCORMICK Primary Care Provider [phone] Mariaa Cruz MD Unavailable [phone] Encounter Details Date Type Department Care Team (Late st Contact Info) Description 07/22/2022 11:10 AM LABEL FUSER TENDER [address] [address] Annual physical exam; Encounter for screening examination [...] on file Legal Sex Female 3:59 AM LABEL FUSER TENDER Gender Identity Not on file Sexual Orientation Not on file documented as of this encounter Plan of Treatment Not on file documented as of this encounter Procedures Procedure Name Priority Date/Time Associated Diagnosis Comments THYROID FUNCTION CASCADE Routine 07/22/2022 11:15 AM LABEL FUSER TENDER Annual physical exam Screening for thyroid disorder URINALYSIS AND REFLEX TO MICROSCOPIC AND CULTURE Routine 07/22/2022 11:15 AM LABEL FUSER TENDER Annual physical exam Screening for blood or protein in urine HEPATITIS C ANTIBODY Routine 07/22/2022 11:15 AM LABEL FUSER TENDER Annual physical exam Encounter for hepatitis C screening test for low risk patient HEMOGLOBIN A1C Routine 07/22/2022 11:15 AM LABEL FUSER TENDER Annual physical exam Encounter for screening examination for impaired glucose regulation and diabetes mellitus LIPID PANEL Routine 07/22/2022 11:15 AM LABEL FUSER TENDER Annual physical exam Encounter for lipid screening for cardiovascular disease documented in this encounter Results * Urinalysis reflex to microscopic and culture Urine, clean voided (07/22/2022 11:15 AM LABEL FUSER TENDER) Color, ur Yellow Yellow [facility] ([place]) [...] ([place]) Urine, clean voided 07/22/2022 11:15 AM LABEL FUSER TENDER 07/22/2022 12:03 PM LABEL FUSER TENDER Narrative TRACIE SANABRIA ([place]) - 07/22/2022 12:08 PM LABEL FUSER TENDER ?? Urine pH is affected by diet, medications, systemic acid-base disturbances, and renal tubular function. ??pH may affect urinary stone formation. ??For example, urine pH below 6.0 may help reduce the tendency for calcium phosphate stones and pH greater than 6.0 may reduce the tendency for uric acid stone formation. Source: [facility] [employer]. Last revised 06-04-2017 us Shruthi Chávez DO LAB MICROBIOLOGY - GENERAL ORDERABLES Final Result Performing Organization Address [facility] Co de Phone Number TRACIE SANABRIA ([place]) 1 [facility] [place] [address] * TSH reflex to free T4 (07/22/2022 11:15 AM LABEL FUSER TENDER) TSH 1.41 0.30 - 4.20 mcIUnit/mL ALFREDFABI SANABRIA ([place]) Blood 07/22/2022 11:1 5 AM LABEL FUSER TENDER 07/22/2022 12:15 PM LABEL FUSER TENDER us Shruthi Chávez DO LAB BLOOD ORDERABLES Final Result Performing Organization Address [facility] de Phone Number TRACIE SANABRIA ([place]) 1 [facility] [employer] [place] [address] * (ABNORMAL) Lipid panel (07/22/2022 11:15 AM LABEL FUSER TENDER) Cholesterol 221(H) 30 - 199 mg/dL TRACIE [...] 2018. Non-HDL Cholesterol 85 mg/dL TRACIE SANABRIA ([place]) Comment: Interpretive Data Ages < or = [...] on 2018. Chol/HDL ratio 2 [facility]RIA ([place]) Blood 07/22/2022 11:1 5 AM LABEL FUSER TENDER 07/22/2022 12:15 PM LABEL FUSER TENDER us Shruthi Chávez DO LAB BLOOD ORDERABLES Final Result TRACIE SANABRIA ([place]) 1 [facility] Department [place] [address] * Hepatitis C antibody (07/22/2022 11:15 AM LABEL FUSER TENDER) Hep C Ab Nonreactive Nonreactive TRACIE SANABRIA [...] last revised on 2019. Testing performed by: [facility], [address] [place] [address]., [address] Blood 07/22/2022 11:1 5 AM LABEL FUSER TENDER 07/22/2022 1:51 PM LABEL FUSER TENDER Shruthi Chávez DO LAB MICROBIOLOGY - GENERAL ORDERABLES Edited Result - Final Performing Organization Address City/[facility]/ZIP Co de Phone Number ALFREDFABI SANABRIA ([place]) 1 [facility] [place] [address] * Hemoglobin A1c (07/22/2022 11:15 AM LABEL FUSER TENDER) Pathologist [facility] Hgb A1C 5.3 4.0 - 5.6 % TRACIE SANABRIA ([place]) Estimated Average Glucose 105 mg/dL TRACIE SANABRIA ([place]) Comment: The ADA recommends reporting an estimated Average Glucose (eAG) with all Hemoglobin A1c results using the equation derived from a study of 507 normal and diabetic adults. ??Minority populations were underrepresented and children were not included. ?? (Diabetes Care 31:2553-7513, 2008). ??The eAG is not equivalent to a fasting glucose. Blood 07/22/2022 11:1 5 AM LABEL FUSER TENDER 07/22/2022 12:14 PM LABEL FUSER TENDER Shruthi Chávez DO LAB BLOOD ORDERABLES Final Result TRACIE SANABRIA ([place]) 1 [facility] [place] [address] documented in this encounter Visit Diagnoses Diagnosis [...] condition documented in this encounter Care Teams Medical Lab Tech Instructor Relationship Specialty Start Date End Date Shruthi Chávez DO [address] [facility] [address] [address] [place] [address] PCP - General Family Medicine 07/15/22 03/03/24 Mariaa Cruz MD [address] [place] [address] Referring Physician Gynecology 07/15/22 documented as of this encounter
--- OUTSIDE RECORDS SUMMARY | 2024-05-16 04:07 | XMS_ITS | Encounter Summary ---
Author Organization [facility] Healthcare Address [address] [place] [address] Care Team Providers Care Catering Server Name Role Phone Unavailable Primary Care Provider Unavailabl e Encounter Details Date Type Department Care Team (Latest Contact Info) Description 07/03/2015 11:56 AM RESIN REMOVER - 07/04/2015 7:59 PM RESIN REMOVER Hospital Encounter [facility] Alan Roque, [address] [facility] [address] [place], [place] [id number] Cande Lemus Poisoning by antiallergic and antiemetic drugs, intentional self-harm, initial encounter ([facility]); Suicidal ideations; Unspecified place or not applicable; Major depressive disorder, single episode (CMS/HCC) Social History Tobacco Use Types Packs/Day Years Used Date Smoking Tobacco: Never Assessed Comments Unknown Sex and Gender Information Value Date Recorded Sex Assigned at Not on file Legal Sex Female 3:59 AM RESIN REMOVER Gender Identity Not on file Sexual Orientation Not on file documented as of this encounter Last Filed Vital Signs Vital Sign Reading Time Taken Comments Blood Pressure 113/67 07/04/2015 7:55 PM RESIN REMOVER Pulse 79 07/04/2015 7:55 PM RESIN REMOVER Temperature - - Respiratory Rate - - Oxygen Saturation - - Inhaled Oxygen Concentration - - Weight 46.7 kg (102 lb 15.3 oz) 016 11:57 AM RESIN REMOVER Height 160 cm (5' 2.99 ) 07/04/2015 11: 57 AM RESIN REMOVER Body Mass Index 18.24 07/04/2015 11:57 AM RESIN REMOVER documented in this encounter Discharge Summaries * ProviderJaison MD - 07/04/2015 12:00 AM CST DISCHARGE SUMMARY - [facility] Patient: JANETTE FREIRE Account: [id number] Room No: 259-03 : 1990 Patient Type: [...] Alan Coats MD On 07/05/2015 07:13 PM RESIN REMOVER Alan Coats D.O. EG/kb TD: 07/05/2015 11:22 documented in this encounter H&P Notes * Provider, MD Jaison - 07/03/2015 12:00 AM CST HISTORY AND PHYSICAL Patient: JANETTE FREIRE Account: [id number] Room No: 259-03 : 1990 Patient Type: [...] Cande Lemus MD On 07/10/2015 05:29 AM RESIN REMOVER Cande Lemus M.D. EN/me TD: 07/03/2015 20:26 documented in this encounter Plan of Treatment Not on file documented as of this encounter Procedures Procedure Name Priority Date/Time Associated Diagnosis Comments SERUM ESTIMATED GLOMERULAR FILTRATION RATE Routine 07/04/2015 6:13 AM RESIN REMOVER PLASMA COMPREHENSIVE METABOLIC PANEL Routine 07/04/2015 6:13 AM RESIN REMOVER BLOOD ETHANOL Routine 07/04/2015 6:13 AM RESIN REMOVER BLOOD CELL COUNT (CBC), MORPHOLOGIC EXAM Routine 07/04/2015 6:13 AM RESIN REMOVER BLOOD CELL MORPHOLOGIC EXAM Routine 07/04/2015 6:13 AM RESIN REMOVER STAPH AUREUS (MRSA/MSSA) CULTURE, CDR Routine 07/04/2015 5:06 AM RESIN REMOVER DISCHARGE LABORATORY CUMULATIVE REPORT 07/04/2015 XR CHEST 1 VIEW Routine 07/03/2015 10:02 AM RESIN REMOVER URINE DRUG SCREEN Routine 07/03/2015 9:1 3 AM RESIN REMOVER URINE CHORIONIC GONADOTROPIN (HCG) Routine 07/03/2015 9:13 AM RESIN REMOVER URINALYSIS Routine 07/03/2015 9:13 AM RESIN REMOVER SERUM THYROID-STIMULATING HORMONE (TSH) Routine 07/03/2015 8:50 AM RESIN REMOVER SERUM SALICYLATE DRUG LEVEL Routine 07/03/2015 8:50 AM RESIN REMOVER SERUM MAGNESIUM Routine 07/03/2015 8:50 AM RESIN REMOVER SERUM ESTIMATED GLOMERULAR FILTRATION RATE Routine 07/03/2015 8:50 AM RESIN REMOVER SERUM CREATINE KINASE (CK) Routine 07/03 8:50 AM RESIN REMOVER SERUM ACETAMINOPHEN DRUG LEVEL Routine 07/03/2015 8:50 AM RESIN REMOVER PLASMA COMPREHENSIVE METABOLIC PANEL Routine 07/03/2015 8:50 AM RESIN REMOVER BLOOD ETHANOL Routine 07/03/2015 8:50 AM RESIN REMOVER BLOOD CELL COUNT (CBC), MORPHOLOGIC EXAM Routine 07/03/2015 8:50 AM RESIN REMOVER BLOOD CELL MORPHOLOGIC EXAM Routine 07/03/2015 8:50 AM RESIN REMOVER ELECTROCARDIOGRAPHY (ECG) 07/03/2015 documented in this encounter Results * Plasma comprehensive metabolic panel (07/04/2015 6:13 AM RESIN REMOVER) Sodium 143 135 - 145 mmol/L HISTORICAL [...] mg/dl HISTORICAL RESULTS Plasma 07/04/2015 6:13 AM RESIN REMOVER Doroth[facility] S Allan LAB BLOOD ORDERABLES Final Resul t HISTORICAL RESULTS * Blood cell morphologic exam (07/04/2015 6:13 AM RESIN REMOVER) Neutrophils 62.5 44.0 - 80.0 % HISTORICAL [...] RESULTS Blood specimen (specimen) 07/04/2015 6:13 AM RESIN REMOVER [employer] LAB BLOOD ORDERABLES Final Resul t Performing Organization Address City/[facility] de Phone Number HISTORICAL RESULTS * Blood ethanol (07/04/2015 6:13 AM RESIN REMOVER) Ethanol, sr <10 <=10 mg/dl HISTORI CLIVE RESULTS Comment: Interpretive Data Normal: ??Less than 10 mg/dL = No Ethanol detected For medical purposes Current interpretive data was last revised on 2014. Blood specimen (specimen) 07/04/2015 6:13 AM RESIN REMOVER [facility] [employer] LAB BLOOD ORDERABLES Final Resul t Performing Organization Address City/[facility] de Phone Number HISTORICAL RESULTS * Blood cell count (CBC), morphologic exam (07/04/2015 6:13 AM RESIN REMOVER) WBC 8.5 3.8 - 9.8 K/cumm HISTORICAL [...] RESULTS Blood specimen (specimen) 07/04/2015 6:13 AM RESIN REMOVER [facility] Allan LAB BLOOD ORDERABLES Final Resul t Performing Organization Address [facility] de Phone Number HISTORICAL RESULTS * Serum estimated glomerular filtration rate (07/04/2015 6:13 AM RESIN REMOVER) eGFR >60 ml/min/1.7 3 m2 HISTORICAL RESULTS Comment: Interpretation of Estimated GFR (eGFR): Normal ?>/= 60 mL/min/1.73m2 Possible Chronic Kidney Disease ??15 - 59 mL/min/1.73m2 Possible Kidney Failure ?< 15 ??mL/min/1.73m2 If -Armenian multiply value by 1.16. ??Estimated glomerular filtration [...] valid in children. Serum 07/04/2015 6:13 AM [facility] LAB BLOOD ORDERABLES Final Resul t Performing Organization Address [facility] de Phone Number HISTORICAL RESULTS * Staph aureus (MRSA/MSSA) Culture (07/04/2015 5:06 AM RESIN REMOVER) Nasal (Unknown) 07/04/2015 5 :06 AM RESIN REMOVER Impressions HISTORICAL RESULTS - 07/05/2015 7:03 AM RESIN REMOVER Patient's Nasal specimens are processed for Methicillin-resistant Staphylococcus aureus (MRSA) only. Current interpretive data was last revised on 2014. Narrative HISTORICAL RESULTS - 07/05/2015 7:03 AM RESIN REMOVER No Methicillin Resistant Staph aureus cultured Historical Provider LAB MICROBIOLOGY - GENERA L ORDERABLES Final Result HISTORICAL RESULTS * DISCHARGE LABORATORY CUMULATIVE REPORT (07/04/2015) Narrative 07/04/2015 Ordered by an unspecified provider. us Historical Provider LAB BLOOD ORDERABLES Flor l Result * XR Chest 1 View (07/03/2015 10:02 AM RESIN REMOVER) Anatomical Region Laterality Modality Body, Chest N/A Radiographic Melissa ging 07/03/2015 10:0 2 AM RESIN REMOVER Narrative 07/03/2015 3:03 PM RESIN REMOVER XR Chest 1 View ? [id number] ??Acc#: ??[id number] DATE OF EXAM: ??b ??2015 CLINICAL HISTORY: [...] Fax: ??-- Attending Fax: ??-- Attending ID: ??[id number] Requesting ID: ??[id number] Report To 1 ID: ??[id number] Report To 1 Name: ??NAHUM LUCERO Report To 1 FAX: ??-- NextGen Order #: Procedure Note Provider, Jaison, - 09/23/2016 XR Chest 1 View [id number] Acc#: [id number] DATE OF EXAM: Jul 03 2015 CLINICAL [...] Fax: -- Attending Fax: -- Attending ID: [id number] Requesting ID: [id number] Report To 1 ID: [id number] Report To 1 Name: NAHUM LUCERO Report To 1 FAX: -- NextGen Order #: Historical Provider IMParker XR PROCEDURES Final R esult * Urine chorionic gonadotropin (HCG) (07/03/2015 9:13 AM RESIN REMOVER) HCG, ur Negative Negative HISTORICAL RESULTS Urine 07/03/2015 9:13 AM RESIN REMOVER Historical Provider LAB BLOOD ORDERABLES Flor l Result Performing Organization Address [facility] de Phone Number HISTORICAL RESULTS * Urinalysis (07/03/2015 9:13 AM RESIN REMOVER) Color, ur Yellow Yellow HISTORICAL RESULTS Clarity, [...] Negative HISTORICAL RESULTS Urine 07/03/2015 9:13 AM RESIN REMOVER Historical Provider LAB BLOOD ORDERABLES Flor l Result Performing Organization Address [facility]/State/ZIP Co de Phone Number HISTORICAL RESULTS * (ABNORMAL) Urine drug screen (07/03/2015 9:13 AM RESIN REMOVER) Amphetamine, ur Positive Screen(A) Negative Screen HISTORICAL [...] revised on 2014. Urine 07/03/2015 9:13 AM RESIN REMOVER us Historical Provider LAB BLOOD ORDERABLES Flor l Result HISTORICAL RESULTS * Serum creatine kinase (CK) (07/03/2015 8:50 AM RESIN REMOVER) CK 109 20 - 170 Units/L HISTORICAL RESULTS Serum 07/03/2015 8:50 AM RESIN REMOVER Historical Provider LAB BLOOD ORDERABLES Flor l Result Performing Organization Address City/[facility] Co de Phone Number HISTORICAL RESULTS * Serum magnesium (07/03/2015 8:50 AM RESIN REMOVER) Magnesium 2.1 1.6 - 2.4 mg/dl HISTORICAL RESULTS Serum 07/03/2015 8:50 AM RESIN REMOVER Historical Provider MD LAB BLOOD ORDERABLES Flor l Result Performing Organization Address [facility] de Phone Number HISTORICAL RESULTS * Serum thyroid-stimulating hormone (TSH) (07/03/2015 8:50 AM RESIN REMOVER) TSH 2.02 0.30 - 5.00 mcIUnits/ml HISTORICAL RESULTS Serum 07/03/2015 8:50 AM RESIN REMOVER Historical Provider LAB BLOOD ORDERABLES Flor l Result Performing Organization Address [facility] de Phone Number HISTORICAL RESULTS * (ABNORMAL) Plasma comprehensive metabolic panel (07/03/2015 8:50 AM RESIN REMOVER) Glucose 101 70 - 199 mg/dl HISTORICAL [...] mg/dl HISTORICAL RESULTS Plasma 07/03/2015 8:50 AM RESIN REMOVER Result [facility] Provider MD LAB BLOOD ORDERABLES Flor l Result Performing Organization Address [facility] de Phone Number HISTORICAL RESULTS * Serum acetaminophen drug level (07/03/2015 8:50 AM RESIN REMOVER) Acetaminophen <15.0 10.0 - 30.0 mg/L HISTORICAL [...] revised on 2014 Serum 07/03/2015 8:50 AM RESIN REMOVER Result [facility] Provider LAB BLOOD ORDERABLES Flor l Result Performing Organization Address [facility] Co de Phone Number HISTORICAL RESULTS * Serum salicylate drug level (07/03/2015 8:50 AM RESIN REMOVER) Salicylate <5.0 4.0 - 29.0 mg/dl HISTORICAL RESULTS Comment: Interpretive Data Therapeutic range: ??4-29 mg/dl ?? Toxic: ?30-70 mg/dl ? Lethal: ? Greater than 70 mg/dl Current interpretive data was last revised on 2014. Serum 07/03/2015 8:50 AM RESIN REMOVER us Historical Provider LAB BLOOD ORDERABLES Flor l Result Performing Organization Address City/[facility] Co de Phone Number HISTORICAL RESULTS * Blood cell morphologic exam (07/03/2015 8:50 AM RESIN REMOVER) Neutrophils 79.1 44.0 - 80.0 % HISTORICAL [...] RESULTS Blood specimen (specimen) 07/03/2015 8:50 AM RESIN REMOVER Result [facility] Historical Provider LAB BLOOD ORDERABLES Flor l Result Performing Organization Address [facility] de Phone Number HISTORICAL RESULTS * (ABNORMAL) Blood ethanol (07/03/2015 8:50 AM RESIN REMOVER) Pathologist [facility] Ethanol, sr 174(H) <=10 mg/dl HISTORI CLIVE RESULTS Comment: Interpretive Data Normal: ??Less than 10 mg/dL = No Ethanol detected For medical purposes Current interpretive data was last revised on 2014. Blood specimen (specimen) 07/03/2015 8:50 AM RESIN REMOVER Result [facility] Historical Provider MD LAB BLOOD ORDERABLES Flor l Result Performing Organization Address City/[facility] Co de Phone Number HISTORICAL RESULTS * (ABNORMAL) Blood cell count (CBC), morphologic exam (07/03/2015 8:50 AM RESIN REMOVER) WBC 7.4 3.8 - 9.8 K/cumm HISTORICAL [...] RESULTS Blood specimen (specimen) 07/03/2015 8:50 AM RESIN REMOVER Historical Provider LAB BLOOD ORDERABLES Flor l Result HISTORICAL RESULTS * Serum estimated glomerular filtration rate (07/03/2015 8:50 AM RESIN REMOVER) eGFR >60 ml/min/1.7 3 m2 HISTORICAL RESULTS Comment: Interpretation of Estimated GFR (eGFR): Normal ?>/= 60 mL/min/1.73m2 Possible Chronic Kidney Disease ??15 - 59 mL/min/1.73m2 Possible Kidney Failure ?< 15 ??mL/min/1.73m2 If -Armenian multiply value by 1.16. ??Estimated glomerular filtration [...] valid in children. Serum 07/03/2015 8:50 AM RESIN REMOVER Historical Provider LAB BLOOD ORDERABLES Flor l Result HISTORICAL RESULTS * ELECTROCARDIOGRAPHY (ECG) (07/03/2015) Narrative 07/03/2015 Ordered by an unspecified provider. us Historical Provider ECG ORDERABLES Final Res ult documented in this encounter Visit Diagnoses Diagnosis Poisoning by antiallergic and antiemetic drugs, intentional self-harm, initial encounter ([facility]) Suicidal ideations Unspecified place or not applicable Major depressive disorder, single episode Major depressive disorder, single episode, unspecified documented in this encounter
--- OUTSIDE RECORDS SUMMARY | 2024-05-16 04:07 | XMS_ITS | Encounter Summary ---
Author Organization [facility] Healthcare Address [address] [place] [address] Care Team Providers Care Cash Van Salesperson Name Role Phone Shruthi Chávez Primary Care Provider [phone] Mariaa Cruz MD Unavailable [phone] Encounter Details Date Type Department Care Team (Latest Contact Info) Description 11/07/2022 2:56 PM CDT - 11/07/2022 11:59 PM CDT Hospital Encounter [facility] [id number] [place] [address] Bilateral lower abdominal pain Discharge Disposition: Discharge [...] on file Legal Sex Female 3:59 AM RELOCATION MANAGER Gender Identity Not on file Sexual [...] total) by mouth daily 05/01/2022 08/12/2023 vit 71-ngsq-rugck-dha 27mg iron- 800 mcg-250 mg capsule Take [...] TRACIE CANNON Comment: Testing performed by the [facility]. This assay detects Chlamydia trachomatis and [...] GENERAL O RDERABLES Final Result TRACIE CANNON [id number] Department [place] [address] documented in this encounter Visit Diagnoses Diagnosis Bilateral lower abdominal pain documented in this encounter Care Teams Cash Van Salesperson Relationship Specialty Start Date End Date Shruthi Chávez DO [address] [place] [address] PCP - General Family Medicine 07/15/22 03/03/24 Mariaa Cruz MD [address] [place] [address] Referring Physician Gynecology 07/15/22 documented as of this encounter
--- OUTSIDE RECORDS SUMMARY | 2024-05-16 04:07 | XMS_ITS | Encounter Summary ---
Author Organization [facility] Address [address] [facility] [address] [place] [address] Care Team Providers Care Natural Gas Trader Name Role Phone Bettie Pires NP Primary Care Provider [phone] Reason for Referral * Diagnostic Imaging (Routine) - Closed Specialty Diagnoses / Procedures Referred By Contac t Referred To Contact Diagnoses Encounter to establish gestational age using ultrasound Procedures US Ob Under 14 Weeks Christian Martinez MD [address] [place] [address] [address] [place] [address] Phone: tel: fax: [facility] [address] [place] [phone] Phone: tel: fax: Referral ID Status Reason Start Date Expiration Date Visits Re quested Visits Authorized [id number] Closed 01/22/2021 02/21/2022 1 1 Reason for Visit * Reason Comments Ultrasound dates * Diagnostic Imaging (Routine) - Closed Specialty Diagnoses / Procedures Referred By Contac t Referred To Contact Diagnoses Encounter to establish gestational age using ultrasound Procedures US Ob Under 14 Weeks Christian Martinez MD [address] [place] [address] [address] [place] [address] Phone: tel: fax: [facility] [address] [place] [phone] Phone: tel: fax: Referral ID Status Reason Start Date Expiration Date Visits Re quested Visits Authorized [id number] Closed 01/22/2021 02/21/2022 1 1 Encounter Details Date Type Department Care Team (Isaac st Contact Info) Description 01/22/2021 10:00 AM CDT Office Visit [facility] [address] [place] [address] [address], [place] [address] Encounter to establish gestational age [...] on file Legal Sex Female 3:59 AM SHIPYARD PAINTER Gender Identity Not on file Sexual Orientation [...] Ultrasound Narrative 02/03/2021 6:40 PM CDT [facility] Obstetric Ultrasound Date of exam: 01/22/2021 [...] ultrasonics documented in this encounter Care Teams Natural Gas Trader Relationship Specialty Start Date End Date Bettie Pires NP PCP - General Internal Medicine 04/15/20 06/12/22 documented as of this encounter
--- OUTSIDE RECORDS SUMMARY | 2024-05-16 04:07 | XMS_ITS | Encounter Summary ---
Author Organization [facility] Healthcare Address [address] [place] [address] Care Team Providers Care Service Supervisor Name Role Phone Bettie Pires NP Primary Care Provider [phone] Encounter Details Date Type Department Care Team (Late st Contact Info) Description 04/16/2020 12:30 PM DISASTER RECOVERY ANALYST Lab [address] [address] Cough Social History Tobacco Use Types Packs/Day Years Used Date Smoking Tobacco: Never Assessed Comments Unknown Sex and Gender Information Value Date Recorded Sex Assigned at Not on file Legal Sex Female 3:59 AM DISASTER RECOVERY ANALYST Gender Identity Not on file Sexual Orientation Not on file documented as of this encounter Miscellaneous Notes * Result Encounter Note - Amie Singleton MA - 04/17/2020 8:43 AM CST Pt aware STER RECOVERY ANALYST * Result Encounter Note - Amie Prince MA - 04/17/2020 8:42 AM DISASTER RECOVERY ANALYST Left message to call back. STER RECOVERY ANALYST * Result Encounter Note - Gertrudis Shields NP - 04/17/2020 8:39 AM DISASTER RECOVERY ANALYST Please notify patient of negative covid-19 test. Patient should continue to self isolate until at least 10 days have passed since symptom onset and they have been fever free without the use of fever reducing medications for at least 24 hours. STER RECOVERY ANALYST documented in this encounter Plan of Treatment Not on file documented as of this encounter Procedures Procedure Name Priority Date/Time Associated Diagnosis Comments COVID-19 CORONAVIRUS RNA Routine 04/16/2020 10:01 AM DISASTER RECOVERY ANALYST Cough documented in this encounter Results * COVID-19 Coronavirus RNA Nasopharyngeal (04/16/2020 10:01 AM DISASTER RECOVERY ANALYST) COVID-19 RNA Not Detected TRACIE CH Comment: Interpretive Data Testing performed at [facility] Molecular Infectious Disease Laboratory. The 2018-Novel Coronavirus [...] Testing performed by: [facility], [address] [place] [address]., [address] First COVID-19 test? Unknown CERNER CH Comment:Testing performed by : [facility], [address] [place] [address], [address] Employeed in healthcare? No CERNER CH Comment:Testing performed by : [address] [address] status? No CERNER CH Comment:Testing performed by : [facility], [address] [place] [address]., [address] Group care resident? No CERNER CH Comment:Testing performed by : [address] [address] Hospitalized? No CERNER CH Comment:Testing performed by : [facility], [address] [place] [address], [address] Is patient in ICU? No CERNER CH Comment:Testing performed by : [facility], [address] [place]., [address] Symptomatic as defined by CDC? Yes TRACIE CANNON Comment:Testing performed by : [facility], [address] [place]., [address] Nasopharyngeal 04/16/2020 10 :01 AM DISASTER RECOVERY ANALYST 04/16/2020 8:56 PM DISASTER RECOVERY ANALYST Narrative TRACIE - 04/17/2020 5:19 AM DISASTER RECOVERY ANALYST What is the reason for testing?->Symptoms of COVID-19 in high-risk group (defined above in process inst.) Date of symptom onset->04/13/20 us Sparkle Gutierrez NP LAB MICROBIOLOGY - GENERAL ORD ERABLES Final Result TRACIE [address] Department [place] [address] documented in this encounter Visit Diagnoses Diagnosis Cough documented in this encounter Additional Health Concerns Infection Onset Date Last Indicated Resolved Time COVID: Suspected 04/16/2020 04/16/2020 04/17/2020 5:20 AM DISASTER RECOVERY ANALYST documented as of this encounter Care Teams Service Supervisor Relationship Specialty Start Date End Date Bettie Pires NP PCP - General Internal Medicine 04/15/20 06/12/22 documented as of this encounter
--- OUTSIDE RECORDS SUMMARY | 2024-05-16 04:07 | XMS_ITS | Encounter Summary ---
Author Organization [facility] Medical [facility] Address [address] [place] [address] Care Team Providers Care Buffer Chrome Name Role Phone Shruthi Chávez DO Primary Care Provider [phone] Mariaa Cruz MD Unavailable [phone] Reason for Referral * Consultation (Routine) - Closed Specialty Diagnoses / Procedures Referred By Deb correa Referred To Contact General Surgery Diagnoses Hernia of anterior abdominal wall Shruthi Chávez DO Phone: tel: fax: Teto Roberto MD [address] [place] [address] Phone: tel: fax: Referral ID Status Reason Start Date Expiration Date V isits Requested Visits Authorized [id number] Closed Specialty Services Required 07/15/2022 08/14/2023 4 4 Question Answer Please select the performing region: [facility] [[id number]] Please select the performing department: [facility] SURGERY [[id number]] To provider: TETO ROBERTO [[id number]] # of visits: 4 ROOM ENGINEER Reason for Visit * Reason Comments Annual Exam Pt. Presents in offi ce to establish care; possible hernia Encounter Details Date Type Department Care Team (Late st Contact Info) Description 07/15/2022 2:30 PM DUB ROOM ENGINEER Office Visit [facility] Primary Care at [address] [place] [address] Shruthi Chávez, [address] [place] [address] Annual physical exam (Primary Dx); Hernia of [...] on file Legal Sex Female 3:59 AM DUB ROOM ENGINEER Gender Identity Not on file Sexual Orientation Not on file documented as of this encounter Last Filed Vital Signs Vital Sign Reading Time Taken Comments Blood Pressure 86/58 07/15/2022 2:35 PM DUB ROOM ENGINEER Pulse 67 07/15/2022 2:35 PM DUB ROOM ENGINEER Temperature 36.6 ??C (97.8 ??F) 07/15/2022 2:35 PM CS T Respiratory Rate 18 07/15/2022 2:35 PM DUB ROOM ENGINEER Oxygen Saturation 99% 07/15/2022 2:35 PM DUB ROOM ENGINEER Inhaled Oxygen Concentration - - Weight 56.1 kg (123 lb 11.2 oz) 07/15/2022 2:35 PM DUB ROOM ENGINEER Height 157.5 cm (5' 2.01 ) 07/15/2022 2:35 PM CS T Body Mass Index 22.62 07/15/2022 2:35 PM DUB ROOM ENGINEER documented in this encounter Patient Instructions * Patient Instructions* Shruthi Chávez, DO - 07/15/2022 2:30 PM DUB ROOM ENGINEER Images from the original note were not included. Patient Education Wellness Visit for Adults COMMUNITY RELATIONS DIRECTOR: A wellness visit is when you see [...] typesof viruses cause the flu. The viruses change release manager time, so new vaccines are made each [...] could distract you and cause an accident. voice over artist if you need to make a call [...] boat or doing water sports. ?? 2017 [employer] Information is for End User's use only and may not be sold, redistributed or otherwise used for commercial purposes. All illustrations and images included in CareNotes?? are the copyrighted property of [email or web address]. or [employer]. The above information is an neuropsychiatric aide only. It is not intended as medical advice for individual conditions or treatments. Talk to your doctor, nurse or pharmacist before following any medical regimen to see if it is safe and effective for you. Patient Education Breast Self Exam for Women COMMUNITY RELATIONS DIRECTOR: A breast self-exam (BSE) is a way [...] Check your breasts while you sit or computerized machine fabric cutter the following 3 positions: Hang your arms [...] ask them during your visits. ?? 2017 [employer] Information is for End User's use only and may not be sold, redistributed or otherwise used for commercial purposes. All illustrations and images included in CareNotes?? are the copyrighted property of [facility]. or [employer]. The above information is an neuropsychiatric aide only. It is not intended as [...] done Thanks for coming in today! My medical billing coder and I are thankful you have trusted us with your care, and hope that you received EXCELLENT care today! Although some conditions may not allow immediate improvement, I aim to always make you feel a little better leaving, than when you came in. [place] not hesitate to call, if you have any questions or concerns, at [phone]. You may receive a phone call, text, MYCHART message, or e-mail asking you to take a survey about your care today. We would love to hear your feedback on how EXCELLENT your care was today! Wishing you better health, always! Dr. Shruthi Chávez ROOM ENGINEER documented in this encounter Progress Notes [...] This note is dictated and transcribed by [employer] Direct [employer]. Tour Operator variances may occur. Despite proofreading, typographical errors may occur. ROOM ENGINEER documented in this encounter Plan of Treatment Scheduled Referrals Name Type Priority Associated Diagnoses Order Schedule Ambulatory referral to General Surgery Outpatient Referral Routine Hernia of anterior abdominal wall Expected: 07/16/2022 (Approximate), Expires: 07/15/2023 documented as of this encounter Results * Urinalysis reflex to microscopic and culture Urine, clean voided (07/22/2022 11:15 AM DUB ROOM ENGINEER) Color, ur Yellow Yellow [facility] ([place]) [...] (MARIE) Urine, clean voided 07/22/2022 11:15 AM DUB ROOM ENGINEER 07/22/2022 12:03 PM DUB ROOM ENGINEER Narrative TRACIE SANABRIA ([place]) - 07/22/2022 12:08 PM DUB ROOM ENGINEER ?? Urine pH is affected by diet, medications, systemic acid-base disturbances, and renal tubular function. ??pH may affect urinary stone formation. ??For example, urine pH below 6.0 may help reduce the tendency for calcium phosphate stones and pH greater than 6.0 may reduce the tendency for uric acid stone formation. Source: [facility] [employer]. Last revised 06-04-2017 Shruthi Chávez DO LAB MICROBIOLOGY - GENERAL ORDERABLES Final Result Performing Organization Address City/[facility]/ZIP Co de Phone Number TRACIE SANABRIA ([place]) [address] [facility] [place] [address] * TSH reflex to free T4 (07/22/2022 11:15 AM DUB ROOM ENGINEER) TSH 1.41 0.30 - 4.20 mcIUnit/mL TRACIE SANABRIA ([place]) Blood 07/22/2022 11:1 5 AM DUB ROOM ENGINEER 07/22/2022 12:15 PM DUB ROOM ENGINEER Shruthi Chávez DO LAB BLOOD ORDERABLES Final Result Performing Organization Address [facility] Co de Phone Number TRACIE SANABRIA ([place]) 1 [facility] [place] [address] * (ABNORMAL) Lipid panel (07/22/2022 11:15 AM DUB ROOM ENGINEER) Cholesterol 221(H) 30 - 199 mg/dL TRACIE [...] SANABRIA ([place]) Blood 07/22/2022 11:1 5 AM DUB ROOM ENGINEER 07/22/2022 12:15 PM DUB ROOM ENGINEER us Shruthi Chávez DO LAB BLOOD ORDERABLES Final Result TRACIE SANABRIA ([place]) 1 [facility] [place] [address] * Hepatitis C antibody (07/22/2022 11:15 AM DUB ROOM ENGINEER) Pathologist [facility] Hep C Ab Nonreactive Nonreactive [facility] ([place]) Comment: Interpretive Data Nonreactive: Antibodies to HCV [...] last revised on 2019. Testing performed by: [facility], [address] [place] [address], [place]., [address] Blood 07/22/2022 11:1 5 AM DUB ROOM ENGINEER 07/22/2022 1:51 PM DUB ROOM ENGINEER us Shruthi Chávez DO LAB MICROBIOLOGY - GENERAL ORDERABLES Edited Result - Final Performing Organization Address City/[facility]/ZIP Co de Phone Number [facility] ([place]) 1 [facility] [place] [address] * Hemoglobin A1c (07/22/2022 11:15 AM DUB ROOM ENGINEER) [facility] Hgb A1C 5.3 4.0 - 5.6 % TRACIE [facility] ([place]) Estimated Average Glucose 105 mg/dL TRACIE [facility] ([place]) Comment: The ADA recommends reporting an estimated Average Glucose (eAG) with all Hemoglobin A1c results using the equation derived from a study of 507 normal and diabetic adults. ??Minority populations were underrepresented and children were not included. ?? (Diabetes Care 31:4815-1906, 2008). ??The eAG is not equivalent to a fasting glucose. Blood 07/22/2022 11:1 5 AM DUB ROOM ENGINEER 07/22/2022 12:14 PM DUB ROOM ENGINEER us Shruthi Chávez DO LAB BLOOD ORDERABLES Final Result [facility] ([place]) 1 [facility] [place] [address] documented in this encounter Visit Diagnoses Diagnosis [...] by mouth once a week 08/12/2023 vit 69-jtsj-evful-dha 27mg iron- 800 mcg-250 mg capsule Take by mouth 08/12/2023 busPIRone (BUSPAR) 5 mg tablet 07/06/2022 08/12/2023 Incassia 0.35 mg tablet Take 1 tablet (0.35 mg total) by mouth daily 05/01/2022 08/12/2023 added in this encounter Care Teams Buffer Chrome Relationship Specialty Start Date End Date Shruthi Chávez DO [address] [place] [address] PCP - General Family Medicine 07/15/22 03/03/24 Mariaa Cruz MD [address] [address] Referring Physician Gynecology 07/15/22 documented as of this encounter
--- OUTSIDE RECORDS SUMMARY | 2024-05-16 04:07 | XMS_ITS | Encounter Summary ---
Author Organization [facility] Address [address] [place] [address] Care Team Providers Care Rope Cleaner Name Role Phone Bettie Pires NP Primary Care Provider [phone] Reason for Visit * Reason Comments COVID-19 EVALUATION Cough, body aches, S OB, loss of taste and smell, diarrhea and vomiting, sore throat, headache and fatigue. + covid exposure Encounter Details Date Type Department Care Team (Late st Contact Info) Description 04/29/2020 2:30 PM KILN OPERATOR HELPER Office Visit [facility] [address] [place] [address] Rubia Silverman NP [address] [place] [address] Flu-like symptoms (Primary Dx); Sore throat; Close exposure to COVID-19 virus Social History Tobacco Use Types Packs/Day Years Used Date Smoking Tobacco: Never Comments Unknown Sex and Gender Information Value Date Recorded Sex Assigned at Not on file Legal Sex Female 3:59 AM KILN OPERATOR HELPER Gender Identity Not on file Sexual Orientation Not on file documented as of this encounter Last Filed Vital Signs Vital Sign Reading Time Taken Comments Blood Pressure 100/58 04/29/2020 2:28 PM KILN OPERATOR HELPER Pulse 88 04/29/2020 2:28 PM KILN OPERATOR HELPER Temperature 36.8 ??C (98.3 ??F) 04/29/2020 2:28 PM CS T Respiratory Rate 16 04/29/2020 2:28 PM KILN OPERATOR HELPER Oxygen Saturation 97% 04/29/2020 2:28 PM KILN OPERATOR HELPER Inhaled Oxygen Concentration - - Weight 54.4 kg (120 lb) 04/29/2020 2:28 PM KILN OPERATOR HELPER Height 157.5 cm (5' 2 ) 04/29/2020 2:28 PM KILN OPERATOR HELPER Body Mass Index 21.95 04/29/2020 2:28 PM KILN OPERATOR HELPER documented in this encounter Patient Instructions * Patient Instructions* Herrera Rubia Disha, SALESPERSON FLOOR COVERINGS - 04/29/2020 2:30 PM KILN OPERATOR HELPER The CDC and local health departments recommend [...] positive or negative results. The [facility] Department will be reaching out to all [...] loosen secretions in the nose and lungs. Qzgz-mrh-mvlczid cold medicines will not shorten the length of time you???re sick, but they may be helpful for the following symptoms: cough, sore throat, and nasal and sinus congestion. If you take prescription medicines, ask your healthcare provider or pharmacist which zgew-eme-vhvylvh medicines are safe to use. (Note: Don't use decongestants if you have high blood pressure.) If you develop worsening of shortness of breath, high fevers or other concerning symptoms, go to the ER. OPERATOR HELPER documented in this encounter Progress Notes * [...] ear normal. Nose: Nose normal. Mouth/Throat: Lips: [place]. Mouth: Mucous membranes are moist. Pharynx: Oropharynx [...] influenza A/B ??? POCT rapid strep A OPERATOR HELPER documented in this encounter Plan of Treatment Not on file documented as of this encounter Procedures Procedure Name Priority Date/Time Associated Diagnosis Comments POCT INFLUENZA A/B Routine 04/29/2020 2: 45 PM KILN OPERATOR HELPER Flu-like symptoms Sore throat Close exposure to COVID-19 virus POCT RAPID STREP Routine 04/29/2020 2:41 PM KILN OPERATOR HELPER Flu-like symptoms Sore throat Close exposure to COVID-19 virus documented in this encounter Results * POCT influenza A/B (04/29/2020 2:45 PM KILN OPERATOR HELPER) Rapid Influenza A Ag Negative Negative, Invalid Rapid Influenza B Ag Negative Negative, Invalid Nasopharyngeal 04/29/2020 2: 45 PM KILN OPERATOR HELPER Rubia Silverman SALESPERSON FLOOR COVERINGS POINT OF CARE TEST ORDERABLES F inal Result * POCT rapid strep A (04/29/2020 2:41 PM KILN OPERATOR HELPER) Pathologist [facility] Rapid Strep A, POC Negative Swab 04/29/2020 2:41 PM KILN OPERATOR HELPER Rubia Silverman SALESPERSON FLOOR COVERINGS POINT OF CARE TEST ORDERABLES F inal Result * (ABNORMAL) COVID-19 Coronavirus RNA Nasopharyngeal (04/29/2020 2:21 PM KILN OPERATOR HELPER) Pathologist [facility] COVID-19 RNA Detected( A) TRACIE Comment: Interpretive Data Testing performed by the [facility] Infectious Disease [facility]. The 2019-Novel Coronavirus [...] revised on 2019. Testing performed by: [facility], [address] [place] [address], [place]., [address] Employeed in healthcare? No CERFABI Comment:Testing performed by : [facility], [address] [facility] [place]., [address] status? No CERNER Comment:Testing performed by : [facility], [address] [place]., [address] Group care resident? No [facility] Comment:Testing performed by : [facility], [address] [place]., [address] Hospitalized? No [facility] Comment:Testing performed by : [facility], [address] [place]., [address] Is patient in ICU? No [facility] Comment:Testing performed by : [facility], [address] [facility], [address] Symptomatic as defined by CDC? Yes [facility] Comment:Testing performed by : [facility], [address] [facility], [address] Nasopharyngeal 04/29/2020 2: 21 PM KILN OPERATOR HELPER 04/30/2020 8:58 AM KILN OPERATOR HELPER Narrative TRACIE - 04/30/2020 6:55 PM KILN OPERATOR HELPER What is the reason for testing?->Symptoms of COVID-19 in high-risk group (defined above in process inst.) Date of symptom onset->04/25/20 Rubia Silverman NP LAB MICROBIOLOGY - GENERAL VETO HAGER Final Result TRACIE [address] Department [place] [address] documented in this encounter Visit Diagnoses Diagnosis Flu-like symptoms- Primary Sore throat Acute pharyngitis Close exposure to COVID-19 virus Flu-like symptoms Sore throat Acute pharyngitis Close exposure to COVID-19 virus documented in this encounter Additional Health Concerns Infection Onset Date Last Indicated Resolved Time Respiratory Infection ([place]), contact + droplet Comment:Automatically added due to negative COVID-19 result. 04/17/2020 04/17/2020 05/01/2020 3:0 6 AM KILN OPERATOR HELPER COVID: Suspected 04/29/2020 04/29/2020 04/30/2020 6:55 PM KILN OPERATOR HELPER documented as of this encounter Care Teams Rope Cleaner Relationship Specialty Start Date End Date Bettie Pires NP PCP - General Internal Medicine 04/15/20 06/12/22 documented as of this encounter
--- OUTSIDE RECORDS SUMMARY | 2024-05-16 04:07 | XMS_ITS | Encounter Summary ---
Author Organization [facility] Healthcare Address [address] [place] [address] Care Team Providers Care Paper Machine Backtender Name Role Phone Bettie Pires NP Primary Care Provider [phone] Reason for Visit * Reason Comments Pain With Breathing Encounter Details Date Type Department Care Team (Late st Contact Info) Description 06/07/2020 4:32 PM SINTERING PRESS OPERATOR - 06/07/2020 5:59 PM SINTERING PRESS OPERATOR Emergency [facility] Emergency Department [address] [place] [id number] Dyspnea, unspecified type (Primary Dx); Acute chest wall pain Discharge Disposition: Discharge to home or self care Social History Tobacco Use Types Packs/Day Years Used Date Smoking Tobacco: Every Day Comments No Sex and Gender Information Value Date Recorded Sex Assigned at Not on file Legal Sex Female 3:59 AM SINTERING PRESS OPERATOR Gender Identity Not on file Sexual Orientation Not on file documented as of this encounter Last Filed Vital Signs Vital Sign Reading Time Taken Comments Blood Pressure 132/80 06/07/2020 4:29 PM SINTERING PRESS OPERATOR Pulse 80 06/07/2020 4:29 PM SINTERING PRESS OPERATOR Temperature 36.2 ??C (97.2 ??F) 06/07/2020 4:29 PM CS T Respiratory Rate 20 06/07/2020 4:29 PM SINTERING PRESS OPERATOR Oxygen Saturation 100% 06/07/2020 4:29 PM SINTERING PRESS OPERATOR Inhaled Oxygen Concentration - - Weight 54.4 kg (120 lb) 06/07/2020 4:29 PM SINTERING PRESS OPERATOR Height 157.5 cm (5' 2 ) 06/07/2020 4:29 PM SINTERING PRESS OPERATOR Body Mass Index 21.95 06/07/2020 4:29 PM SINTERING PRESS OPERATOR documented in this encounter Discharge Diagnoses Diagnosis Dyspnea, unspecified - DYSPNEA, UNSPECIFIED Other chest pain - OTHER CHEST PAIN documented in this encounter Discharge Instructions * Discharge Instructions* Madelaine Sánchez NP - 06/07/2020 5:51 PM SINTERING PRESS OPERATOR Use over the counter Tylenol and Motrin per manufacturers guidelines for relief of pain and fever. Follow up with without fail. ERING PRESS OPERATOR * Attachments The following attachments cannot be sent through Care Everywhere. * Chest Pain, Noncardiac ([place]) * Dyspnea (AfterCare(R) Instructions(ER/ED)) ([place]) documented in this encounter Medications at Time [...] ear normal. Nose: Nose normal. Mouth/Throat: Lips: [place]. Mouth: Mucous membranes are moist. Eyes: General: [...] and Memory: Cognition normal. Judgment: Judgment normal. [facility] ED Course as of Jun 07 [...] Edgar Greene MD at 06/07/2020 6:55 PM SINTERING PRESS OPERATOR ERING PRESS OPERATOR ERING PRESS OPERATOR * Carmel Hearn RN - 06/07/2020 4:31 PM CST Pt presents to ER with c/o chest pain upon inspiration. ERING PRESS OPERATOR documented in this encounter Plan of Treatment Not on file documented as of this encounter Procedures Procedure Name Priority Date/Time Associated Diagnosis Comments EGFR STAT 06/07/2020 5:02 PM SINTERING PRESS OPERATOR DIFFERENTIAL AUTO STAT 06/07/2020 5:0 2 PM SINTERING PRESS OPERATOR CBC WITH AUTO DIFFERENTIAL STAT 06/07/2020 5:02 PM SINTERING PRESS OPERATOR D-DIMER, QUANTITATIVE STAT 06/07/2020 5:02 PM SINTERING PRESS OPERATOR COMPREHENSIVE METABOLIC PANEL STAT 06/07/2020 5:02 PM SINTERING PRESS OPERATOR XR CHEST PA LATERAL 2 VIEWS ED 06/07/2020 4:50 PM SINTERING PRESS OPERATOR ECG 12-LEAD STAT 06/07/2020 4:07 PM SINTERING PRESS OPERATOR documented in this encounter Results * eGFR (06/07/2020 5:02 PM SINTERING PRESS OPERATOR) eGFR 106 mL/min/1.7 3 m2 TRACIE [...] 2020 Blood specimen (specimen) 06/07/2020 5:02 PM SINTERING PRESS OPERATOR 06/07/2020 5:18 PM SINTERING PRESS OPERATOR Madelaine Sánchez NP LAB BLOOD ORDERABLES Final Result [facility] ([place]) 1 [facility] Department [place] [address] * Differential, auto (06/07/2020 5:02 PM SINTERING PRESS OPERATOR) Neutrophil abs 5.3 1.7 - 6.5 [...] 2017. Basophil pct 0.3 % TRACIE SANABRIA ([place]) Comment: Interpretive Data Percent cell count reference ranges are not reported, since discordance with absolute values may lead to misinterpretation of CBC data. Current Interpretive Data was last revised on 2017. Blood specimen (specimen) 06/07/2020 5:02 PM SINTERING PRESS OPERATOR 06/07/2020 5:18 PM SINTERING PRESS OPERATOR Madelaine Sánchez NP LAB BLOOD ORDERABLES Final Result TRACIE SANABRIA ([place]) 1 [facility] [place] [address] * D-dimer, quantitative (06/07/2020 5:02 PM SINTERING PRESS OPERATOR) D-Dimer 219 <=499 ng/mL FEU TRACIE SANABRIA ([place]) Comment: Interpretive data FDA approved the D-dimer, [...] 2019. Blood specimen (specimen) 06/07/2020 5:02 PM SINTERING PRESS OPERATOR 06/07/2020 5:18 PM SINTERING PRESS OPERATOR us Madelaine Sánchez NP LAB BLOOD ORDERABLES Final Result [facility] ([place]) 1 [facility] Department [place] [address] * (ABNORMAL) Comprehensive metabolic panel (06/07/2020 5:02 PM SINTERING PRESS OPERATOR) Sodium 138 135 - 145 mmol/L [...] (MARIE) Blood specimen (specimen) 06/07/2020 5:02 PM SINTERING PRESS OPERATOR 06/07/2020 5:18 PM SINTERING PRESS OPERATOR us Madelaine Sánchez STRIPPING SHOVEL OPERATOR LAB BLOOD ORDERABLES Final Result [facility] ([place]) 1 [facility] [place] [address] * CBC with auto differential (06/07/2020 5:02 PM SINTERING PRESS OPERATOR) WBC 8.6 3.8 - 9.9 K/cumm [...] (MARIE) Blood specimen (specimen) 06/07/2020 5:02 PM SINTERING PRESS OPERATOR 06/07/2020 5:18 PM SINTERING PRESS OPERATOR us Madelaine Sánchez STRIPPING SHOVEL OPERATOR LAB BLOOD ORDERABLES Final Result [facility] ([place]) [address] [facility] [place] [address] * XR Chest Pa Lateral 2 Vw (06/07/2020 4:50 PM SINTERING PRESS OPERATOR) Anatomical Region Laterality Modality Body, Chest N/A Computed Radiogr aphy 06/07/2020 4:52 PM SINTERING PRESS OPERATOR Impressions 06/07/2020 4:54 PM SINTERING PRESS OPERATOR No radiographic evidence of acute cardiopulmonary abnormality. Electronically signed by: Cristo Brandon M.D. Narrative 06/07/2020 4:54 PM SINTERING PRESS OPERATOR EXAMINATION: XR CHEST PA LATERAL 2 [...] by: Cristo Brandon M.D. us Madelaine Sánchez STRIPPING SHOVEL OPERATOR IMG XR PROCEDURES Final Res ult * ECG 12 lead (06/07/2020 4:07 PM SINTERING PRESS OPERATOR) 06/07/2020 4:07 PM SINTERING PRESS OPERATOR Narrative [facility] - 06/08/2020 8:31 AM SINTERING PRESS OPERATOR Vent Rate: 89 bpm RR Interval: 670 msec RI Interval: 117 msec QRS Duration: 86 msec QT Interval: 348 msec QTC Interval: 395 msec P-R-T [place]: 62 - 71 - 56 degrees SINUS RHYTHM WITH SHORT RI INTERVAL POSSIBLE RIGHT VENTRICULAR CONDUCTION DELAY [RSR (QR) IN V1/V2] MINIMAL ST DEPRESSION [0.025+ mV ST DEPRESSION] Possible left atrial enlargement Compared to prior EKG, no significant change Electronically Signed By: Dr Van Mir us Madelaine Sánchez NP ECG ORDERABLES Final Resul t [facility] documented in this encounter Visit Diagnoses Diagnosis Dyspnea, unspecified type- Primary Acute chest wall pain documented in this encounter Additional Health Concerns Infection Onset Date Last Indicated Resolved Time COVID: Recovered Comment:Added based on recent COVID infection. 05/13/2020 06/07/2020 09/10/2020 3:06 AM C DT documented as of this encounter Care Teams Paper Machine Backtender Relationship Specialty Start Date End Date Bettie Pires NP PCP - General Internal Medicine 04/15/20 06/12/22 documented as of this encounter
--- OUTSIDE RECORDS SUMMARY | 2024-05-16 04:07 | XMS_ITS | Encounter Summary ---
Author Organization [facility] Medical Group Address [address] [facility] [address] [place] [address] Care Team Providers Care Route Inspector Name Role Phone Bettie Pires NP Primary Care Provider [phone] Reason for Visit * Reason Comments COVID-19 EVALUATION Pt c/o sinus sx, POLANCO, ear pain, sore throat, dry cough, diarrhea, vomiting, BA, and fatigue,. x3days Encounter Details Date Type Department Care Team (Late st Contact Info) Description 04/16/2020 10:00 AM DISTRIBUTION ANALYST Office Visit [facility] [address] [facility] [address] [place] [address] Sparkle Gutierrez, KRYSTAL [address] [place] [address] Cough (Primary Dx); Sore throat Social History Tobacco Use Types Packs/Day Years Used Date Smoking Tobacco: Never Assessed Comments Unknown Sex and Gender Information Value Date Recorded Sex Assigned at Not on file Legal Sex Female 3:59 AM DISTRIBUTION ANALYST Gender Identity Not on file Sexual Orientation Not on file documented as of this encounter Last Filed Vital Signs Vital Sign Reading Time Taken Comments Blood Pressure 110/64 04/16/2020 9:45 AM DISTRIBUTION ANALYST Pulse 82 04/16/2020 9:46 AM DISTRIBUTION ANALYST L zurita d Temperature 36.9 ??C (98.4 ??F) 04/16/2020 9:45 AM CS T Respiratory Rate 14 04/16/2020 9:45 AM DISTRIBUTION ANALYST Oxygen Saturation 93% 04/16/2020 9:46 AM DISTRIBUTION ANALYST L hand Inhaled Oxygen Concentration - - Weight 54.4 kg (120 lb) 04/16/2020 9:45 AM DISTRIBUTION ANALYST Height 157.5 cm (5' 2 ) 04/16/2020 9:45 AM DISTRIBUTION ANALYST Body Mass Index 21.95 04/16/2020 9:45 AM DISTRIBUTION ANALYST documented in this encounter Patient Instructions * Patient Instructions* Sparkle Gutierrez PILLOWCASE CUTTER - 04/16/2020 10:00 AM DISTRIBUTION ANALYST Swabbed for COVID-19 today in clinic. [...] patient with positive or negative results. The [facility] will be reaching out to [...] loosen secretions in the nose and lungs. Liug-tjl-xtzujrg cold medicines will not shorten the length of time you???re sick, but they may be helpful for relieving the following symptoms: headache, cough, sore throat, and nasal and sinus congestion. If you take prescription medicines, ask your healthcare provider or pharmacist which zgnm-cln-yckegac medicines are safe to use. (Note: DO [...] yourself. Get rest and stay hydrated. Take youh-iol-qdwdune medicines to help you feel better. ??? [...] and need to call 911, notify the dredge operator supervisor that you have or think you might [...] with someone who is sick visit https://www.cdc .gov/coronavirus/2019-ncov/cyecp-dtug-dbfosd/nkigfd-us-vslxk-quarters.html For more information on COVID-19 and pets [...] clean your hands with an alcohol-based hand audit control clerk that contains at least 60% alcohol. Clean your hands often ??? Wash your hands often with soap and water for at least 20 seconds. This is especially importantafter blowing your nose, coughing, or sneezing; going to the bathroom; and before eating or preparing food. ??? Use hand audit control clerk if soap and water are not available. Use an alcohol-based hand audit control clerk with at least 60% alcohol, covering all [...] and water or put them in the feed manager. Clean all ???high-touch?? surfaces everyday. 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 Patient has following risks for COVID-19: none [...] tenderness or frontal sinus tenderness. Mouth/Throat: Lips: [place]. Mouth: Mucous membranes are moist. No oral [...] Answer: No ??? POCT rapid strep A RIBUTION ANALYST documented in this encounter Plan of Treatment Not on file documented as of this encounter Procedures Procedure Name Priority Date/Time Associated Diagnosis Comments POCT RAPID STREP Routine 04/16/2020 9:56 AM DISTRIBUTION ANALYST Sore throat documented in this encounter Results * COVID-19 Coronavirus RNA Nasopharyngeal (04/16/2020 10:01 AM DISTRIBUTION ANALYST) COVID-19 RNA Not Detected TRACIE CANNON Comment: Interpretive Data Testing performed at [facility] Molecular Infectious Disease Laboratory. The Novel Coronavirus [...] last revised on 2019. Testing performed by: [facility], [address] [place] [address], [place]., [address] First COVID-19 test? Unknown TRACIE CANNON Comment:Testing performed by : [facility], [address] [facility], [address] Employeed in healthcare? No ALFREDNER Comment:Testing performed by : [facility], [address] [facility], [address] status? No CERNER Comment:Testing performed by : [facility], [address] [facility], [address] Group care resident? No TRACIE Comment:Testing performed by : [facility], [address] [facility], [address] Hospitalized? No CERNER Comment:Testing performed by : [facility], [address] [facility], [address] Is patient in ICU? No TRACIE Comment:Testing performed by : [facility], [address] [facility], [address] Symptomatic as defined by CDC? Yes TRACIE Comment:Testing performed by : [facility], [address] [facility], [address] Nasopharyngeal 04/16/2020 10 :01 AM DISTRIBUTION ANALYST 04/16/2020 8:56 PM DISTRIBUTION ANALYST Narrative TRACIE - 04/17/2020 5:19 AM DISTRIBUTION ANALYST What is the reason for testing?->Symptoms of COVID-19 in high-risk group (defined above in process inst.) Date of symptom onset->04/13/20 Sparkle Gutierrez PILLOWCASE CUTTER LAB MICROBIOLOGY - GENERAL ORD ERABLES Final Result TRACIE [address] [place] [address] * POCT rapid strep A (04/16/2020 9:56 AM DISTRIBUTION ANALYST) Rapid Strep A, POC Negative Swab 04/16/2020 9:56 AM DISTRIBUTION ANALYST Sparkle Gutierrez PILLOWCASE CUTTER POINT OF CARE TEST ORDERABLES Final Result [...] COVID: Suspected 04/16/2020 04/16/2020 04/17/2020 5:20 AM DISTRIBUTION ANALYST documented as of this encounter Care Teams Route Inspector Relationship Specialty Start Date End Date Bettie Pires NP PCP - General Internal Medicine 04/15/20 06/12/22 documented as of this encounter
--- OUTSIDE RECORDS SUMMARY | 2024-05-16 04:07 | XMS_ITS | Encounter Summary ---
Author Organization [facility] Healthcare Address [address] [place] [address] Care Team Providers Care Pipe Cutter Name Role Phone Bettie Pires NP Primary Care Provider [phone] Encounter Details Date Type Department Care Team (Latest Contact Info) Description 06/07/2020 4:30 PM TRIBAL JUDGE - 06/07/2020 4:31 PM TRIBAL JUDGE Hospital Encounter [facility] [address] [place] [address] Discharge Disposition: Discharge to home or self care Social History Tobacco Use Types Packs/Day Years Used Date Smoking Tobacco: Every Day Comments No Sex and Gender Information Value Date Recorded Sex Assigned at Not on file Legal Sex Female 3:59 AM TRIBAL JUDGE Gender Identity Not on file Sexual Orientation [...] LATERAL 2 VIEWS ED 06/07/2020 4:50 PM TRIBAL JUDGE documented in this encounter Results * XR Chest Pa Lateral 2 Vw (06/07/2020 4:50 PM TRIBAL JUDGE) Anatomical Region Laterality Modality Body, Chest N/A Computed Radiogr aphy 06/07/2020 4:52 PM TRIBAL JUDGE Impressions 06/07/2020 4:54 PM TRIBAL JUDGE No radiographic evidence of acute cardiopulmonary abnormality. Electronically signed by: Cristo Brandon M.D. Narrative 06/07/2020 4:54 PM TRIBAL JUDGE EXAMINATION: XR CHEST PA LATERAL 2 VIEWS [...] signed by: Cristo Brandon M.D. Madelaine Sánchez BEEKEEPER IMG XR PROCEDURES Final Res ult documented in this encounter Visit Diagnoses Not on filedocumented in this encounter Additional Health Concerns Infection Onset Date Last Indicated Resolved Time COVID: Recovered Comment:Added based on recent COVID infection. 05/13/2020 06/07/2020 09/10/2020 3:06 AM C DT documented as of this encounter Care Teams Pipe Cutter Relationship Specialty Start Date End Date Bettie Pires NP PCP - General Internal Medicine 04/15/20 06/12/22 documented as of this encounter
--- OUTSIDE RECORDS SUMMARY | 2024-05-16 04:07 | XMS_ITS | Encounter Summary ---
Author Organization [facility] Healthcare Address [address] [place] [address] Care Team Providers Care Cyanide Case Hardener Name Role Phone Shruthi Chávez DO Primary Care Provider [phone] Mariaa Cruz MD Unavailable [phone] Reason for Visit * Reason Comments Annual Exam Encounter Details Date Type Department Care Team (Late st Contact Info) Description 07/20/2023 2:30 PM BRACELET MAKER NOVELTY Office Visit [facility] Medical Group Primary Care at [address] [place] [address] Shruthi Chávez DO [address] [facility] [address] [address] Annual physical exam (Primary Dx); [...] on file Legal Sex Female 3:59 AM BRACELET MAKER NOVELTY Gender Identity Not on file Sexual Orientation Not on file documented as of this encounter Last Filed Vital Signs Vital Sign Reading Time Taken Comments Blood Pressure 100/60 07/20/2023 2:38 PM BRACELET MAKER NOVELTY Pulse 56 07/20/2023 2:38 PM BRACELET MAKER NOVELTY Temperature 36.7 ??C (98 ??F) 07/20/2023 2:38 PM BRACELET MAKER NOVELTY Respiratory Rate 14 07/20/2023 2:38 PM BRACELET MAKER NOVELTY Oxygen Saturation 100% 07/20/2023 2:38 PM BRACELET MAKER NOVELTY Inhaled Oxygen Concentration - - Weight 57.9 kg (127 lb 11.2 oz) 07/20/2023 2:38 PM BRACELET MAKER NOVELTY Height 157.5 cm (5' 2 ) 07/20/2023 2:38 PM BRACELET MAKER NOVELTY Body Mass Index 23.36 07/20/2023 2:38 PM BRACELET MAKER NOVELTY documented in this encounter Patient Instructions * Patient Instructions* Shruthi Chávez, DO - 07/20/2023 2:30 PM BRACELET MAKER NOVELTY Images from the original note were not included. Patient Education Wellness Visit for Adults PICK UP: A wellness visit is when you see [...] viruses cause the flu. The viruses change advisor time, so new vaccines are made each [...] could distract you and cause an accident. covering machine operator if you need to make a call [...] boat or doing water sports. ?? Copyright [employer] 2021 Information is for End User's use only and may not be sold, redistributed or otherwise used for commercial purposes. All illustrations and images included in CareNotes?? are the copyrighted property of [employer]. or [employer] The above information is an educational fundraising director only. It is not intended as medical advice for individual conditions or treatments. Talk to your doctor, nurse or pharmacist before following any medical regimen to see if it is safe and effective for you. Patient Education Breast Self Exam for Women PICK UP: A breast self-exam (BSE) is a way [...] Check your breasts while you sit or business excellence manager the following 3 positions: Hang your arms [...] ask them during your visits. ?? Copyright [employer] 2021 Information is for End User's use only and may not be sold, redistributed or otherwise used for commercial purposes. All illustrations and images included in CareNotes?? are the copyrighted property of A.D.A.M., Inc. or [employer] The above information is an educational fundraising director only. It is not intended as medical [...] Thanks for coming in today! My medical staff assistant and I are thankful you have trusted us with your care, and hope that you received EXCELLENT care today! Although some conditions may not allow immediate improvement, I aim to always make you feel a little better leaving, than when you came in. [place] not hesitate to call, if you have any questions or concerns, at [phone]. You may receive a phone call, text, MYCHART message, or e-mail asking you to take a survey about your care today. We would love to hear your feedback on how EXCELLENT your care was today! Wishing you better health, always! Dr. Shruthi Chávez ELET MAKER NOVELTY documented in this encounter Progress Notes * [...] - Lipid panel; Future - Thyroid Function [place]; Future - Urinalysis reflex to microscopic and [...] Screening for thyroid disorder - Thyroid Function [place]; Future Screening for blood or protein in urine - Urinalysis reflex to microscopic and culture Urine, clean voided; Future Influenza vaccine refused Shruthi Chávez DO This note is dictated and transcribed by [employer] Direct Software. Plate And Frame Filter Operator variances may occur. Despite proofreading, typographical [...] CULTURE (09/25/2023 1:37 PM CDT) Urine culture [facility] Comment:NO CULTURE INDICATED 09/25/2023 1:37 PM CDT 09/25/2023 1:37 PM CDT us Shruthi Chávez DO LAB MICROBIOLOGY - GENERAL ORDERABLES Final Result [facility] [address] [place] [address] * Vitamin D 25 hydroxy (09/25/2023 1:37 PM CDT) Vitamin D 25-OH 40 30 - 100 ng/mL [facility] Comment: Vitamin D Status ? 25-OH Vitamin D: Deficiency: ?<20 ng/mL Insufficiency: ? 20 - 29 ng/mL Optimal: ? > or = 30 ng/mL For 25-OH Vitamin D testing on patients on D2-supplementation and patients for whom quantitation of D2 and D3 fractions is required, the QuestAssureD(TM) 25-OH VIT D, (D2,D3), LC/MS/MS is recommended: order code 55418 (patients >2yrs). See Note 1 Note 1 For additional information, please refer to http://education.BetKlub/faq/ZDD355 (This link is being provided for informational/ educational purposes only.) Blood 09/25/2023 1:37 PM CDT 09/25/2023 1:37 PM CDT us Shruthi Chávez DO LAB BLOOD ORDERABLES Final Result Performing Organization Address City/State/[facility] Co de Phone Number [facility] [address] [place] [address] * Urinalysis reflex to microscopic and culture [...] GENERAL ORDERABLES Final Result Performing Organization Address [facility] [[email or web address]] de Phone Number PRASANTH [facility] [address] [place] [address] * Thyroid Function [place] (09/25/2023 1:37 PM CDT) TSH 0.75 mIU/L [facility] Comment: ?Reference Range ?> or = 20 Years ??0.40-4.50 ? Ranges ?First trimester ?0.26-2.66 ?Second trimester ?? 0.55-2.73 ?Third trimester ?0.43-2.91 Blood 09/25/2023 1:37 PM CDT 09/25/2023 1:37 PM CDT Shruthi Chávez DO LAB BLOOD ORDERABLES Final Result [facility] [address] [place] [address] * Lipid panel (09/25/2023 1:37 PM CDT) [...] LDL-C. Sumanth ROSE et al. TIFFANY. 2013;310(19): 1099-5501 (http://education.BetKlub/faq/XPC001) Chol/HDL ratio 1.8 <5.0 (calc) [facility] [...] LAB BLOOD ORDERABLES Final Result [facility] [address] [facility] [place] [address] * (ABNORMAL) Hemoglobin A1c (09/25/2023 1:37 PM [...] change in test platforms from the Liu Facilities Engineering Manager to the Jeff bishnu c503 may have shifted HbA1c results compared to historical results. Based on laboratory validation testing conducted at [facility], the Jeff platform relative to the Liu [...] Chávez DO LAB BLOOD ORDERABLES Final Result [facility] [address] [place] [address] * (ABNORMAL) Comprehensive metabolic panel (09/25/2023 1:37 PM CDT) [facility] Glucose 102(H) 65 - 99 mg/dL [facility] [...] LAB BLOOD ORDERABLES Final Result [facility] [address] [place] [address] * (ABNORMAL) CBC with auto differential (09/25/2023 [...] LAB BLOOD ORDERABLES Final Result [facility] [address] [place] [address] documented in this encounter Visit Diagnoses Diagnosis [...] mouth daily Therapy completed 05/01/2022 08/12/2023 vit 19-bxki-htwwr-dha 27mg iron- 800 mcg-250 mg capsule Take by mouth Therapy completed 08/12/2023 documented as of this encounter Care Teams Cyanide Case Hardener Relationship Specialty Start Date End Date Shruthi Chávez DO [address] [facility] [address] [place] [address] PCP - General Family Medicine 07/15/22 03/03/24 Mariaa Cruz MD [address] [place] [address] Referring Physician Gynecology 07/15/22 documented as of this encounter
--- OUTSIDE RECORDS SUMMARY | 2024-05-16 04:07 | XMS_ITS | Encounter Summary ---
Author Organization [facility] Healthcare Address [address] [place] [address] Care Team Providers Care Stockroom Worker Name Role Phone Bettie Pires NP Primary Care Provider [phone] Reason for Visit * Reason Comments Syncope Encounter Details Date Type Department Care Team (Late st Contact Info) Description 10/23/2020 3:21 PM CDT - 10/23/2020 4:12 PM CDT Emergency [facility] Emergency Department [address] [place] [address] Syncope, unspecified syncope type (Primary Dx); Vaso [...] on file Legal Sex Female 3:59 AM FIELDWORK COORDINATOR Gender Identity Not on file Sexual [...] Everywhere. * Dizziness or Syncope (Fainting) During (Samoan) * Fainting, Vagal Reaction (Samoan) documented in this encounter Medications at Time [...] ear normal. Nose: Nose normal. Mouth/Throat: Lips: [place]. Mouth: Mucous membranes are moist. Eyes: Conjunctiva/sclera: [...] CDT) 10/23/2020 2:33 PM CDT Narrative [facility] - 10/24/2020 8:17 AM CDT Vent Rate: 86 bpm RR Interval: 695 msec HI Interval: 106 msec QRS Duration: 78 msec QT Interval: 357 msec QTC Interval: 400 msec P-R-T [place]: 48 - 66 - 46 degrees SINUS RHYTHM WITH SHORT HI INTERVAL NONSPECIFIC T-WAVE ABNORMALITY BORDERLINE ECG Compared to 06/07/2020 no change Electronically Signed By: Dr Alexis Croft us Keren Sánchez NP ECG ORDERABLES Final Resul t [facility] documented in this encounter Visit Diagnoses Diagnosis Syncope, unspecified syncope type- Primary Vaso vagal episode Syncope and collapse documented in this encounter Orders Nursing Count Last Ordered Date First Orde red Date ORTHOSTATIC BLOOD PRESSURE 1 10/23/2020 documented in this encounter Care Teams Stockroom Worker Relationship Specialty Start Date End Date Bettie Pires NP PCP - General Internal Medicine 04/15/20 06/12/22 documented as of this encounter
--- OUTSIDE RECORDS SUMMARY | 2024-05-16 04:07 | XMS_ITS | Encounter Summary ---
Author Organization [facility] Healthcare Address [address] [place] [address] Care Team Providers Care Knockdown Man Name Role Phone Shruthi Chávez DO Primary Care Provider [phone] Mariaa Cruz MD Unavailable [phone] Reason for Visit * Reason Onset Date Comments Back Pain 03/17/2023 Encounter Details Date Type Department Care Team (Late st Contact Info) Description 03/17/2023 Nurse Triage [facility] Medical Group Primary Care at [address] [place] [address] Shruthi Chávez DO [address] [address] Social History Tobacco Use Types [...] on file Legal Sex Female 3:59 AM 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 * Telephone Encounter - Tara Martinez RN - 03/17/2023 9:20 AM CDT Regarding: severe pain in back under left shoulder blade, hurts to breathe ----- Message from Pollo Mead sent at 03/17/2023 9:14 AM CDT ----- Symptom Based Call Caller's Callback #: [phone] Chief Complaint(s): severe pain in back under [...] on filedocumented in this encounter Care Teams Knockdown Man Relationship Specialty Start Date End Date Shruthi Chávez DO [address] [facility] [address] [place] [address] PCP - General Family Medicine 07/15/22 03/03/24 Mariaa Cruz MD [address] [place] [address] Referring Physician Gynecology 07/15/22 documented as of this encounter
--- OUTSIDE RECORDS SUMMARY | 2024-05-16 04:07 | XMS_ITS | Encounter Summary ---
Author Organization [facility] Medical Group Address [address] [facility] [address] [place] [address] Care Team Providers Care Ear Machine Operator Name Role Phone Bettie Pires NP Primary Care Provider [phone] Encounter Details Date Type Department Care Team (Late st Contact Info) Description 04/30/2020 Telephone [facility] [address] [place] [id number] Rody Macedo MA Social History Tobacco Use Types Packs/Day Years Used Date Smoking Tobacco: Never Comments Unknown Sex and Gender Information Value Date Recorded Sex Assigned at Not on file Legal Sex Female 3:59 AM GEOSCIENCE SPECIALIST Gender Identity Not on file Sexual Orientation Not on file documented as of this encounter Miscellaneous Notes * Telephone Encounter - Rody Macedo MA - 04/30/2020 7:27 PM CST Fax confirmation of labs to Health dept CIENCE SPECIALIST documented in this encounter Plan of Treatment Not on file documented as of this encounter Visit Diagnoses Not on filedocumented in this encounter Additional Health Concerns Infection Onset Date Last Indicated Resolved Time Respiratory Infection (TAWNYA), contact + droplet Comment:Automatically added due to negative COVID-19 result. 04/17/2020 04/17/2020 05/01/2020 3:0 6 AM GEOSCIENCE SPECIALIST COVID: Suspected 04/29/2020 04/29/2020 04/30/2020 6:55 PM GEOSCIENCE SPECIALIST COVID19 04/29/2020 04/29/2020 05/13/2020 3:07 AM GEOSCIENCE SPECIALIST documented as of this encounter Care Teams Ear Machine Operator Relationship Specialty Start Date End Date Bettie Pires NP PCP - General Internal Medicine 04/15/20 06/12/22 documented as of this encounter
--- OUTSIDE RECORDS SUMMARY | 2024-05-16 04:07 | XMS_ITS | Encounter Summary ---
Author Organization [facility] Address [address] [place] [address] Care Team Providers Care Rim Fire Priming Tool Setter Name Role Phone Shruthi Chávez DO Primary Care Provider [phone] Mariaa Cruz MD Unavailable Reason for Visit * Reason Comments Incisional hernia * Consultation (Routine) - Closed Specialty Diagnoses / Procedures Referred By Deb correa Referred To Contact General Surgery Diagnoses Hernia of anterior abdominal wall Shruthi Chávez DO Phone: tel: fax: Keagan Roberto MD [address] [place] [address] [address] [place] [address] Phone: tel: fax: Referral ID Status Reason Start Date Expiration Date V isits Requested Visits Authorized [id number] Closed Specialty Services Required 07/15/2022 08/14/2023 4 4 Encounter Details Date Type Department Care Team (Late st Contact Info) Description 07/22/2022 10:30 AM CERTIFIED CYTOTECHNOLOGIST Office Visit [facility] [address] [facility] [address] [place] [address] Keagan Roberto MD [address] [place] [address] [address] [place] [address] Hernia of anterior abdominal wall Social History [...] on file Legal Sex Female 3:59 AM CERTIFIED CYTOTECHNOLOGIST Gender Identity Not on file Sexual Orientation Not on file documented as of this encounter Last Filed Vital Signs Vital Sign Reading Time Taken Comments Blood Pressure 105/67 07/22/2022 10:40 AM CERTIFIED CYTOTECHNOLOGIST Pulse 92 07/22/2022 10:40 AM CERTIFIED CYTOTECHNOLOGIST Temperature 36.2 ??C (97.1 ??F) 07/22/2022 10:[address] Respiratory Rate - - Oxygen Saturation 96% 07/22/2022 10:40 AM CERTIFIED CYTOTECHNOLOGIST Inhaled Oxygen Concentration - - Weight 54.6 kg (120 lb 4.8 oz) 07/22/2022 10:40 AM CERTIFIED CYTOTECHNOLOGIST Height 157.5 cm (5' 2.01 ) 07/22/2022 10:[address] Body Mass Index 22 07/22/2022 10:40 AM CERTIFIED CYTOTECHNOLOGIST documented in this encounter Progress Notes * [...] unit capsule Incassia 0.35 mg tablet vit 34-[id number]-[id number]-dha 27mg iron- 800 mcg-250 mg capsule valACYclovir [...] - Ambulatory referral to General Surgery Keagan Roberto MD 11:12 AM 07/22/2022 IFIED CYTOTECHNOLOGIST documented in this encounter Miscellaneous Notes * [...] She is in understanding of the plan. IFIED CYTOTECHNOLOGIST documented in this encounter Plan of Treatment Not on file documented as of this encounter Visit Diagnoses Diagnosis Hernia of anterior abdominal wall documented in this encounter Orders Outpatient Referral Count Last Ordered Date Fir st Ordered Date AMB REFERRAL TO GENERAL SURGERY 1 3 documented in this encounter Care Teams Rim Fire Priming Tool Setter Relationship Specialty Start Date End Date Shruthi Chávez DO [address] [place] [address] PCP - General Family Medicine 07/15/22 03/03/24 Mariaa Cruz MD [address] [place] [address] Referring Physician Gynecology 07/15/22 documented as of this encounter
--- OUTSIDE RECORDS SUMMARY | 2024-05-16 04:07 | XMS_ITS | Encounter Summary ---
Author Organization [facility] Address [address] [place] [address] Care Team Providers Care Hair Or Beauty Salon Manager Name Role Phone Shrutih Chávez Primary Care Provider [phone]- [phone] Ihsan Cruz MD Unavailable [phone] Reason for Visit * Reason Comments Abdominal Pain Pt states she has be en having stomach pains as well as pelvic pain. 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 This will help maintain the good bacteria [...] 3:06 PM Please note: Voice recognition software [employer] was used dictate and transcribe this document. Legal Director variances may occur. Despite proofreading, typographical [...] TRACIE CANNON Comment: Testing performed by the [facility]. This assay detects Chlamydia trachomatis [...] GENERAL O RDERABLES Final Result TRACIE CANNON [address] Department [place] [address] * POCT urinalysis dipstick (11/07/2022 2:49 PM CDT) Color, Urine, POC Light Yellow Clarity, ur, POC Clear Clear Glucose, ur, POC Negative Negative MG/DL Bilirubin, ur, POC Negative Negative, Small, Moderate, Large Ketones, ur, POC Negative Negative Specific [place], POC 1.015 1.003 - 1.030 Blood, ur, POC Negative Negative pH, ur, POC 6.0 5.0 - 8.0 Protein, ur, POC Negative Negative Urobilinogen, urine, POC 0.2 0.2 - 1.0 mg/dL Nitrite, ur, POC Negative Negative Leukocytes, ur, POC Negative Negative Lot Number [id number] Urine 11/07/2022 2:49 PM CDT Chen Morris NP POINT OF CARE TEST ORDERABLE S Final Result * POCT hCG, urine (11/07/2022 2:48 PM CDT) HCG, ur, POC Negative Lot Number [id number] QC Backgroud Clear Acceptable QC Control Line Acceptable Urine 11/07/2022 2:48 PM CDT Chen Morris NP POINT OF CARE TEST ORDERABLE S Final Result documented in this encounter Visit Diagnoses Diagnosis Bilateral lower abdominal pain- Primary Constipation, unspecified constipation type documented in this encounter Care Teams Hair Or Beauty Salon Manager Relationship Specialty Start Date End Date Shruthi Chávez DO [address] [address] [place] [address] PCP - General Family Medicine 07/15/22 03/03/24 Ihsan Cruz MD [address] [place] [address] Referring Physician Gynecology 07/15/22 documented as of this encounter
--- OUTSIDE RECORDS SUMMARY | 2024-05-16 04:07 | XMS_ITS | Encounter Summary ---
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 Patient was agreeable to be discharged and to follow up as an outpatient. Josefina Snider MD 09/26/23 9208 documented in this encounter Plan of Treatment [...] PM T: ??09/26/2023 9:11 PM Report ID: [id number] Reading Location: ??[id number] Procedure Note Bill Lowe MD - 09/26/2023 [...] Bill Lowe M.D. KT: BLAS Report ID: [id number] Reading Location: [place] [address] us Josefina Snider MD IMG OB US [...] for uric acid stone formation. Source: [place] Current Interpretive Data was last revised on [...] GENERAL O RDERABLES Final Result TRACIE SANABRIA ([place]) 1 [facility] Department [place] [address] * eGFR (09/26/2023 4:11 PM CDT) eGFR [...] BLOOD ORDERABLES Final R esult TRACIE SANABRIA ([place]) 1 [facility] Department [place] [address] * Differential, auto (09/26/2023 4:11 PM CDT) [...] ORDERABLES Final R esult Performing Organization Address [facility] de Phone Number TRACIE SANABRIA ([place]) 1 [place] [address] * (ABNORMAL) hCG, blood, quantitative (09/26/2023 4:11 PM CDT) [facility] hCG, quant 6.0(H) 0.0 - 5.0 IUnits/L [...] ORDERABLES Final R esult Performing Organization Address [facility] de Phone Number TRACIE SANABRIA ([place]) 1 [place] [address] * (ABNORMAL) Comprehensive metabolic panel (09/26/2023 4:11 PM CDT) Pathologist [facility] Sodium 137 135 - 145 mmol/L Potassium, pl 3.7 3.3 - 4.9 mmol/L [facility] ([place]) Chloride 102 97 - 110 mmol/L [facility] ([place]) CO2 24 22 - 32 mmol/L [facility] ([place]) Anion gap 12 2 - 15 mmol/L [facility] ([place]) BUN 17 6 - [...] MD LAB BLOOD ORDERABLES Final R esult [facility] ([place]) 1 [facility] Department of Laboratories [place], [place] [address] * (ABNORMAL) CBC with auto differential (09/26/2023 [...] 90.1 81.3 - 96.4 fL [facility] ([place]) MCH 30.9 27.1 - 33.3 pg TRACIE [...] Final R esult TRACIE SANABRIA ([place]) 1 [facility] Department [place] [address] documented in this encounter Visit Diagnoses Diagnosis [...] RN) documented in this encounter Care Teams Supervisor Grips Relationship Specialty Start Date End Date Shruthi Chávez DO [address] [facility] [address] [place] [address] PCP - General Family Medicine 07/15/22 03/03/24 Mariaa Cruz MD [address] [place] [address] Referring Physician Gynecology 07/15/22 documented as of this encounter
--- OUTSIDE RECORDS SUMMARY | 2024-05-16 04:07 | XMS_ITS | Encounter Summary ---
Author Organization [facility] Address [address] [place] [address] Care Team Providers Care Financial Service Professional Name Role Phone Shruthi Chávez Primary Care Provider [phone] Mariaa Cruz MD Unavailable [phone] Reason for Visit * Reason Comments Abdominal Pain 2 weeks of abdominal pain. Inconclusive home test .Nausea cramps that are moving higher towards her rib cage. 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 ER now via private vehicle. Declined EMS [...] Ketones, ur, POC 15. (A) Negative Specific [place], POC 1.030 1.003 - 1.030 Blood, ur, POC Negative Negative pH, ur, POC 5.5 5.0 - 8.0 Protein, ur, POC Negative Negative Urobilinogen, urine, POC 0.2 0.2 - 1.0 mg/dL Nitrite, ur, POC Negative Negative Leukocytes, ur, POC Negative Negative Lot Number [id number] POCT hCG, urine Collection Time: 09/26/23 3:32 PM Result Value Ref Range HCG, ur, POC Negative Negative Lot Number [id number] QC Backgroud Clear Acceptable QC Control Line Acceptable HCG POC neg. UA +ketones, culture pending. COVID/FLU NEGATIVE. Discussed concerns for acute process and recommend evaluation at ER. Patient verbalized understanding and will report to [facility] ER now via private vehicle. Declined EMS [...] current clinical standards) Comment:Testing performed by : [facility], [address] [place]., [address] Organism (CLINICALLY INSIGNIFICANT GROWTH [facility] Urine, clean voided 09/26/2023 3:33 PM CDT 09/27/2023 12:20 AM CDT Narrative TRACIE - 09/28/2023 11:15 AM CDT Testing performed by [facility] Microbiology Laboratory ([phone]) Celi Maradiaga NP LAB MICROBIOLOGY - GENERA L ORDERABLES Final Result TRACIE [address] Department [place] [address] * POCT hCG, urine (09/26/2023 3:32 PM CDT) Pathologist [facility] HCG, ur, POC Negative Negative Lot [...] Large Ketones, ur, POC 15.(A) Negative Specific [place], POC 1.030 1.003 - 1.030 Blood, ur, POC Negative Negative pH, ur, POC 5.5 5.0 - 8.0 Protein, ur, POC Negative Negative Urobilinogen, urine, POC 0.2 0.2 - 1.0 mg/dL Nitrite, ur, POC Negative Negative Leukocytes, ur, POC Negative Negative Lot Number [id number] Urine 09/26/2023 3:31 PM CDT Celi Maradiaga POINT OF CARE TEST ORDERA BLES Final Result * POC Influenza A/B, COVID-19 antigen (09/26/2023 3:31 PM CDT) Pathologist [facility] Influenza A Ag, POC Negative Negative [facility] Influenza B Ag, POC Negative Negative [facility] COVID-19 Ag POC Presumptive Negative Presumptive Negative, Invalid [facility] Nasal 09/26/2023 3:31 PM CDT Celi Maradiaga POINT OF CARE TEST ORDERA BLES Final Result [facility] [address] [place] [address], [facility] documented in this encounter Visit Diagnoses Diagnosis Abdominal pain- Primary Abdominal pain, unspecified site Abdominal pain Abdominal pain, unspecified site documented in this encounter Additional Health Concerns Infection Onset Date Last Indicated Resolved Time COVID: Suspected 09/26/2023 09/26/2023 09/26/2023 3:32 PM CDT documented as of this encounter Care Teams Financial Service Professional Relationship Specialty Start Date End Date Shruthi Chávez DO [address] [place] [address] PCP - General Family Medicine 07/15/22 03/03/24 Mariaa Cruz MD [address] [place] [address] Referring Physician Gynecology 07/15/22 documented as of this encounter
--- OUTSIDE RECORDS SUMMARY | 2024-05-16 04:07 | XMS_ITS | Encounter Summary ---
Author Organization [facility] Healthcare Address [address] [place] [address] Care Team Providers Care Justowriter Operator Name Role Phone Unavailable Primary Care Provider Unavailabl e Encounter Details Date Type Department Care Team (Late st Contact Info) Description 07/04/2015 7:45 PM VAN DRIVER - 07/04/2015 11:59 PM VAN DRIVER Hospital Encounter [facility] Alan Roque, [address] [facility] [address] [place] [address] Encounter for other general examination; History of self-harm Social History Tobacco Use Types Packs/Day Years Used Date Smoking Tobacco: Never Assessed Comments Unknown Sex and Gender Information Value Date Recorded Sex Assigned at Not on file 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
--- OUTSIDE RECORDS SUMMARY | 2024-05-16 04:07 | XMS_ITS | Encounter Summary ---
Author Organization [facility] Healthcare Address [address] [place] [address] Care Team Providers Care Housekeeping Room Attendant Name Role Phone Shruthi Chávez DO Primary Care Provider [phone] Reason for Visit * Reason Comments Abdominal Pain Encounter Details Date Type Department Care Team (Late st Contact Info) Description 06/13/2022 3:47 PM CUT OUT WORKER - 06/13/2022 7:13 PM CUT OUT WORKER Emergency [facility] Emergency Department [address] [place] [address] Mynor Queen MD [address] [place] [address] Ventral hernia without obstruction or gangrene (Primary [...] on file Legal Sex Female 3:59 AM CUT OUT WORKER Gender Identity Not on file Sexual Orientation Not on file documented as of this encounter Last Filed Vital Signs Vital Sign Reading Time Taken Comments Blood Pressure 106/71 06/13/2022 5:40 PM CUT OUT WORKER Pulse 76 06/13/2022 5:40 PM CUT OUT WORKER Temperature 37.1 ??C (98.7 ??F) 06/13/2022 3:45 PM CS T Respiratory Rate 18 06/13/2022 3:45 PM CUT OUT WORKER Oxygen Saturation 97% 06/13/2022 5:40 PM CUT OUT WORKER Inhaled Oxygen Concentration - - Weight 54.4 kg (120 lb) 06/13/2022 3:45 PM CUT OUT WORKER Height - - Body Mass Index 21.95 10/23/2020 2:27 PM CDT documented in this encounter Discharge Instructions * Discharge Instructions* Mynor Queen MD - 06/13/2022 6:42 PM CUT OUT WORKER Continue using pelvic binder. Take Tylenol for pain. Follow-up with your primary care doctor. OUT WORKER * Attachments The following attachments cannot be sent through Care Everywhere. * Ventral Hernia (AfterCare(R) Instructions(ER/ED)) ([place]) documented in this encounter Medications at Time [...] obstruction or gangrene Mynor Queen MD 06/13/221843 OUT WORKER * Sylvia Vázquez RN - 06/13/2022 3:42 PM CST Patient arrives for evaluation of right sided abdominal pain/ pressure x2 days. Patient states thatshe bent over to pick something up and felt a pop on the right side. Patient states that she had to push something back into her abdomen. OUT WORKER documented in this encounter Plan of Treatment Not on file documented as of this encounter Procedures Procedure Name Priority Date/Time Associated Diagnosis Comments CT ABDOMEN PELVIS W CONTRAST ED 06/13/2022 5:59 PM CUT OUT WORKER EGFR STAT 06/13/2022 4:23 PM CUT OUT WORKER DIFFERENTIAL AUTO STAT 06/13/2022 4:2 3 PM CUT OUT WORKER CBC WITH AUTO DIFFERENTIAL STAT 06/13/2022 4:23 PM CUT OUT WORKER HCG, BLOOD, QUANTITATIVE STAT 06/13/2022 4:23 PM CUT OUT WORKER COMPREHENSIVE METABOLIC PANEL STAT 06/13/2022 4:23 PM CUT OUT WORKER documented in this encounter Results * CT Abdomen Pelvis W Contrast (06/13/2022 5:59 PM CUT OUT WORKER) Anatomical Region Laterality Modality Body N/A Computed Tomogra phy 06/13/2022 6:20 PM CUT OUT WORKER Narrative 06/13/2022 6:22 PM CUT OUT WORKER EXAM DESCRIPTION: ?? CT ABDOMEN PELVIS W [...] PM T: ??06/13/2022 6:22 PM Report ID: [id number] Reading Location: ??[id number] Procedure Note Cristo Brandon MD - 06/13/2022 [...] Cristo Brandon M.D. ML: ML Report ID: [id number] Reading Location: [id number] us Mynor Queen MD IMG CT PROCEDURES Final Resu lt * eGFR (06/13/2022 4:23 PM CUT OUT WORKER) eGFR 101 mL/min/1. 73 m2 TRACIE SANABRIA [...] last reviewed 2021. Blood 06/13/2022 4:23 PM CUT OUT WORKER 06/13/2022 4:31 PM CUT OUT WORKER us Mynor Queen MD LAB BLOOD ORDERABLES Final R esult TRACIE SANABRIA ([place]) 1 [facility] Department [place] [address] * Differential, auto (06/13/2022 4:23 PM CUT OUT WORKER) Neutrophil abs 4.0 1.7 - 6.5 K/cumm [facility] ([place]) Imm gran abs 0.0 0.0 - 0.1 K/cumm [facility] ([place]) Lymphocyte abs 1.6 0.8 - 3.3 K/cumm [facility] ([place]) Monocyte abs 0.6 0.2 - 0.8 K/cumm [facility] ([place]) Eosinophil abs 0.1 0.0 - 0.5 K/cumm [facility] ([place]) Basophil abs 0.0 0.0 - 0.1 K/cumm [facility] ([place]) Neutrophil pct 63.7 % [facility] ([place]) Comment: Interpretive Data Percent cell count reference [...] 2017. Basophil pct 0.3 % TRACIE SANABRIA ([place]) Comment: Interpretive Data Percent cell count reference ranges are not reported, since discordance with absolute values may lead to misinterpretation of CBC data. Current Interpretive Data was last revised on 2017. Blood 06/13/2022 4:23 PM CUT OUT WORKER 06/13/2022 4:31 PM CUT OUT WORKER Mynor Queen MD LAB BLOOD ORDERABLES Final R esult TRACIE SANABRIA ([place]) 1 [facility] Department [place] [address] * hCG, blood, quantitative (06/13/2022 4:23 PM CUT OUT WORKER) hCG, quant <5.0 0.0 - 5.0 IUnits/L TRACIE SANABRIA ([place]) Comment: Interpretive Data Non- Female premenopausal: < [...] revised on 2021. Blood 06/13/2022 4:23 PM CUT OUT WORKER 06/13/2022 4:31 PM CUT OUT WORKER Mynor Queen MD LAB BLOOD ORDERABLES Final R esult [facility] ([place]) 1 [facility] Department [place] [address] * (ABNORMAL) Comprehensive metabolic panel (06/13/2022 4:23 PM CUT OUT WORKER) Sodium 141 135 - 145 mmol/L [facility] [...] Hemolyzed S pecimen Blood 06/13/2022 4:23 PM CUT OUT WORKER 06/13/2022 4:31 PM CUT OUT WORKER Mynor Queen MD LAB BLOOD ORDERABLES Final R esult [facility] ([place]) 1 [facility] [place] [address] * (ABNORMAL) CBC with auto differential (06/13/2022 4:23 PM CUT OUT WORKER) WBC 6.2 3.8 - 9.9 K/cumm [facility] [...] [facility] ([place]) Blood 06/13/2022 4:23 PM CUT OUT WORKER 06/13/2022 4:31 PM CUT OUT WORKER Mynor Queen MD LAB BLOOD ORDERABLES Final R esult [facility] ([place]) 1 [facility] [place] [address] documented in this encounter Visit Diagnoses Diagnosis [...] 1 dose Contrast Given 06/13/2022 5:51 PM CUT OUT WORKER 75 mL documented in this encounter Active and Recently Administered Medications Times are shown in CUT OUT WORKER. PRN Medication Order 06/11/2022 06/12/2022 06/13/2022 ioversoL [...] 05/26 documented in this encounter Care Teams Housekeeping Room Attendant Relationship Specialty Start Date End Date Shruthi Chávez DO [address] [place] [address] PCP - General Family Medicine 06/13/22 06/16/22 documented as of this encounter
--- OUTSIDE RECORDS SUMMARY | 2024-05-16 04:07 | XMS_ITS | Encounter Summary ---
Author Organization [facility] Healthcare Address [address] [place] [address] Care Team Providers Care Transfer Engineer Name Role Phone Shruthi Chávez Primary Care Provider [phone] Mariaa Cruz MD Unavailable [phone] Encounter Details Date Type Department Care Team (Late st Contact Info) Description 09/15/2023 Telephone [facility] Primary Care at [address] [place] [address] Esperanza Whiteside MD [address] [place] [address] [address] [place] [address] Social History Tobacco Use Types [...] on file 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
--- OUTSIDE RECORDS SUMMARY | 2024-05-16 04:07 | XMS_ITS | Encounter Summary ---
Author Organization [facility] Healthcare Address [address] [place] [address] Care Team Providers Care Barrel Drainer Name Role Phone Bettie Pires NP Primary Care Provider [phone] Encounter Details Date Type Department Care Team (Late st Contact Info) Description 04/30/2020 12:50 AM RADIOLOGY TRANSPORTER Lab [address] [address] Flu-like symptoms; Sore throat; Close exposure to COVID-19 virus Social History Tobacco Use Types Packs/Day Years Used Date Smoking Tobacco: Never Comments Unknown Sex and Gender Information Value Date Recorded Sex Assigned at Not on file 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 Reviewed ER precautions and isolation guidelines, isolate for 10 days from symptom onset and fever free for at least 24 hours. Instructed patient to notifyindividuals they may have had contact while ill and 2 days prior to symptom onset. Health department notified of positive result via fax. OLOGY TRANSPORTER documented in this encounter Plan of Treatment Not on file documented as of this encounter Procedures Procedure Name Priority Date/Time Associated Diagnosis Comments COVID-19 CORONAVIRUS RNA Routine 04/29/2020 2:21 PM RADIOLOGY TRANSPORTER Flu-like symptoms Sore throat Close exposure to COVID-19 virus documented in this encounter Results * (ABNORMAL) COVID-19 Coronavirus RNA Nasopharyngeal (04/29/2020 2:21 PM RADIOLOGY TRANSPORTER) COVID-19 RNA Detected( A) TRACIE Comment: Interpretive Data Testing performed by the [facility] Molecular Infectious Disease Laboratory. The 2018-Novel [...] last revised on 2019. Testing performed by: [facility], [address] [place] [address], [id number] Employeed in healthcare? No [facility] Comment:Testing performed by : [facility], [address] [place] [address], [id number] status? No [facility] Comment:Testing performed by : [facility], [address] [place] [address], [address] Group care resident? No [facility] Comment:Testing performed by : [facility], [address] [place] [address], [address] Hospitalized? No [facility] Comment:Testing performed by : [facility], [address] [place] [address], [address] Is patient in ICU? No [facility] Comment:Testing performed by : [facility], [address] [place] [address], [address] Symptomatic as defined by CDC? Yes [facility] Comment:Testing performed by : [address], [address] Nasopharyngeal 04/29/2020 2: 21 PM RADIOLOGY TRANSPORTER 04/30/2020 8:58 AM RADIOLOGY TRANSPORTER Narrative CERNER - 04/30/2020 6:55 PM RADIOLOGY TRANSPORTER What is the reason for testing?->Symptoms of COVID-19 in high-risk group (defined above in process inst.) Date of symptom onset->04/25/20 Rubia Silverman NP LAB MICROBIOLOGY - GENERAL VETO HAGER Final Result [facility] [address] Department [place] [address] documented in this encounter Visit Diagnoses Diagnosis Flu-like symptoms Sore throat Acute pharyngitis Close exposure to COVID-19 virus documented in this encounter Additional Health Concerns Infection Onset Date Last Indicated Resolved Time Respiratory Infection (TAWNYA), contact + droplet Comment:Automatically added due to negative COVID-19 result. 04/17/2020 04/17/2020 05/01/2020 3:0 6 AM RADIOLOGY TRANSPORTER COVID: Suspected 04/29/2020 04/29/2020 04/30/2020 6:55 PM RADIOLOGY TRANSPORTER documented as of this encounter Care Teams Barrel Drainer Relationship Specialty Start Date End Date Bettie Pires NP PCP - General Internal Medicine 04/15/20 06/12/22 documented as of this encounter
--- OUTSIDE RECORDS SUMMARY | 2024-05-16 04:07 | XMS_ITS | Encounter Summary ---
Author Organization [facility] Medical Group Address [address] [place] [address] [place] [address] Care Team Providers Care Gis Analyst Name Role Phone Bettie Pires NP Primary Care Provider [phone] Reason for Visit * Reason Onset Date Comments Covid-19 Home Monitoring 05/04/2020 Encounter Details Date Type Department Care Team (Late st Contact Info) Description 05/04/2020 Telephone [facility] Accountable Care Organization [address] [place] [address] Nicky Pfeiffer MA [address] [place] [address] [address] [place] [address] Covid-19 Home Monitoring Social History Tobacco Use Types Packs/Day Years Used Date Smoking Tobacco: Never Comments Unknown Sex and Gender Information Value Date Recorded Sex Assigned at Not on file 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 The patient was contacted via phone for enrollment in the program. The patient has declined to participate in the automated MyChart Rn Gastroenterology Program, but has verbally agreed to the Phone Only Home Monitoring Program, which includes being contacted for a daily phone assessment by a [facility]/ staff member. The patient was informed that [...] the phone only version of the program. SPLANT REGISTERED NURSE documented in this encounter Plan of Treatment Not on file documented as of this encounter Visit Diagnoses Not on filedocumented in this encounter Additional Health Concerns Infection Onset Date Last Indicated Resolved Time COVID19 04/29/2020 04/29/2020 05/13/2020 3:07 AM TRANSPLANT REGISTERED NURSE documented as of this encounter Care Teams Gis Analyst Relationship Specialty Start Date End Date Bettie Pires NP PCP - General Internal Medicine 04/15/20 06/12/22 documented as of this encounter
--- OUTSIDE RECORDS SUMMARY | 2024-05-16 04:07 | XMS_ITS | Encounter Summary ---
Author Organization [facility] Medical Group Address [address] [facility] [address] [place] [address] Care Team Providers Care Back Joiner Name Role Phone Bettie Pires NP Primary Care Provider [phone] Reason for Visit * Reason Onset Date Comments Pre Cert 01/07/2021 Encounter Details Date Type Department Care Team (Late st Contact Info) Description 01/07/2021 Telephone [facility] [address] [place] [address] [address], [place] [address] Hattie Rinaldi RN Pre Cert Social History Tobacco Use Types Packs/Day Years Used Date Smoking Tobacco: Every Day Smokeless Tobacco: Never Comments:vape Alcohol Use Standard Drinks/Week Comments Not Currently 0 (1 standard drink = 0.6 oz pur e alcohol) Comments No Sex and Gender Information Value Date Recorded Sex Assigned at Not on file 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
--- OUTSIDE RECORDS SUMMARY | 2024-05-16 04:07 | XMS_ITS | Encounter Summary ---
Author Organization [facility] Healthcare Address [address] [place] [address] Care Team Providers Care Tuck Pointer Name Role Phone Shruthi Chávez DO Primary Care Provider [phone] Mariaa Cruz MD Unavailable [phone] Reason for Visit * Reason Onset Date Comments Medical Question/Miscellaneous 08/26/2023 Encounter Details Date Type Department Care Team (Late st Contact Info) Description 08/26/[address] 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 * Telephone Encounter - Vidhya Hsu - 08/26/2023 12:50 PM CDT Medical Question/Miscellaneous Caller???s Concern: patient would like her labs from 07.20.23 refaxed to [facility] at #[phone] as they are saying they dont have the order. Does message need to be routed? Yes-Action Needed documented in this encounter Plan of Treatment Not on file documented as of this encounter Visit Diagnoses Not on filedocumented in this encounter Care Teams Tuck Pointer Relationship Specialty Start Date End Date Shruthi Chávez DO [address] [facility] [address] [place] [address] PCP - General Family Medicine 07/15/22 03/03/24 Mariaa Cruz MD [address] [place] [address] Referring Physician Gynecology 07/15/22 documented as of this encounter
--- OUTSIDE RECORDS SUMMARY | 2024-05-16 04:08 | XMS_ITS | Encounter Summary ---
Author Organization [facility] Healthcare Address [address] [place] [address] Care Team Providers Care Centrifuge Separator Operator Name Role Phone Unavailable Primary Care Provider Unavailabl e Encounter Details Date Type Department Care Team (Late st Contact Info) Description 09/04/2010 3:06 PM CDT - 09/04/2010 6:10 PM CDT Hospital Encounter [facility]lvaro Roman MD [address] [facility] [address] [place] [address] [place] [address] Abdominal pain, right upper quadrant; Abdominal pain, right lower quadrant; Other depressive disorder Social History Tobacco Use Types Packs/Day Years Used Date Smoking Tobacco: Never Assessed Comments Unknown Sex and Gender Information Value Date Recorded Sex Assigned at Not on file 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
--- OUTSIDE RECORDS SUMMARY | 2024-05-16 04:08 | XMS_ITS | Encounter Summary ---
Author Organization [facility] Facility Care Team Providers Care Feltmaker Name Role Phone Unavailable Primary Care Provider Unavailabl e Encounter Details Date Type Department Care Team (Latest Contact Info) Description 01/31/2010 10:31 AM CDT - 01/31/2010 11:59 PM CDT Hospital Encounter [facility]CON[facility] Mis Carter Counseling on other sexually transmitted diseases; Irregular menstrual cycle; Bulimia nervosa Social History Tobacco Use Types Packs/Day Years Used Date Smoking Tobacco: Never Assessed Comments Unknown Sex and Gender Information Value Date Recorded Sex Assigned at Not on file 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
--- OUTSIDE RECORDS SUMMARY | 2024-05-16 04:08 | XMS_ITS | Encounter Summary ---
Author Organization [facility] Facility Care Team Providers Care Firer Electric Locomotive Name Role Phone Unavailable Primary Care Provider Unavailabl e Encounter Details Date Type Department Care Team (Latest Contact Info) Description 07/27/2008 9:00 AM CONSTRUCTION MANAGER - 07/27/2008 11:59 PM CONSTRUCTION MANAGER Hospital Encounter [facility] Abdominal or pelvic swelling or mass or lump Social History Tobacco Use Types Packs/Day Years Used Date Smoking Tobacco: Never Assessed Comments Unknown Sex and Gender Information Value Date Recorded Sex Assigned at Not on file 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
--- OUTSIDE RECORDS SUMMARY | 2024-05-16 04:08 | XMS_ITS | Encounter Summary ---
Author Organization [facility] Facility Care Team Providers Care Teacher Adult Education Name Role Phone Unavailable Primary Care Provider Unavailabl e Encounter Details Date Type Department Care Team (Latest Contact Info) Description 10/04/2008 1:54 PM CDT - 10/04/2008 11:59 PM CDT Hospital Encounter [facility] Luong Encounter for routine gynecological examination; Counseling on other sexually transmitted diseases Social History Tobacco Use Types Packs/Day Years Used Date Smoking Tobacco: Never Assessed Comments Unknown Sex and Gender Information Value Date Recorded Sex Assigned at Not on file 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
--- OUTSIDE RECORDS SUMMARY | 2024-05-16 04:08 | XMS_ITS | Encounter Summary ---
Author Organization [facility] Facility Care Team Providers Care Trash Man Name Role Phone Unavailable Primary Care Provider Unavailabl e Encounter Details Date Type Department Care Team (Late st Contact Info) Description 06/20/2009 11:38 AM BLEACH PACKER - 06/20/2009 11:59 PM BLEACH PACKER Hospital Encounter [facility] Mis Carter Bulimia nervosa Social History Tobacco Use Types Packs/Day Years Used Date Smoking Tobacco: Never Assessed Comments Unknown Sex and Gender Information Value Date Recorded Sex Assigned at Not on file Legal Sex Female 3:59 AM BLEACH PACKER Gender Identity Not on file Sexual Orientation Not on file documented as of this encounter Plan of Treatment Not on file documented as of this encounter Visit Diagnoses Diagnosis Bulimia nervosa documented in this encounter
--- OUTSIDE RECORDS SUMMARY | 2024-05-16 04:08 | XMS_ITS | Encounter Summary ---
Author Organization [facility] Facility Care Team Providers Care Director Of Email Marketing Name Role Phone Unavailable Primary Care Provider Unavailabl e Encounter Details Date Type Department Care Team (Late st Contact Info) Description 05/26/2006 6:55 PM GUITAR PLAYER - 05/27/2006 12:01 AM GUITAR PLAYER Hospital Encounter [facility] Social History Tobacco Use Types Packs/Day Years Used Date Smoking Tobacco: Never Assessed Comments Unknown Sex and Gender Information Value Date Recorded Sex Assigned at Not on file Legal Sex Female 3:59 AM GUITAR PLAYER Gender Identity Not on file Sexual Orientation Not on file documented as of this encounter Plan of Treatment Not on file documented as of this encounter Visit Diagnoses Not on filedocumented in this encounter
--- OUTSIDE RECORDS SUMMARY | 2024-05-16 04:08 | XMS_ITS | Encounter Summary ---
Author Organization [facility] Healthcare Address [address] [place] [address] Care Team Providers Care Vendor Management Consultant Name Role Phone Unavailable Primary Care Provider Unavailabl e Encounter Details Date Type Department Care Team (Latest Contact Info) Description 11/26/2010 4:52 PM CDT - 11/26/2010 7:00 PM CDT Hospital Encounter [facility] Álvaro Roman MD [address] [facility] [address] [place] [address] Other and unspecified noninfectious gastroenteritis and colitis; Abdominal pain Social History Tobacco Use Types Packs/Day Years Used Date Smoking Tobacco: Never Assessed Comments Unknown Sex and Gender Information Value Date Recorded Sex Assigned at Not on file 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
--- OUTSIDE RECORDS SUMMARY | 2024-05-16 04:08 | XMS_ITS | Encounter Summary ---
Author Organization [facility] Facility Care Team Providers Care Manufacturing Coordinator Name Role Phone Unavailable Primary Care Provider Unavailabl e Encounter Details Date Type Department Care Team (Late st Contact Info) Description 10/05/2008 - 10/05/2008 11:59 PM CDT Hospital Encounter [facility] CL[facility]CON[facility] Vaz MD [address] [place] [address] Screening for malignant neoplasm of cervix Social History Tobacco Use Types Packs/Day Years Used Date Smoking Tobacco: Never Assessed Comments Unknown Sex and Gender Information Value Date Recorded Sex Assigned at Not on file 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
--- OUTSIDE RECORDS SUMMARY | 2024-05-16 04:08 | XMS_ITS | Encounter Summary ---
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
== END 2024-05-09 10:08 | disposition home or self-care (01) ==
PROVIDERS: Emergency Provider Nurse Practitioner Family; PCP Family Medicine
DX: J06.9 Acute upper respiratory infection, unspecified (principal); Z87.891 Personal history of nicotine dependence
CPT/HCPCS: 99213; G0463

== ENCOUNTER 2024-05-23 10:18 | Outpatient (CLI) | payer OTHER, SELFPAY ==
--- NOTE | ~2024-05-23 | US_ITS ---
EXAMINATION: US OB /maternal detail DATE: 05/23/2024 11:28 INDICATION: anatomic survey. TECHNIQUE: Real-time ultrasound of the pelvis was performed. COMPARISON: Ultrasound 03/28/2024 FINDINGS: There is a single living fetus in variable presentation. The placenta is posterior, 2.4 cm from the cervix. The cervical length is 3.0 cm on transabdominal images, which is normal. heart rate is 140 beats per minute (bpm). The amniotic fluid volume is subjectively normal. The following biometric data were obtained: Biparietal diameter (BPD): 4.3 cm; head circumference (HC): 16.3 cm; abdominal circumference (AC): 13 .8 cm; femur length (FL): 2.9 cm. These measurements are concordant. Estimated weight is 269 g +/- 40 g, which correlates with the 38th percentile when 10/16/24 is u sed as estimated date of delivery. As single measurements, these parameters are each equal to the following estimated gestational ages: BPD: 19 weeks 0 days. HC: 19 weeks 0 days. AC: 19 weeks 1 days. FL: 18 weeks 5 days. estimated gestational age based solely on measurements from this exam is 19 weeks 0 days +/- 1 weeks 2 days. The cerebral ventricles, cerebellum, cisterna magna, nuchal fold, and spine are normal. The heart is normal. There is mild bilateral pelviectasis. The diaphragm, stomach, and bladder are normal. There a re two umbilical arteries to yield a 3-vessel cord. The cord insertion is normal. IMPRESSION: 1. Single living fetus in variable presentation. 2. Estimated weight is 269 g +/- 40 g, which correlates with the 38th percentile when 10/16/24 is used as estimated date of delivery. This date was set by ultrasound on 03/28/2024. 3. Mild bilateral pelviectasis. Reviewed, dictated and finalized at location [] OLOGY TEACHER IMPRESSION: 1. Single living fetus in variable presentation. 2. Estimated weight is 269 g +/- 40 g, which correlates with the 38th pe rcentile when 10/16/24 is used as estimated date of delivery. This date was set by ultrasound on 03/28/2024. 3. Mild bilateral pelviectasis.
== END 2024-05-23 10:19 | disposition home or self-care (01) ==
PROVIDERS: PCP Family Medicine; Visit Provider Obstetrics & Gynecology Gynecology
DX: Z36.9 Encounter for antenatal screening, unspecified (principal)
CPT/HCPCS: 76805

== ENCOUNTER 2024-07-11 10:48 | Outpatient (CLI) | payer OTHER, SELFPAY ==
[2024-07-11 11:15] VITALS: BP 93/59; PULSE 84
[2024-07-11 11:30] VITALS: BP 106/67; PULSE 90
[2024-07-11 11:48] LABS: Add Urine Microscopic? NO; Appearance Urine Clear (Clear); Bilirubin Urine Negative (Negative); Blood Urine Negative (Negative); Color Urine Yellow (Yellow); Glucose Urine UA Negative (Negative); Ketones Urine Negative (Negative); Leukocyte Esterase Ur Negative LEU/UL (Negative); Nitrate Urine Negative (Negative); Protein Urine Negative (Negative); Specific Grav Ur 1.014 (1.001-1.035); Urobilinogen Urine 0.2 mg/dL (<2.0); pH Urine 7.5 (5.0-9.0)
[2024-07-11 13:36] LABS: OBXCEM ROM Plus Negative (Negative)
--- OUTSIDE RECORDS SUMMARY | 2024-07-11 13:58 | XMS_ITS | Clinical Summary ---
Author Organization [address] Address [address] [place] [address] Care Team Providers Care Ophthalmic Lens Inspector Name Role Phone Mariaa Cruz MD Unavailable [phone] Allergies Active Allergy Reactions Criticality Noted Date [...] previously with - patient denies using any ougk-ytl-wvujife medication at this but has used epsom [...] (119 lb) Body mass index is 21.52 kg/m . -Stable, at goal of <30 bmi -Discussed [...] 07/15/2022 Assessment & Plan (07/22/2022 11:12 AM INSTITUTE SCIENTIST): I favor that this was more a [...] to ED if pain becomes severe Immunizations Immunization Administration Dates Next Due Hep A, Adult [...] on file Legal Sex Female 3:59 AM INSTITUTE SCIENTIST Gender Identity Not on file Sexual Orientation [...] 75 10/06/2023 3:13 PM CDT Temperature 37 C (98.6 F) 09/26/2023 4:03 PM CDT Respiratory Rate 16 [...] HEPATITIS C ANTIBODY Routine 07/22/2022 11:15 AM INSTITUTE SCIENTIST Annual physical exam Encounter for hepatitis C screening test for low risk patient from Last 3 Months or Most Recently Relevant to Health Maintenance Results * Hepatitis C antibody (07/22/2022 11:15 AM INSTITUTE SCIENTIST) Hep C Ab Nonreactive Nonreactive [facility] ([place]) Comment: Interpretive Data Nonreactive: Antibodies to HCV not detected. Does NOT exclude the possibility of recent exposure to HCV. Equivocal: Equivocal for HCV antibodies. Supplemental molecular testing will be automatically performed to determine infection status in accordance with current CDC screening recommendations. Reactive: Positive for HCV antibodies. This may represent current or past HCV infection. Supplemental molecular testing will be automatically performed to determine current infection status in accordance with current CDC screening recommendations. Interpretive data was last revised on 2019. Testing performed by: [facility], [address] [place] [address]., [id number] Blood 07/22/2022 11:1 5 AM INSTITUTE SCIENTIST 07/22/2022 1:51 PM INSTITUTE SCIENTIST us Shruthi Chávez DO LAB MICROBIOLOGY - GENERAL ORDERABLES Edited Result - Final [facility] ([place]) 1 [facility] Department [place] [address] from Last 3 Months or Most Recently Relevant to Health Maintenance Insurance [facility] AETNA SIG [id number] [facility] [employer] SIG [id number] Care Teams Ophthalmic Lens Inspector Relationship Specialty Start Date End Date Mariaa Cruz MD [address] [place] [address] Referring Physician Gynecology 07/15/22
--- OUTSIDE RECORDS SUMMARY | 2024-07-11 13:58 | XMS_ITS | Referral Summary ---
Author Organization [address] Address [address] [place] [phone] Care Team Providers Care Asphalt Paver Name Role Phone Mariaa Cruz MD Unavailable [phone] Allergies Active Allergy Reactions Criticality Noted Date [...] previously with - patient denies using any [id number] medication at this but has used epsom [...] 07/15/2022 Assessment & Plan (07/22/2022 11:12 AM CALCIMINER): I favor that this was more a [...] on file Legal Sex Female 3:59 AM CALCIMINER Gender Identity Not on file Sexual Orientation [...] HEPATITIS C ANTIBODY Routine 07/22/2022 11:15 AM CALCIMINER Annual physical exam Encounter for hepatitis C screening test for low risk patient from Last 3 Months or Most Recently Relevant to Health Maintenance Results * Hepatitis C antibody (07/22/2022 11:15 AM CALCIMINER) Hep C Ab Nonreactive Nonreactive [facility]ACIE SANABRIA ([place]) Comment: Interpretive Data Nonreactive: Antibodies to HCV [...] last revised on 2019. Testing performed by: [facility], [address] [place] [address]., [id number] Blood 07/22/2022 11:1 5 AM CALCIMINER 07/22/2022 1:51 PM CALCIMINER us Shruthi Chávez DO LAB MICROBIOLOGY - GENERAL ORDERABLES Edited Result - Final TRACIE SANABRIA ([place]) [facility] Department of [email or web address] [place], [place] [id number] from Last 3 Months or Most Recently Relevant to Health Maintenance Insurance [facility] AETNA SIG [id number] [facility] AETNA SIG [id number] Care Teams Asphalt Paver Relationship Specialty Start Date End Date Mariaa Cruz MD 2022 [address]IN [address] [address] Referring Physician Gynecology 07/15/22
--- OUTSIDE RECORDS SUMMARY | 2024-07-11 13:58 | XMS_ITS | Patient Health Summary ---
Author Organization [facility] Address [address] [facility] [place] [address] Care Team Providers Care Corporate Risk Analyst Name Role Phone Unavailable Primary Care Provider Unavailabl e Note from [facility],non-owned Affiliates and Associated Physician Practices is amultiple site organization consisting of ambulatory clinics and hospital sitesin [place], [place], [place] and [place]. This disclosure is being madepursuant to the Care Everywhere program and may not contain all information available regarding this patient. Last updated 18.[facility] Allergies No known active allergies Medications * [...] 83 08/25/2018 12:17 PM CDT Temperature 36.5 C (97.7 F) 08/25/2018 12:17 PM CDT Respiratory Rate 20 08/25/2018 12:17 PM CDT [...] 3:33 AM CDT) Case Report Dermatopathology Report Case: [id number] Authorizing Provider: Ady Dickens MD Collected: 10/01/2023 03:33 AM Ordering Location: [facility] - Received: 10/05/2023 07:18 AM DermPath Lab Pathologist: Terrance Velazco MD Specimen: Skin, left posterior neck 1:24 PM CDT DERMATOPATHOLOGY LABORATORY Final Diagnosis Specimen A. SKIN, left posterior neck: INTRADERMAL MELANOCYTIC NEVUS (D22.4) 1:24 PM CDT DERMATOPATHOLOGY LABORATORY Clinical History Irritated Nevus 1:24 PM CDT DERMATOPATHOLOGY LABORATORY Gross Description Specimen A: Received is one formalin filled container labeled with the patients name and designated left posterior neck. The specimen consists of a shave removal measuring 4x2x4 mm. Jar 0. 1:24 PM CDT DERMATOPATHOLOGY LABORATORY Microscopic Description [...] characteristic determined by the Dermatopathology Laboratory at [facility], directed by Dr. Lewis Velazco. These tests need not be, and therefore are not, approved by the [place] Food and Drug Administration. The tests are used for clinical purposes. Billing Codes Specimen Charges Stain Charges 35769 1 05/14/202 4 1:24 PM CDT DERMATOPATHOLOGY LABORATORY Embedded Images 4 1:24 PM CDT DERMATOPATHOLOGY LABORATORY Pathology/Cytolo gy TISSUE SPECIMEN FROM SKIN / Unknown 10/01/2023 3:33 AM CDT 10/05/2023 7:18 AM CDT Ady Dickens MD LAB - PATHOLOGY/CYTO LOGY ORDERABLES DERMATOPATHOLOGY LABORATORY [facility] - Department of Dermatology [facility] [address] [place] [address], [address] [phone] * STREP A SCREEN (08/25/2018) Strep A Rapid POCT Negative Negative Strep A Internal Control Present Lot # [id number] Expiration Date 02/25/2020 Throat ENTIRE THROAT (SURFACE REGION OF NECK) / Unknown 08/25/2018 Kateryna Tubbs PERFECT BINDER SETTER-CLIENT RELATIONS SPECIALIST LAB - POINT OF CARE ORDERABLES
--- OUTSIDE RECORDS SUMMARY | 2024-07-11 13:58 | XMS_ITS | Referral Summary ---
Author Organization [facility] Address [address] [place] [address] Care Team Providers Care Stitch Rubber Name Role Phone Unavailable Primary Care Provider Unavailabl e Source Comments [facility],non-owned Affiliates and Associated Physician Practices is amultiple site organization consisting of ambulatory clinics and hospital sitesin [place], [place], [place] and [place]. This disclosure is being madepursuant to the Care Everywhere program and may not contain all information available regarding this patient. Last updated 18.[facility] Allergies No known active allergies Medications * [...]
--- OUTSIDE RECORDS SUMMARY | 2024-07-11 13:58 | XMS_ITS | Continuity of Care Document ---
Author Organization [facility] Address [address] [place] [address] Phone Care Team Providers Care Residential Remodeling Subcontractor Name Role Phone Irma Jaramillo Unavailable Unavailable [...] Diagnoses Date Provider Providers Copied on Encounter [facility] [place] [facility], [address] [place] [address], tel:[phone] [place] No Information 4 Lisbet Irma. [address] [place] [address], . tel:[phone] OFFICE/OUTPAT IENT VISIT, [facility], [address] [place] [address], tel:[phone] [place] Flu like symptoms (chief complaint) Upper Respiratory Infection, Acute 4 No Information Family History Family Member Type Diagnosis Age At Onset Father Problem (finding) diabetes melli tus in first degree relative Payers Payer name Insurance type Covered green party ID Authoriza tion(s) No Information Social History [...]
--- OUTSIDE RECORDS SUMMARY | 2024-07-11 13:58 | XMS_ITS | Clinical Summary ---
Author Organization [facility] Address [address] [place] [address] Care Team Providers Care Asset Management Coordinator Name Role Phone Unavailable Primary Care Provider Unavailabl e Source Comments [facility],non-owned Affiliates and Associated Physician Practices is amultiple site organization consisting of ambulatory clinics and hospital sitesin [place], [place], [place] and [place]. This disclosure is being madepursuant to the Care Everywhere program and may not contain all information available regarding this patient. Last updated 18.[facility] Allergies No known active allergies Medications * [...] Date Last Done Comments PAP SMEAR 1991 HIV SCREENING 2006 HEPATITIS C SCREENING 03/10/2009 DTAP/TDAP/TD VACCINES (1 - Tdap) 2010 HEPATITIS B VACCINE (1 of 3 - 19+ 3-dose series) 2010 PNEUMOCOCCAL VACCINE (1 of 2 - PCV) 2010 COVID-19 VACCINE (1 - 2023-2 5 season) 2024 INFLUENZA VACCINE (#1) 2024 DEPRESSION SCREENING 05/25/2024 ZOSTER VACCINE (1 of 2) 2041 HIB VACCINE Aged Out No longer eligi ble based on patient's age to complete this topic HPV VACCINE Aged Out No longer eligi ble based on patient's age to complete this topic MENINGOCOCCAL (Group B) VACCINE Aged Out No longer eligible based on patient's age to complete this topic MENINGOCOCCAL VACCINE Aged Out No pema mack eligible based on patient's age to complete this topic
--- OUTSIDE RECORDS SUMMARY | 2024-07-11 13:58 | XMS_ITS | Encounter Summary ---
Author Organization [facility] Address [address] [facility] [place] [address] Care Team Providers Care Dip Stand Loader Name Role Phone Unavailable Primary Care Provider Unavailabl e Encounter Details Date Type Department Care Team (Late st Contact Info) Description 10/01/2023 Lab Requisition [facility] - [facility]erm[facility] Lab [address] [place] [address] Ady Dickens MD [facility] [address] [place] [phone] Neoplasm of uncertain behavior of skin; [...] AM CDT) Case Report Dermatopathology Report Case: [id number] Authorizing Provider: Ady Dickens MD Collected: 10/01/2023 03:33 AM Ordering Location: [facility] - Received: 10/05/2023 07:18 AM [...] characteristic determined by the Dermatopathology Laboratory at [facility], directed by Dr. Lewis Velazco. These tests need not be, and therefore are not, approved by the [place] Food and Drug Administration. The tests are used for clinical purposes. Billing Codes Specimen Charges Stain Charges 45316 1 1:24 PM CDT DERMATOPATHOLOGY LABORATORY Embedded Images 1:24 PM CDT DERMATOPATHOLOGY LABORATORY Pathology/Cytolo gy TISSUE SPECIMEN FROM SKIN / Unknown 10/01/2023 3:33 AM CDT 10/05/2023 7:18 AM CDT dAy Dickens MD LAB - PATHOLOGY/CYTO LOGY ORDERABLES DERMATOPATHOLOGY LABORATORY [facility] - Department of Dermatology [address], [address] [phone] documented in this encounter Visit Diagnoses Diagnosis Neoplasm of uncertain behavior of skin Other disturbances of skin sensation Hemorrhage, not elsewhere classified documented in this encounter
== END 2024-07-11 12:06 | disposition home or self-care (01) ==
LOC: ANHOBOP 10:53 → ANHOBPP 10:55
PROVIDERS: PCP Family Medicine; Visit Provider Obstetrics & Gynecology Gynecology
DX: O42.90 Premature rupture of membranes, unspecified as to length of time between rupture and onset of labor, unspecified weeks of gestation (principal); Z3A.00 Weeks of gestation of pregnancy not specified
CPT/HCPCS: 59025; 81003; 84112

== ENCOUNTER 2024-08-15 22:16 | Observation (INO) | payer OTHER, SELFPAY ==
[2024-08-15] VITALS (8 sets, daily range): BP systolic 87–88; BP diastolic 58–62; PULSE 84–97; O2SAT 97–100; BMI 28.0
--- NOTE | 2024-08-15 22:16 | PC.NURSE ---
Pt arrives to unit from home with vaginal bleeding when wiped after bowel movement.
--- OUTSIDE RECORDS SUMMARY | 2024-08-15 22:22 | XMS_ITS | Clinical Summary ---
Author Organization [facility] Address [address] [place] [address] Care Team Providers Care Assessment Counselor Name Role Phone Unavailable Primary Care Provider Unavailabl e Source Comments [facility],non-owned Affiliates and Associated Physician Practices is amultiple site organization consisting of ambulatory clinics and hospital sitesin [place], [place], [place] and [place]. This disclosure is being madepursuant to the Care Everywhere program and may not contain all information available regarding this patient. Last updated 18.[facility] Allergies No known active allergies Medications * [...] to complete this topic MENINGOCOCCAL (Group B) VACC INE SHARED DECISION-MAKING Aged Out No longer eligibl e based on patient's age to complete this topic MENINGOCOCCAL GROUPS A/C/Y/W VACCINE Aged Out No longer eligible b ased on patient's age to complete this topic
--- OUTSIDE RECORDS SUMMARY | 2024-08-15 22:22 | XMS_ITS | Continuity of Care Document ---
Author Organization [facility] Address [address] [place] [address] Phone Care Team Providers Care Mattress Specialist Name Role Phone Irma Jaramillo Unavailable Unavailable [...] Diagnoses Date Provider Providers Copied on Encounter [facility], [address] [place] [address], tel:[phone] [place] No Information 4 [facility] Irma. [address] [place] [address], . tel:[phone] OFFICE/OUTPAT IENT VISIT, [facility], [address] [place] [address], tel:[phone] [place] Flu like symptoms (chief complaint) Upper Respiratory [...]
--- OUTSIDE RECORDS SUMMARY | 2024-08-15 22:22 | XMS_ITS | Encounter Summary ---
Author Organization [facility] Address [address] [facility] [place] [address] Care Team Providers Care Traffic Worker Name Role Phone Unavailable Primary Care Provider Unavailabl e Encounter Details Date Type Department Care Team (Late st Contact Info) Description 10/01/2023 Lab Requisition [facility] Lab [address] [facility] [place] [address] Ady Dickens MD [facility] [address] [place] [phone] Neoplasm of uncertain behavior of skin; [...] AM CDT) Case Report Dermatopathology Report Case: [id number] Authorizing Provider: Ady Dickens MD Collected: 10/01/2023 03:33 AM Ordering Location: [facility] - Received: 10/05/2023 07:18 AM [...] characteristic determined by the Dermatopathology Laboratory at [facility], directed by Dr. Lewis Velazco. These tests need not be, and therefore are not, approved by the [place] Food and Drug Administration. The tests are used for clinical purposes. Billing Codes Specimen Charges Stain Charges 24159 1 1:24 PM CDT DERMATOPATHOLOGY LABORATORY Embedded Images 1:24 PM CDT DERMATOPATHOLOGY LABORATORY Pathology/Cytolo gy TISSUE SPECIMEN FROM SKIN / Unknown 10/01/2023 3:33 AM CDT 10/05/2023 7:18 AM CDT Ady Dickens MD LAB - PATHOLOGY/CYTO LOGY ORDERABLES DERMATOPATHOLOGY LABORATORY [facility] - Department of Dermatology [address] [phone] documented in this encounter Visit Diagnoses Diagnosis Neoplasm of uncertain behavior of skin Other disturbances of skin sensation Hemorrhage, not elsewhere classified documented in this encounter
--- OUTSIDE RECORDS SUMMARY | 2024-08-15 22:22 | XMS_ITS | Referral Summary ---
Author Organization [address] Address [address] [place] [phone] Care Team Providers Care Distributor Sales Consultant Name Role Phone Mariaa Cruz MD Unavailable [phone] Esperanza Whiteside MD Primary Care Provide r Sophie Portillo NP Unavailable Encounters Date Type Department Care Team Description 07/22/2024 Results Follow-Up [facility] Primary Care at [address] [phone] Esperanza Whiteside MD Healthcare maintenance (Primary Dx) 07/21/2024 3:40 PM TANKER TRUCK DRIVER Lab [address] [phone] Healthcare maintenance; Vitamin D deficiency 07/21/2024 Orders Only [facility] Primary Care at [address] [phone] Esperanza Whiteside MD Healthcare maintenance (Primary Dx); Vitamin D deficiency 07/21/2024 3:00 PM TANKER TRUCK DRIVER Office Visit [facility] Primary Care at [address] [phone] Esperanza Whiteside MD Encounter for wellness examination (Primary Dx); Encounter to establish care; Vitamin D deficiency; BMI 27.0-27.9,adult 07/11/2024 Orders Only [facility] Information Management [address] [place] [id number] Scanning, Provider from Last 3 Months Allergies Active Allergy Reactions Criticality Noted Date Comments Sulfa (Sulfonamide Antibiotics) Nausea only Low Medications hydrocortisone (ANUSOL-HC) 2.5 % rectal creamIndications:B leeding hemorrhoid Insert into the rectum 2 (two) times a day 30 g 1 4 Active valACYclovir (VALTREX) 500 mg tablet Take 1 tablet (500 mg total) by mouth daily Active valACYclovir (VALTREX) 500 mg tablet Take 1 tablet (500 mg total) by mouth daily 3 025 Discontin ued(Patie nt Reported) ondansetron ODT (ZOFRAN-ODT) 4 mg disintegrating tablet Dissolve 1 tablet for mild to moderate nausea or vomiting or 2 tablets for severe nausea or vomiting oral twice a day as needed. 12 tablet 4 025 Discontin ued(Patie nt Reported) busPIRone (BUSPAR) 5 mg tablet Take 1 tablet (5 mg total) by mouth 2 (two) times a day 4 025 Discontin ued(Patie nt Reported) Active Problems Problem Noted Date Diagnosed Date Encounter for wellness examination 07/20/2024 Assessment & Plan (07/21/2024 3:17 PM TANKER TRUCK DRIVER): Ordered CBC, cmp, lipid, hgb a1c, TSH w/ reflex to t4 Pap smear: follows with ob Flu declines Tdap: will receive from ob F/u in 1 year for annual Encounter to establish care 07/20/2024 Bleeding hemorrhoid 10/07/2023 Assessment & Plan (10/07/2023 2:00 PM CDT): - Recurrent, acute complaint - patient reports onset of symptoms including rectal bleeding, rectal pain that started 1 week ago - patient reports a history of hemorrhoids previously with - patient denies using any [id number] medication at this but has used epsom salts bath which has provided some relief - patient reports the bleeding only occurs when she has bowel movements - patient states she believes the hemorrhoid is inside her rectum - nifedipine ointment prescribed - encourage patient if symptoms do not improve follow up back in office BMI 27.0-27.9,adult 07/20/2023 Assessment & Plan (10/07/2023 1:33 PM [...] Vitamin D deficiency 07/15/2022 Assessment & Plan (07/20/2024 12:54 PM TANKER TRUCK DRIVER): Asymptomatic, labs ordered. Assessment & Plan (08/12/2023 9:11 AM CDT): Asymptomatic, labs ordered. Hernia of anterior abdominal wall 07/15/2022 Assessment & Plan (07/22/2022 11:12 AM TANKER TRUCK DRIVER): I favor that this was more a [...] understanding of the plan. Bulimia nervosa 01/31/2010 Comments Yes Resolved Problems Problem Noted Date Diagnosed Date [...] Due Hep A, Adult 06/20/2016,08/06/2012 Influenza, Unspecified 07/21/2024(Deferr ed: Patient Refused),03/13/2024(Deferred: Patient Refused),03/13/2023(Deferred: Patient Refused),07/15/2022(Deferred: Patient Refused) Social History Tobacco [...] points, staff should administer the PHQ-9) 0 07/21/2024 Personal Safety Answer Date Recorded Have you ever been in or are you currently in a harmful physical or emotional relationship or is someone making you feel afraid or unsafe? Denies 09/26/2023 Comments Yes Sex and Gender Information Value Date Recorded Sex Assigned at Not on file Legal Sex Female 3:59 AM TANKER TRUCK DRIVER Gender Identity Not on file Sexual Orientation Not on file Last Filed Vital Signs Vital Sign Reading Time Taken Comments Blood Pressure 108/56 07/21/2024 2:58 PM TANKER TRUCK DRIVER Pulse 76 07/21/2024 2:58 PM TANKER TRUCK DRIVER Temperature 36.1 C (97 F) 07/21/2024 2:58 PM TANKER TRUCK DRIVER Respiratory Rate 16 07/21/2024 2:58 PM TANKER TRUCK DRIVER Oxygen Saturation 99% 07/21/2024 2:58 PM TANKER TRUCK DRIVER Inhaled Oxygen Concentration - - Weight 68.5 kg (151 lb) 07/21/2024 2:58 PM TANKER TRUCK DRIVER Height 157.5 cm (5' 2 ) 07/21/2024 2:58 PM TANKER TRUCK DRIVER Body Mass Index 27.62 07/21/2024 2:58 PM TANKER TRUCK DRIVER Plan of Treatment Not on file Procedures Procedure Name Priority Date/Time Associated Diagnosis Comments EGFR Routine 07/21/2024 3:49 PM TANKER TRUCK DRIVER Healthcare maintenance DIFFERENTIAL AUTO Routine 07/21/2024 3:4 9 PM TANKER TRUCK DRIVER Healthcare maintenance CBC WITH AUTO DIFFERENTIAL Routine 07/21/2024 3:49 PM TANKER TRUCK DRIVER Healthcare maintenance COMPREHENSIVE METABOLIC PANEL Routine 07/21/2024 3:49 PM TANKER TRUCK DRIVER Healthcare maintenance LIPID PANEL Routine 07/21/2024 3:49 PM TANKER TRUCK DRIVER Healthcare maintenance VITAMIN D 25 HYDROXY Routine 07/21/2024 3:49 PM TANKER TRUCK DRIVER Vitamin D deficiency THYROID FUNCTION CASCADE Routine 07/21/2024 3:49 PM TANKER TRUCK DRIVER Healthcare maintenance HEMOGLOBIN A1C Routine 07/21/2024 3:49 PM TANKER TRUCK DRIVER Healthcare maintenance SCAN - LABS 07/11/2024 HEPATITIS C ANTIBODY Routine 07/22/2022 11:15 AM TANKER TRUCK DRIVER Annual physical exam Encounter for hepatitis C screening test for low risk patient from Last 3 Months or Most Recently Relevant to Health Maintenance Results * eGFR (07/21/2024 3:49 PM TANKER TRUCK DRIVER) eGFR >90 >=60 mL/min/1. 73 m2 Comment: Interpretive Data Reference Interval Normal >/= 90 mL/min/1.73m2 Mildly decreased* 60 - 89 mL/min/1.73m2 Mildly to moderately decreased 45 - 59 mL/min/1.73m2 Moderately to severely decreased 30 - 44 mL/min/1.73m2 Severely decreased 15 - 29 mL/min/1.73m2 Kidney Failure < 15 mL/min/1.73m2 *Relative to young adult level Estimated glomerular [...] interpretive data was last reviewed 2021. Blood 07/21/2024 3:49 PM TANKER TRUCK DRIVER 07/21/2024 4:07 PM TANKER TRUCK DRIVER us Esperanza Whiteside MD LAB BLOOD ORDERABLES Final Result [facility] Department [place] [address] * (ABNORMAL) Differential, auto (07/21/2024 3:49 PM TANKER TRUCK DRIVER) Neutrophil abs 8.1(H) 1.5 - 6.5 K/cumm Imm gran abs 0.1 0.0 - 0.1 K/cumm [facility] Lymphocyte abs 1.9 0.8 - 3.3 K/cumm [facility] Monocyte abs 1.5(H) 0.2 - 0.8 K/cumm [facility] Eosinophil abs 0.1 0.0 - 0.5 K/cumm [facility] Basophil abs 0.0 0.0 - 0.1 K/cumm [facility] Neutrophil pct 69.4 % [facility] Comment: Interpretive Data Percent cell count reference ranges are not reported, since discordance with absolute values may lead to misinterpretation of CBC data. Current Interpretive Data was last revised on 2017. Imm gran pct 0.5 % [facility] ([place] Comment: Interpretive Data Percent cell count reference ranges are not reported, since discordance with absolute values may lead to misinterpretation of CBC data. Current Interpretive Data was last revised on 2017. Lymphocyte pct 16.2 % [facility] Comment: Interpretive Data Percent cell count reference ranges are not reported, since discordance with absolute values may lead to misinterpretation of CBC data. Current Interpretive Data was last revised on 2017. Monocyte pct 13.2 % [facility] Comment: Interpretive Data Percent cell count reference ranges are not reported, since discordance with absolute values may lead to misinterpretation of CBC data. Current Interpretive Data was last revised on 2017. Eosinophil pct 0.6 % [facility] Comment: Interpretive Data Percent cell count reference ranges are not reported, since discordance with absolute values may lead to misinterpretation of CBC data. Current Interpretive Data was last revised on 2017. Basophil pct 0.1 % [facility] Comment: Interpretive Data Percent cell count reference ranges are not reported, since discordance with absolute values may lead to misinterpretation of CBC data. Current Interpretive Data was last revised on 2017. Blood 07/21/2024 3:49 PM TANKER TRUCK DRIVER 07/21/2024 4:07 PM TANKER TRUCK DRIVER us Esperanza Whiteside MD LAB BLOOD ORDERABLES Final Result [facility] Department [place] [address] * Thyroid Function [place] (07/21/2024 3:49 PM TANKER TRUCK DRIVER) TSH 1.48 0.30 - 4.20 mcIUnit/mL Blood 07/21/2024 3:49 PM TANKER TRUCK DRIVER 07/21/2024 4:07 PM TANKER TRUCK DRIVER Esperanza Whiteside MD LAB BLOOD ORDERABLES Final Result [facility] Department [place] [address] * (ABNORMAL) CBC with auto differential (07/21/2024 3:49 PM TANKER TRUCK DRIVER) Pathologist [facility] WBC 11.7(H) 3.8 - 9.9 K/cumm Hgb 11.3(L) 11.9 - 15.5 g/dL [facility] Hct 33.4(L) 35.6 - 45.5 % [facility] Plt 195 150 - 400 K/cumm [facility] MPV 11.2 9.1 - 12.3 fL [facility] RBC 3.61(L) 3.90 - 5.20 M/cumm [facility] MCV 92.5 81.3 - 96.4 fL [facility] MCH 31.3 27.1 - 33.3 pg [facility] MCHC 33.8 32.3 - 35.7 g/dL [facility] RDW CV 12.1 11.1 - 14.9 % [facility] RDW SD 41.2 35.7 - 48.1 fL [facility] NRBC abs 0.00 0.00 - 0.01 K/cumm [facility] Blood 07/21/2024 3:49 PM TANKER TRUCK DRIVER 07/21/2024 4:07 PM TANKER TRUCK DRIVER Esperanza Whiteside MD LAB BLOOD ORDERABLES Final Result [facility] [place] [address] * Vitamin D 25 hydroxy (07/21/2024 3:49 PM TANKER TRUCK DRIVER) Pathologist [facility] Vitamin D 25-OH 41 30 - 80 ng/mL Blood 07/21/2024 3:49 PM TANKER TRUCK DRIVER 07/21/2024 4:07 PM TANKER TRUCK DRIVER Esperanza Whiteside MD LAB BLOOD ORDERABLES Final Result Performing Organization Address [facility] de Phone Number [facility] ([place] [address] [place] [address] * Hemoglobin A1c (07/21/2024 3:49 PM TANKER TRUCK DRIVER) Hgb A1C 4.6 4.0 - 5.6 % Estimated Average Glucose 85 mg/dL [facility] Comment: The ADA recommends reporting an estimated Average Glucose (eAG) with all Hemoglobin A1c results using the equation derived from a study of 507 normal and diabetic adults. Minority populations were underrepresented and children were not included. (Diabetes Care 31:3315-6641, 2008). The eAG is not equivalent to a fasting glucose. Blood 07/21/2024 3:49 PM TANKER TRUCK DRIVER 07/21/2024 4:07 PM TANKER TRUCK DRIVER Esperanza Whiteside MD LAB BLOOD ORDERABLES Final Result Performing Organization Address [facility] de Phone Number [facility] ([place] [address] [place] [address] * (ABNORMAL) Lipid panel (07/21/2024 3:49 PM TANKER TRUCK DRIVER) Cholesterol 224(H) 30 - 199 mg/dL Comment: Interpretive Data Ages < or = 19 years Acceptable: <170 mg/dL Borderline high: 170-199 mg/dL High: >or= 200 mg/dL Ages > or = 20 years Desirable: <200 mg/dL Borderline high: 200-239 mg/dL High: >or= 240 mg/dL Literature References: 1. Expert Panel on Integrated Guidelines for Cardiovascular Health and Risk Reduction in Children and Adolescents. Pediatrics 2011;128:S213 2. NCEP Expert Panel. Circulation 2004;110:227 Current Interpretive Data was last revised on 2018. Triglycerides 132 <=149 mg/dL [facility] Comment: Interpretive Data Ages < or = 9 years Acceptable: <75 mg/dL Borderline high: 75-99 mg/dL High: >or= 100 mg/dL Ages 10 to 20 years Acceptable: <90 mg/dL Borderline high: 90-129 mg/dL High: >or= 130 mg/dL Ages > or = 20 years Desirable: <150 mg/dL Borderline high: 150-199 mg/dL High: 200-499 mg/dL Very high: >or= 499 mg/dL Literature References: 1. Expert Panel on Integrated Guidelines for Cardiovascular Health and Risk Reduction in Children and Adolescents. Pediatrics 2011;128:S213 2. NCEP Expert Panel. Circulation 2004;110:227 Current Interpretive Data was last revised on 2018. HDL 85 >=40 mg/dL [facility] Comment: Interpretive Data Ages < or = 19 years Acceptable: >45 mg/dL Borderline low: 40-45 mg/dL Low: <40 mg/dL Ages > or = 20 years Desirable: >or= 60 mg/dL Low: <40 mg/dL Literature References: 1. Expert Panel on Integrated Guidelines for Cardiovascular Health and Risk Reduction in Children and Adolescents. Pediatrics 2011;128:S213 2. NCEP Expert Panel. Circulation 2004;110:227 Current Interpretive Data was last revised on 2018. LDL, calculated 116 <=129 mg/dL [facility] Comment: Interpretive Data Ages < or = 19 years Acceptable: <110 mg/dL Borderline high: 110-129 mg/dL High: >or= 130 mg/dL Ages > or = 20 years Optimal: <100 mg/dL Near optimal: 100-129 mg/dL Borderline high: 130-159 mg/dL High: >160 mg/dL Calculated using the Umair LDL-C estimating equation. This equation was implemented on 2024. Prior to this date LDL-C was estimated using the Friedewald equation. Literature References: 1. Expert Panel on Integrated Guidelines for Cardiovascular Health and Risk Reduction in Children and Adolescents. Pediatrics 2011;128:S213 2. NCEP Expert Panel. Circulation 2004;110:227 3. Umair Carlos et al. TIFFANY Cardiol. 2020 September 22;5(5):540-548. doi: 10.1001/jamacardio.2020.0013 Current Interpretive Data was last revised on 2024. Non-HDL Cholesterol 139 mg/dL [facility] Comment: Interpretive Data Ages < or = 19 years Acceptable: <120 mg/dL Borderline high: 120-144 mg/dL High: >145 mg/dL Ages > or = 20 years When triglycerides are >200 mg/dL, Non-HDL cholesterol is a secondary target of therapy with treatment goals that are 30 mg/dL greater than the LDL cholesterol target. Literature References: 1. Expert Panel on Integrated Guidelines for Cardiovascular Health and Risk Reduction in Children and Adolescents. Pediatrics 2011;128:S213 2. NCEP Expert Panel. Circulation 2004;110:227 Current Interpretive Data was last revised on 2018. Chol/HDL ratio 3 [facility] Blood 07/21/2024 3:49 PM TANKER TRUCK DRIVER 07/21/2024 4:07 PM TANKER TRUCK DRIVER Esperanza Whiteside MD LAB BLOOD ORDERABLES Final Result [facility] Department [place] [address] * (ABNORMAL) Comprehensive metabolic panel (07/21/2024 3:49 PM TANKER TRUCK DRIVER) Sodium 134(L) 135 - 145 mmol/L Potassium, pl 4.0 3.3 - 4.9 mmol/L [facility] Chloride 103 97 - 110 mmol/L [facility] CO2 22 22 - 32 mmol/L [facility] Anion gap 9 2 - 15 mmol/L [facility] BUN 16 6 - 25 mg/dL [facility] Creatinine 0.69 0.60 - 1.10 mg/dL [facility] Glucose 83 70 - 199 mg/dL [facility] Comment: Interpretive Data Fasting glucose >/= 126 mg/dl is diagnostic for diabetes. Fasting is defined as no caloric intake [...] interpretive data was last revised 2022. Calcium 9.2 8.5 - 10.3 mg/dL [facility] Bilirubin, total <0.2 0.1 - 1.2 mg/dL [facility] Protein, pl 5.8(L) 6.5 - 8.5 g/dL [facility] Albumin 3.2(L) 3.5 - 5.0 g/dL [facility] Alk phos 76 40 - 130 Units/L [facility] ALT 13 7 - 45 Units/L [facility] AST 16 10 - 45 Units/L [facility] Blood 07/21/2024 3:49 PM TANKER TRUCK DRIVER 07/21/2024 4:07 PM TANKER TRUCK DRIVER Esperanza Whiteside MD LAB BLOOD ORDERABLES Final Result [facility] Department [place] [address] * SCAN - LABS (07/11/2024) us Provider Scanning Final Result * Hepatitis C antibody (07/22/2022 11:15 AM TANKER TRUCK DRIVER) Hep C Ab Nonreactive Nonreactive [facility] Comment: Interpretive Data Nonreactive: Antibodies to [...] last revised on 2019. Testing performed by: [facility], [address] [place] [address], [place]., [address] Blood 07/22/2022 11:1 5 AM TANKER TRUCK DRIVER 07/22/2022 1:51 PM TANKER TRUCK DRIVER us Shruthi Chávez DO LAB MICROBIOLOGY - GENERAL ORDERABLES Edited Result - Final [facility] ([place] 1 [facility] Department [place] [address] from Last 3 Months or Most Recently Relevant to Health Maintenance Insurance [facility] AETNA SIG [id number] [facility] AETNA SIG [id number] Care Teams Distributor Sales Consultant Relationship Specialty Start Date End Date Esperanza Whiteside MD [address] [facility] [address] [place] [address] PCP - General Family Medicine 07/21/24 Mariaa Cruz MD [address] [place] [address] Referring Physician Gynecology 07/15/22 Sophie Portillo PHARMACEUTICAL WORKER [address] [place] [address] [place] [address] Obstetrics and Gynecology 07/21/24
--- OUTSIDE RECORDS SUMMARY | 2024-08-15 22:22 | XMS_ITS | Clinical Summary ---
Author Organization [address] Address [address] [place] [phone] Care Team Providers Care Steel Chipper Name Role Phone Mariaa Cruz MD Unavailable [phone] Esperanza Whiteside MD Primary Care Provide r Sophie Portillo NP Unavailable Allergies Active Allergy Reactions Criticality Noted Date [...] 07/20/2024 Assessment & Plan (07/21/2024 3:17 PM CLOTH BLEACHING RANGE TENDER): Ordered CBC, cmp, lipid, hgb a1c, TSH [...] previously with - patient denies using any [id number]-yqn-vyqpfyx medication at this but has used epsom [...] 07/15/2022 Assessment & Plan (07/20/2024 12:54 PM CLOTH BLEACHING RANGE TENDER): Asymptomatic, labs ordered. Assessment & Plan (08/12/2023 9:11 AM CDT): Asymptomatic, labs ordered. Hernia of anterior abdominal wall 07/15/2022 Assessment & Plan (07/22/2022 11:12 AM CLOTH BLEACHING RANGE TENDER): I favor that this was more a [...] go to ED if pain becomes severe Encounters Date Type Department Care Team Description 07/22/2024 Results Follow-Up [facility] Medical Group Primary Care at [address] [place] [phone] Esperanza Whiteside MD Healthcare maintenance (Primary Dx) 07/21/2024 3:40 PM CLOTH BLEACHING RANGE TENDER Lab [facility] [address] [place] [address] Healthcare maintenance; Vitamin D deficiency 07/21/2024 3:00 PM CLOTH BLEACHING RANGE TENDER Office Visit [facility] Medical Group Primary Care at [address] [place] [address] Esperanza Whiteside MD Encounter for wellness examination (Primary Dx); Encounter to establish care; Vitamin D deficiency; BMI 27.0-27.9,adult 07/21/2024 Orders Only [facility] Medical [facility] Primary Care at [address] [place] [id number] Esperanza Whiteside MD Healthcare maintenance (Primary Dx); Vitamin D deficiency 07/11/2024 Orders Only [facility] [address] [place] [address] Scanning, Provider from Last 3 Months Immunizations Immunization Administration Dates Next Due Hep A, Adult 06/20/2016,08/06/2012 Influenza, Unspecified 07/21/2024(Deferr ed: Patient Refused),03/13/2024(Deferred: Patient Refused),03/13/2023(Deferred: Patient Refused),07/15/2022(Deferred: Patient Refused) Surgical History Surgery [...] on file Legal Sex Female 3:59 AM CLOTH BLEACHING RANGE TENDER Gender Identity Not on file Sexual Orientation Not on file Obstetrics History Para Term AB IAB SAB Ectopic Multiple Livin g Live Births 2 Date Outcome GA Total Labor Labor/2nd/3rd Weight Sex Type Anes PTL Dalia A1 A5 Name Clin Current Last Filed Vital Signs Vital Sign Reading Time Taken Comments Blood Pressure 108/56 07/21/2024 2:58 PM CLOTH BLEACHING RANGE TENDER Pulse 76 07/21/2024 2:58 PM CLOTH BLEACHING RANGE TENDER Temperature 36.1 C (97 F) 07/21/2024 2:58 PM CLOTH BLEACHING RANGE TENDER Respiratory Rate 16 07/21/2024 2:58 PM CLOTH BLEACHING RANGE TENDER Oxygen Saturation 99% 07/21/2024 2:58 PM CLOTH BLEACHING RANGE TENDER Inhaled Oxygen Concentration - - Weight 68.5 kg (151 lb) 07/21/2024 2:58 PM CLOTH BLEACHING RANGE TENDER Height 157.5 cm (5' 2 ) 07/21/2024 2:58 PM CLOTH BLEACHING RANGE TENDER Body Mass Index 27.62 07/21/2024 2:58 PM CLOTH BLEACHING RANGE TENDER Plan of Treatment Health Maintenance Due Date Last Done Comments Cervical Cancer Screening 1991 Hepatitis B Screening 2009 Influenza Vaccine (#1) 2024 Postp oned from 01/24/2024 (Patient declined, but will receive in the future) DTaP/Tdap/Td Vaccine (1 - Tdap) 07/21/2025 Postponed from 2002 (Patient declined, but will receive in the future) Depression Screening 07/21/2025 07/21/2024, 10/06/2023, 07/20/2023, Additional history exists Regular Well Visit/Exam 18-64 07/21/2025 07/21/2024, 07/20/2023, 07/15/2022 Hepatitis C Screening Completed 07/22/2022 HPV Vaccines Aged Out No longer eligi ble based on patient's age to complete this topic Pneumococcal vaccine <65 Aged Out No longer eligible based on patient's age to complete this topic Varicella Vaccines Discontinued Procedures Procedure Name Priority Date/Time Associated Diagnosis Comments EGFR Routine 07/21/2024 3:49 PM CLOTH BLEACHING RANGE TENDER Healthcare maintenance DIFFERENTIAL AUTO Routine 07/21/2024 3:4 9 PM [employer]OTH BLE[employer]ING RANGE TENDER Healthcare maintenance CBC WITH AUTO DIFFERENTIAL Routine 07/21/2024 3:49 PM CLOTH BLEACHING RANGE TENDER Healthcare maintenance COMPREHENSIVE METABOLIC PANEL Routine 07/21/2024 3:49 PM CLOTH BLEACHING RANGE TENDER Healthcare maintenance LIPID PANEL Routine 07/21/2024 3:49 PM CLOTH BLEACHING RANGE TENDER Healthcare maintenance VITAMIN D 25 HYDROXY Routine 07/21/2024 3:49 PM CLOTH BLEACHING RANGE TENDER Vitamin D deficiency THYROID FUNCTION CASCADE Routine 07/21/2024 3:49 PM CLOTH BLEACHING RANGE TENDER Healthcare maintenance HEMOGLOBIN A1C Routine 07/21/2024 3:49 PM CLOTH BLEACHING RANGE TENDER Healthcare maintenance SCAN - LABS 07/11/2024 HEPATITIS C ANTIBODY Routine 07/22/2022 11:15 AM CLOTH BLEACHING RANGE TENDER Annual physical exam Encounter for hepatitis C screening test for low risk patient from Last 3 Months or Most Recently Relevant to Health Maintenance Results * eGFR (07/21/2024 3:49 PM CLOTH BLEACHING RANGE TENDER) eGFR >90 >=60 mL/min/1. 73 m2 Comment: [...] last reviewed 2021. Blood 07/21/2024 3:49 PM CLOTH BLEACHING RANGE TENDER 07/21/2024 4:07 PM CLOTH BLEACHING RANGE TENDER Esperanza Whiteside MD LAB BLOOD ORDERABLES Final Result [facility] ([place]) 1 [facility] [place] [address] * (ABNORMAL) Differential, auto (07/21/2024 3:49 PM CLOTH BLEACHING RANGE TENDER) Neutrophil abs 8.1(H) 1.5 - 6.5 K/cumm Imm gran abs 0.1 0.0 - 0.1 K/cumm [facility] ([place]) Lymphocyte abs 1.9 0.8 - 3.3 K/cumm [facility] ([place]) Monocyte abs 1.5(H) 0.2 - 0.8 K/cumm [facility] ([place]) Eosinophil abs 0.1 0.0 - 0.5 K/cumm [facility] ([place]) Basophil abs 0.0 0.0 - 0.1 K/cumm [facility] ([place]) Neutrophil pct 69.4 % [facility] ([place]) Comment: Interpretive [...] revised on 2017. Blood 07/21/2024 3:49 PM CLOTH BLEACHING RANGE TENDER 07/21/2024 4:07 PM CLOTH BLEACHING RANGE TENDER Esperanza Whiteside MD LAB BLOOD ORDERABLES Final Result Performing Organization Address City/[facility]/ZIP Co de Phone Number [facility] ([place]) 1 [facility] [place] [employer] [address] * Thyroid Function [place] (07/21/2024 3:49 PM CLOTH BLEACHING RANGE TENDER) Pathologist [facility] TSH 1.48 0.30 - 4.20 mcIUnit/mL Blood 07/21/2024 3:49 PM CLOTH BLEACHING RANGE TENDER 07/21/2024 4:07 PM CLOTH BLEACHING RANGE TENDER Esperanza Whiteside MD LAB BLOOD ORDERABLES Final Result Performing Organization Address City/[facility]/ZIP Co de Phone Number [facility] ([place]) 1 [facility] [place] [employer] [place] [address] * (ABNORMAL) CBC with auto differential (07/21/2024 3:49 PM CLOTH BLEACHING RANGE TENDER) WBC 11.7(H) 3.8 - 9.9 K/cumm Hgb 11.3(L) 11.9 - 15.5 g/dL [facility] ([place]) Hct 33.4(L) 35.6 - 45.5 % [facility] ([place]) Plt 195 150 - 400 K/cumm [facility] ([place]) MPV 11.2 9.1 - 12.3 fL [facility] ([place]) RBC 3.61(L) 3.90 - 5.20 M/cumm [facility] ([place]) MCV 92.5 81.3 - 96.4 fL [facility] ([place]) MCH 31.3 27.1 - 33.3 pg [facility] ([place]) MCHC 33.8 32.3 - 35.7 g/dL [facility] ([place]) RDW CV 12.1 11.1 - 14.9 % [facility] ([place]) RDW SD 41.2 35.7 - 48.1 fL [facility] ([place]) NRBC abs 0.00 0.00 - 0.01 K/cumm [facility] ([place]) Blood 07/21/2024 3:49 PM CLOTH BLEACHING RANGE TENDER 07/21/2024 4:07 PM CLOTH BLEACHING RANGE TENDER Esperanza Whiteside MD LAB BLOOD ORDERABLES Final Result [facility] ([place] 1 [facility] [place] [address] * Vitamin D 25 hydroxy (07/21/2024 3:49 PM CLOTH BLEACHING RANGE TENDER) Pathologist [facility] Vitamin D 25-OH 41 30 - 80 ng/mL Blood 07/21/2024 3:49 PM CLOTH BLEACHING RANGE TENDER 07/21/2024 4:07 PM CLOTH BLEACHING RANGE TENDER Esperanza Whiteside MD LAB BLOOD ORDERABLES Final Result Performing Organization Address City/[facility]/ZIP Co de Phone Number [facility] ([place]) [address] [facility] [place] [address] * Hemoglobin A1c (07/21/2024 3:49 PM CLOTH BLEACHING RANGE TENDER) Pathologist [facility] Hgb A1C 4.6 4.0 - 5.6 % Estimated Average Glucose 85 mg/dL [facility] ([place]) Comment: The ADA recommends reporting an estimated Average Glucose (eAG) with all Hemoglobin A1c results using the equation derived from a study of 507 normal and diabetic adults. Minority populations were underrepresented and children were not included. (Diabetes Care 31:2503-2356, 2008). The eAG is not equivalent to a fasting glucose. Blood 07/21/2024 3:49 PM CLOTH BLEACHING RANGE TENDER 07/21/2024 4:07 PM CLOTH BLEACHING RANGE TENDER Esperanza Whiteside MD LAB BLOOD ORDERABLES Final Result [facility] ([place] 1 [facility] Department [place] [address] * (ABNORMAL) Lipid panel (07/21/2024 3:49 PM CLOTH BLEACHING RANGE TENDER) Cholesterol 224(H) 30 - 199 mg/dL Comment: [...] NCEP Expert Panel. Circulation 2004;110:227 3. Umair M et al. TIFFANY Cardiol. 2019September 22;5(5):540-548. doi: 10.1001/jamacardio.2020.0013 Current Interpretive Data was [...] [facility] ([place]) Blood 07/21/2024 3:49 PM CLOTH BLEACHING RANGE TENDER 07/21/2024 4:07 PM CLOTH BLEACHING RANGE TENDER us Esperanza Whiteside MD LAB BLOOD ORDERABLES Final Result [facility] ([place] 1 [facility] Department [place] [address] * (ABNORMAL) Comprehensive metabolic panel (07/21/2024 3:49 PM CLOTH BLEACHING RANGE TENDER) Sodium 134(L) 135 - 145 mmol/L Potassium, pl 4.0 3.3 - 4.9 mmol/L [facility] ([place]) Chloride 103 97 - 110 mmol/L [facility] ([place]) CO2 22 22 - 32 mmol/L [facility] ([place]) Anion gap 9 2 - 15 mmol/L [facility] ([place]) BUN 16 6 - 25 mg/dL [facility] ([place]) Creatinine 0.69 0.60 - 1.10 mg/dL [facility] ([place]) Glucose 83 70 - 199 mg/dL [facility] ([place]) [...] ([place]) AST 16 10 - 45 Units/L [facility] ([place]) Blood 07/21/2024 3:49 PM CLOTH BLEACHING RANGE TENDER 07/21/2024 4:07 PM CLOTH BLEACHING RANGE TENDER us Esperanza hWiteside MD LAB BLOOD ORDERABLES Final Result [facility] 1 [facility] [place] [address] * SCAN - LABS (07/11/2024) Provider Scanning Final Result * Hepatitis C antibody (07/22/2022 11:15 AM CLOTH BLEACHING RANGE TENDER) Hep C Ab Nonreactive Nonreactive [facility] [...] revised on 2019. Testing performed by: [facility], [address] [place] [address]., [id number] Blood 07/22/2022 11:1 5 AM CLOTH BLEACHING RANGE TENDER 07/22/2022 1:51 PM CLOTH BLEACHING RANGE TENDER us Shruthi Chávez DO LAB MICROBIOLOGY - GENERAL ORDERABLES Edited Result - Final [facility] ([place] 1 [facility] [place] [address] from Last 3 Months or Most Recently Relevant to Health Maintenance Insurance [facility] AETNA SIG [id number] [facility] AETNA SIG [id number] Care Teams Steel Chipper Relationship Specialty Start Date End Date Esperanza Whiteside MD [address] [facility] [address] [place] [phone] PCP - General Family Medicine 07/21/24 Mariaa Cruz MD [address] [facility] [address] [place] [address] Referring Physician Gynecology 07/15/22 Sophie Portillo NP [address] [place] [address] [address] [address] Obstetrics and Gynecology 07/21/24
--- NOTE | 2024-08-15 22:25 | OBADM ---
This patient, Alee Choi, admitted to the OB room OB Post 116 for observation. Patient/family oriented to hospital policies and general routines including ID bracelet, bed and alarms, visiting hours, pain management, procedures, bathroom and other care routines, personal items, smoking policy, room service/diet, and visiting hours. Patient/Family are encouraged to report perceived risks to care and to ask questions if they do not understand what they are told or what they should do.
--- NOTE | 2024-08-15 22:34 | PC.NURSE ---
Vaginal bleeding assessment, no bleeding on pad, underwear at this time.
--- NOTE | 2024-08-15 23:01 | PC.NURSE ---
Vaginal bleeding assessment, no bleeding on pad, underwear at this time.
--- NOTE | 2024-08-15 23:04 | PC.NURSE ---
Called Dr. Cruz, update on pt, vaginal bleeding at home after bowel movement, constipation, no vaginal bleeding on pad and underwear since pt left home, tracing, blood pressure, and heart rate. Orders received to discharge pt with instructions to keep next scheduled appointment, start taking colace if constipation continues, and when to return to the unit.
--- NOTE | 2024-08-15 23:19 | PC.NURSE ---
Pt discharged with instructions to keep next scheduled appointment, start taking colace if constipation continues, and when to return to the unit, pt verbalizes understanding.
--- NOTE | 2024-08-16 07:54 | PM.OBTRLD ---
OB - Triage/Final Diagnosis Visit Information Reason for evaluation: other (vaginal bleeding) Comments/Additional reasons for admission: I have assessed the risk for this patient, Alee Choi, and determined that she would benefit from observation care. Evaluation Vital signs: Vital Signs - 24 hr 08/15/24 22:35 08/15/24 22:40 08/15/24 22:41 Pulse Rate Blood Pressure Pulse Oximetry 99 98 Oxygen Delivery Room Air 08/15/24 22:45 08/15/24 22:49 08/15/24 22:50 Pulse Rate 91 Blood Pressure 87/58 L Pulse Oximetry 98 99 Oxygen Delivery 08/15/24 22:55 08/15/24 23:00 08/15/24 23:07 Pulse Rate 92 Blood Pressure 88/62 L Pulse Oximetry 98 100 97 Oxygen Delivery
== END 2024-08-15 23:19 | disposition home or self-care (01) ==
PROVIDERS: Admitting Provider Obstetrics & Gynecology Gynecology; PCP Family Medicine; Visit Provider Obstetrics & Gynecology Gynecology
DX: O46.93 Antepartum hemorrhage, unspecified, third trimester (principal); Z3A.31 31 weeks gestation of pregnancy
CPT/HCPCS: G0378; G0379

== ENCOUNTER 2024-10-15 03:13 | Observation (INO) | payer OTHER, SELFPAY ==
--- OUTSIDE RECORDS SUMMARY | 2024-10-15 07:06 | XMS_ITS | Encounter Summary ---
Author Organization [facility] Health Address [address] [facility] [place] [address] Care Team Providers Care Sql Ssis Developer Name Role Phone Unavailable Primary Care Provider Unavailabl e Encounter Details Date Type Department Care Team (Late st Contact Info) Description 10/01/2023 Lab Requisition [facility] - DermPath Lab [address] [facility] [place] [address] Ady Dickens MD [facility] [address] [place] [phone] Neoplasm of uncertain behavior of skin; Other disturbances of skin sensation; Hemorrhage, not elsewhere classified Social History Tobacco Use Types Packs/Day Years Used Date Smoking Tobacco: Every Day Cigarettes Smokeless Tobacco: Never Comments No Sex and Gender Information Value Date Recorded Sex Assigned at Not on file Legal Sex Female 1:07 PM DAMAGE APPRAISER Gender Identity Not on file Sexual Orientation [...] AM CDT) Case Report Dermatopathology Report Case: [id number] Authorizing Provider: Ady Dickens MD Collected: 10/01/2023 03:33 AM Ordering Location: [facility] - Received: 10/05/2023 07:18 AM DermPath Lab Pathologist: Terrance Velazco MD Specimen: Skin, left posterior neck 1:24 PM CDT DERMATOPATHOLOGY LABORATORY Final Diagnosis Specimen A. SKIN, left posterior neck: INTRADERMAL MELANOCYTIC NEVUS (D22.4) 1:24 PM CDT DERMATOPATHOLOGY LABORATORY at 1324 CDT Clinical History Irritated Nevus 1:24 PM CDT [...] characteristic determined by the Dermatopathology Laboratory at [facility], directed by Dr. Lewis Velazco. These tests need not be, and therefore are not, approved by the [place] Food and Drug Administration. The tests are used for clinical purposes. Billing Codes Specimen Charges Stain Charges 76698 1 1:24 PM CDT DERMATOPATHOLOGY LABORATORY Embedded Images 1:24 PM CDT DERMATOPATHOLOGY LABORATORY Pathology/Cytolo gy TISSUE SPECIMEN FROM SKIN / Unknown 10/01/2023 3:33 AM CDT 10/05/2023 7:18 AM CDT us Ady Dickens MD LAB - PATHOLOGY/CYTOLOGY [place] Final Result DERMATOPATHOLOGY LABORATORY [facility] - Department of Dermatology [address], [address] [phone] documented in this encounter Visit Diagnoses Diagnosis Neoplasm of uncertain behavior of skin Other disturbances of skin sensation Hemorrhage, not elsewhere classified documented in this encounter
--- OUTSIDE RECORDS SUMMARY | 2024-10-15 07:06 | XMS_ITS | Referral Summary ---
Author Organization [address] Address [address] [place] [address] Care Team Providers Care Squeezer Operator Name Role Phone Mariaa Cruz MD Unavailable [phone] Esperanza Whiteside MD Primary Care Provide r Sophie Portillo NP Unavailable Encounters Date Type Department Care Team Description 07/22/2024 Results Follow-Up [facility] Primary Care at [address] [phone] Esperanza Raman MD Hemoglobin A1c, Thyroid Function [place], Vitamin D 25 hydroxy, Additional followed-up results: 5 07/21/2024 3:40 PM KINESIOLOGIST Lab [address] [phone] Healthcare maintenance; Vitamin D deficiency 07/21/2024 Orders Only [facility] Primary Care at [address] [phone] Esperanza Raman MD Healthcare maintenance (Primary Dx); Vitamin D deficiency 07/21/2024 3:00 PM KINESIOLOGIST Office Visit [facility] Primary Care at [address] [phone] Esperanza Raman MD Encounter for wellness examination (Primary Dx); Encounter to establish care; Vitamin D deficiency; BMI 27.0-27.9,adult from Last 3 Months Allergies Active Allergy Reactions Criticality Noted Date Comments Sulfa (Sulfonamide Antibiotics) Nausea only Low Medications hydrocortisone (ANUSOL-HC) 2.5 % rectal creamIndications :Bleeding hemorrhoid Insert into the rectum 2 (two) times a day 30 g 1 10/08/2023 Active valACYclovir (VALTREX) 500 mg tablet Take 1 tablet (500 mg total) by mouth daily Active Active Problems Problem Noted Date Diagnosed Date Encounter for wellness examination 07/20/2024 Assessment & Plan (07/21/2024 3:17 PM KINESIOLOGIST): Ordered CBC, cmp, lipid, hgb a1c, TSH [...] previously with - patient denies using any occu-ole-ilfcspz medication at this but has used epsom [...] 07/15/2022 Assessment & Plan (07/20/2024 12:54 PM KINESIOLOGIST): Asymptomatic, labs ordered. Assessment & Plan (08/12/2023 9:11 AM CDT): Asymptomatic, labs ordered. Hernia of anterior abdominal wall 07/15/2022 Assessment & Plan (07/22/2022 11:12 AM KINESIOLOGIST): I favor that this was more a [...] on file Legal Sex Female 3:59 AM KINESIOLOGIST Gender Identity Not on file Sexual Orientation Not on file Last Filed Vital Signs Vital Sign Reading Time Taken Comments Blood Pressure 108/56 07/21/2024 2:58 PM KINESIOLOGIST Pulse 76 07/21/2024 2:58 PM KINESIOLOGIST Temperature 36.1 C (97 F) 07/21/2024 2:58 PM KINESIOLOGIST Respiratory Rate 16 07/21/2024 2:58 PM KINESIOLOGIST Oxygen Saturation 99% 07/21/2024 2:58 PM KINESIOLOGIST Inhaled Oxygen Concentration - - Weight 68.5 kg (151 lb) 07/21/2024 2:58 PM KINESIOLOGIST Height 157.5 cm (5' 2 ) 07/21/2024 2:58 PM KINESIOLOGIST Body Mass Index 27.62 07/21/2024 2:58 PM KINESIOLOGIST Plan of Treatment Not on file Procedures Procedure Name Priority Date/Time Associated Diagnosis Comments EGFR Routine 07/21/2024 3:49 PM KINESIOLOGIST Healthcare maintenance DIFFERENTIAL AUTO Routine 07/21/2024 3:4 9 PM KINESIOLOGIST Healthcare maintenance CBC WITH AUTO DIFFERENTIAL Routine 07/21/2024 3:49 PM KINESIOLOGIST Healthcare maintenance COMPREHENSIVE METABOLIC PANEL Routine 07/21/2024 3:49 PM KINESIOLOGIST Healthcare maintenance LIPID PANEL Routine 07/21/2024 3:49 PM KINESIOLOGIST Healthcare maintenance VITAMIN D 25 HYDROXY Routine 07/21/2024 3:49 PM KINESIOLOGIST Vitamin D deficiency THYROID FUNCTION CASCADE Routine 07/21/2024 3:49 PM KINESIOLOGIST Healthcare maintenance HEMOGLOBIN A1C Routine 07/21/2024 3:49 PM KINESIOLOGIST Healthcare maintenance HEPATITIS C ANTIBODY Routine 07/22/2022 11:15 AM KINESIOLOGIST Annual physical exam Encounter for hepatitis C screening test for low risk patient from Last 3 Months or Most Recently Relevant to Health Maintenance Results * eGFR (07/21/2024 3:49 PM KINESIOLOGIST) eGFR >90 >=60 mL/min/1. 73 m2 Comment: [...] last reviewed 2021. Blood 07/21/2024 3:49 PM KINESIOLOGIST 07/21/2024 4:07 PM KINESIOLOGIST us Esperanza Whiteside MD LAB BLOOD ORDERABLES Final Result [facility] ([place]) [facility] [place] [address] * (ABNORMAL) Differential, auto (07/21/2024 3:49 PM KINESIOLOGIST) Neutrophil abs 8.1(H) 1.5 - 6.5 K/cumm Imm gran abs 0.1 0.0 - 0.1 K/cumm [facility] ([place]) Lymphocyte abs 1.9 0.8 - 3.3 K/cumm [facility] ([place]) Monocyte abs 1.5(H) 0.2 - 0.8 K/cumm [facility] ([place]) Eosinophil abs 0.1 0.0 - 0.5 K/cumm [facility] ([place]) Basophil abs 0.0 0.0 - 0.1 K/cumm [facility] ([place]) Neutrophil pct 69.4 % [facility] ([place]) Comment: Interpretive Data Percent cell count reference [...] revised on 2017. Blood 07/21/2024 3:49 PM KINESIOLOGIST 07/21/2024 4:07 PM KINESIOLOGIST us Esperanza Whiteside MD LAB BLOOD ORDERABLES Final Result Performing Organization Address City/[facility]/ZIP Co de Phone Number [facility] ([place]) 1 [facility] [place] [address] * Thyroid Function [place] (07/21/2024 3:49 PM KINESIOLOGIST) Pathologist [facility] TSH 1.48 0.30 - 4.20 mcIUnit/mL Blood 07/21/2024 3:49 PM KINESIOLOGIST 07/21/2024 4:07 PM KINESIOLOGIST us Esperanza Whiteside MD LAB BLOOD ORDERABLES Final Result Performing Organization Address City/[facility]/ZIP Co de Phone Number [facility] ([place]) [address] [facility] [place] [place] [address] * (ABNORMAL) CBC with auto differential (07/21/2024 3:49 PM KINESIOLOGIST) WBC 11.7(H) 3.8 - 9.9 K/cumm Hgb 11.3(L) 11.9 - 15.5 g/dL [facility] ([place]) Hct 33.4(L) 35.6 - 45.5 % [facility] ([place]) Plt 195 150 - 400 K/cumm [facility] ([place]) MPV 11.2 9.1 - 12.3 fL [facility] ([place]) RBC 3.61(L) 3.90 - 5.20 M/cumm [facility] ([place]) MCV 92.5 81.3 - 96.4 fL [facility] ([place]) MCH 31.3 27.1 - 33.3 pg [facility] ([place]) MCHC 33.8 32.3 - 35.7 g/dL [facility] ([place]) RDW CV 12.1 11.1 - 14.9 % [facility] ([place]) RDW SD 41.2 35.7 - 48.1 fL [facility] ([place]) NRBC abs 0.00 0.00 - 0.01 K/cumm [facility] ([place]) Blood 07/21/2024 3:49 PM KINESIOLOGIST 07/21/2024 4:07 PM KINESIOLOGIST Esperanza Whiteside MD LAB BLOOD ORDERABLES Final Result [facility] ([place]) 1 [place] [address] * Vitamin D 25 hydroxy (07/21/2024 3:49 PM KINESIOLOGIST) [facility] Vitamin D 25-OH 41 30 - 80 ng/mL Blood 07/21/2024 3:49 PM KINESIOLOGIST 07/21/2024 4:07 PM KINESIOLOGIST Esperanza Whiteside MD LAB BLOOD ORDERABLES Final Result [facility] ([place]) 1 [facility] [address] * Hemoglobin A1c (07/21/2024 3:49 PM KINESIOLOGIST) [facility] Hgb A1C 4.6 4.0 - 5.6 % Estimated Average Glucose 85 mg/dL [facility] ([place]) Comment: The ADA recommends reporting an estimated Average Glucose (eAG) with all Hemoglobin A1c results using the equation derived from a study of 507 normal and diabetic adults. Minority populations were underrepresented and children were not included. (Diabetes Care 31:2986-2783, 2008). The eAG is not equivalent to a fasting glucose. Blood 07/21/2024 3:49 PM KINESIOLOGIST 07/21/2024 4:07 PM KINESIOLOGIST Esperanza Whiteside MD LAB BLOOD ORDERABLES Final Result [facility] ([place]) [address] [facility] Department [place] [address] * (ABNORMAL) Lipid panel (07/21/2024 3:49 PM KINESIOLOGIST) Cholesterol 224(H) 30 - 199 mg/dL Comment: [...] 3. Umair Carlos et al. TIFFANY Cardiol. 2019September 22;5(5):540-548. doi: [...] last revised on 2018. Chol/HDL ratio 3 [facility] ([place]) Blood 07/21/2024 3:49 PM KINESIOLOGIST 07/21/2024 4:07 PM KINESIOLOGIST us Esperanza Whiteside MD LAB BLOOD ORDERABLES Final Result [facility] ([place]) [address] [facility] Department [place] [address] * (ABNORMAL) Comprehensive metabolic panel (07/21/2024 3:49 PM KINESIOLOGIST) Sodium 134(L) 135 - 145 mmol/L Potassium, [...] [facility] ([place]) Blood 07/21/2024 3:49 PM KINESIOLOGIST 07/21/2024 4:07 PM KINESIOLOGIST us Esperanza Whiteside MD LAB BLOOD ORDERABLES Final Result [facility] ([place]) [address] [facility] [place] [address] * Hepatitis C antibody (07/22/2022 11:15 AM KINESIOLOGIST) Hep C Ab Nonreactive Nonreactive [facility] [...] last revised on 2019. Testing performed by: [facility], [address] [place] [address]., [id number] Blood 07/22/2022 11:1 5 AM KINESIOLOGIST 07/22/2022 1:51 PM KINESIOLOGIST us Shruthi Chávez DO LAB MICROBIOLOGY - GENERAL ORDERABLES Edited Result - Final [facility] ([place]) [address] [facility] [place] [address] from Last 3 Months or Most Recently Relevant to Health Maintenance Insurance [facility] AETNA SIG [id number] [facility] AETNA SIG [id number] Care Teams Squeezer Operator Relationship Specialty Start Date End Date Esperanza Whiteside MD [address] [facility] [address] [place] [address] PCP - General Family Medicine 07/21/24 Mariaa Cruz MD [address] [facility] [address] [address] [place] [address] Referring Physician Gynecology 07/15/22 Sophie Portillo NP [address] [place] [address] [address] [address] Obstetrics and Gynecology 07/21/24
--- OUTSIDE RECORDS SUMMARY | 2024-10-15 07:06 | XMS_ITS | Continuity of Care Document ---
Author Organization [facility] Address [address] [place] [address] Phone Care Team Providers Care Senior Accountant Name Role Phone Irma Jaramillo Unavailable Unavailable [...] Diagnoses Date Provider Providers Copied on Encounter [facility], [address] [place] [address], tel:[phone] [place] No Information 4 Lisbet Irma. [address] [place] [address], . tel:[phone] OFFICE/OUTPAT IENT VISIT, [facility], [address] [place] [address], tel:[phone] [place] Flu like symptoms (chief complaint) Upper Respiratory [...]
--- OUTSIDE RECORDS SUMMARY | 2024-10-15 07:06 | XMS_ITS | Clinical Summary ---
Author Organization [facility] Address [address] [place] [address] Care Team Providers Care Ms Sql Developer Name Role Phone Unavailable Primary Care Provider Unavailabl e Source Comments [facility],non-owned Affiliates and Associated Physician Practices is amultiple site organization consisting of ambulatory clinics and hospital sitesin [place], [place] and [place]. This disclosure is being madepursuant to the Care Everywhere program and may not contain all information available regarding this patient. Last updated 18.[facility] Allergies No known active allergies Medications * Be aware that medications may not be up to date on this document. Alwaysverify current medications with the patient. Norethindrone-Eth Estradiol (NECON 0.5/35, 28, PO) Acti ve Social History Tobacco Use Types Packs/Day Years Used Date Smoking Tobacco: Every Day Cigarettes Smokeless Tobacco: Never Tobacco Cessation:Ready to Q uit: No; Counseling Given: Yes Comments No Sex and Gender Information Value Date Recorded Sex Assigned at Not on file Legal Sex Female 1:07 PM PHOTONIC LABORATORY TECHNICIAN Gender Identity Not on file Sexual [...] VACCINE (1 - 2023-2 5 season) 2024 DEPRESSION SCREENING 05/25/2024 INFLUENZA VACCINE (Season Ended) 2025 ZOSTER VACCINE (1 of 2) 2041 HIB [...] on patient's age to complete this topic Insurance [employer]
--- OUTSIDE RECORDS SUMMARY | 2024-10-15 07:06 | XMS_ITS | Clinical Summary ---
Author Organization [address] Address [address] [place] [phone] Care Team Providers Care Demonstrator Sewing Techniques Name Role Phone Mariaa Cruz MD Unavailable [phone] Esperanza Whiteside MD Primary Care Provide r Sophie Portillo CONTINUOUS WELD PIPE MILL SUPERVISOR Unavailable Allergies Active Allergy Reactions Criticality Noted [...] 07/20/2024 Assessment & Plan (07/21/2024 3:17 PM MACHINING AND ASSEMBLY SUPERVISOR): Ordered CBC, cmp, lipid, hgb a1c, TSH [...] previously with - patient denies using any ltii-ofk-thxwvnj medication at this but has used epsom [...] 07/15/2022 Assessment & Plan (07/20/2024 12:54 PM MACHINING AND ASSEMBLY SUPERVISOR): Asymptomatic, labs ordered. Assessment & Plan (08/12/2023 9:11 AM CDT): Asymptomatic, labs ordered. Hernia of anterior abdominal wall 07/15/2022 Assessment & Plan (07/22/2022 11:12 AM MACHINING AND ASSEMBLY SUPERVISOR): I favor that this was more a [...] Department Care Team Description 07/22/2024 Results Follow-Up [facility] Primary Care at [address] [phone] Esperanza Raman MD Hemoglobin A1c, Thyroid Function [place], Vitamin D 25 hydroxy, Additional followed-up results: 5 07/21/2024 3:40 PM MACHINING AND ASSEMBLY SUPERVISOR Lab [address] [phone] Healthcare maintenance; Vitamin D deficiency 07/21/2024 3:00 PM MACHINING AND ASSEMBLY SUPERVISOR Office Visit [facility] Primary Care at [address] [phone] Esperanza Raman MD Encounter for wellness examination (Primary Dx); Encounter to establish care; Vitamin D deficiency; BMI 27.0-27.9,adult 07/21/2024 Orders Only [facility] Primary Care at [address] [phone] Esperanza Raman MD Healthcare maintenance (Primary Dx); Vitamin D deficiency from Last 3 Months Immunizations Immunization Administration [...] on file Legal Sex Female 3:59 AM MACHINING AND ASSEMBLY SUPERVISOR Gender Identity Not on file Sexual Orientation Not on file Obstetrics History Para Term AB IAB SAB Ectopic Multiple Livin g Live Births 2 Date Outcome GA Total Labor Labor/2nd/3rd Weight Sex Type Anes PTL Dalia A1 A5 Name Clin Current Last Filed Vital Signs Vital Sign Reading Time Taken Comments Blood Pressure 108/56 07/21/2024 2:58 PM MACHINING AND ASSEMBLY SUPERVISOR Pulse 76 07/21/2024 2:58 PM MACHINING AND ASSEMBLY SUPERVISOR Temperature 36.1 C (97 F) 07/21/2024 2:58 PM MACHINING AND ASSEMBLY SUPERVISOR Respiratory Rate 16 07/21/2024 2:58 PM MACHINING AND ASSEMBLY SUPERVISOR Oxygen Saturation 99% 07/21/2024 2:58 PM MACHINING AND ASSEMBLY SUPERVISOR Inhaled Oxygen Concentration - - Weight 68.5 kg (151 lb) 07/21/2024 2:58 PM MACHINING AND ASSEMBLY SUPERVISOR Height 157.5 cm (5' 2 ) 07/21/2024 2:58 PM MACHINING AND ASSEMBLY SUPERVISOR Body Mass Index 27.62 07/21/2024 2:58 PM MACHINING AND ASSEMBLY SUPERVISOR Plan of Treatment Health Maintenance Due Date Last Done Comments Cervical Cancer Screening 1991 Hepatitis B Screening 2009 Influenza Vaccine (Season Ended) 2025 DTaP/Tdap/Td Vaccine (1 - Tdap) 07/21/2025 Postponed [...] Diagnosis Comments EGFR Routine 07/21/2024 3:49 PM MACHINING AND ASSEMBLY SUPERVISOR Healthcare maintenance DIFFERENTIAL AUTO Routine 07/21/2024 3:4 9 PM MACHINING AND ASSEMBLY SUPERVISOR Healthcare maintenance CBC WITH AUTO DIFFERENTIAL Routine 07/21/2024 3:49 PM MACHINING AND ASSEMBLY SUPERVISOR Healthcare maintenance COMPREHENSIVE METABOLIC PANEL Routine 07/21/2024 3:49 PM MACHINING AND ASSEMBLY SUPERVISOR Healthcare maintenance LIPID PANEL Routine 07/21/2024 3:49 PM MACHINING AND ASSEMBLY SUPERVISOR Healthcare maintenance VITAMIN D 25 HYDROXY Routine 07/21/2024 3:49 PM MACHINING AND ASSEMBLY SUPERVISOR Vitamin D deficiency THYROID FUNCTION CASCADE Routine 07/21/2024 3:49 PM MACHINING AND ASSEMBLY SUPERVISOR Healthcare maintenance HEMOGLOBIN A1C Routine 07/21/2024 3:49 PM MACHINING AND ASSEMBLY SUPERVISOR Healthcare maintenance HEPATITIS C ANTIBODY Routine 07/22/2022 11:15 AM MACHINING AND ASSEMBLY SUPERVISOR Annual physical exam Encounter for hepatitis C screening test for low risk patient from Last 3 Months or Most Recently Relevant to Health Maintenance Results * eGFR (07/21/2024 3:49 PM MACHINING AND ASSEMBLY SUPERVISOR) eGFR >90 >=60 mL/min/1. 73 m2 Comment: [...] last reviewed 2021. Blood 07/21/2024 3:49 PM MACHINING AND ASSEMBLY SUPERVISOR 07/21/2024 4:07 PM MACHINING AND ASSEMBLY SUPERVISOR Esperanza Whiteside MD LAB BLOOD ORDERABLES Final Result [facility] ([place]) 1 [facility] [place] [address] * (ABNORMAL) Differential, auto (07/21/2024 3:49 PM MACHINING AND ASSEMBLY SUPERVISOR) Neutrophil abs 8.1(H) 1.5 - 6.5 K/cumm Imm gran abs 0.1 0.0 - 0.1 K/cumm [facility] ([place]) Lymphocyte abs 1.9 0.8 - 3.3 K/cumm [facility] ([place]) Monocyte abs 1.5(H) 0.2 - 0.8 K/cumm [...] revised on 2017. Blood 07/21/2024 3:49 PM MACHINING AND ASSEMBLY SUPERVISOR 07/21/2024 4:07 PM MACHINING AND ASSEMBLY SUPERVISOR us Esperanza Whitesied MD LAB BLOOD ORDERABLES Final Result [facility] ([place]) 1 [facility] [place] [address] * Thyroid Function [place] (07/21/2024 3:49 PM MACHINING AND ASSEMBLY SUPERVISOR) Pathologist [facility] TSH 1.48 0.30 - 4.20 mcIUnit/mL Blood 07/21/2024 3:49 PM MACHINING AND ASSEMBLY SUPERVISOR 07/21/2024 4:07 PM MACHINING AND ASSEMBLY SUPERVISOR Esperanza Whiteside MD LAB BLOOD ORDERABLES Final Result [facility] ([place]) 1 [facility] [place] [address] * (ABNORMAL) CBC with auto differential (07/21/2024 3:49 PM MACHINING AND ASSEMBLY SUPERVISOR) Pathologist [facility] WBC 11.7(H) 3.8 - 9.9 K/cumm Hgb [...] [facility] ([place]) Blood 07/21/2024 3:49 PM MACHINING AND ASSEMBLY SUPERVISOR 07/21/2024 4:07 PM MACHINING AND ASSEMBLY SUPERVISOR Esperanza Whiteside MD LAB BLOOD ORDERABLES Final Result [facility] ([place]) 1 [place] [address] * Vitamin D 25 hydroxy (07/21/2024 3:49 PM MACHINING AND ASSEMBLY SUPERVISOR) Pathologist [facility] Vitamin D 25-OH 41 30 - 80 ng/mL Blood 07/21/2024 3:49 PM MACHINING AND ASSEMBLY SUPERVISOR 07/21/2024 4:07 PM MACHINING AND ASSEMBLY SUPERVISOR Esperanza Whiteside MD LAB BLOOD ORDERABLES Final Result Performing Organization Address [facility] Co de Phone Number [facility] ([place]) 1 [place] [address] * Hemoglobin A1c (07/21/2024 3:49 PM MACHINING AND ASSEMBLY SUPERVISOR) [facility] Hgb A1C 4.6 4.0 - 5.6 % Estimated Average Glucose 85 mg/dL [facility] ([place]) Comment: The ADA recommends reporting an estimated Average Glucose (eAG) with all Hemoglobin A1c results using the equation derived from a study of 507 normal and diabetic adults. Minority populations were underrepresented and children were not included. (Diabetes Care 31:3141-2402, 2008). The eAG is not equivalent to a fasting glucose. Blood 07/21/2024 3:49 PM MACHINING AND ASSEMBLY SUPERVISOR 07/21/2024 4:07 PM MACHINING AND ASSEMBLY SUPERVISOR Esperanza Whiteside MD LAB BLOOD ORDERABLES Final Result Performing Organization Address City/[facility]/ZIP Co de Phone Number [facility] ([place]) 1 [facility] [place] [address] * (ABNORMAL) Lipid panel (07/21/2024 3:49 PM MACHINING AND ASSEMBLY SUPERVISOR) Pathologist [facility] Cholesterol 224(H) 30 - 199 mg/dL Comment: [...] mg/dL High: >160 mg/dL Calculated using the Block LDL-C estimating equation. This equation was implemented [...] on 2024. Non-HDL Cholesterol 139 mg/dL [facility] ([place]) Comment: Interpretive Data Ages < or [...] [facility] ([place]) Blood 07/21/2024 3:49 PM MACHINING AND ASSEMBLY SUPERVISOR 07/21/2024 4:07 PM MACHINING AND ASSEMBLY SUPERVISOR us Esperanza Whiteside MD LAB BLOOD ORDERABLES Final Result [facility] ([place]) 1 [facility] [place] [address] * (ABNORMAL) Comprehensive metabolic panel (07/21/2024 3:49 PM MACHINING AND ASSEMBLY SUPERVISOR) Sodium 134(L) 135 - 145 mmol/L Potassium, [...] [facility] ([place]) Blood 07/21/2024 3:49 PM MACHINING AND ASSEMBLY SUPERVISOR 07/21/2024 4:07 PM MACHINING AND ASSEMBLY SUPERVISOR Esperanza Whiteside MD LAB BLOOD ORDERABLES Final Result [facility] ([place] 1 [facility] [place] [address] * Hepatitis C antibody (07/22/2022 11:15 AM MACHINING AND ASSEMBLY SUPERVISOR) Hep C Ab Nonreactive Nonreactive [facility] ([place]) Comment: Interpretive Data Nonreactive: Antibodies [...] revised on 2019. Testing performed by: [facility], [address] [place] [address]., [id number] Blood 07/22/2022 11:1 5 AM MACHINING AND ASSEMBLY SUPERVISOR 07/22/2022 1:51 PM MACHINING AND ASSEMBLY SUPERVISOR us Shruthi Chávez DO LAB MICROBIOLOGY - GENERAL ORDERABLES Edited Result - Final [facility] ([place]) 1 [facility] [place] [address] from Last 3 Months or Most Recently Relevant to Health Maintenance Insurance [facility] AETNA SIG [id number] [facility] AETNA SIG [id number] Care Teams Demonstrator Sewing Techniques Relationship Specialty Start Date End Date Esperanza Whiteside MD [address] [place] [address] [address] PCP - General Family Medicine 07/21/24 Mariaa Cruz MD [address] [place] [address] Referring Physician Gynecology 07/15/22 Sophie Portillo NP [address] [place] [address] [address] [address] Obstetrics and Gynecology 07/21/24
[2024-10-15 07:47] VITALS: BMI 31.4
--- NOTE | 2024-10-19 07:21 | PM.OBTRLD ---
OB - Triage/Final Diagnosis Visit Information Reason for evaluation: threatened labor Comments/Additional reasons for admission: I have assessed the risk for this patient, Alee Delgado Wali Steph, and determined that she would benefit from observation care.
== END 2024-10-15 07:45 | disposition home or self-care (01) ==
LOC: ANHLDR 10-18 09:14 → ANHOBPP 10-18 09:14
PROVIDERS: Admitting Provider Obstetrics & Gynecology; PCP Family Medicine; Visit Provider Obstetrics & Gynecology
DX: O47.1 False labor at or after 37 completed weeks of gestation (principal); Z3A.39 39 weeks gestation of pregnancy
CPT/HCPCS: G0378; G0379

== ENCOUNTER 2024-10-19 11:41 | Inpatient (IN) | payer OTHER, SELFPAY ==
[2024-10-19] VITALS (138 sets, daily range): BP systolic 75–137; BP diastolic 31–103; PULSE 47–175; TEMP 36.6–37.3; O2SAT 84–100; BMI 31.4
--- OUTSIDE RECORDS SUMMARY | 2024-10-19 14:30 | XMS_ITS | Continuity of Care Document ---
Author Organization [facility] Address [address] [place] [address] Phone Care Team Providers Care Casino Gaming Inspector Name Role Phone Irma Jaramillo Unavailable Unavailable [...] Diagnoses Date Provider Providers Copied on Encounter [facility], [address] [place] [address], tel:[phone] [place] No Information 4 Lisbet Irma. [address] [place] [address], . tel:[phone] OFFICE/OUTPAT IENT VISIT, EST [facility], [address] [place] [address], tel:[phone] [place] Flu like symptoms (chief complaint) Upper Respiratory [...]
--- OUTSIDE RECORDS SUMMARY | 2024-10-19 14:31 | XMS_ITS | Referral Summary ---
Author Organization [address] Address [address] [place] [id number] Care Team Providers Care Center Punch Operator Name Role Phone Mariaa Cruz MD Unavailable [phone] Esperanza Whiteside MD Primary Care Provide r Sophie Portillo COMMIS CHEF Unavailable Encounters Date Type Department Care Team Description 07/22/2024 Results Follow-Up [facility] Primary Care at [address] [place] [phone] Esperanza Raman MD Hemoglobin A1c, Thyroid Function [place], Vitamin D 25 hydroxy, Additional followed-up results: 5 from Last 3 Months Allergies Active Allergy [...] 07/20/2024 Assessment & Plan (07/21/2024 3:17 PM EXECUTIVE KITCHEN MANAGER): Ordered CBC, cmp, lipid, hgb a1c, TSH [...] previously with - patient denies using any rjxw-hzy-ksaupbc medication at this but has used epsom [...] 07/15/2022 Assessment & Plan (07/20/2024 12:54 PM EXECUTIVE KITCHEN MANAGER): Asymptomatic, labs ordered. Assessment & Plan (08/12/2023 9:11 AM CDT): Asymptomatic, labs ordered. Hernia of anterior abdominal wall 07/15/2022 Assessment & Plan (07/22/2022 11:12 AM EXECUTIVE KITCHEN MANAGER): I favor that this was more a [...] on file Legal Sex Female 3:59 AM EXECUTIVE KITCHEN MANAGER Gender Identity Not on file Sexual Orientation Not on file Last Filed Vital Signs Vital Sign Reading Time Taken Comments Blood Pressure 108/56 07/21/2024 2:58 PM EXECUTIVE KITCHEN MANAGER Pulse 76 07/21/2024 2:58 PM EXECUTIVE KITCHEN MANAGER Temperature 36.1 C (97 F) 07/21/2024 2:58 PM EXECUTIVE KITCHEN MANAGER Respiratory Rate 16 07/21/2024 2:58 PM EXECUTIVE KITCHEN MANAGER Oxygen Saturation 99% 07/21/2024 2:58 PM EXECUTIVE KITCHEN MANAGER Inhaled Oxygen Concentration - - Weight 68.5 kg (151 lb) 07/21/2024 2:58 PM EXECUTIVE KITCHEN MANAGER Height 157.5 cm (5' 2) 07/21/2024 2:58 PM EXECUTIVE KITCHEN MANAGER Body Mass Index 27.62 07/21/2024 2:58 PM EXECUTIVE KITCHEN MANAGER Plan of Treatment Not on file Procedures Procedure Name Priority Date/Time Associated Diagnosis Comments HEPATITIS C ANTIBODY Routine 07/22/2022 11:15 AM EXECUTIVE KITCHEN MANAGER Annual physical exam Encounter for hepatitis C screening test for low risk patient from Last 3 Months or Most Recently Relevant to Health Maintenance Results * Hepatitis C antibody (07/22/2022 11:15 AM EXECUTIVE KITCHEN MANAGER) Hep C Ab Nonreactive Nonreactive [facility] [...] last revised on 2019. Testing performed by: [facility], [address] [place] [address], [place]., [address] Blood 07/22/2022 11:1 5 AM EXECUTIVE KITCHEN MANAGER 07/22/2022 1:51 PM EXECUTIVE KITCHEN MANAGER us Shruthi Chávez DO LAB MICROBIOLOGY - GENERAL ORDERABLES Edited Result - Final [facility] ([place]) [address] [facility] Department [place] [address] from Last 3 Months or Most Recently Relevant to Health Maintenance Insurance [facility] A[employer] SIG [id number] [place] [address] [facility] A[employer] SIG [id number] [place] [address] Care Teams Center Punch Operator Relationship Specialty Start Date End Date Esperanza Whiteside MD [address] [place] [address] DR [address] [place] [id number] PCP - General Family Medicine 07/21/24 Mariaa Cruz MD [address]22 [address] [place] [address] Referring Physician Gynecology 07/15/22 Sophie Portillo COMMIS CHEF [address] [place] [address] DR CANDELARIA [facility] [place] [address] Obstetrics and Gynecology 07/21/24
--- OUTSIDE RECORDS SUMMARY | 2024-10-19 14:31 | XMS_ITS | Clinical Summary ---
Author Organization [facility] [employer] Address [address] [place] [address] Care Team Providers Care Director Radiation Oncology Name Role Phone Unavailable Primary Care Provider Unavailabl e Source Comments [facility] [employer],non-owned Affiliates and Associated Physician Practices is amultiple site organization consisting of ambulatory clinics and hospital sitesin [place], [place], [place] and [place]. This disclosure is being madepursuant to the Care Everywhere program and may not contain all information available regarding this patient. Last updated 18.[facility] [employer] Allergies No known active allergies Medications * [...] on file Legal Sex Female 1:07 PM XEROX MACHINE ASSEMBLER Gender Identity Not on file Sexual Orientation [...] 12:17 PM CDT Height 160 cm (5' 3) 08/25/2018 12:17 PM CDT Body Mass Index [...] to complete this topic Insurance [employer] [address]
--- OUTSIDE RECORDS SUMMARY | 2024-10-19 14:31 | XMS_ITS | Clinical Summary ---
Author Organization [address] Address [address] [place] [phone] Care Team Providers Care Chief Wheelage Clerk Name Role Phone Mariaa Cruz MD Unavailable [phone] Esperanza Whiteside MD Primary Care Provide r Sophie Portillo GROOVER AND STRIPER OPERATOR Unavailable Allergies Active Allergy Reactions Criticality Noted [...] 07/20/2024 Assessment & Plan (07/21/2024 3:17 PM LOGISTICS MANAGEMENT SPECIALIST): Ordered CBC, cmp, lipid, hgb a1c, TSH [...] previously with - patient denies using any jynw-yrt-uqimkce medication at this but has used epsom [...] 07/15/2022 Assessment & Plan (07/20/2024 12:54 PM LOGISTICS MANAGEMENT SPECIALIST): Asymptomatic, labs ordered. Assessment & Plan (08/12/2023 9:11 AM CDT): Asymptomatic, labs ordered. Hernia of anterior abdominal wall 07/15/2022 Assessment & Plan (07/22/2022 11:12 AM LOGISTICS MANAGEMENT SPECIALIST): I favor that this was more a [...] Department Care Team Description 07/22/2024 Results Follow-Up [facility] Primary Care at [address] [place] [phone] Esperanza Raman MD Hemoglobin A1c, Thyroid Function [place], Vitamin D 25 hydroxy, Additional followed-up results: 5 from Last 3 Months Immunizations Immunization Administration [...] on file Legal Sex Female 3:59 AM LOGISTICS MANAGEMENT SPECIALIST Gender Identity Not on file Sexual Orientation Not on file Obstetrics History Para Term AB IAB SAB Ectopic Multiple Livin g Live Births 2 Date Outcome GA Total Labor Labor/2nd/3rd Weight Sex Type Anes PTL Dalia A1 A5 Name Clin Current Last Filed Vital Signs Vital Sign Reading Time Taken Comments Blood Pressure 108/56 07/21/2024 2:58 PM LOGISTICS MANAGEMENT SPECIALIST Pulse 76 07/21/2024 2:58 PM LOGISTICS MANAGEMENT SPECIALIST Temperature 36.1 C (97 F) 07/21/2024 2:58 PM LOGISTICS MANAGEMENT SPECIALIST Respiratory Rate 16 07/21/2024 2:58 PM LOGISTICS MANAGEMENT SPECIALIST Oxygen Saturation 99% 07/21/2024 2:58 PM LOGISTICS MANAGEMENT SPECIALIST Inhaled Oxygen Concentration - - Weight 68.5 kg (151 lb) 07/21/2024 2:58 PM LOGISTICS MANAGEMENT SPECIALIST Height 157.5 cm (5' 2) 07/21/2024 2:58 PM LOGISTICS MANAGEMENT SPECIALIST Body Mass Index 27.62 07/21/2024 2:58 PM LOGISTICS MANAGEMENT SPECIALIST Plan of Treatment Health Maintenance Due Date [...] HEPATITIS C ANTIBODY Routine 07/22/2022 11:15 AM LOGISTICS MANAGEMENT SPECIALIST Annual physical exam Encounter for hepatitis C screening test for low risk patient from Last 3 Months or Most Recently Relevant to Health Maintenance Results * Hepatitis C antibody (07/22/2022 11:15 AM LOGISTICS MANAGEMENT SPECIALIST) Hep C Ab Nonreactive Nonreactive [facility] ([place]) Comment: Interpretive Data Nonreactive: Antibodies to HCV [...] last revised on 2019. Testing performed by: [facility], [address] [place] [address], [place]., [address] Blood 07/22/2022 11:1 5 AM LOGISTICS MANAGEMENT SPECIALIST 07/22/2022 1:51 PM LOGISTICS MANAGEMENT SPECIALIST us Shruthi Chávez DO LAB MICROBIOLOGY - GENERAL ORDERABLES Edited Result - Final [facility] ([place]) 1 [facility] Department [place] [address] from Last 3 Months or Most Recently Relevant to Health Maintenance Insurance [facility] AETNA SIG [id number] [facility] AETNA SIG [id number] Care Teams Chief Wheelage Clerk Relationship Specialty Start Date End Date Esperanza Whiteside MD [address] [place] [address] DR CANDELARIA [address] [place] [id number] PCP - General Family Medicine 07/21/24 Mariaa Cruz MD [address] [facility] [address] [place] [address] Referring Physician Gynecology 07/15/22 Sophie Portillo NP [address] [place] [address] [address] [address] Obstetrics and Gynecology 07/21/24
--- OUTSIDE RECORDS SUMMARY | 2024-10-19 14:31 | XMS_ITS | Encounter Summary ---
Author Organization [facility] Address [address] [place] [address] Care Team Providers Care Rules Examiner Name Role Phone Unavailable Primary Care Provider Unavailabl e Encounter Details Date Type Department Care Team (Late st Contact Info) Description 10/01/2023 Lab Requisition [facility] - DermPath Lab [address] [facility] [place] [address] Ady Dickens MD [facility] D[facility] [address] [place] [phone] Neoplasm of uncertain behavior of skin; Other disturbances of skin sensation; Hemorrhage, not elsewhere classified Social History Tobacco Use Types Packs/Day Years Used Date Smoking Tobacco: Every Day Cigarettes Smokeless Tobacco: Never Comments No Sex and Gender Information Value Date Recorded Sex Assigned at Not on file Legal Sex Female 1:07 PM HYDROGEN POWER PLANT ENGINEER Gender Identity Not on file Sexual [...] AM CDT) Case Report Dermatopathology Report Case: [id number] Authorizing Provider: Ady Dickens MD Collected: 10/01/2023 [...] characteristic determined by the Dermatopathology Laboratory at [facility], directed by Dr. Lewis Velazco. These tests need not be, and therefore are not, approved by the [place] Food and Drug Administration. The tests are used for clinical purposes. Billing Codes Specimen Charges Stain Charges 38200 1 1:24 PM CDT DERMATOPATHOLOGY LABORATORY Embedded Images 1:24 PM CDT DERMATOPATHOLOGY LABORATORY Pathology/Cytolo gy TISSUE SPECIMEN FROM SKIN / Unknown 10/01/2023 3:33 AM CDT 10/05/2023 7:18 AM CDT us Ady Dickens MD LAB - PATHOLOGY/CYTOLOGY [place] Final Result DERMATOPATHOLOGY LABORATORY [facility] - Department of Dermatology [address], [address] [phone] documented in this encounter Visit Diagnoses Diagnosis Neoplasm of uncertain behavior of skin Other disturbances of skin sensation Hemorrhage, not elsewhere classified documented in this encounter
[2024-10-19 17:25] LABS: Basophils Percent Auto 0.1 % (0.2-1.2); Hematocrit 36.8 % (37.0-47.0); Hemoglobin 11.5 g/dL (12.0-15.0); Immature Granulocyte Absolute 0.08 K/mm3 (0.00-0.031); Immature Granulocyte Percent A 0.6 % (0-0.5); Lymphocytes Absolute Auto 1.05 K/mm3 (0.9-3.2); Mean Corpuscular HGB Conc 31.3 g/dl (32-36); Mean Corpuscular Hemoglobin 26.8 pg (26-34); Mean Corpuscular Volume 85.8 fl (80-100); Monocytes Percent Auto 7.4 % (2.6-8.5); Neutrophils Absolute Auto 11.1 K/mm3 (1.3-6.7); Neutrophils Percent Auto 83.9 % (45.5-73.1); Platelet Count Result 172 k/mm3 (150-375); Red Blood Count 4.29 M/mm3 (4.2-5.4); Red Cell Distribution Width 14.6 % (11.5-14.5); White Blood Count 13.2 K/mm3 (4.5-10.0)
--- NOTE | 2024-10-19 17:45 | PM.IMHP ---
H&P: HPI History of Present Illness Date/Time: 10/19/24 17:45 Chief Complaint: Contractions Narrative: 34 y/o at 40 3/7 weeks with contractions. Prior for intolerance to labor and arrest of dilation (dilated to 5 cm during that labor). She feels strongly that she would like a TOLAC. 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 GBS neg. Review of Systems Review of Systems: All systems reviewed & are unremarkable except as noted in HPI and below PMFSH Past Medical History Medical History (Updated 10/19/24 @ 17:49 by Mynor Abdi MD) Kidney infection pyelonephritis Anxiety Depression Anxiety Surgical History Surgical History (Updated 10/19/24 @ 17:49 by Mynor Abdi MD) History of delivery No pertinent past surgical history History of elective Surgical 2018 Family History Family History Father Diabetes mellitus Chronic obstructive pulmonary disease Mother Chronic obstructive pulmonary disease Father Diabetes mellitus Grandparent Cancer Social History Social History Smoking status: Former smoker Additional smoking assessment comments: quit 2 months ago Alcohol intake: current Alcohol use details: Stopped alcohol use with Substance use: never Do You Feel Safe in your Home?: Yes Lack of Transportation: No Lack of Food: Never True Current Housing: I Have Housing Concerned About Future Housing: No Difficulty Paying Gas/Electric Bills: No Difficulty Paying for Meds: No Currently Unemployed: No Education: High School Diploma/GED Difficulty w/ Childcare or Family Care: No Living arrangements: with family Gender identity (if verbalized by the patient): Female Spiritual care concerns: No Meds Home Medications and Allergies Home Medications ?Medication ?Instructions ?Recorded ?Confirmed ?Type PNV cmb#95-ferrous fumarate-FA 1 tablet PO DAILY 05/09/24 09/16/24 History valacyclovir 500 mg tablet 500 mg PO DAILY 08/15/24 09/16/24 History Allergies Allergy/AdvReac Type Severity Reaction Status Date / Time Sulfa (Sulfonamide AdvReac Nausea and Verified 09/16/24 12:52 Antibiotics) Vomiting Vital Signs Vital Signs - 24 hr 10/19/24 13:50 10/19/24 14:42 10/19/24 14:51 Temperature 36.6 C Pulse Rate Blood Pressure Pulse Oximetry 99 100 10/19/24 14:51 10/19/24 14:56 10/19/24 15:01 Temperature Pulse Rate Blood Pressure Pulse Oximetry 100 100 100 10/19/24 15:06 10/19/24 15:11 10/19/24 15:16 Temperature Pulse Rate Blood Pressure Pulse Oximetry 100 100 100 10/19/24 15:21 10/19/24 15:26 10/19/24 15:31 Temperature Pulse Rate Blood Pressure Pulse Oximetry 100 100 100 10/19/24 15:36 10/19/24 15:41 10/19/24 15:46 Temperature Pulse Rate Blood Pressure Pulse Oximetry 100 100 100 10/19/24 15:51 10/19/24 15:59 10/19/24 16:02 Temperature Pulse Rate Blood Pressure Pulse Oximetry 100 98 100 10/19/24 16:07 10/19/24 16:12 10/19/24 16:17 Temperature Pulse Rate Blood Pressure Pulse Oximetry 99 100 100 10/19/24 16:24 10/19/24 16:29 10/19/24 16:34 Temperature Pulse Rate Blood Pressure Pulse Oximetry 100 100 100 10/19/24 16:39 10/19/24 16:44 10/19/24 16:49 Temperature Pulse Rate Blood Pressure Pulse Oximetry 100 100 100 10/19/24 16:54 10/19/24 16:59 10/19/24 17:04 Temperature Pulse Rate Blood Pressure Pulse Oximetry 100 100 100 10/19/24 17:09 10/19/24 17:11 10/19/24 17:12 Temperature Pulse Rate Blood Pressure Pulse Oximetry 100 100 100 10/19/24 17:17 10/19/24 17:38 Temperature Pulse Rate 76 Blood Pressure 126/80 Pulse Oximetry 100 Exam Const: Orientation/consciousness: patient oriented x3 Other: Well-developed, well-nourished female in no acute distress. Neck: Thyroid: thyroid normal Lymphatic: no lymphadenopathy noted (in neck, axilla or inguinal nodes) Resp: Effort & Inspection: normal respiratory effort Auscultation: clear to auscultation bilaterally Cardio: Rate: regular rate Rhythm: regular rhythm Heart sounds: S1 normal heart sound present and S2 normal heart sound present GI: Other: ABD: Soft, nontender, nondistended, gravid. NST reactive. TOCO: contractions every 3-5 min. No guarding or rebound tenderness. No hepatosplenomegaly. : General: Yes no CVA tenderness Other: Cervix 5/100/-2. Vertex. BLE neg. Back/Spine/Pelvis: Back: no CVA tenderness Skin: General skin exam: normal color and no rashes or lesions noted Neuro: General: patient oriented x3 Extrem: Other: Extremities: nontender with no edema Psych: Mental Status: mental status grossly normal Affect: normal affect H&P: Results Labs Labs: Short CBC 10/19/24 Range/Units 17:08 WBC 13.2 H (4.5-10.0) K/mm3 Hgb 11.5 L (12.0-15.0) g/dL Hct 36.8 L (37.0-47.0) % Plt Count 172 (150-375) k/mm3 Assessment and Plan Assessment and plan (1) Term : Code(s): Z34.90 - Encounter for supervision of normal , unspecified, unspecified trimester Status: Acute Assessment and Plan: A: IUP at 40 3/7 weeks with labor, prior , strongly desiring TOLAC. P: We reviewed risks / benefits associated with TOLAC, including risks of and maternal morbidity and mortality associated with uterine rupture. She desires to continue labor. Will continue expectant management, monitor closely. (2) Active labor at term: Status: Acute (3) History of delivery: Code(s): Z98.891 - History of uterine scar from previous surgery Status: Acute
[2024-10-19 18:08] LABS: Syphilis IgG/IgM Antibody Negative (Negative)
[2024-10-19 18:22] LABS: HIV 1/2 Ab P24 Ag Result Negative (Negative)
[2024-10-19] MEDS: LACTATED RINGERS 1,000 ML 125 ML IV CONT ×3 (18:50→21:15)
--- NOTE | 2024-10-19 20:21 | WPDANESEPPF ---
Anes - Initial Pre Proc Eval Procedure: Operation Date: 10/24/24 07:30 Proposed Procedures p Repeat Section - Mariaa Cruz MD Date/Time: 10/19/24 20:21 Surgeon: Mariaa Cruz MD Pre Op Diagnosis: labor/TOLAC Patient Data Age: 34 Gender: F Height: 1.57 m Weight: 78 kg Last Vital Signs Temp 36.9 C 10/19/24 18:53 Pulse 106 H 10/19/24 20:20 BP 95/56 L 10/19/24 20:20 Pulse Ox 100 10/19/24 20:17 O2 Del Method Room Air 10/19/24 14:00 Allergies Allergy/AdvReac Type Severity Reaction Status Date / Time Sulfa (Sulfonamide AdvReac Nausea and Verified 09/16/24 12:52 Antibiotics) Vomiting Home Medications ?Medication ?Instructions ?Recorded ?Confirmed ?Type PNV cmb#95-ferrous fumarate-FA 1 tablet PO DAILY 05/09/24 10/19/24 History valacyclovir 500 mg tablet 500 mg PO DAILY 08/15/24 10/19/24 History Laboratory Tests 10/19/24 17:08 WBC 13.2 H K/mm3 (4.5-10.0) RBC 4.29 M/mm3 (4.2-5.4) Hgb 11.5 L g/dL (12.0-15.0) Hct 36.8 L % (37.0-47.0) MCV 85.8 fl (80-100) MCH 26.8 pg (26-34) MCHC 31.3 L g/dl (32-36) RDW 14.6 H % (11.5-14.5) Plt Count 172 k/mm3 (150-375) MPV 13.0 H fl (7.4-10.4) Immature Gran % (Auto) 0.6 H % (0-0.5) Neut % (Auto) 83.9 H % (45.5-73.1) Lymph % (Auto) 8.0 L % (18.3-44.2) Richardson % (Auto) 7.4 % (2.6-8.5) Eos % (Auto) 0.0 % (0-4.4) Baso % (Auto) 0.1 L % (0.2-1.2) Lymph # (Auto) 1.05 K/mm3 (0.9-3.2) Richardson # (Auto) 1.0 H K/mm3 (0.1-0.6) Eos # (Auto) 0.0 K/mm3 (0-0.3) Baso # (Auto) 0.0 K/mm3 (0.0-0.1) Abs Immat Gran (auto) 0.08 H K/mm3 (0.00-0.031) Absolute Neuts (auto) 11.1 H K/mm3 (1.3-6.7) Absolute Nucleated RBC 0.000 K/mm3 (0.0-0.012) Nucleated RBC % 0.0 % (0.0-0.2) Syphilis IgG/IgM Ab Negative (Negative) HIV 1&2 Ab/P24 Ag 4thGn Negative (Negative) Blood Type A Positive Antibody Screen Negative Patient hx anesthesia problems: none Family hx anesthesia problems: none Results Review: All pre-operative results and documents have been reviewed as part of the pre-operative evaluation. [facility] Past Medical History Medical History Kidney infection pyelonephritis Anxiety Depression Anxiety Surgical History Surgical History History of delivery No pertinent past surgical history History of elective Surgical 2018 Family History Family History Father Diabetes mellitus Chronic obstructive pulmonary disease Mother Chronic obstructive pulmonary disease Father Diabetes mellitus Grandparent Cancer Social History Social History Smoking status: Never smoker Additional smoking assessment comments: quit 2 months ago Alcohol intake: current Alcohol use details: Stopped alcohol use with Substance use: never Do You Feel Safe in your Home?: Yes Lack of Transportation: No Lack of Food: Never True Current Housing: I Have Housing Concerned About Future Housing: No Difficulty Paying Gas/Electric Bills: No Difficulty Paying for Meds: No Currently Unemployed: No Education: Trade/Vocational Certificate Difficulty w/ Childcare or Family Care: No Living arrangements: with family Gender identity (if verbalized by the patient): Female Spiritual care concerns: No Anes - Eval Final PreProcedure Day of Procedure 10/19/24 20:21 Patient weight: obese Neurological: alert and oriented ASA classification: II Emergent: no Anesthetic plan: proceed Anesthesia type and monitoring: regional epidural and standard monitoring Results Review: All pre-operative results and documents have been reviewed as part of the pre-operative evaluation. Informed Consent: The patient's anesthetic plan and its attendant risks and benefits were discussed with the patient/family/POA. Questions were solicited and answers provided to the satisfaction of the patient/family/POA.
[2024-10-19] MEDS: ONDANSETRON INJ 4 MG/2 ML VIAL IV PUSH (22:52)
--- NOTE | 2024-10-19 23:07 | LDADM ---
This patient, Alee Choi, was admitted to Labor/Delivery/Recovery 102 on 10/19/24 at 11:41. Plans for labor, pain management and were discussed with patient. Patient/family oriented to hospital policies and general routines including ID bracelet, bed and alarms, visiting hours, pain management, procedures, bathroom and other care routines, personal items, smoking policy, room service/diet and guest tray routines, security routines, and visiting hours. Patient/Family are encouraged to report perceived risks to care and to ask questions if they do not understand what they are told or what they should do. See OBIX for further documentation.
[2024-10-19 23:13] LABS: OBXCEM ROM Plus Positive (Negative)
--- NOTE | 2024-10-19 23:56 | PM.OBPNLAB ---
Pain Control Date/time seen: 10/19/24 23:56 Comfortable with epidural AVSS NST 130 reactive TOCO: contractions every 3-5 min Cervix 5-6/80/-2. AROM with clear fluid. IUPC placed. A: IUP at term with labor. Prior , still strongly desires to continue TOLAC. P: IUPC placed. Continue to observe closely.
[2024-10-20] VITALS (125 sets, daily range): BP systolic 93–140; BP diastolic 56–100; PULSE 57–204; RESP 16–18; TEMP 36.9–38; O2SAT 83–100
[2024-10-20] MEDS: FAMOTIDINE 20 MG/2 ML VIAL IV PUSH (00:42)
[2024-10-20] MEDS: LACTATED RINGERS 1,000 ML 125 ML IV CONT ×2 (01:11→01:20)
[2024-10-20] MEDS: OXYTOCIN 30 UNITS/NS 500 ML 30 UNITS/500 ML BAG IV CONT (04:43)
[2024-10-20] MEDS: ONDANSETRON INJ 4 MG/2 ML VIAL IV PUSH (04:54)
--- NOTE | 2024-10-20 07:42 | PM.OBPRVD ---
OB - Vaginal Delivery Note Procedure Delivery date: 10/20/24 Events: Previous Delivery Induction method: None Delivery monitor: External FHT and Internal Uterine Route of delivery: Episiotomy description: None Laceration Description: Perineal - 1st Degree Delivery repair: vicryl Specimen: No Quantitative Blood Loss (ml): 62 Anesthesia type: Epidural Disposition: Floor Complications: No immediate complications Narrative: Patient was admitted in active labor 40 weeks gestation she had a previous section and had the been consented throughout her by Dr. Lauro cole and through Dr. Lauri Wilson as the risks and benefits of but she was complete she pushed delivered the head spontaneously in the JUNIOR position. Anterior posterior shoulder delivered spontaneously. Cord clamped x2 and cut passed off the table with cry placenta delivered intact spontaneously. Twenty of Pitocin placed IV to help firm the uterus after inspecting the vagina small first-degree laceration was noted which did not extend and a jgtvub-eg-ochku 0 Vicryl was placed blood loss 62cc. All sponge, needle, instrument counts were correct. There were no immediate complications [place] Baby Date of : 10/20/24 Time of : 07:28 Gestational Age by Date: 40 gender: Male presentation: vertex position: Right Occiput Anterior Placenta delivery description: Spontaneous Cord Vessel Description: 3 Vessels
--- NOTE | 2024-10-20 07:44 | PM.DS ---
DS: Admitting Diagnosis Discharge Date 10/21/2024 Admitting Diagnosis Term /previous section DS: Discharge Diagnosis Discharge Diagnosis (1) History of delivery: Code(s): Z98.891 - History of uterine scar from previous surgery Status: Acute (2) Term : Code(s): Z34.90 - Encounter for supervision of normal , unspecified, unspecified trimester Status: Acute DS: Summary Hospital Course Reason for hospitalization: Patient was admitted at 40-,4/7 weeks gestation active labor. She did previous section underwent spontaneous vaginal delivery with a successful on 10/20/2024 at 7:28 a.m.. Hospital Course: Patient's hospital course unremarkable. She remained afebrile. She was, voiding without difficulty,, ambulating, and generally without complaints. Time Spent with Patient Time attestation: Total time spent providing and/or coordinating discharge services: Exam Const: Orientation/consciousness: patient oriented x3 Other: Well-developed, well-nourished female in no acute distress. Neck: Thyroid: thyroid normal Lymphatic: no lymphadenopathy noted (in neck, axilla or inguinal nodes) Resp: Effort & Inspection: normal respiratory effort Auscultation: clear to auscultation bilaterally Cardio: Rate: regular rate Rhythm: regular rhythm Heart sounds: S1 normal heart sound present and S2 normal heart sound present GI: Other: ABD: Soft, nontender, nondistended, gravid. NST reactive. TOCO: contractions every 3-5 min. No guarding or rebound tenderness. No hepatosplenomegaly. : General: Yes no CVA tenderness Other: Cervix 5/100/-2. Vertex. BLE neg. Back/Spine/Pelvis: Back: no CVA tenderness Skin: General skin exam: normal color and no rashes or lesions noted Neuro: General: patient oriented x3 Extrem: Other: Extremities: nontender with no edema Psych: Mental Status: mental status grossly normal Affect: normal affect DS: Data Data Completed and Pending Labs on day of discharge: Labs from last 24 hours 10/19/24 10/19/24 22:49 17:08 WBC 13.2 H RBC 4.29 Hgb 11.5 L Hct 36.8 L MCV 85.8 MCH 26.8 MCHC 31.3 L RDW 14.6 H Plt Count 172 MPV 13.0 H Immature Gran % (Auto) 0.6 H Neut % (Auto) 83.9 H Lymph % (Auto) 8.0 L [place] % (Auto) 7.4 Eos % (Auto) 0.0 Baso % (Auto) 0.1 L Lymph # (Auto) 1.05 [place] # (Auto) 1.0 H Eos # (Auto) 0.0 Baso # (Auto) 0.0 Abs Immat Gran (auto) 0.08 H Absolute Neuts (auto) 11.1 H Absolute Nucleated RBC 0.000 Nucleated RBC % 0.0 Membranes Rupture Rom plus positive Syphilis IgG/IgM Ab Negative HIV 1&2 Ab/P24 Ag 4thGn Negative Blood Type A Positive Antibody Screen Negative Discharge Plan Discharge Attending physician on discharge: Davey Raya Discharging Clinician: Davey Raya Patient Disposition: Home Activity: may shower, no straining and pelvic rest Diet: heart healthy Wound Care Instructions: follow printed instructions Patient Instructions: Antibiotic Form Patient Language: Syrian Stand Alone Forms: General Discharge Information Follow-up/Referrals: Mariaa Cruz MD [Physician] - Discharge Medications: Continued PNV [id number] [ Multivitamins] 1 tablet PO DAILY valacyclovir 500 mg tablet 500 mg PO DAILY Date of admission: 10/19/24 11:41 Primary Care Provider: Gala,Shruthi Saucedo Admitting Provider: Mariaa Cruz Attending physician on admission: Mariaa Cruz Condition: Stable
[2024-10-20] MEDS: OXYTOCIN 30 UNITS/NS 500 ML 30 UNITS/500 ML BAG 125 UNITS IV CONT (08:12)
[2024-10-20] MEDS: IBUPROFEN 600 MG TABLET (08:13)
[2024-10-20] MEDS: ACETAMINOPHEN 325 MG TABLET 650 MG PO ×3 (09:53→21:10)
[2024-10-20] MEDS: SIMETHICONE 80 MG TAB.CHEW PO (09:53)
[2024-10-20] MEDS: DIBUCAINE 1% OINTMENT 30 GM TUBE 1 APPLIC TOPICAL (09:54)
[2024-10-20] MEDS: BENZOCAINE 20% AER SPR (*SP) 56 GM CAN 1 SPRAY TOPICAL (09:54)
[2024-10-20] MEDS: WITCH HAZEL 40 PADS 1 PAD TOPICAL (09:54)
--- NOTE | 2024-10-20 11:15 | OBPPTRN ---
Patient transferred to post room #276 via wheelchair. Support person present. Oriented to unit, room, information board, rooming in, admission packet and security measures. Patient verbalizes understanding.
[2024-10-20] MEDS: DOCUSATE SODIUM 100 MG CAPSULE PO (12:07)
[2024-10-20] MEDS: MULTIVIT/MIN/PREN/FOL AC/IRON TABLET 1 TAB PO (12:07)
--- NOTE | 2024-10-20 13:12 | PC.NURSE ---
Consulted with patient to assess needs related to . Discussed with mother her successes, concerns and any questions she has. We reviewed working with the , supporting breast, protecting her nipples with an optimal deep latch, good positioning, and good hand washing. Encouraged understanding the benefits of skin to skin, responding to feeding cues, frequencies of feeding 8-12 times in 24 hours (approximately 2-3 hours), duration of feedings, milk production, intake/output feeding sheet and signs of adequate intake encouraging swallowing at the breast. Reviewed positioning and alignment, supporting breast, off-centered (asymmetrical latch) and leading with the chin with big, open, wide gape. latched optimally to the [left] breast in [cross cradle] position. Education given to the mother of how to visualize the suckling (with good rocking jaw motion) swallows (dropping of the lower jaw) and how to listen for drinking at the breast (the ka sound). The was [able] to maintain latch without discomfort to mother. Nipple care reviewed with optimal latch, good positioning and using clean hands when touching her breast. Resources used to facilitate learning were used from the [visual handouts/ tool/mom and baby guide]. Mother voiced understanding of the education shared, to call for assistance if the infant does not latch or if there is discomfort with . Reported to the Primary RN.
[2024-10-20] MEDS: IBUPROFEN 600 MG TABLET PO ×2 (15:33→21:10)
[2024-10-21 04:00] VITALS: BP 100/56; PULSE 88; RESP 18; TEMP 36.6; O2SAT 100
[2024-10-21] MEDS: ACETAMINOPHEN 325 MG TABLET 650 MG PO ×2 (04:18→15:14)
[2024-10-21] MEDS: IBUPROFEN 600 MG TABLET PO ×2 (04:18→15:12)
[2024-10-21 05:29] LABS: Hemoglobin 8.5 g/dL (12.0-15.0)
--- NOTE | 2024-10-21 07:22 | P.PNOB_ITS ---
OB - PN: Subj Subjective Date/time seen: 10/21/24 07:22 Patient comments: no complaints, pain well controlled and tolerating diet [place] baby status: doing well OB - PN: Obj Data Labs 10/21/24 04:16 Labs: Laboratory Results - last 24 hr 10/21/24 04:16 Hgb 8.5 L D Hct 27.0 L OB - PN A/P Assessment and Plan (1) History of delivery: Code(s): Z98.891 - History of uterine scar from previous surgery Status: Acute (2) Term : Code(s): Z34.90 - Encounter for supervision of normal , unspecified, unspecified trimester Status: Acute Time Spent With Patient Time: Total time spent is greater than 50% in coordination of care (as documented) at patient's floor/unit and/or counseling patient: Review of Systems 2 Review of Systems: All systems reviewed & are unremarkable except as noted in HPI and below Exam 2 Const: Orientation/consciousness: patient oriented x3 Other: Well-developed, well-nourished female in no acute distress. Neck: Thyroid: thyroid normal Lymphatic: no lymphadenopathy noted (in neck, axilla or inguinal nodes) Resp: Effort & Inspection: normal respiratory effort Auscultation: clear to auscultation bilaterally Cardio: Rate: regular rate Rhythm: regular rhythm Heart sounds: S1 normal heart sound present and S2 normal heart sound present GI: Other: ABD: Soft, nontender, nondistended, gravid. NST reactive. TOCO: contractions every 3-5 min. No guarding or rebound tenderness. No hepatosplenomegaly. : General: Yes no CVA tenderness Other: Cervix 5/100/-2. Vertex. BLE neg. Back/Spine/Pelvis: Back: no CVA tenderness Skin: General skin exam: normal color and no rashes or lesions noted Neuro: General: patient oriented x3 Extrem: Other: Extremities: nontender with no edema Psych: Mental Status: mental status grossly normal Affect: normal affect
[2024-10-21 07:25] VITALS: BP 93/60; PULSE 80; RESP 16; TEMP 36.8; O2SAT 97
--- NOTE | 2024-10-21 08:09 | WPDANLDPN2 ---
Anes-Prog Note L&D Date/Time: 10/21/24 08:09 Comfortable throughout: labor and delivery Neuraxial method: epidural Epidural/Spinal procedure site: clean & non-tender Neuro status: Neuro function grossly intact. Cardiovascular status: normal Respiratory status: normal Airway patency: baseline Mental status: baseline Post-Op hydration status: normal Vital Signs: Last Vital Signs Temp 36.6 C 10/21/24 04:00 Pulse 88 10/21/24 04:00 Resp 18 10/21/24 04:00 BP 100/56 L 10/21/24 04:00 Pulse Ox 100 10/21/24 04:00 O2 Del Method Room Air 10/20/24 15:25 Pain score (VAS): 06/03 I/O: Intake & Output 10/20/24 10/21/24 10/21/24 23:59 07:59 15:59 Intake Total 0 Balance 0 Post-procedural complaints: none Patient feedback: Patient satisfied with anesthetic care.
[2024-10-21] MEDS: DOCUSATE SODIUM 100 MG CAPSULE PO ×2 (08:51→15:13)
[2024-10-21] MEDS: POLYSACCHARIDE IRON COMPLEX 150 MG CAPSULE PO ×2 (08:51→15:14)
[2024-10-21] MEDS: MULTIVIT/MIN/PREN/FOL AC/IRON TABLET 1 TAB PO (08:51)
[2024-10-21] MEDS: CYCLOBENZAPRINE HCL 5 MG TABLET PO (09:07)
--- NOTE | 2024-10-21 15:20 | PC.NURSE ---
1400. Mother verbalizes she is able to independently latch infant with appropriate positioning and alignment. She reports she breastfed her first child for 2.5 years. She denies any nipple discomfort and is responsively . is currently meeting outcomes for weight, output, jaundice, blood sugar and feeding frequencies of 8-12 times in 24 hours. Mother declines any additional assistance or education at this time. Mother is encouraged to call for assistance if her infant doesn?t latch, pain with latching, questions or concerns. Mother voiced understanding of information shared along with the mom/baby guide for an additional resource. Reported to the Primary RN.
[2024-10-21 19:43] VITALS: BP 94/59; PULSE 85; RESP 18; TEMP 37.1; O2SAT 96
[2024-10-21] MEDS: SIMETHICONE 80 MG TAB.CHEW PO (21:40)
[2024-10-22] MEDS: SIMETHICONE 80 MG TAB.CHEW PO (03:12)
[2024-10-22 07:33] VITALS: BP 97/53; PULSE 67; RESP 17; TEMP 36.2; O2SAT 97
[2024-10-22] MEDS: POLYSACCHARIDE IRON COMPLEX 150 MG CAPSULE PO (08:34)
[2024-10-22] MEDS: DOCUSATE SODIUM 100 MG CAPSULE PO (08:34)
[2024-10-22] MEDS: MULTIVIT/MIN/PREN/FOL AC/IRON TABLET 1 TAB PO (08:34)
--- NOTE | 2024-10-22 08:40 | PC.NURSE ---
Observed patient with baby latched to the right breast in cradle hold. She has some nipple soreness but not pain throughout feedings. 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 Parents are encouraged to take the feeding log and continue to track feedings and output for the first week . Offered outpatient resources with [place] referral and Services at [place]. Patient has the Mom/Baby Guide for further education and reference for common concerns, phone numbers, and guidance on when to call the doctor. A feeding plan was added to the ?s discharge plan. Patient states that she has no further questions or concerns regarding .???
--- NOTE | 2024-10-22 08:40 | P.PNOB_ITS ---
OB - PN: Subj Subjective Date/time seen: 10/22/24 08:40 Narrative: Pain OK. Would like to go home. OB - PN: Obj Data Labs 10/21/24 04:16 OB - PN A/P Plan Comments: A: PPD#2, doing well. P: Home to f/u 6 weeks. Exam 2 Psych: Other: AVSS ABD soft, nontender, fundus firm EXT nontender
[2024-10-24 10:22] VITALS: BP 104/61; PULSE 82; RESP 18; TEMP 36.4; O2SAT 100
== END 2024-10-22 10:58 | disposition home or self-care (01) | DRG 806 ==
LOC: ANHSURGERY 14:30 → ANHLDR 15:10 → ANHOB2 10-20 11:48 → ANHLDR 10-24 09:53 → ANHOB2 10-24 09:53
PROVIDERS: Admitting Provider Obstetrics & Gynecology; PCP Family Medicine; Visit Provider Obstetrics & Gynecology
DX: O34.219 Maternal care for unspecified type scar from previous cesarean delivery (principal); O98.52 Other viral diseases complicating childbirth; Z37.0 Single live birth; B00.9 Herpesviral infection, unspecified; O70.0 First degree perineal laceration during delivery; Z3A.40 40 weeks gestation of pregnancy; Z87.891 Personal history of nicotine dependence
CPT/HCPCS: 36415; 84112; 85014; 85018; 85025; 86593; 86703; 86850; 86900; 86901; A9270; G0432; J2405; J2590; J2795; J7120